=== PATIENT | male | born 1945 | race Caucasian/White ===

== ENCOUNTER 2020-06-10 08:57 | Outpatient (REF) | payer MEDICARE, SELFPAY ==
[2020-06-10 10:44] LABS: Estimated Average Glucose 117 mg/dL; Hemoglobin A1c % 5.7 %
[2020-06-10 11:02] LABS: Creatinine Urine 45.78 mg/dL; Microalbum/Creatinine Ratio Ur 56.7 ug/mg cr
[2020-06-10 11:05] LABS: Alanine Aminotransferase 23 U/L (0-40); Albumin Level 4.6 g/dL (3.5-5.0); Anion Gap 12 (12-20); Aspartate Amino Transferase 23 U/L (5-37); Bilirubin Total 0.6 mg/dL (0.0-1.0); Blood Urea Nitrogen 23 mg/dL (9-16); Calcium 9.2 mg/dL (8.4-10.2); Carbon Dioxide 26 mmol/L (22-29); Chloride 109 mmol/L (96-108); Estimated Glomerular Filt Rate 54; Glucose Random 126 mg/dL (60-115); Potassium 4.5 mmol/l (3.3-5.1); Sodium 142 mmol/L (135-145); Total Protein 6.9 g/dL (6.5-8.0)
[2020-06-10 11:06] LABS: Alkaline Phosphatase 62 U/L (39-117); Cholesterol 238 mg/dL; HDL Cholesterol 37 mg/dL; LDL Cholesterol Calculated 167 mg/dl; Triglycerides 172 mg/dL
[2020-06-10 12:05] LABS: Reflex LDLD? No
== END 2020-06-10 08:58 | disposition home or self-care (01) ==
LOC: HO.LAB 08:57
PROVIDERS: PCP Internal Medicine; Visit Provider Nurse Practitioner Gerontology
DX: E11.9 Type 2 diabetes mellitus without complications (principal)
CPT/HCPCS: 36415; 80053; 80061; 82043; 83036

== ENCOUNTER → 2020-06-16 12:55 | Outpatient (BNVA) | payer MEDICARE, SELFPAY | PROVIDERS: Visit Provider Internal Medicine | DX: E11.65 Type 2 diabetes mellitus with hyperglycemia (principal); E78.5 Hyperlipidemia, unspecified; I10 Essential (primary) hypertension; Z79.84 Long term (current) use of oral hypoglycemic drugs | CPT/HCPCS: 82947; 99214 ==

== ENCOUNTER 2020-09-19 11:09 | Outpatient (REF) | payer MEDICARE, SELFPAY | END 2020-09-19 11:10 | disposition home or self-care (01) | LOC: HO.LAB 11:09 | PROVIDERS: PCP Internal Medicine; Visit Provider Internal Medicine | DX: Z20.822 Contact with and (suspected) exposure to COVID-19 (principal) | CPT/HCPCS: 36415; C9803; U0003 ==

== ENCOUNTER 2021-02-03 08:58 | Outpatient (REF) | payer SELFPAY ==
--- NOTE | 2021-02-03 13:10 | MHC.AU.HAS ---
Hearing Aid Evaluation Date of Visit: 02/03/21 Social Sciences Chair Used: Not Applicable Historical Information: Description of Hearing: Left ear - Profound mixed hearing loss with 76% speech discrimination at 105 dB HL Right ear - Profound mixed hearing loss with 0% speech understanding Current personal amplification information, if applicable: 2017 Left Oticon OPN 3 Power Plus BTE with skeleton standard ear mold. Summary: Patient reports his current aid intermittently shuts off, goes through a series of beeps 3 times, and then turns back on. He is also unable to decrease the volume of the aid. Discussed sending aid in for repair with a charge of $315.00, but patient prefers to buy a new aid and use the current as a backup. Cleaned the aid, changed tubing, brushed and cleaned microphones and contacts. Discussed I am not sure if the cleaning will help with the intermittency problem. Patient was seen and tested by Dr. Monroy and given a medical clearance for left aid or CROS system. Patient prefers to stay with just a left Oticon hearing aid. Programmed his current aid to the updated hearing test with patient noting improved sound quality. Discussed the pros and cons of Oticon MORE RIUZ-R with power group cio and skeleton mold, vs the Oticon Exceed and traditional skeleton ear mold. Given the decent speech discrimination, discussed he may see improved clarity of speech with the RUIZ style and most updated hearing aid platform. Patient wants to continue with the same level of technology he has used. Took impression of the left ear without complication. Patient paid $500.00 deposit today. Hearing Aid Prescription: Based on the individual?s shared listening needs, communication environments, dexterity, desire for connectivity, and personal preferences, the following prescription for amplification has been made: Left ear: Glass Toughening Operator: Oticon Model: MORE 3 mini RITE-R Battery Size: Rechargeable Color: Steel Lr Embryology Teacher: #3 105 gain Type of Mold: Oticon Skeleton Lock mold Plan of Care: Patient wishes to purchase hearing aids as prescribed Action Taken/Action Needed: Earmold Impressions Taken Medical Clearance received from ENT Hearing Fitting to be scheduled when materials arrive Primary Diagnosis: H90.6 Bilateral mixed hearing loss Signature: Provider: Everett Mcclain, [facility]
== END 2021-02-03 08:59 | disposition home or self-care (01) ==
LOC: HO.HAP 08:58
PROVIDERS: Visit Provider Internal Medicine
DX: Z46.1 Encounter for fitting and adjustment of hearing aid (principal); H90.6 Mixed conductive and sensorineural hearing loss, bilateral
CPT/HCPCS: 92591; V5257; V5299

== ENCOUNTER 2021-02-17 15:09 | Outpatient (REF) | payer SELFPAY | END 2021-02-17 15:10 | disposition home or self-care (01) | LOC: HO.HAP 15:09 | PROVIDERS: Visit Provider Internal Medicine | DX: Z13.89 Encounter for screening for other disorder (principal) ==

== ENCOUNTER 2021-02-22 11:30 | Outpatient (REF) | payer SELFPAY | END 2021-02-22 11:31 | disposition home or self-care (01) | LOC: HO.HAP 11:30 | PROVIDERS: Visit Provider Internal Medicine | DX: Z13.89 Encounter for screening for other disorder (principal) ==

== ENCOUNTER 2021-03-08 13:50 | Outpatient (REF) | payer SELFPAY | END 2021-03-08 13:51 | disposition home or self-care (01) | LOC: HO.HAP 13:50 | PROVIDERS: Visit Provider Internal Medicine | DX: Z13.89 Encounter for screening for other disorder (principal) ==

== ENCOUNTER 2021-03-09 10:43 | Outpatient (REF) | payer SELFPAY | END 2021-03-09 10:44 | disposition home or self-care (01) | LOC: HO.HAP 10:43 | PROVIDERS: Visit Provider Internal Medicine | DX: Z13.89 Encounter for screening for other disorder (principal) ==

== ENCOUNTER 2021-03-22 08:56 | Outpatient (REF) | payer SELFPAY | END 2021-03-22 08:57 | disposition home or self-care (01) | LOC: HO.HAP 08:56 | PROVIDERS: Visit Provider Internal Medicine | DX: Z13.89 Encounter for screening for other disorder (principal) ==

== ENCOUNTER 2021-04-11 08:53 | Outpatient (REF) | payer SELFPAY | END 2021-04-11 08:54 | disposition home or self-care (01) | LOC: HO.HAP 08:53 | PROVIDERS: Visit Provider Internal Medicine | DX: Z13.89 Encounter for screening for other disorder (principal) ==

== ENCOUNTER 2021-04-18 09:51 | Outpatient (REF) | payer SELFPAY | END 2021-04-18 09:52 | disposition home or self-care (01) | LOC: HO.HAP 09:51 | PROVIDERS: Visit Provider Otolaryngology | DX: Z13.89 Encounter for screening for other disorder (principal) ==

== ENCOUNTER 2021-05-04 13:27 | Outpatient (REF) | payer SELFPAY ==
--- NOTE | 2021-05-04 14:54 | MHC.AU.FUL ---
Hearing Instrument Follow-Up Date of Visit: 05/04/21 Left Ear: Supervisor Garage: Oticon Model: MORE 3 miniRITE-R Serial Number: [id number] Repair Warranty: 03/16/2024 Loss and Damage Warranty: 03/16/2024 Battery Size: Rechargeable Color: Steel Lr Railroad Dining Car Steward/Stewardess: #3 105 gain Type of Mold: Oticon Canal mold SN: [id number] Warranty 03/16/2024 Type of Wax Guard: Prowax Dispensed By: [facility] Date of Fittin02/17/2021 Follow-Up Summary: Patient is experiencing 2 problems. First, the new left ultra power hard mold remake is causing irritation at the bottom of the canal. Ground down the mold with patient reporting some improvement; however, since the irritation is still there it is difficult to determine so he will try it for a few days. The second problem is the quality of sound becomes distorted and bothersome with louder speech. Datalogging shows he consistently decreased the volume control about 10 dB. Tried several programming changes including increasing MPO, changing Compression Ratios, with some improved comfort; however, continues to distort with loud voice while in office. Patient would like to try the traditional Power BTE style. Ordered left Oticon Xceed 3 BTE SP in Steel Lr. Extended the trial period for the More 3 mini RITE-R and architecture drafter until 07/17/2021 per Franco. Recommendations (Other): Schedule HAF when aid is received. REMIND PATIENT TO BRING IN OLD EARMOLD(S) FOR THE NEXT APPOINTMENT. Diagnosis Code(s): Primary Diagnosis: H90.6 Mixed Hearing Loss, Bilateral Services Performed: BUSTILLOS Non-Quantity Charges: HANC: NonBillable Event Signature: Provider: Addy Mcclain, CCC-A
== END 2021-05-04 13:28 | disposition home or self-care (01) ==
LOC: HO.HAP 13:27
PROVIDERS: Visit Provider Internal Medicine
DX: Z13.89 Encounter for screening for other disorder (principal)

== ENCOUNTER 2021-05-10 15:26 | Outpatient (REF) | payer SELFPAY | END 2021-05-10 15:27 | disposition home or self-care (01) | LOC: HO.HAP 15:26 | PROVIDERS: Visit Provider Internal Medicine | DX: Z46.1 Encounter for fitting and adjustment of hearing aid (principal); H90.6 Mixed conductive and sensorineural hearing loss, bilateral | CPT/HCPCS: 92591; V5257 ==

== ENCOUNTER 2021-05-26 11:39 | Outpatient (REF) | payer SELFPAY ==
--- NOTE | 2021-05-26 13:56 | MHC.AU.FUL ---
Hearing Instrument Follow-Up Date of Visit: 05/26/21 Left Ear: Spice Grinder: Oticon Model: Xceed 3 BTE 13 SP Serial Number: [id number] Repair Warranty: 06/03/2024 Loss and Damage Warranty: 06/03/2024 Battery Size: 13 Color: Steel Lr Rn Employee Health: 2018 Microsonic canal lock Tubing: Dri-Tube Type of Mold: Oticon Canal mold SN: [id number] Warranty 03/16/2024 Dispensed By: [facility] Date of Fittin05/10/2021 Follow-Up Summary: Patient reports the hearing aid is great . Sound and fit are comfortable. No adjustments are needed. Took impression of the left ear without complication as a mold comes with the hearing aid cost and patient is currently using his 2018 canal lock mold. Recommendations (Other): Schedule EM fitting when received. Diagnosis Code(s): Primary Diagnosis: H90.6 Mixed Hearing Loss, Bilateral Services Performed: BUSTILLOS Non-Quantity Charges: HANC: NonBillable Event Signature: Provider: Everett Mcclain, CCC-A
== END 2021-05-26 11:40 | disposition home or self-care (01) ==
LOC: HO.HAP 11:39
PROVIDERS: Visit Provider Internal Medicine
DX: Z13.89 Encounter for screening for other disorder (principal)

== ENCOUNTER 2021-06-12 14:28 | Outpatient (REF) | payer SELFPAY | END 2021-06-12 14:29 | disposition home or self-care (01) | LOC: HO.HAP 14:28 | PROVIDERS: Visit Provider Internal Medicine | DX: Z13.89 Encounter for screening for other disorder (principal) ==

== ENCOUNTER 2021-06-28 11:59 | Outpatient (REF) | payer MEDICARE, SELFPAY ==
[2021-06-28 14:33] LABS: Influenza A PCR NEGATIVE (Negative); Influenza B PCR NEGATIVE (Negative); Resp Syncy Virus RNA Qual PCR NEGATIVE (Negative); SARS COV2 PCR INHOUSE NEGATIVE (Negative)
== END 2021-06-28 12:00 | disposition home or self-care (01) ==
LOC: HO.LAB 11:59
PROVIDERS: Visit Provider Physician Assistant Medical
DX: Z20.822 Contact with and (suspected) exposure to COVID-19 (principal); J06.9 Acute upper respiratory infection, unspecified
CPT/HCPCS: 0241U; 36415

== ENCOUNTER 2021-08-07 14:00 | Outpatient (REF) | payer SELFPAY | END 2021-08-07 14:01 | disposition home or self-care (01) | LOC: HO.HAP 14:00 | PROVIDERS: Visit Provider Internal Medicine | DX: Z46.1 Encounter for fitting and adjustment of hearing aid (principal) | CPT/HCPCS: V5266 ==

== ENCOUNTER 2022-04-03 09:59 | Outpatient (REF) | payer SELFPAY | END 2022-04-03 10:00 | disposition home or self-care (01) | LOC: HO.HAP 09:59 | PROVIDERS: Visit Provider Internal Medicine | DX: Z46.1 Encounter for fitting and adjustment of hearing aid (principal); H90.6 Mixed conductive and sensorineural hearing loss, bilateral | CPT/HCPCS: V5266 ==

== ENCOUNTER 2022-04-25 14:02 | Outpatient (REF) | payer MEDICARE, SELFPAY ==
[2022-04-25 14:12] LABS: MANUAL DIFF FLAG NO
[2022-04-25 15:07] LABS: Basophils Percent Auto 0.5 % (0-2); Eosinophils Absolute Auto 0.1 X10*3/uL (0.0-0.4); Eosinophils Percent Auto 1.1 % (0-4); Hematocrit 39.7 % (42.0-52.0); Hemoglobin 13.7 g/dl (14.0-18.0); Imm Gran Abs Auto 0.04 X10*3/uL (0.00-0.03); Imm Gran Pct Auto 0.5 % (0.0-0.4); Lymphocytes Percent Auto 11.9 % (20-40); Mean Corpuscular HGB Conc 34.5 g/dl (31.0-36.0); Mean Corpuscular Hemoglobin 30.6 pg (27.0-33.0); Mean Corpuscular Volume 88.8 fL (80.0-98.0); Mean Platelet Volume 11.4 fL (9.4-12.4); Monocytes Absolute Auto 0.7 X10*3/uL (0.1-1.2); Monocytes Percent Auto 8.2 % (2-11); Neutrophils Absolute Auto 6.5 x10*3/uL (2.0-8.3); Neutrophils Percent Auto 77.8 % (45-73); Platelet Count 153 X10*3/uL (160-400); Red Blood Count 4.47 X10*6/uL (4.60-5.80); Red Cell Distribution Width 12.1 % (11.0-16.0); White Blood Count 8.3 X10*3/uL (4.8-10.8)
[2022-04-25 15:59] LABS: Alanine Aminotransferase 23 U/L (0-40); Albumin Level 4.6 g/dL (3.5-5.0); Alkaline Phosphatase 68 U/L (39-117); Anion Gap 18 (12-20); Aspartate Amino Transferase 24 U/L (5-37); Bilirubin Total 0.6 mg/dL (0.0-1.0); Blood Urea Nitrogen 30 mg/dL (9-16); Calcium 9.5 mg/dL (8.4-10.2); Carbon Dioxide 20 mmol/L (22-29); Chloride 108 mmol/L (96-108); Cholesterol 243 mg/dL; Estimated Glomerular Filt Rate 43; Glucose Fasting 139 mg/dL (60-99); HDL Cholesterol 35 mg/dL; LDL Cholesterol Calculated 160 mg/dl; Potassium 4.7 mmol/L (3.3-5.1); Sodium 141 mmol/L (135-145); Total Protein 6.9 g/dL (6.5-8.0); Triglycerides 244 mg/dL
[2022-04-25 16:03] LABS: Appearance Urine Clear; Color Urine Red; Glucose Urine UA Negative (Negative); Leukocyte Esterase Urine Small (1+) (Negative); Nitrite Urine Negative (Negative); Urine Blood Large (3+) (Negative); Urine Ketones Negative (Negative); Urine Protein 100 (2+) mg/dL (Neg-Trace)
[2022-04-25 16:16] LABS: Bacteria Urine None Seen (None Seen); Hyaline Casts Urine 0-2 /LPF (0-2); RBC Urine >20 /HPF (0-2); Squamous Epithelial Cell Urine 0-2 /HPF (0-2); UACC Culture Trigger YES; WBC Urine 0-5 /HPF (0-5)
== END 2022-04-25 14:03 | disposition home or self-care (01) ==
LOC: HO.LAB 14:02
PROVIDERS: PCP Internal Medicine; Visit Provider Internal Medicine
DX: Z13.0 Encounter for screening for diseases of the blood and blood-forming organs and certain disorders involving the immune mechanism (principal); I10 Essential (primary) hypertension; E78.5 Hyperlipidemia, unspecified
CPT/HCPCS: 36415; 80053; 80061; 81001; 81003; 85025; 87086

== ENCOUNTER 2022-06-08 12:34 | Outpatient (REF) | payer MEDICARE, SELFPAY ==
[2022-06-08 14:43] LABS: Anion Gap 20 (12-20); Carbon Dioxide 21 mmol/L (22-29); Chloride 101 mmol/L (96-108); Potassium 4.7 mmol/L (3.3-5.1); Sodium 137 mmol/L (135-145)
== END 2022-06-08 12:35 | disposition home or self-care (01) ==
LOC: HO.HMGCLDS 12:34
PROVIDERS: PCP Internal Medicine
DX: M62.838 Other muscle spasm (principal)
CPT/HCPCS: 36415; 80051

== ENCOUNTER 2022-06-23 08:33 | Emergency (ER) | payer MEDICARE, SELFPAY ==
--- NOTE | ~2022-06-23 | US_ITS ---
EXAMINATION: US SCROTUM CLINICAL INFORMATION: Right testicular pain.. COMPARISON: None TECHNIQUE: A sonogram of the scrotum was performed assessing houser-scale appearance and color Doppler flow. Spectral Doppler analysis of the arterial and venous flow were performed in the testes bilaterally. FINDINGS: RIGHT: Right testicle measures 4.7 x 2.3 x 2.3 cm, volume 13.2 mL. No focal testicular parenchymal lesions are visualized. Spectral Doppler analysis of the arterial and venous flow is normal in the right testis. Right epididymal head is normal in size. No varicocele is seen. Right epididymal Doppler flow is normal. There is a small right hydrocele with septations. LEFT: Left testicle measures 4.6 x 2.3 x 2.4 cm, volume 13.7 mL. No focal testicular parenchymal lesions are visualized. Spectral Doppler analysis of the arterial and venous flow is normal in the left testis. Left epididymal head is normal in size. No left hydrocele . Left epididymal Doppler flow is normal. There is a small left varicocele. US/US scrotum IMPRESSION: Normal bilateral testes and epididymides. Complex right small hydrocele. Left varicocele.
--- NOTE | ~2022-06-23 | CT_ITS ---
EXAMINATION: CT ABDOMEN AND PELVIS WITHOUT CONTRAST CLINICAL INFORMATION: Right lower quadrant/suprapubic abdominal pain radiating to right scrotum. Hematuria. COMPARISON: None. TECHNIQUE: Multidetector volumetric imaging was performed from the superior aspect of the liver through the pubic symphysis. Sagittal and coronal reformatted images were obtained on the technologist workstation. This CT examination was performed using dose optimization techniques as appropriate, variously including the following: *Automated exposure control *Adjustment of mA and/or kV according to patient size (this includes techniques or standardized protocols for targeted exams where dose is matched to indication/reason for exam; i.e. extremities or head) *Use of iterative reconstruction technique DLP: 544 mGy-cm. FINDINGS: LUNG BASES: There is moderate paraseptal and centrilobular emphysema in the included lung bases. There are also multifocal superimposed regions of peripheral subpleural reticulation and honeycomb cyst formation in dependent and nondependent portions of the included right middle lobe, lingula and both lower lobes, consistent with superimposed interstitial lung disease and fibrosis. A small retrocardiac hiatal hernia is noted. LIVER, GALLBLADDER, AND BILIARY TREE: The liver is normal in size, shape, and attenuation. No focal hepatic lesion on noncontrast imaging. No biliary ductal dilatation is present. The gallbladder is unremarkable with no evidence of radiopaque gallstones, gallbladder wall thickening, or obvious pericholecystic inflammatory changes. PANCREAS: Diffusely atrophic with fatty infiltration throughout the parenchyma. There are coarse calcific densities seen in the pancreatic head and scattered in the body and tail, suggestive of prior chronic calcific pancreatitis. No definite focal pancreatic mass seen on noncontrast imaging. No pancreatic ductal dilatation or peripancreatic fluid collection seen. SPLEEN: Small calcified granuloma is seen within the spleen. Spleen is otherwise unremarkable. ADRENAL GLANDS: Unremarkable on noncontrast imaging. KIDNEYS AND URETERS: The kidneys are normal in size, shape, and attenuation. No hydronephrosis, hydroureter, or calculi seen. Nonspecific mild perinephric stranding. BLADDER: Unremarkable. PELVIC VISCERA: The prostate gland is enlarged and heterogeneous and partially impresses upon the bladder base. Seminal vesicles bilaterally are symmetric and unremarkable. GASTROINTESTINAL TRACT: The small and large bowel are unremarkable. The appendix is unremarkable. ABDOMINAL WALL: There is a small fat-containing umbilical hernia. LYMPH NODES, VASCULAR: Abdominal aorta normal in caliber with moderate atherosclerotic calcification seen extending into the iliac vessels. No abdominal or pelvic adenopathy or free fluid. OSSEOUS STRUCTURES: Multilevel degenerative disc disease and mild vertebral spondylosis in lumbar spine. Prominent spurring in the lower thoracic spine with relative preservation of the disc space height, suspicious for diffuse idiopathic skeletal hyperostosis. Moderate facet arthropathy in lower lumbar spine.. CT/CT abdomen pelvis wo IV con IMPRESSION: 1. No acute findings seen in the right lower quadrant or suprapubic region to explain the patient's acute clinical presentation. Specifically, no evidence of nephrolithiasis or obstructive uropathy. 2. Moderate emphysema with associated interstitial lung disease and fibrosis in the included lung bases are laterally. Findings may be related to respiratory bronchiolitis-interstitial lung disease or smoking-related interstitial lung disease. Close clinical correlation is requested. 3. Findings consistent with chronic calcific pancreatitis. 4. Enlarged heterogeneous prostate gland. 5. Moderate atherosclerotic aortic calcifications. 6. Small fat-containing umbilical hernia.
--- NOTE | ~2022-06-23 | US_ITS ---
EXAMINATION: US SCROTUM CLINICAL INFORMATION: Right testicular pain.. COMPARISON: None TECHNIQUE: A sonogram of the scrotum was performed assessing houser-scale appearance and color Doppler flow. Spectral Doppler analysis of the arterial and venous flow were performed in the testes bilaterally. FINDINGS: RIGHT: Right testicle measures 4.7 x 2.3 x 2.3 cm, volume 13.2 mL. No focal testicular parenchymal lesions are visualized. Spectral Doppler analysis of the arterial and venous flow is normal in the right testis. Right epididymal head is normal in size. No varicocele is seen. Right epididymal Doppler flow is normal. There is a small right hydrocele with septations. LEFT: Left testicle measures 4.6 x 2.3 x 2.4 cm, volume 13.7 mL. No focal testicular parenchymal lesions are visualized. Spectral Doppler analysis of the arterial and venous flow is normal in the left testis. Left epididymal head is normal in size. No left hydrocele . Left epididymal Doppler flow is normal. There is a small left varicocele. US/US scrotum doppler IMPRESSION: Normal bilateral testes and epididymides. Complex right small hydrocele. Left varicocele.
[2022-06-23 08:46] VITALS: BP 140/82; BP 151/63; PULSE 64; PULSE 67; RESP 16; TEMP 36.6; O2SAT 98; BMI 28.4
--- NOTE | 2022-06-23 08:52 | ED.MALEGU ---
HPI - Male Genitourinary General Chief complaint: Urogenital-Male Stated complaint: muscle spasms Time Seen by Provider: 06/23/22 08:37 Source: patient and EMS Mode of arrival: EMS History of Present Illness HPI Narrative: 77-year-old male with a past medical history of HLD, HTN, interstitial lung disease, muscle spasms, diabetes, presenting to the ED complaining of suprapubic/RLQ abdominal pain and right scrotal pain with microscopic hematuria since yesterday. Admits was seen at urgent care yesterday for similar symptoms and told about the hematuria, recommended urology follow-up. Denies fever, chills, nausea, vomiting, scrotal swelling/lesions, penile discharge, trauma, dysuria, flank pain MD Complaint: testicle pain Onset (ago): day(s) Related Data Home Medications Medication Instructions Recorded Confirmed acetaminophen 500 mg tablet 500 mg PO Q6H PRN 12/29/21 04/25/22 (Tylenol Extra Strength) Previous Rx's Medication Instructions Recorded fluticasone propionate 50 2 spray intranasal DAILY 1 month 12/29/21 mcg/actuation nasal #16 grams spray,suspension (Allergy Relief (fluticasone)) loratadine 10 mg tablet (Allergy 10 mg PO DAILY #90 tabs 12/29/21 Relief (loratadine)) baclofen 5 mg tablet 5 mg PO TID PRN muscle spasms #10 06/08/22 tabs phenazopyridine 200 mg tablet 200 mg PO TID PRN pain 6 doses #6 06/23/22 (Pyridium) tabs Allergies Allergy/AdvReac Type Severity Reaction Status Date / Time No Known Allergies Allergy Verified 06/22/22 15:15 Review of Systems Review of Systems: Constitutional: No Fever, No Chills, No Fatigue, No Malaise ENT/Mouth: No Hearing loss, No Ear Pain, No Hoarseness, No sore throat, No Rhinorrhea, No Swallowing Difficulty Eyes: No Eye Pain, No Swelling, No Redness Cardiovascular: No Chest Pain, No SOB, No Dyspnea on Exertion, No Edema, No Palpitations Respiratory: No Cough, No Sputum, No Dyspnea Gastrointestinal: No Nausea, No Vomiting, No Diarrhea, No Constipation, + Abdominal pain Genitourinary: + scrotal pain, No Dysuria, No Urinary Frequency, + Hematuria, No Urinary Incontinence/retention, No Urgency, No Flank Pain, No Urinary Flow Changes, No Hesitancy Musculoskeletal: No joint pain, No Myalgias, No Joint Swelling Skin: No Skin Lesions, No rash Neuro: No Weakness, No Numbness, No Dizziness, No Headache Yes all other systems are reviewed and are negative Constitutional: Constitutional: Reports as per [facility] Past Medical History Attestation statement: The following information was validated with the patient. Medical History Cataracts, bilateral HLD (hyperlipidemia) HTN (hypertension) Interstitial lung disease Muscle spasms of both lower extremities T2DM (type 2 diabetes mellitus) Surgical History Hx of sinus surgery Family History Family History Father Stomach cancer Mother No problems noted. Social History Social History Housing: Condominium Alcohol intake: current Alcohol intake frequency: 0-2 drinks per day Alcohol type: wine Patient Tobacco Use Status: Former Tobacco user Years Smoked: 60 years e-Cigarette/Vaping Use: Never Used Second Hand Smoke Exposure: No Advance Directives: No Advance Directives Information Provided: Yes service: No Current occupational status: employed Cognitive needs: No Hearing needs: No Vision needs: No Physical Exam Vital Signs: Vital Signs: Last Vital Signs Temp 97.9 F 06/23/22 08:46 Pulse 71 06/23/22 10:29 Resp 18 06/23/22 10:29 BP 138/70 06/23/22 10:29 Pulse Ox 98 06/23/22 10:29 O2 Del Method 06/23/22 10:29 BMI result Body Mass Index 28.4 Const: General: cooperative, healthy appearing and no acute distress Orientation/consciousness: patient oriented x3 Limitations: no limitations HEENT: Head: Yes normal to inspection and Yes atraumatic Ears: hearing grossly normal bilaterally General nose exam: Normal external nose present Face and sinus: Yes normal facial exam Eyes: General: appearance normal, both eyes and all related structures EOM: EOMs intact bilaterally Neck: Neck: Yes normal visual inspection and Yes no meningeal signs Resp: Effort & Inspection: normal respiratory effort and no respiratory distress Cardio: Rate: regular rate Heart sounds: S1 normal heart sound present and S2 normal heart sound present GI: Inspection: Yes normal to inspection Palpation (GI): Soft to palpation, Tenderness to palpation present (GI) in the RLQ and suprapubicly; with no rebound tenderness, no guarding and not rigid : General: Yes no CVA tenderness Male General Exam: No hernia Penis: uncircumcised Testes: no masses, no testicular swelling, testicular tenderness on the right and normal testicular lie Back/Spine/Pelvis: Back: no CVA tenderness Skin: Rashes: no rashes Wounds: no wounds Neuro: General: patient oriented x3, tone normal and no meningeal signs Gait exam (Neuro): Normal gait present Extrem: General: Yes normal to inspection Course Course Course Narrative: -1115--labs unremarkable urine CT abdomen pelvis wo IV con IMPRESSION: ? 1. No acute findings seen in the right lower quadrant or suprapubic region to explain the patient's acute clinical presentation. Specifically, no evidence of nephrolithiasis or obstructive uropathy. 2. Moderate emphysema with associated interstitial lung disease and fibrosis in the included lung bases are laterally. Findings may be related to respiratory bronchiolitis-interstitial lung disease or smoking-related interstitial lung disease. Close clinical correlation is requested. 3. Findings consistent with chronic calcific pancreatitis. 4. Enlarged heterogeneous prostate gland. 5. Moderate atherosclerotic aortic calcifications. 6. Small fat-containing umbilical hernia. -UA with blood, not infected US scrotum IMPRESSION: Normal bilateral testes and epididymides. ? Complex right small hydrocele. ? Left varicocele. > patient reports he has follow-up with Urology on the . Results discussed with patient including worrisome signs and symptoms and strict return precautions, and when to return to the emergency department. They verbalized understanding and feel safe for discharge at this time. MDM - Male Genitourinary MDM Narrative Medical decision making narrative: 77-year-old male with a past medical history of HLD, HTN, interstitial lung disease, muscle spasms, diabetes, presenting to the ED complaining of suprapubic/RLQ abdominal pain and right scrotal pain with microscopic hematuria since yesterday. On exam vital signs stable, NAD, nontoxic appearing, abdomen soft with suprapubic/RLQ tenderness as well as right scrotal tenderness, no rebound or guarding, no regional hernia/lesions. No CVA tenderness. Concern for renal stone vs ? Pyelo/UTI vs appendicitis vs testicular torsion or orchitis/epididymitis. Lower suspicion for cholecystitis/lithiasis/pancreatitis or diverticulitis. Plan: Labs, UA, CT/NG, scrotal ultrasound, CT AP, IVF, pain management Differential Diagnosis Differential diagnosis: Likely urinary tract infection, epididymitis, prostatitis and inguinal hernia Medical Records Attestation: I reviewed the patient's medical records. Lab Data Attestation: I reviewed the patient's lab results. Result diagrams: 06/23/22 09:20 06/23/22 09:20 Labs: Lab Results 06/23/22 06/23/22 06/23/22 Range/Units 09:20 09:20 09:20 WBC 5.5 (4.8-10.8) X10*3/uL RBC 4.70 (4.60-5.80) X10*6/uL Hgb 14.1 (14.0-18.0) g/dl Hct 41.0 L (42.0-52.0) % MCV 87.2 (80.0-98.0) fL MCH 30.0 (27.0-33.0) pg MCHC 34.4 (31.0-36.0) g/dl RDW 12.0 (11.0-16.0) % Plt Count 148 L (160-400) X10*3/uL MPV 10.5 (9.4-12.4) fL Immature Gran % (Auto) 0.4 (0.0-0.4) % Neut % (Auto) 73.4 H (45-73) % Lymph % (Auto) 16.2 L (20-40) % [place] % (Auto) 8.2 (2-11) % Eos % (Auto) 1.3 (0-4) % Baso % (Auto) 0.5 (0-2) % Lymph # (Auto) 0.9 L (1.2-4.9) X10*3/uL [place] # (Auto) 0.5 (0.1-1.2) X10*3/uL Eos # (Auto) 0.1 (0.0-0.4) X10*3/uL Baso # (Auto) 0.0 (0.0-0.2) X10*3/uL Abs Immat Gran (auto) 0.02 (0.00-0.03) X10*3/uL Absolute Neuts (auto) 4.0 (2.0-8.3) x10*3/uL Absolute Nucleated RBC 0.000 (0.0-0.012) X10*3/uL Nucleated RBC % (auto) 0.0 (0.0-0.2) /100WBC Sodium 136 (135-145) mmol/L Potassium 4.3 (3.3-5.1) mmol/L Chloride 102 (96-108) mmol/L Carbon Dioxide 23 (22-29) mmol/L Anion Gap 15 (12-20) BUN 20 H (9-16) mg/dL Creatinine 1.34 (0.5-1.4) mg/dL Estim Creat Clear Calc 45.9 Estimated GFR 51 Random Glucose 177 H D (60-115) mg/dL Calcium 9.4 (8.4-10.2) mg/dL Magnesium 2.0 (1.6-2.6) mg/dL Total Bilirubin 0.7 (0.0-1.0) mg/dL Direct Bilirubin 0.2 (0.0-0.5) mg/dL AST 23 (5-37) U/L ALT 21 (0-40) U/L Alkaline Phosphatase 66 (39-117) U/L Total Protein 7.1 (6.5-8.0) g/dL Albumin 4.5 (3.5-5.0) g/dL Lipase 23 (8-78) U/L Urine Color Urine Appearance Urine pH (5.0-9.0) Ur Specific [place] (1.005-1.025) Urine Protein (Neg-Trace) mg/dL Urine Glucose (UA) (Negative) mg/dL Urine Ketones (Negative) mg/dL Urine Blood (Negative) Urine Nitrite (Negative) Ur Leukocyte Esterase (Negative) Urine RBC (0-2) /HPF Urine WBC (0-5) /HPF Ur Squamous Epith Cells (0-2) /HPF Urine Bacteria (None Seen) Hyaline Casts (0-2) /LPF COVID-19 ([facility]) Negative (Negative) COVID-19 Clin Com See Note 06/23/22 Range/Units 11:01 WBC (4.8-10.8) X10*3/uL RBC (4.60-5.80) X10*6/uL Hgb (14.0-18.0) g/dl Hct (42.0-52.0) % MCV (80.0-98.0) fL MCH (27.0-33.0) pg MCHC (31.0-36.0) g/dl RDW (11.0-16.0) % Plt Count (160-400) X10*3/uL MPV (9.4-12.4) fL Immature Gran % (Auto) (0.0-0.4) % Neut % (Auto) (45-73) % Lymph % (Auto) (20-40) % [place] % (Auto) (2-11) % Eos % (Auto) (0-4) % Baso % (Auto) (0-2) % Lymph # (Auto) (1.2-4.9) X10*3/uL [place] # (Auto) (0.1-1.2) X10*3/uL Eos # (Auto) (0.0-0.4) X10*3/uL Baso # (Auto) (0.0-0.2) X10*3/uL Abs Immat Gran (auto) (0.00-0.03) X10*3/uL Absolute Neuts (auto) (2.0-8.3) x10*3/uL Absolute Nucleated RBC (0.0-0.012) X10*3/uL Nucleated RBC % (auto) (0.0-0.2) /100WBC Sodium (135-145) mmol/L Potassium (3.3-5.1) mmol/L Chloride (96-108) mmol/L Carbon Dioxide (22-29) mmol/L Anion Gap (12-20) BUN (9-16) mg/dL Creatinine (0.5-1.4) mg/dL Estim Creat Clear Calc Estimated GFR Random Glucose (60-115) mg/dL Calcium (8.4-10.2) mg/dL Magnesium (1.6-2.6) mg/dL Total Bilirubin (0.0-1.0) mg/dL Direct Bilirubin (0.0-0.5) mg/dL AST (5-37) U/L ALT (0-40) U/L Alkaline Phosphatase (39-117) U/L Total Protein (6.5-8.0) g/dL Albumin (3.5-5.0) g/dL Lipase (8-78) U/L Urine Color Yellow Urine Appearance Clear Urine pH 6.5 (5.0-9.0) Ur Specific [place] <= 1.005 (1.005-1.025) Urine Protein Negative (Neg-Trace) mg/dL Urine Glucose (UA) Negative (Negative) mg/dL Urine Ketones Negative (Negative) mg/dL Urine Blood Large (3+) H (Negative) Urine Nitrite Negative (Negative) Ur Leukocyte Esterase Negative (Negative) Urine RBC 11-20 H (0-2) /HPF Urine WBC 0-5 (0-5) /HPF Ur Squamous Epith Cells 0-2 (0-2) /HPF Urine Bacteria None Seen (None Seen) Hyaline Casts 0-2 (0-2) /LPF COVID-19 ([facility]) (Negative) COVID-19 Clin Com Discharge Plan Discharge Clinical Impression: Hydrocele, right, Microscopic hematuria Patient Disposition: Home, Self-Care Instructions: Hydrocele (ED), Hematuria (ED) Additional Instructions: -Your blood work was reassuring. Your CT did not show any acute findings. -your ultrasound shows a small right-sided complex hydrocele. your urine has microscopic blood however is not infected, we will send a urine culture, if this is positive we will call you in the next 48-72 hours. -Pyridium will help with urinary discomfort. -You need to follow-up with urology If symptoms persist or worsen, you develop constant/unremitting pain, you are unable to urinate, you seem a bloody urine, high fever please return to the emergency department Prescriptions: New phenazopyridine [Pyridium] 200 mg tablet 200 mg PO TID PRN (Reason: pain) Qty: 6 0RF No Action fluticasone propionate [Allergy Relief (fluticasone)] 50 mcg/actuation spray,suspension 2 spray intranasal DAILY 30 Days Qty: 16 3RF Rx Instructions: administer into each nostril loratadine [Allergy Relief (loratadine)] 10 mg tablet 10 mg PO DAILY Qty: 90 1RF acetaminophen [Tylenol Extra Strength] 500 mg tablet 500 mg PO Q6H PRN baclofen 5 mg tablet 5 mg PO TID PRN (Reason: muscle spasms) Qty: 10 0RF Referrals: [facility] [place] Group] [facility] [Provider Group]
[2022-06-23] MEDS: Morphine Sulfate 2 MG/ML CARTRIDGE IVPUSH (09:28)
[2022-06-23] MEDS: 0.9 % Sodium Chloride 1,000 ML 999 ML IV (09:29)
[2022-06-23 09:34] LABS: MANUAL DIFF FLAG NO
[2022-06-23 09:36] LABS: Basophils Percent Auto 0.5 % (0-2); Eosinophils Absolute Auto 0.1 X10*3/uL (0.0-0.4); Eosinophils Percent Auto 1.3 % (0-4); Hemoglobin 14.1 g/dl (14.0-18.0); Imm Gran Abs Auto 0.02 X10*3/uL (0.00-0.03); Imm Gran Pct Auto 0.4 % (0.0-0.4); Lymphocytes Absolute Auto 0.9 X10*3/uL (1.2-4.9); Lymphocytes Percent Auto 16.2 % (20-40); Mean Corpuscular HGB Conc 34.4 g/dl (31.0-36.0); Mean Corpuscular Volume 87.2 fL (80.0-98.0); Mean Platelet Volume 10.5 fL (9.4-12.4); Monocytes Absolute Auto 0.5 X10*3/uL (0.1-1.2); Monocytes Percent Auto 8.2 % (2-11); Neutrophils Percent Auto 73.4 % (45-73); Platelet Count 148 X10*3/uL (160-400); White Blood Count 5.5 X10*3/uL (4.8-10.8)
[2022-06-23 09:51] LABS: COVID-19 Test Negative (Negative); IDNOW Serial# 16C4AD1C
[2022-06-23 09:55] LABS: Alanine Aminotransferase 21 U/L (0-40); Albumin Level 4.5 g/dL (3.5-5.0); Alkaline Phosphatase 66 U/L (39-117); Anion Gap 15 (12-20); Aspartate Amino Transferase 23 U/L (5-37); Bilirubin Direct 0.2 mg/dL (0.0-0.5); Bilirubin Total 0.7 mg/dL (0.0-1.0); Blood Urea Nitrogen 20 mg/dL (9-16); Calcium 9.4 mg/dL (8.4-10.2); Carbon Dioxide 23 mmol/L (22-29); Chloride 102 mmol/L (96-108); Creatinine Clr Calc Pharmacy 45.9; Estimated Glomerular Filt Rate 51; Glucose Random 177 mg/dL (60-115); Lipase 23 U/L (8-78); Potassium 4.3 mmol/L (3.3-5.1); Sodium 136 mmol/L (135-145); Total Protein 7.1 g/dL (6.5-8.0)
[2022-06-23 10:29] VITALS: BP 138/70; PULSE 71; RESP 18; O2SAT 98
[2022-06-23 11:15] LABS: Appearance Urine Clear; Color Urine Yellow; Glucose Urine UA Negative (Negative); Leukocyte Esterase Urine Negative (Negative); Nitrite Urine Negative (Negative); PH 6.5 (5.0-9.0); Specific Gravity - Urine <= 1.005 (1.005-1.025); UMIC TRIGGER UACC YES; Urine Blood Large (3+) (Negative); Urine Ketones Negative (Negative); Urine Protein Negative (Neg-Trace)
[2022-06-23 11:20] LABS: Bacteria Urine None Seen (None Seen); Hyaline Casts Urine 0-2 /LPF (0-2); Squamous Epithelial Cell Urine 0-2 /HPF (0-2); WBC Urine 0-5 /HPF (0-5)
[2022-06-23] MEDS: Ketorolac Tromethamine 15 MG/ML VIAL IVPUSH (15:04)
[2022-06-23] MEDS: Phenazopyridine HCL 100 MG TABLET PO (15:04)
[2022-06-24 03:04] LABS: CT PCR NOT DETECTED (Not Detect.); NG PCR NOT DETECTED (Not Detect.)
== END 2022-06-23 15:10 | disposition home or self-care (01) ==
PROVIDERS: Physician Assistant; Emergency Provider Emergency Medicine; PCP Internal Medicine
DX: N43.3 Hydrocele, unspecified (principal); R31.29 Other microscopic hematuria; Z20.822 Contact with and (suspected) exposure to COVID-19; I10 Essential (primary) hypertension; E11.9 Type 2 diabetes mellitus without complications; E78.5 Hyperlipidemia, unspecified; Z87.891 Personal history of nicotine dependence; Z79.899 Other long term (current) drug therapy
CPT/HCPCS: 74176; 76870; 80048; 80076; 81001; 83690; 83735; 85025; 87491; 87591; 87635; 93975; 96361; 96374; 96375; 99284; J1885; J2270

== ENCOUNTER 2022-06-26 12:18 | Outpatient (REF) | payer MEDICARE, SELFPAY | END 2022-06-26 12:19 | disposition home or self-care (01) | LOC: HO.SH 12:18 | PROVIDERS: Visit Provider Otolaryngology | DX: Z01.118 Encounter for examination of ears and hearing with other abnormal findings (principal); H90.6 Mixed conductive and sensorineural hearing loss, bilateral | CPT/HCPCS: 92557 ==

== ENCOUNTER 2022-06-26 13:05 | Outpatient (REF) | payer SELFPAY | END 2022-06-26 13:06 | disposition home or self-care (01) | LOC: HO.HAP 13:05 | PROVIDERS: PCP Internal Medicine; Visit Provider Internal Medicine | DX: Z46.1 Encounter for fitting and adjustment of hearing aid (principal); H90.6 Mixed conductive and sensorineural hearing loss, bilateral | CPT/HCPCS: V5266 ==

== ENCOUNTER 2022-07-04 10:00 | Outpatient (REF) | payer MEDICARE, SELFPAY ==
[2022-07-04 17:52] LABS: Urine Cytology See Pathology rpt
== END 2022-07-04 10:01 | disposition home or self-care (01) ==
LOC: HO.LAB 10:00
PROVIDERS: PCP Internal Medicine; Visit Provider Urology
DX: Z13.9 Encounter for screening, unspecified (principal); R31.9 Hematuria, unspecified; R30.0 Dysuria; D49.4 Neoplasm of unspecified behavior of bladder; R33.9 Retention of urine, unspecified; N40.1 Benign prostatic hyperplasia with lower urinary tract symptoms; Z87.891 Personal history of nicotine dependence
CPT/HCPCS: 51798; 52000; 88112; 99202

== ENCOUNTER 2022-07-19 10:12 | Outpatient (REF) | payer MEDICARE, SELFPAY ==
--- NOTE | ~2022-07-19 | CT_ITS ---
EXAMINATION: CT ABDOMEN AND PELVIS WITHOUT AND WITH CONTRAST CLINICAL INFORMATION: Neoplasm of the bladder. COMPARISON: CT abdomen and pelvis with and without contrast 06/23/2022. TECHNIQUE: Multidetector volumetric imaging was performed of the abdomen and pelvis before and after the IV administration of 100 mL of Omnipaque 300 intravenous contrast. Sagittal and coronal reformatted images were obtained on the technologist's workstation. This CT examination was performed using dose optimization techniques as appropriate, variously including the following: *Automated exposure control *Adjustment of mA and/or kV according to patient size (this includes techniques or standardized protocols for targeted exams where dose is matched to indication/reason for exam; i.e. extremities or head) *Use of iterative reconstruction technique DLP: 739 mGy-cm FINDINGS: LUNG BASES: There is mild honeycombing and emphysematous changes in both lung bases. LIVER, GALLBLADDER, AND BILIARY TREE: The liver is normal in size, shape, and attenuation. No focal hepatic lesion or biliary ductal dilatation is present. The gallbladder is unremarkable with no evidence of radiopaque gallstones, gallbladder wall thickening, or obvious pericholecystic inflammatory changes. PANCREAS: Unremarkable. SPLEEN: Unremarkable. ADRENAL GLANDS: Unremarkable. KIDNEYS AND URETERS: The kidneys are normal in size, shape, and attenuation. No hydronephrosis, hydroureter, or calculi seen. There is mild bilateral perinephric stranding. Extrarenal kidney pelvises are noted. There is a nonenhancing hypodense lesion upper pole cortex right kidney, probable cyst or angiomyolipoma. The ureters are well opacified and nondilated without any intraluminal filling defect. BLADDER: There is mild bladder wall thickening without any focal lesion. There is moderate prostate enlargement extending into the base of the bladder. GASTROINTESTINAL TRACT: There is moderate scattered stool in the colon without significant distention. The small bowel loops are normal caliber. The appendix is normal caliber. No inflammatory process is seen in the abdomen. ABDOMINAL WALL: No significant hernia is appreciated. LYMPH NODES: Normal. VASCULAR: There are atherosclerotic changes of the abdominal aorta without aneurysmal dilatation. PELVIC VISCERA: No abnormal size pelvic lymph nodes seen. The prostate gland is enlarged. OSSEOUS STRUCTURES: Moderate ventral spondylosis. No aggressive lytic or sclerotic process seen. CT/CT abdomen pelvis wo/w IV con IMPRESSION: 1. No radiopaque urolith or hydroureteronephrosis. There are bilateral extrarenal kidney pelvises. 2. Mild bladder wall thickening with moderate prostate enlargement extending into the base of the bladder. 3. Mild constipation. Fleischner guidelines were followed.
[2022-07-19] MEDS: iohexoL 350 MG/ML 100 ML INFUS..BTL IV (10:51)
== END 2022-07-19 10:13 | disposition home or self-care (01) ==
LOC: HO.CT 10:12
PROVIDERS: PCP Internal Medicine; Visit Provider Urology
DX: D49.4 Neoplasm of unspecified behavior of bladder (principal); R31.9 Hematuria, unspecified
CPT/HCPCS: 74178; Q9967

== ENCOUNTER 2022-07-31 07:19 | Day surgery (SDC) | payer MEDICARE, SELFPAY ==
[2022-07-24 10:46] VITALS: BMI 27.7
--- NOTE | 2022-07-30 08:58 | P.CONAN_ITS ---
Documented by User: Myranda Monroe NP 07/30/22 09:02 HPI - Anesthesia Eval Consult details Narrative: 77yo M for TUR Bladder Tumor with fulgeration PCP cleared [facility] Active Problems Active Problems: All Active Problems (Updated 07/26/22 @ 12:17 by Jass Klein MD) Allergic rhinitis (Acute) Pre-op exam (Acute) Former cigarette smoker (Acute) BPH loc w urin obs/LUTS (Acute) Incomplete bladder emptying (Acute) Bladder tumor (Acute) Muscle spasms of both lower extremities (Acute) Hematuria (Acute) Physical exam (Acute) Viral illness (Acute) Otalgia of right ear (Acute) Interstitial lung disease (Acute) HTN (hypertension) (Acute) HLD (hyperlipidemia) (Acute) T2DM (type 2 diabetes mellitus) (Acute) Past Medical History Medical History Cataracts, bilateral HLD (hyperlipidemia) HTN (hypertension) Interstitial lung disease Muscle spasms of both lower extremities Family History Family History Father Stomach cancer Mother No problems noted. Surgical History Surgical History Hx of sinus surgery Social History Social History Housing: Condominium Alcohol intake: current Alcohol intake frequency: 0-2 drinks per day Alcohol ty pe: wine Patient Tobacco Use Status: Former Tobacco user Quit Date: age 70 Tobacco use type: Cigarette Years Smoked: 61 e-Cigarette/Vaping Use: Never Used Second Hand Smoke Exposure: No Use of substances other than those prescribed or required for medical reasons: No Advance Directives: No (unknown-VM message left) Advance Directives on File: No service: No Current occupational status: employed Cognitive needs: No Hearing needs: No Vision needs: No Meds Allergies Allergy/AdvReac Type Severity Reaction Status Date / Time No Known Allergies Allergy Verified 07/26/22 10:50 Home Medications Medication Instructions Recorded Confirmed Last Taken Type acetaminophen 500 mg tablet 500 mg PO Q6H PRN Pain 12/29/21 07/26/22 Unknown History (Tylenol Extra Strength) Exam Exam Date and Time: July 30, 2022 0858 Height,Weight and Vital Signs: Height 5 ft 7 in Weight 80.286 kg Pertinent Lab Results Pertinent Lab Results: Laboratory Tests 06/23/22 06/23/22 09:20 09:20 WBC 5.5 Hgb 14.1 Hct 41.0 L Plt Count 148 L Sodium 136 Potassium 4.3 Chloride 102 Carbon Dioxide 23 BUN 20 H Creatinine 1.34 Assessment and Plan Assessment Anesthesia Assessment: Chart Reviewed Documented by User: Rachael Espinal MD 07/31/22 09:44 [facility] Past Medical History Medical History Cataracts, bilateral HLD (hyperlipidemia) HTN (hypertension) Interstitial lung disease Muscle spasms of both lower extremities Functional capacity: independent ambulation Family History Family History Father Stomach cancer Mother No problems noted. Family history of problems with anesthesia: No Surgical History Surgical History Hx of sinus surgery History of Problems with Anesthesia: No Social History Social History Housing: Condominium Alcohol intake: current Alcohol intake frequency: 0-2 drinks per day Alcohol type: wine Patient Tobacco Use Status: Former Tobacco user Quit Date: age 70 Tobacco use type: Cigarette Years Smoked: 61 e-Cigarette/Vaping Use: Never Used Second Hand Smoke Exposure: No Use of substances other than those prescribed or required for medical reasons: No Advance Directives: No (unknown-VM message left) Advance Directives on File: No service: No Current occupational status: employed Cognitive needs: No Hearing needs: No Vision needs: No Meds Allergies Allergy/AdvReac Type Severity Reaction Status Date / Time No Known Allergies Allergy Verified 07/26/22 10:50 Home Medications Medication Instructions Recorded Confirmed Last Taken Type acetaminophen 500 mg tablet 500 mg PO Q6H PRN Pain 12/29/21 07/26/22 Unknown History (Tylenol Extra Strength) Exam Airway TM Dist: >3cm Neck ROM: Full Denture: Upper and Lower Heart: RRR Lungs: CTA Assessment and Plan Final Anesthetic Review Family History of Problems with Anesthesia: No History of Problems with Anesthesia: No NPO: Yes ASA Class: II Final Preanesthetic Review: No Changes in Pt Med Stat, Meds/Allgs Chart Reviewed and Anes Risks/Benef Reviewed Patient Risk: Low Procedure Risk: Low Anesthetic Plan Anesthetic Plan: GA Disposition: Standard PACU
[2022-07-31] VITALS (10 sets, daily range): BP systolic 123–157; BP diastolic 55–121; PULSE 60–69; RESP 16–20; TEMP 36.1–36.3; O2SAT 97–99
[2022-07-31] MEDS: Lactated Ringers 1,000 ML 100 ML IVCONT (08:04)
--- NOTE | 2022-07-31 09:22 | P.HPSUR_ITS ---
Pre-Procedural Eval Section A Date of Service: 07/31/22 The patient is an INPATIENT: No Section B Chief Complaint: Neoplasm of unspecified behavior of bladder Allergies: Allergies Allergy/AdvReac Type Severity Reaction Status Date / Time No Known Allergies Allergy Verified 07/26/22 10:50 Plan I have reviewed the history and physical and performed a pertinent physical examination on my patient. No changes have occurred unless specified. Multiple papillary bladder tumors noted on office cysto.? Consent obtained for cystoscopy transurethral resection of bladder t umors/fulguration. Risks discussed included but not limited to, blood in the urine, need for Burns catheter insertion. Irritative voiding symptoms, bladder spasms, urgency.
[2022-07-31] MEDS: Acetaminophen 1,000 MG/100 ML PIGGYBACK 400 MG IV (11:03)
--- NOTE | 2022-07-31 11:04 | P.F2F_ITS ---
Service Date Service Date: 07/31/22 Encounter Date of encounter: 07/31/22 Reasons for Services Signs and symptoms assessed: selena, s/p cysto TURBT for bladder tumor Reason for custodial: other (selena) Overseeing Care: Meliza Farmer Homebound: Leaving the home is medically contraindicated at this time without the asist of a device and/or another person due th the listed conditions above and below. Reason homebound: other (selena) Certification: Based on the above findings, I certify that this patient is confined to the home and needs intermittent custodial care, physical therapy and/or speech therapy, or continues to need occupational therapy. The patient is under my care, and I have initiated the establishment of the plan of care. The patient will be followed by a physician who will periodically review the plan of care.
--- NOTE | 2022-07-31 11:08 | P.OP_ITS ---
Operative Note Operative Note Date of Service: 07/31/22 Narrative: PREOP DIAGNOSIS: GROSS HEMATURIA BLADDER TUMOR POSTOP DIAGNOSIS: GROSS HEMATURIA, BLADDER TUMOR - multiple lesions measuring together >5 cm PROCEDURE: CYSTOSCOPY EVACUATION BLADDER CLOTS FULGURATION, TRANSURETHRAL R ESECTION OF BLADDER TUMOR Details of procedure: The patient was brought into the operating room placed on the OR table in supine position. 2 g of Ancef IV. General anesthesia was administered. The patient was repositioned into lithotomy position, prepped and draped in the usual sterile fashion. Time-out was done per protocol. The 24 Hungarian resectoscope was passed transurethrally into the bladder. Visualization of the bladder noted multiple papillary tumors extending from the bladder neck 2 O'clock position towards the right lateral wall towards the right hemitrigone, not involving the right ureteral orifice. Clear efflux of urine noted from right ureteral orifice. The loop resectoscope was used to resect the bladder tumors, muscle was visualized without evidence of perforation, the roller ball was used to fulgurate the base of the bladder tumor. Once there was good hemostasis. The Ellik evacuator was used to irrigate out the bladder tumor. The resectoscope was removed. A [address] catheter 5 cc balloon was passed without difficulty. The patient was brought out of anesthesia and taken to recovery in stable condition. Complications: None Drains: [address] catheter 5 cc balloon
[2022-07-31] MEDS: Phenazopyridine HCL 100 MG TABLET 200 MG PO (11:38)
== END 2022-07-31 13:55 | disposition home health service (06) ==
PROVIDERS: PCP Internal Medicine; Visit Provider Urology
PROC: 0TBB8ZZ Excision of Bladder, Via Natural or Artificial Opening Endoscopic (ICD-10-PCS; CPT 52235; principal; 2022-07-31 09:10)
DX: C67.9 Malignant neoplasm of bladder, unspecified (principal); N40.1 Benign prostatic hyperplasia with lower urinary tract symptoms; N13.8 Other obstructive and reflux uropathy; I10 Essential (primary) hypertension; E11.9 Type 2 diabetes mellitus without complications
CPT/HCPCS: 52235; 88307; J0131; J0690; J1100; J2250; J2405; J3010

== ENCOUNTER → 2022-08-17 10:56 | Outpatient (BNVA) | payer MEDICARE, SELFPAY | PROVIDERS: PCP Internal Medicine; Visit Provider Urology | DX: C67.9 Malignant neoplasm of bladder, unspecified (principal) | CPT/HCPCS: 51798; 99212 ==

== ENCOUNTER → 2022-08-30 10:54 | Outpatient (REF) | payer MEDICARE, SELFPAY ==
--- NOTE | ~2022-08-30 | NM_ITS ---
EXAMINATION: NM BONE SCAN OF THE WHOLE BODY CLINICAL INFORMATION: Malignant neoplasm of bladder. COMPARISON: No previous bone scan or recent radiographs are available for comparison. The diagnostic CT scan of the abdomen and pelvis, dated 07/19/2022, is available for comparison. TECHNIQUE: Multiple gamma scintillation camera images of the whole body were performed 2.5 hours following the intravenous administration of 28 mCi Tc-99m MDP. FINDINGS: In the head, no significant abnormalities are present. In the thoracic cage and upper extremities, there is mildly increased activity in the acromioclavicular and sternoclavicular joints bilaterally and the anterolateral subacromial cortical surface of the right humeral head. In the spine, there is minimal heterogeneity without a discrete more prominent focus of increased activity throughout the thoracic spine. There is a focus of mildly increased activity in the right side of L4 and another in the left side of L5. In the pelvis, no significant abnormalities are present. In the lower extremities, mild foci of increased activity are present in the patellar compartments of both knees and in the medial compartment of the right knee. No other definite bony abnormalities are noted. The urinary bladder and faint visualization of both kidneys are noted. The CT scan dated 07/19/2022 shows degenerative changes in the visualized spine that correspond to mild abnormalities described above on this bone scan. NM/NM bone scan whole body IMPRESSION: A few mild nonspecific abnormalities are noted as described above and these are all likely arthritic or traumatic in etiology. None of these abnormalities is strongly suspicious for metastatic disease.
== END ==
LOC: HO.NUCMED 10:54
PROVIDERS: PCP Internal Medicine; Visit Provider Urology
DX: C67.9 Malignant neoplasm of bladder, unspecified (principal)
CPT/HCPCS: 78306; A9503

== ENCOUNTER 2022-09-06 11:00 | Outpatient (RCR) | payer MEDICARE, SELFPAY ==
[2022-09-06 11:02] VITALS: BP 134/79; PULSE 69; RESP 14; TEMP 36.4; O2SAT 97; BMI 29.2
--- NOTE | 2022-09-06 11:55 | MHC.HEMONCMA ---
patient seen today for new consult for bladder ca, VSS, labs, no followup needed, referral to [facility] rad/onc dept being done.
--- NOTE | 2022-09-06 14:51 | P.CNHO_ITS ---
Subjective - Subjective Chief complaint: Bladder cancer Patient: new to practice Consult date: 09/06/22 Primary Care Provider: Jass Klein MD Medical Summary: Diagnosis: Muscle invasive bladder cancer 07/2022 Evaluated for blood in the urine. The patient states in April he noted blood in the urine, he went to see his primary and was given antibiotics and everything cleared up. Reviewed diagnostics the patient had urine cultures sent on 04/25/2022 that was no growth. He states that he had recurrent blood in his urine in June as well as some scrotal pressure and lower quadrant discomfort. Office cysto - 07/05/22 - significant for bladder tumor and enlarged prostate. He was started on tamsulosin. He denies urinary frequency or nocturia. CT Urogram was ordered, upper tracts wnL. 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 HPI - Consult Narrative Reason for consult: Bladder cancer Narrative: Emmett Hernandez is a 77 year old male referred for evaluation of muscle invasive bladder cancer. He is accompanied by his today. He was diagnosed with this in July, cystectomy was discussed with him but he does not want surgery/ cystectomy. He wants to know what his other nonsurgical treatment options are. He is doing well and has no complaints anymore such as hematuria or pelvic pain. He denies loss of appetite or weight loss. He has no other significant medical problems, he does have hearing loss, complete loss in the right year and has a hearing aid in his left ear. He denies any cardiac problems. He exercises regularly and lives at home with his . He is a former smoker, does not consume alcohol and has an excellent performance status. He denies exposure to any toxins or chemicals. Review of Systems - Constitutional Reports as per HPI, Denies fatigue, Denies night sweats, Denies poor appetite, Denies weight loss - Cardiovascular Reports no additional cardiovascular complaints - Respiratory Reports no additional respiratory complaints - Gastrointestinal Reports no additional gastrointestinal complaints - Genitourinary Genitourinary: Reports as per HPI - Musculoskeletal Denies joint pain - Neurologic Denies dizziness, Denies numbness Oncology Screenings - ECOG Performance Status ECOG Performance Status: 0 [facility] Medical History: Medical History (Last Reviewed 09/06/22 @ 11:05 by Latanya Sanchez) Cataracts, bilateral HLD (hyperlipidemia) HTN (hypertension) Interstitial lung disease Muscle spasms of both lower extremities Family History: Family History (Last Reviewed 09/06/22 @ 11:05 by Latanya Sanchez) Father Stomach cancer Mother No problems noted. Surgical History: Surgical History (Last Reviewed 09/06/22 @ 11:05 by Latanya Sanchez) Hx of sinus surgery Social History: Social History (Last Updated 09/06/22 @ 11:05 by Latanya Sanchez) Living Situation History: Household Members: Spouse Housing: House Alcohol History Details: 1. How often do you have a drink containing alcohol?: b. Monthly or less 2. How many drinks containing alcohol do you have on a typical day when you are drinking?: a. 1 or 2 Tobacco History: Patient Tobacco Use Status: Former Tobacco user Tobacco use type: Cigarette Years Smoked: 61 Smoke Quit Date: age 70 e-Cigarette/Vaping Use: Never Used Second Hand Smoke Exposure: No Substance Use History: Use of substances other than those prescribed or required for medical reasons : No Domestic Abuse History: Have you been hit, kicked, punched, or otherwise hurt by someone within the past year? If so, by whom?: No Do you feel safe in your current relationship?: Yes Homicidal Assessment: Do you have thoughts of harming others: None Do you have a plan to hurt others: No Plan Do you have the means to hurt others: No Nutrition Assessment: Recently lost weight without trying: No Occupation Assessmet: service: No Current occupational status: employed Home Medications and Allergies Home Medications Medication Instructions Recorded Confirmed Type acetaminophen 500 mg tablet 500 mg PO Q6H PRN Pain 12/29/21 09/06/22 History (Tylenol Extra Strength) Allergies Allergy/AdvReac Type Severity Reaction Status Date / Time Seasonal Allergies Allergy Sneezing Verified 09/06/22 11:06 Physical Exam Vital signs: Vital Signs Temp 97.6 F 09/06/22 11:02 Pulse 69 09/06/22 11:02 Resp 14 09/06/22 11:02 BP 134/79 09/06/22 11:02 Pulse Ox 97 09/06/22 11:02 O2 Del Method 09/06/22 11:02 Intake & Output 09/05/22 09/06/22 09/06/22 18:59 06:59 18:59 Other: Weight 82.2 kg Weight in Grams [id number] Weight 82.2 kg - Constitutional Present: no acute distress - Routine HEENT Exam Head: Present: normal inspection Eye: Present: EOMI - Routine Neck Exam Present: trachea midline. Absent: lymphadenopathy - Routine Respiratory Exam Present: CTAB - Routine Cardiovascular Exam Cardiovascular: Present: S1, S2 - Routine Extremities Exam Present: normal inspection, pulses intact. Absent: pedal edema - Routine Skin Exam Present: intact. Absent: cyanosis - Routine Neurological Exam Present: alert, oriented X3 Hem/Onc Consult Result - Labs Labs: Laboratory Tests 06/23/22 06/23/22 09:20 09:20 WBC 5.5 RBC 4.70 Hgb 14.1 Hct 41.0 L Plt Count 148 L Sodium 136 Potassium 4.3 BUN 20 H Creatinine 1.34 Assessment and Plan Patient Active problem list reviewed?: Yes (1) Bladder cancer Status: Acute Assessment and plan: 1. This is a 77-year-old male, formal smoker who has been diagnosed with muscle invasive bladder cancer. He had TURBT performed 07/31/2022 which revealed high grade papillary urothelial carcinoma, invasive, muscularis propria present and invaded by tumor. Lymphovascular and perineural invasion present. Urothelial carcinoma in Situ present. CT abdomen/pelvis with contrast performed 07/19/2022 revealed mild bladder wall thickening with moderate prostate enlargement extending into the base of the bladder. Bilateral extrarenal kidney pelvis is. No abnormal pelvic lymph nodes seen. Bone scan performed 08/30/2022 was negative for metastatic disease. Chest x-ray has been ordered by his urologist. He has excellent performance status. His kidney functions are borderline for cis-kenaitze and he does have bilateral hearing loss. He has declined cystectomy. I discussed concurrent chemoradiation therapy for clinical stage T2 N0 bladder cancer. He good receive 5 FU/ mitomycin or Taxol with radiation therapy. He will be referred to Radiation oncologist at [facility] as per his wishes. All of the above was explained to patient and his . They are agreeable to proceed with above recommendations. I thank you for this referral. - Time Spent With Patient Time Spent with Patient (in minutes): 45
== END 2023-09-01 | disposition home or self-care (01) ==
LOC: HO.ONC 11:00
PROVIDERS: PCP Internal Medicine; Referring Provider Urology; Visit Provider Internal Medicine
DX: C67.9 Malignant neoplasm of bladder, unspecified (principal)
CPT/HCPCS: 99205

== ENCOUNTER 2022-09-18 06:53 | Day surgery (SDC) | payer MEDICARE, SELFPAY ==
--- NOTE | 2022-09-17 15:03 | HO.ANESPROP2 ---
HPI - Anesthesia Eval Consult details Narrative: 77yo M for TUR Bladder Tumor s/p TURBT 07/2022 with [facility]-L[facility] 4 (was cleared by pcp prior) [facility] Active Problems Active Problems: All Active Problems (Updated 09/06/22 @ 15:40 by Cheri Weinberg MD) Bladder cancer (Acute) Otalgia of right ear (Acute) Viral illness (Acute) Physical exam (Acute) Hematuria (Acute) Bladder tumor (Acute) Incomplete bladder emptying (Acute) BPH loc w urin obs/LUTS (Acute) Former cigarette smoker (Acute) Pre-op exam (Acute) Allergic rhinitis (Acute) Muscle spasms of both lower extremities (Acute) Interstitial lung disease (Acute) HTN (hypertension) (Acute) HLD (hyperlipidemia) (Acute) T2DM (type 2 diabetes mellitus) (Acute) Past Medical History Medical History Cataracts, bilateral HLD (hyperlipidemia) HTN (hypertension) Interstitial lung disease Muscle spasms of both lower extremities Family History Family History Father Stomach cancer Mother No problems noted. Family history of problems with anesthesia: No Surgical History Surgical History Hx of sinus surgery History of Problems with Anesthesia: No Social History Social History (Updated 09/06/22 @ 11:05 by Ltaanya Sanchez) Household Members: Spouse Housing: House Alcohol intake: current Alcohol intake frequency: 0-2 drinks per day Alcohol type: wine Patient Tobacco Use Status: Former Tobacco user Quit Date: age 70 Tobacco use type: Cigarette Years Smoked: 61 e-Cigarette/Vaping Use: Never Used Second Hand Smoke Exposure: No service: No Current occupational status: employed Cognitive needs: No Hearing needs: No Vision needs: No Meds Allergies Allergy/AdvReac Type Severity Reaction Status Date / Time Seasonal Allergies Allergy Sneezing Verified 09/06/22 11:06 Home Medications Medication Instructions Recorded Confirmed Last Taken Type acetaminophen 500 mg tablet 500 mg PO Q6H PRN Pain 12/29/21 09/18/22 09/17/22 23:30 History (Tylenol Extra Strength) Exam Exam Date and Time: September 17, 2022 1503 Pertinent Lab Results Pertinent Lab Results: Laboratory Tests 06/23/22 06/23/22 09:20 09:20 WBC 5.5 Hgb 14.1 Hct 41.0 L Plt Count 148 L Sodium 136 Potassium 4.3 Chloride 102 Carbon Dioxide 23 BUN 20 H Creatinine 1.34 Assessment and Plan Assessment Anesthesia Assessment: Chart Reviewed Final Anesthetic Review Family History of Problems with Anesthesia: No History of Problems with Anesthesia: No
[2022-09-18] VITALS (7 sets, daily range): BP systolic 130–145; BP diastolic 50–67; PULSE 62–72; RESP 11–16; TEMP 36.1–36.4; O2SAT 97–100; BMI 27.2
[2022-09-18 07:34] LABS: COVID-19 Test Negative (Negative); IDNOW Serial# 16C4AD1C
[2022-09-18] MEDS: Lactated Ringers 1,000 ML 100 ML IVCONT (08:06)
--- NOTE | 2022-09-18 08:18 | MHC.SHP ---
Pre-Procedural Eval Section A Date of Service: 09/18/22 The patient is an INPATIENT: No Section B Chief Complaint: Malignant neoplasm of bladder, unspecified Details of Present Illness: 77 year old male with newly diagnosed invasive bladder cancer, here for reevaluation of bladder prior to chemo and radiation therapy Relevant Family History (Specify if Yes): No Allergies: Allergies Allergy/AdvReac Type Severity Reaction Status Date / Time Seasonal Allergies Allergy Sneezing Verified 09/06/22 11:06 Exam Surgical H&P Exam: Normal: HEENT, Normal: Heart, Normal: Lungs, Normal: Skin and Normal: Neurological Plan Diagnosis/Plan: Unchanged I have reviewed the history and physical and performed a pertinent physical examination on my patient. No changes have occurred unless specified. Cystoscopy TURBT/fulguration Time Spent With Patient Time: Total time managing care of this patient today ____ minutes.
[2022-09-18] MEDS: Phenazopyridine HCL 200 MG TABLET PO (10:40)
--- NOTE | 2022-09-18 11:35 | P.OP_ITS ---
Operative Note Operative Note Date of Service: 09/18/22 Narrative: PREOP DIAGNOSIS: Bladder cancer POSTOP DIAGNOSIS: Bladder cancer PROCEDURE: CYSTOSCOPY, TRANSURETHRAL RESECTION OF BLADDER TUMOR, random bladder biopsy, left lateral wall, posterior wall Surgeon: Dr. Meliza Farmer Indications: 77-year-old male diagnosed with invasive bladder cancer, Status post TURBT on 07/31/2022, right lateral wall. pathology: Papillary urothelial carcinoma, invasive, -Urothelial carcinoma in situ. -Muscularis propria present and invaded by tumor. -Lymphovascular invasion present. -Perineural invasion present. He is being brought in for 2nd look prior to chemo and radiation therapy. Details of procedure: The patient was brought into the operating room placed on the OR table in supine position. Antibiotics confirmed. General anesthesia was administered. The patient was repositioned into lithotomy position, prepped and draped in the usual sterile fashion. Time-out was done per protocol. The 24 [place] resectoscope was passed transurethrally into the bladder. Erythematous changes noted right lateral wall in area of previous resection. The loop resectoscope was used to re-resect this area, the roller ball was used to fulgurate the base and obtain adequate hemostasis. Random bladder biopsies also done from the left lateral wall and posterior wall. Once there was good hemostasis the resectoscope was removed. A [address] 5 cc balloon was passed without difficulty. The patient was brought out of ane sthesia and taken to recovery in stable condition. Complications: None Drains: [address] catheter 5 cc balloon
--- NOTE | 2022-09-18 13:28 | HO.ANESPROP2 ---
[facility] Active Problems Active Problems: All Active Problems (Updated 09/06/22 @ 15:40 by Cheri Weinberg MD) Bladder cancer (Acute) Otalgia of right ear (Acute) Viral illness (Acute) Physical exam (Acute) Hematuria (Acute) Bladder tumor (Acute) Incomplete bladder emptying (Acute) BPH loc w urin obs/LUTS (Acute) Former cigarette smoker (Acute) Pre-op exam (Acute) Allergic rhinitis (Acute) Muscle spasms of both lower extremities (Acute) Interstitial lung disease (Acute) HTN (hypertension) (Acute) HLD (hyperlipidemia) (Acute) T2DM (type 2 diabetes mellitus) (Acute) Past Medical History Medical History Cataracts, bilateral HLD (hyperlipidemia) HTN (hypertension) Interstitial lung disease Muscle spasms of both lower extremities Family History Family History Father Stomach cancer Mother No problems noted. Family history of problems with anesthesia: No Surgical History Surgical History Hx of sinus surgery Social History Social History (Updated 09/06/22 @ 11:05 by Latanya Sanchez) Household Members: Spouse Housing: House Alcohol intake: current Alcohol intake frequency: 0-2 drinks per day Alcohol type: wine Patient Tobacco Use Status: Former Tobacco user Quit Date: age 70 Tobacco use type: Cigarette Years Smoked: 61 e-Cigarette/Vaping Use: Never Used Second Hand Smoke Exposure: No Use of substances other than those prescribed or required for medical reasons: No Are you DNR?: No Advance Directives: No Advance Directives Information Provided: Yes Advance Directives on File: No service: No Current occupational status: employed Cognitive needs: No Hearing needs: No Vision needs: No Meds Allergies Allergy/AdvReac Type Severity Reaction Status Date / Time Seasonal Allergies Allergy Sneezing Verified 09/06/22 11:06 Home Medications Medication Instructions Recorded Confirmed Last Taken Type acetaminophen 500 mg tablet 500 mg PO Q6H PRN Pain 12/29/21 09/18/22 09/17/22 23:30 History (Tylenol Extra Strength) Exam Exam Date and Time: September 18, 2022 1328 Height,Weight and Vital Signs: Height 5 ft 7 in Weight 78.925 kg Last Vital Signs Temp 97.1 F 09/18/22 10:35 Pulse 72 09/18/22 10:35 Resp 16 09/18/22 10:35 BP 145/67 H 09/18/22 10:35 Pulse Ox 98 09/18/22 10:35 O2 Del Method 09/18/22 10:35 Pertinent Lab Results Pertinent Lab Results: Laboratory Tests 09/18/22 07:04 COVID-19 ([facility]) Negative COVID-19 Clin Com See Note Airway Mallampati Class: II TM Dist: >3cm Neck ROM: Full Denture: Upper and Lower Heart: rr Lungs: cta Assessment and Plan Assessment Anesthesia Assessment: Anesthesia Plan Discussed and Chart Reviewed Final Anesthetic Review Family History of Problems with Anesthesia: No NPO: Yes ASA Class: II Final Preanesthetic Review: No Changes in Pt Med Stat, Meds/Allgs Chart Reviewed, Consent Obtained/Reviewed and Anes Risks/Benef Reviewed Patient Risk: Low Procedure Risk: Low Anesthetic Plan Anesthetic Plan: GA Disposition: Standard PACU
== END 2022-09-18 11:42 | disposition home or self-care (01) ==
PROVIDERS: Nurse Practitioner; PCP Internal Medicine; Visit Provider Urology
PROC: 0TBB8ZZ Excision of Bladder, Via Natural or Artificial Opening Endoscopic (ICD-10-PCS; CPT 52235; principal; 2022-09-18 08:30)
DX: C67.9 Malignant neoplasm of bladder, unspecified (principal); R33.9 Retention of urine, unspecified; I10 Essential (primary) hypertension; E78.5 Hyperlipidemia, unspecified; J84.9 Interstitial pulmonary disease, unspecified; Z79.51 Long term (current) use of inhaled steroids; Z79.899 Other long term (current) drug therapy; Z80.0 Family history of malignant neoplasm of digestive organs; Z87.891 Personal history of nicotine dependence; Z20.822 Contact with and (suspected) exposure to COVID-19
CPT/HCPCS: 52235; 52204; 87635; 88305; 88307; J0690; J2405; J3010

== ENCOUNTER → 2022-09-21 10:44 | Outpatient (BNVA) | payer MEDICARE, SELFPAY | PROVIDERS: PCP Internal Medicine; Visit Provider Urology | DX: Z13.89 Encounter for screening for other disorder (principal) ==

== ENCOUNTER 2022-10-01 09:49 | Outpatient (REF) | payer MEDICARE, SELFPAY ==
--- NOTE | ~2022-10-01 | XR_ITS ---
EXAMINATION: XR CHEST CLINICAL INFORMATION: Malignant neoplasm of bladder COMPARISON: None TECHNIQUE: 2 views of the chest were obtained. FINDINGS: The lungs are well-inflated and clear of acute pneumonic process. There is bandlike atelectasis right midlung. Rest lungs are clear. Heart size and pulmonary vascularity is normal. No gross bony abnormality seen. XR/XR chest 2V IMPRESSION: Platelike atelectasis right midlung and right lower lobe.
[2022-10-01 13:24] LABS: PSA,Total (Free>4and<10) 4.46 ng/mL (0.00-4.00)
[2022-10-02 09:44] LABS: Free Prostate Spec Ag 1.5 ng/mL; Percent Free Prostate Spec Ag 38 % (calc) (>25)
== END 2022-10-01 09:50 | disposition home or self-care (01) ==
LOC: HO.LAB 09:49
PROVIDERS: PCP Internal Medicine; Visit Provider Urology
DX: Z12.5 Encounter for screening for malignant neoplasm of prostate (principal); N40.1 Benign prostatic hyperplasia with lower urinary tract symptoms; C67.9 Malignant neoplasm of bladder, unspecified
CPT/HCPCS: 36415; 51798; 71046; 84153; 84154; 99212

== ENCOUNTER 2022-10-08 14:13 | Outpatient (REF) | payer MEDICARE, SELFPAY ==
[2022-10-08 15:05] LABS: Influenza A PCR NEGATIVE (Negative); Influenza B PCR NEGATIVE (Negative); Resp Syncy Virus RNA Qual PCR NEGATIVE (Negative); SARS COV2 PCR INHOUSE NEGATIVE (Negative)
== END 2022-10-08 14:14 | disposition home or self-care (01) ==
LOC: HO.LNP 14:13
PROVIDERS: Visit Provider Physician Assistant
DX: Z20.822 Contact with and (suspected) exposure to COVID-19 (principal)
CPT/HCPCS: 0241U

== ENCOUNTER 2022-12-31 14:33 | Outpatient (REF) | payer MEDICARE, SELFPAY | END 2022-12-31 14:34 | disposition home or self-care (01) | LOC: HO.LAB 14:33 | PROVIDERS: PCP Internal Medicine; Visit Provider Urology | DX: C67.9 Malignant neoplasm of bladder, unspecified (principal); N40.1 Benign prostatic hyperplasia with lower urinary tract symptoms; R31.9 Hematuria, unspecified | CPT/HCPCS: 52000 ==

== ENCOUNTER 2023-02-05 07:31 | Day surgery (SDC) | payer MEDICARE, SELFPAY ==
--- NOTE | 2023-01-21 10:06 | HO.ANESPROP2 ---
HPI - Anesthesia Eval Consult details Narrative: 77yo M for TUR Bladder Tumor with poss bladder biopsy s/p same 09/2022 with GA-LMA 4 PMFSH Active Problems Active Problems: All Active Problems (Updated 10/01/22 @ 10:24 by Meliza Farmer MD) Screening PSA (prostate specific antigen) (Acute) Bladder cancer (Acute) Otalgia of right ear (Acute) Viral illness (Acute) Physical exam (Acute) Hematuria (Acute) Bladder tumor (Acute) Incomplete bladder emptying (Acute) BPH loc w urin obs/LUTS (Acute) Former cigarette smoker (Acute) Pre-op exam (Acute) Allergic rhinitis (Acute) Muscle spasms of both lower extremities (Acute) Interstitial lung disease (Acute) HTN (hypertension) (Acute) HLD (hyperlipidemia) (Acute) T2DM (type 2 diabetes mellitus) (Acute) Past Medical History Medical History Cataracts, bilateral HLD (hyperlipidemia) HTN (hypertension) Interstitial lung disease Muscle spasms of both lower extremities Family History Family History Father Stomach cancer Mother No problems noted. Family history of problems with anesthesia: No Surgical History Surgical History Hx of sinus surgery Social History Social History (Updated 09/06/22 @ 11:05 by Latanya Sanchez) Household Members: Spouse Housing: House Alcohol intake: current Alcohol intake frequency: 0-2 drinks per day Alcohol type: wine Patient Tobacco Use Status: Former Tobacco user Quit Date: age 70 Tobacco use type: Cigarette Years Smoked: 61 e-Cigarette/Vaping Use: Never Used Second Hand Smoke Exposure: No service: No Current occupational status: employed Cognitive needs: No Hearing needs: No Vision needs: No Meds Allergies Allergy/AdvReac Type Severity Reaction Status Date / Time Seasonal Allergies Allergy Sneezing Verified 01/18/23 11:00 Home Medications Medication Instructions Recorded Confirmed Last Taken Type acetaminophen 500 mg tablet 500 mg PO Q6H PRN Pain 12/29/21 01/18/23 09/17/22 23:30 History (Tylenol Extra Strength) Exam Exam Date and Time: January 21, 2023 1006 Pertinent Lab Results Pertinent Lab Results: Laboratory Tests 06/23/22 06/23/22 09:20 09:20 WBC 5.5 Hgb 14.1 Hct 41.0 L Plt Count 148 L Sodium 136 Potassium 4.3 Chloride 102 Carbon Dioxide 23 BUN 20 H Creatinine 1.34 Assessment and Plan Assessment Anesthesia Assessment: Chart Reviewed Final Anesthetic Review Family History of Problems with Anesthesia: No
--- NOTE | 2023-02-01 10:36 | HO.ANESPROP2 ---
HPI - Anesthesia Eval Consult details Narrative: 77yo M for TUR Bladder Tumor with poss bladder biopsy s/p same 09/2022 with GA-LMA 4 Bladder CA s/p radiation PMFSH Active Problems Active Problems: All Active Problems (Updated 10/01/22 @ 10:24 by Meliza Farmer MD) Screening PSA (prostate specific antigen) (Acute) Bladder cancer (Acute) Otalgia of right ear (Acute) Viral illness (Acute) Physical exam (Acute) Hematuria (Acute) Bladder tumor (Acute) Incomplete bladder emptying (Acute) BPH loc w urin obs/LUTS (Acute) Former cigarette smoker (Acute) Pre-op exam (Acute) Allergic rhinitis (Acute) Muscle spasms of both lower extremities (Acute) Interstitial lung disease (Acute) HTN (hypertension) (Acute) HLD (hyperlipidemia) (Acute) T2DM (type 2 diabetes mellitus) (Acute) Past Medical History Medical History Cataracts, bilateral HLD (hyperlipidemia) HTN (hypertension) Interstitial lung disease Muscle spasms of both lower extremities Family History Family History Father Stomach cancer Mother No problems noted. Family history of problems with anesthesia: No Surgical History Surgical History Hx of sinus surgery Social History Social History Household Members: Spouse Housing: House Alcohol intake: current Alcohol intake frequency: does not drink Alcohol type: wine Patient Tobacco Use Status: Former Tobacco user Quit Date: age 70 Tobacco use type: Cigarette Years Smoked: 61 e-Cigarette/Vaping Use: Never Used Second Hand Smoke Exposure: No Advance Directives Date on File: 02/15/23 service: No Current occupational status: employed Cognitive needs: No Hearing needs: No Vision needs: No Meds Allergies Allergy/AdvReac Type Severity Reaction Status Date / Time Seasonal Allergies Allergy Sneezing Verified 02/05/23 07:50 Home Medications Medication Instructions Recorded Confirmed Last Taken Type acetaminophen 325 mg capsule 325 mg PO QID PRN Pain 02/15/23 02/15/23 Unknown History (Tylenol) loratadine 10 mg tablet (Claritin) 10 mg PO DAILY 02/15/23 02/15/23 Unknown History tamsulosin 0.4 mg capsule 0.4 mg PO DAILY dizziness 02/15/23 02/15/23 Unknown History Exam Exam Date and Time: February 01, 2023 1036 Pertinent Lab Results Pertinent Lab Results: Laboratory Tests 06/23/22 06/23/22 09:20 09:20 WBC 5.5 Hgb 14.1 Hct 41.0 L Plt Count 148 L Sodium 136 Potassium 4.3 Chloride 102 Carbon Dioxide 23 BUN 20 H Creatinine 1.34 Assessment and Plan Assessment Anesthesia Assessment: Chart Reviewed Final Anesthetic Review Family History of Problems with Anesthesia: No
[2023-02-05 07:49] VITALS: BMI 26.3
[2023-02-05] MEDS: Lactated Ringers 1,000 ML 100 ML IVCONT (07:57)
[2023-02-05 07:59] VITALS: BP 150/58; PULSE 80; RESP 18; TEMP 36.6; O2SAT 97
--- NOTE | 2023-02-05 09:29 | HO.ANESPROP2 ---
[facility] Active Problems Active Problems: All Active Problems (Updated 10/01/22 @ 10:24 by Meliza Farmer MD) Screening PSA (prostate specific antigen) (Acute) Bladder cancer (Acute) Otalgia of right ear (Acute) Viral illness (Acute) Physical exam (Acute) Hematuria (Acute) Bladder tumor (Acute) Incomplete bladder emptying (Acute) BPH loc w urin obs/LUTS (Acute) Former cigarette smoker (Acute) Pre-op exam (Acute) Allergic rhinitis (Acute) Muscle spasms of both lower extremities (Acute) Interstitial lung disease (Acute) HTN (hypertension) (Acute) HLD (hyperlipidemia) (Acute) T2DM (type 2 diabetes mellitus) (Acute) Past Medical History Medical History Cataracts, bilateral HLD (hyperlipidemia) HTN (hypertension) Interstitial lung disease Muscle spasms of both lower extremities Functional capacity: independent ambulation Family History Family History Father Stomach cancer Mother No problems noted. Family history of problems with anesthesia: No Surgical History Surgical History Hx of sinus surgery History of Problems with Anesthesia: No Social History Social History Household Members: Spouse Housing: House Alcohol intake: current Alcohol intake frequency: 0-2 drinks per day Alcohol type: wine Patient Tobacco Use Status: Former Tobacco user Quit Date: age 70 Tobacco use type: Cigarette Years Smoked: 61 e-Cigarette/Vaping Use: Never Used Second Hand Smoke Exposure: No Are you DNR?: No Advance Directives: No Advance Directives Information Provided: Yes Nutrition Risks: No Nutritional Risk service: No Current occupational status: employed Cognitive needs: No Hearing needs: No Vision needs: No Meds Allergies Allergy/AdvReac Type Severity Reaction Status Date / Time Seasonal Allergies Allergy Sneezing Verified 02/05/23 07:50 Active Medications: Current Medications Lactated Ringer's (Lr) 1,000 mls @ 100 mls/hr IVCONT .Q10H ANGEL Last Admin: 02/05/23 07:57 Dose: 100 mls/hr Home Medications Medication Instructions Recorded Confirmed Last Taken Type loratadine 10 mg tablet (Claritin) 10 mg PO DAILY 02/05/23 02/05/23 02/04/23 History Exam Exam Date and Time: February 05, [id number] Height,Weight and Vital Signs: Height 5 ft 6 in Weight 73.936 kg Last Vital Signs Temp 97.9 F 02/05/23 07:59 Pulse 80 02/05/23 07:59 Resp 18 02/05/23 07:59 BP 150/58 H 02/05/23 07:59 Pulse Ox 97 02/05/23 07:59 O2 Del Method Room Air 02/05/23 07:59 Airway Mallampati Class: II TM Dist: >3cm Neck ROM: Full Denture: Upper and Lower Heart: RRR Lungs: CTA Assessment and Plan Final Anesthetic Review Family History of Problems with Anesthesia: No History of Problems with Anesthesia: No ASA Class: III Final Preanesthetic Review: Meds/Allgs Chart Reviewed, Consent Obtained/Reviewed and Anes Risks/Benef Reviewed Procedure Risk: Low Anesthetic Plan Anesthetic Plan: GA Disposition: Standard PACU
--- NOTE | 2023-02-05 11:07 | MHC.SHP ---
Pre-Procedural Eval Section A Date of Service: 02/05/23 The patient is an INPATIENT: No The History & Physical has been completed within 30 days and I have reviewed it.: No Section B Chief Complaint: Malignant neoplasm of bladder, unspecified Details of Present Illness: Emmett is a 78-year-old gentleman who was evaluated for blood in the urine. 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 Repeat TURBT 09/18/22- path - Muscle invasive bladder cancer in same area (right lateral wall). The patient does not want a cystectomy. Followed by Hem/Onc received chemotherapy. bone scan- 08/30/22- negative for metastasis. Here for reevaluation and biopsy. Relevant Family History (Specify if Yes): No Allergies: Allergies Allergy/AdvReac Type Severity Reaction Status Date / Time Seasonal Allergies Allergy Sneezing Verified 02/05/23 07:50 Review of Systems Review of Systems Comment: Ten point review of system negative other than stated in HPI Exam Surgical H&P Exam: Normal: HEENT, Normal: Heart, Normal: Lungs and Normal: Abdomen Plan Diagnosis/Plan: Unchanged I have reviewed the history and physical and performed a pertinent physical examination on my patient. No changes have occurred unless specified. Cystoscopy bladder biopsy, resection bladder tumor Time Spent With Patient Time: Total time managing care of this patient today ____ minutes.
--- NOTE | 2023-02-05 11:59 | W.PM.OPN ---
Operative Note Operative Note Date of Service: 02/05/23 Narrative: PREOP DIAGNOSIS: History of high grade invasive bladder cancer status post TUR Bladder tumor x 2 and chemotherapy POSTOP DIAGNOSIS: History of high grade invasive bladder cancer status post TUR Bladder tumor x 2 and chemotherapy PROCEDURE: CYSTOSCOPY BLADDER BIOPSIES, FULGURATION SURGEON: Meliza Farmer MD ANESTHESIA: General Indications: The patient is status post cystoscopy TURBT and chemotherapy. He is here for re-evaluation and bladder biopsies. Details of procedure: The patient was brought into the operating room placed on the OR table in supine position. 2 g of Ancef IV. General anesthesia was administered. The patient was repositioned into lithotomy position, prepped and draped in the usual sterile fashion. Time-out was done per protocol. A 22 fr cystoscope was placed transurethrally into the bladder. The right and left ureteral orifices were visualized. The entire bladder was visualized. There were no suspicious bladder lesions seen. The right lateral wall noted scar tissue from previous resection. Biopsies from this area was done in limited due to the thickening of the tissue. Random bladder biopsy posterior wall and left lateral wall. The [place] left road was used to fulgurate the right lateral wall in the area of previous resection and biopsied area. The [place] was used to obtain adequate hemostasis from all biopsied areas. The cystoscope was removed. 2% lidocaine urojet was passed transurethrally into the bladder. The patient was brought out of anesthesia and taken to recovery in stable condition. Complications: None Drains: None
[2023-02-05 12:02] VITALS: BP 118/54; PULSE 69; RESP 16; TEMP 36.1; O2SAT 95
[2023-02-05 12:07] VITALS: BP 123/53; PULSE 66; RESP 16; O2SAT 95
[2023-02-05 12:12] VITALS: BP 124/56; PULSE 69; RESP 16; O2SAT 96
[2023-02-05 12:17] VITALS: BP 125/55; PULSE 76; RESP 18; TEMP 36.3; O2SAT 94
[2023-02-05 12:32] VITALS: BP 133/61; PULSE 71; RESP 18; TEMP 36.2; O2SAT 96
--- NOTE | 2023-02-05 14:23 | HO.POSTANES ---
Post Anesthesia Evaluation Post Anesthesia Evaluation Date of Service: 02/05/23 Vital Signs: Vital Signs Temp Pulse Resp BP Pulse Ox O2 Del Method 02/05/23 12:32 97.1 F 71 18 133/61 96 Room Air 02/05/23 12:17 97.4 F 76 18 125/55 L 94 Room Air 02/05/23 12:12 69 16 124/56 L 96 Room Air 02/05/23 12:07 66 16 123/53 L 95 Room Air 02/05/23 12:02 97 F 69 16 118/54 L 95 Room Air 02/05/23 07:59 97.9 F 80 18 150/58 H 97 Room Air Anesthesia: General LMA Mental Status: Awake Pain Control: Satisfactory Nausea/Vomiting: None Hydration: Adequate Anesthesia-Related Issues: No Anes. Related Issues
== END 2023-02-05 13:03 | disposition home or self-care (01) ==
PROVIDERS: PCP Internal Medicine; Visit Provider Urology
PROC: 0TBB8ZZ Excision of Bladder, Via Natural or Artificial Opening Endoscopic (ICD-10-PCS; CPT 52204; principal; 2023-02-05 09:50)
DX: C67.9 Malignant neoplasm of bladder, unspecified (principal); Z92.21 Personal history of antineoplastic chemotherapy; Z92.3 Personal history of irradiation; I10 Essential (primary) hypertension; E78.5 Hyperlipidemia, unspecified; J84.9 Interstitial pulmonary disease, unspecified; M62.838 Other muscle spasm; J30.2 Other seasonal allergic rhinitis; Z87.891 Personal history of nicotine dependence; Z79.899 Other long term (current) drug therapy
CPT/HCPCS: 52204; 88305; 88307; 88341; 88342; J0690; J2250; J3010

== ENCOUNTER 2023-02-15 09:51 | Observation (INO) | payer MEDICARE, SELFPAY ==
[2023-02-15] VITALS (7 sets, daily range): BP systolic 118–160; BP diastolic 46–80; PULSE 84–110; RESP 16–24; TEMP 36.4–36.9; O2SAT 92–100; BMI 27.0; BMI 26.3
--- NOTE | ~2023-02-15 | CT_ITS ---
EXAMINATION: CT ANGIOGRAM OF THE CHEST WITH AND WITHOUT CONTRAST (CT PULMONARY ANGIOGRAM FOR PE) CLINICAL INFORMATION: Reason for Exam hypoxia. sob, cp COMPARISON: Previous chest x-ray September [address] May 2019 TECHNIQUE: Prior to contrast administration, noncontrast localization images were obtained. Subsequently, multidetector volumetric imaging was performed from the thoracic inlet to below the diaphragms following the administration of 65 mL Omnipaque 350 intravenous contrast. No contrast reaction reported Sagittal, coronal, and MIP oblique sagittal reformatted images were obtained on the CT workstation, uploaded to PACS, and reviewed. This CT examination was performed using dose optimization techniques as appropriate, variously including the following: *Automated exposure control *Adjustment of mA and/or kV according to patient size (this includes techniques or standardized protocols for targeted exams where dose is matched to indication/reason for exam; i.e. extremities or head) *Use of iterative reconstruction technique Total exam dose-length product 305 mGy-cm FINDINGS: QUALITY OF STUDY/CONTRAST BOLUS: Satisfactory. PULMONARY ARTERIES: No pulmonary emboli. THORACIC AORTA: No aneurysm. LUNG: There is evidence of severe emphysema. There is evidence of interstitial lung disease with increased peripheral or subpleural reticulation, traction bronchiolectasis, increased peripheral or subpleural parenchymal attenuation and honeycombing. This has increased compared to radius exam from 2019. 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 There is a new 4 mm left upper lobe nodule axial image 121 series 5. No endobronchial or endotracheal lesion.. PLEURA: Small right pleural effusion. No left pleural effusion. MEDIASTINUM: Normal heart size. No pericardial effusion. Shotty mediastinal and bilateral hilar lymphadenopathy. Upper normal-sized pulmonary arteries, main pulmonary artery measuring 3 cm. Right jugular port with tip projecting over the the cervical spine.. No evidence of septal bowing or right heart strain. CORONARY ARTERY CALCIFICATION: Mild CHEST WALL/AXILLA: No axillary or internal mammary lymphadenopathy. OSSEOUS STRUCTURES: No acute or suspicious osseous abnormality. Degenerative changes of the spine. UPPER ABDOMEN: Small calcifications in the pancreas suggestive of changes of chronic pancreatitis. There may be a small esophageal hernia. Calcification in the spleen suggestive of old granulomatous disease. No reflux of contrast into the hepatic veins to suggest elevated right heart pressures. CT/CT angio chest PE protocol IMPRESSION: No evidence of pulmonary embolism. Emphysema. Severe interstitial lung disease. Chest CT appearance is suggestive of IPF. This is increased compared to 2019 exam. New 4 mm left upper lobe nodule. According to the UPDATED 2017 Fleischner Society recommendations, the advised follow-up imaging for less than 6 mm solid nodule: Low risk, no chest CT follow-up and high risk, optional chest CT follow-up in one year. Small right pulmonary nodule. VTE: negative
--- NOTE | 2023-02-15 10:21 | ED_ITS ---
HPI - General Adult General Chief complaint: Back Pain/Injury Stated complaint: Lower back pain, diff breathing, SOB per EMS Time Seen by Provider: 02/15/23 10:11 Source: patient, EMS, RN notes reviewed and old records reviewed Mode of arrival: EMS History of Present Illness HPI narrative: 78-year-old male with past medical history of HLD, HTN, interstitial lung disease, bladder CA s/p chemo/radiation therapy, presenting to the ED via EMS complaining of acute on chronic SOB, now with left scapular pain radiating to left chest since waking this morning. Admits pain worse with deep breathing. Denies lightheadedness/dizziness, injury/trauma or fall, abdominal pain, nausea/vomiting, pedal edema, hematuria Onset (ago): hour(s) Related Data Home Medications Medication Instructions Recorded Confirmed acetaminophen 325 mg capsule 325 mg PO QID PRN Pain 02/15/23 02/15/23 (Tylenol) loratadine 10 mg tablet (Claritin) 10 mg PO DAILY 02/15/23 02/15/23 tamsulosin 0.4 mg capsule 0.4 mg PO DAILY dizziness 02/15/23 02/15/23 Allergies Allergy/AdvReac Type Severity Reaction Status Date / Time Seasonal Allergies Allergy Sneezing Verified 02/05/23 07:50 Review of Systems Review of Systems: Constitutional: No Fever, No Chills, No Fatigue, No Malaise ENT/Mouth: No Hearing loss, No Ear Pain, No Nasal Congestion, No Sinus Pain, No Hoarseness, No sore throat, No Rhinorrhea, No Swallowing Difficulty Eyes: No Eye Pain, No Swelling, No Redness, No Vision Changes Cardiovascular: + Chest Pain, + SOB, No Dyspnea on Exertion, No Orthopnea, No Edema, No Palpitations Respiratory: No Cough, No Sputum, No Dyspnea Gastrointestinal: No Nausea, No Vomiting, No Diarrhea, No Constipation, No Abdominal pain Genitourinary: No irregular bleeding, No Dysuria, No Urinary Frequency, No Hematuria, No Urinary Incontinence/retention, No Flank Pain, No Urinary Flow Changes, No Hesitancy Musculoskeletal: No joint pain, No Myalgias, No Joint Swelling Skin: No Skin Lesions, No rash Neuro: No Weakness, No Dizziness, No Headache Yes all other systems are reviewed and are negative Constitutional: Constitutional: Reports as per [facility] Past Medical History Attestation statement: The following information was validated with the patient. Source: old records reviewed Medical History Cataracts, bilateral HLD (hyperlipidemia) HTN (hypertension) Interstitial lung disease Muscle spasms of both lower extremities Surgical History Hx of sinus surgery Family History Family History Father Stomach cancer Mother No problems noted. Social History Social History Household Members: Spouse Housing: House Alcohol intake: current Alcohol intake frequency: does not drink Alcohol type: wine Patient Tobacco Use Status: Former Tobacco user Quit Date: age 70 Tobacco use type: Cigarette Years Smoked: 61 Smoked in Last 30 Days: No e-Cigarette/Vaping Use: Never Used Second Hand Smoke Exposure: No Use of substances other than those prescribed or required for medical reasons: No Advance Directives: No Nutrition Risks: No Nutritional Risk service: No Current occupational status: employed Cognitive needs: No Hearing needs: No Vision needs: No Physical Exam ED Vital Signs: Vital Signs - 24 hr 02/15/23 09:57 02/15/23 12:35 02/15/23 14:28 Temperature 97.5 F Pulse Rate 91 84 87 Respiratory Rate 24 H 18 16 Blood Pressure 133/46 L 118/54 L Pulse Oximetry 97 97 Oxygen Delivery Method Nasal Cannula Room Air BMI result Body Mass Index 27.0 Const General: cooperative, healthy appearing and no acute distress Orientation/consciousness: patient oriented x3 Limitations: no limitations HENOK Head: Yes normal to inspection and Yes atraumatic Ears: hearing grossly normal bilaterally General nose exam: Normal external nose present Face and sinus: Yes normal facial exam Eyes General: appearance normal, both eyes and all related structures EOM: EOMs intact bilaterally Neck Neck: Yes normal visual inspection and Yes no meningeal signs Chest Other: No rash Chest palpation & inspection: normal inspection of the chest, no crepitus, no masses and no tenderness Resp Effort & Inspection: normal respiratory effort, no respiratory distress and tachypneic Auscultation: clear to auscultation bilaterally and crackles bilateral at the base Cardio Rate: regular rate Heart sounds: S1 normal heart sound present and S2 normal heart sound present GI Inspection: Yes normal to inspection Palpation (GI): Soft to palpation, nontender, no guarding and not rigid General: Yes no CVA tenderness Back/Spine/Pelvis Back: no CVA tenderness Skin Rashes: no rashes Wounds: no wounds Neuro General: patient oriented x3, tone normal and no meningeal signs Gait exam (Neuro): Normal gait present Extrem General: Yes normal to inspection, Yes no pedal edema and Yes no calf tenderness Course Course Course Narrative: -1315--no leukocytosis. H&H stable. BUN chronically elevated. Initial troponin 8.5 > will obtain [address] angio chest PE protocol IMPRESSION: No evidence of pulmonary embolism. Emphysema. Severe interstitial lung disease. Chest CT appearance is suggestive of IPF. This is increased compared to 2019 exam. New 4 mm left upper lobe nodule. According to the UPDATED 2017 Fleischner Society recommendations, the advised follow-up imaging for less than 6 mm solid nodule: Low risk, no chest CT follow-up and high risk, optional chest CT follow-up in one year. Small right pulmonary nodule. ? VTE: negative > will give IV Solu-Medrol, DuoNeb and admit Medications Administered Generic Name Dose Route Start Last Admin Trade Name Freq PRN Reason Stop Dose Admin Enoxaparin Sodium 40 mg 02/15/23 15:00 02/15/23 15:21 Enoxaparin Sodium 40 Mg/0.4 Ml Syringe SUBCUT 40 mg Q24H ANGEL Administration Doxycycline Hyclate 100 mg/ 250 mls @ 166.67 mls/hr 02/15/23 15:00 02/15/23 15:20 Sodium Chloride IV 166.67 mls/hr Q12H ANGEL Administration Sodium Chloride 3 ml 02/15/23 16:00 02/15/23 15:32 0.9 % Sodium Chloride Flush 3 Ml Syringe IVFLUSH Not Given QSHIFT ANGEL Discontinued Medications Generic Name Dose Route Start Last Admin Trade Name Freq PRN Reason Stop Dose Admin Albuterol/Ipratropium 3 ml 02/15/23 13:16 02/15/23 14:26 Albuterol/Iprat 2.5/0.5mg 3 Ml Ampul.Neb INHALE 02/15/23 13:17 3 ml ONCE ONE Administration Iohexol 100 ml 02/15/23 12:09 02/15/23 12:09 Iohexol 350 Mg/Ml 100 Ml Infus..Btl IV 02/15/23 12:10 65 ml ONCE ONE Administration Methylprednisolone Sodium Succinate 125 mg 02/15/23 13:16 02/15/23 13:57 Methylprednisolone Sod Succ 125 Mg/2 Ml Vial IVPUSH 02/15/23 13:17 125 mg ONCE ONE Administration Medical Decision Making Medical Decision Making MDM Narrative: 78-year-old male with past medical history of HLD, HTN, interstitial lung disease, bladder CA s/p chemo/radiation therapy, presenting to the ED via EMS complaining of acute on chronic SOB, now with left scapular pain radiating to left chest since waking this morning. On exam tachypneic, NAD, satting 85% on RA > increasing 95% on 2 L NC, bibasilar crackles noted, CP not reproducible, abdomen soft/nontender, no pedal edema. Concern for PE vs ACS vs PNA vs CHF. Lower suspicion for dissection, intra-abdominal pathology including renal stone or DVT Low suspicion for severe sepsis at this time Plan: EKG, labs, UA, CT AP, re-evaluated, anticipated admission Please refer to course for remaining clinical decision making, interpretation of labs/imaging results, and discussions with consultants and/or family members. Differential Diagnosis Differential Diagnoses: The differential diagnosis associated with the presentation includes As above Admission/Observation Consideration of admission/observation: Escalation of care including admission/observation considered Consult Healthcare Provider Management of the patient was discussed with: Hospitalist Lab Data [facility] Lab Attestation statement: I reviewed the patient's lab results. 02/15/23 10:46 02/15/23 10:46 Labs: Lab Results 02/15/23 02/15/23 02/15/23 Range/Units 10:36 10:36 10:46 WBC 7.2 (4.8-10.8) X10*3/uL RBC 3.82 L (4.60-5.80) X10*6/uL Hgb 11.6 L (14.0-18.0) g/dl Hct 35.4 L (42.0-52.0) % MCV 92.7 (80.0-98.0) fL MCH 30.4 (27.0-33.0) pg MCHC 32.8 (31.0-36.0) g/dl RDW 13.1 (11.0-16.0) % Plt Count 132 L (160-400) X10*3/uL MPV 10.3 (9.4-12.4) fL Immature Gran % (Auto) 0.4 (0.0-0.4) % Neut % (Auto) 85.2 H (45-73) % Lymph % (Auto) 5.0 L (20-40) % [place] % (Auto) 8.1 (2-11) % Eos % (Auto) 1.0 (0-4) % Baso % (Auto) 0.3 (0-2) % Lymph # (Auto) 0.4 L (1.2-4.9) X10*3/uL [place] # (Auto) 0.6 (0.1-1.2) X10*3/uL Eos # (Auto) 0.1 (0.0-0.4) X10*3/uL Baso # (Auto) 0.0 (0.0-0.2) X10*3/uL Abs Immat Gran (auto) 0.03 (0.00-0.03) X10*3/uL Absolute Neuts (auto) 6.1 (2.0-8.3) x10*3/uL Absolute Nucleated RBC 0.000 (0.0-0.012) X10*3/uL Nucleated RBC % (auto) 0.0 (0.0-0.2) /100WBC PT (10.0-13.1) SEC INR (0.9-1.1) Sodium (135-145) mmol/L Potassium (3.3-5.1) mmol/L Chloride (96-108) mmol/L Carbon Dioxide (22-29) mmol/L Anion Gap (12-20) BUN (9-16) mg/dL Creatinine (0.5-1.4) mg/dL Estim Creat Clear Calc Estimated GFR Random Glucose (60-115) mg/dL Calcium (8.4-10.2) mg/dL Magnesium (1.6-2.6) mg/dL Total Bilirubin (0.0-1.0) mg/dL Direct Bilirubin (0.0-0.5) mg/dL AST (5-37) U/L ALT (0-40) U/L Alkaline Phosphatase (39-117) U/L Troponin I High Sens (<3.5-35.0) ng/L B-Natriuretic Peptide (<100) pg/mL Total Protein (6.5-8.0) g/dL Albumin (3.5-5.0) g/dL Lipase (8-78) U/L COVID-19 ([facility]) Negative (Negative) COVID-19 Clin Com See Note Influenza Type A ([facility]) Negative (Negative) Influenza Type B ([facility]) Negative (Negative) Influenza A & B Note See Note 02/15/23 02/15/23 02/15/23 Range/Units 10:46 10:46 10:47 WBC (4.8-10.8) X10*3/uL RBC (4.60-5.80) X10*6/uL Hgb (14.0-18.0) g/dl Hct (42.0-52.0) % MCV (80.0-98.0) fL MCH (27.0-33.0) pg MCHC (31.0-36.0) g/dl RDW (11.0-16.0) % Plt Count (160-400) X10*3/uL MPV (9.4-12.4) fL Immature Gran % (Auto) (0.0-0.4) % Neut % (Auto) (45-73) % Lymph % (Auto) (20-40) % [place] % (Auto) (2-11) % Eos % (Auto) (0-4) % Baso % (Auto) (0-2) % Lymph # (Auto) (1.2-4.9) X10*3/uL [place] # (Auto) (0.1-1.2) X10*3/uL Eos # (Auto) (0.0-0.4) X10*3/uL Baso # (Auto) (0.0-0.2) X10*3/uL Abs Immat Gran (auto) (0.00-0.03) X10*3/uL Absolute Neuts (auto) (2.0-8.3) x10*3/uL Absolute Nucleated RBC (0.0-0.012) X10*3/uL Nucleated RBC % (auto) (0.0-0.2) /100WBC PT 11.9 (10.0-13.1) SEC INR 1.0 (0.9-1.1) Sodium 139 (135-145) mmol/L Potassium 4.4 (3.3-5.1) mmol/L Chloride 108 (96-108) mmol/L Carbon Dioxide 22 (22-29) mmol/L Anion Gap 13 (12-20) BUN 25 H (9-16) mg/dL Creatinine 1.21 (0.5-1.4) mg/dL Estim Creat Clear Calc 45.5 Estimated GFR 58 Random Glucose 240 H (60-115) mg/dL Calcium 8.9 (8.4-10.2) mg/dL Magnesium 2.1 (1.6-2.6) mg/dL Total Bilirubin 0.7 (0.0-1.0) mg/dL Direct Bilirubin 0.2 (0.0-0.5) mg/dL AST 22 (5-37) U/L ALT 11 (0-40) U/L Alkaline Phosphatase 82 (39-117) U/L Troponin I High Sens (<3.5-35.0) ng/L B-Natriuretic Peptide 81 (<100) pg/mL Total Protein 6.7 (6.5-8.0) g/dL Albumin 3.8 (3.5-5.0) g/dL Lipase 13 (8-78) U/L COVID-19 ([facility]) (Negative) COVID-19 Clin Com Influenza Type A ([facility]) (Negative) Influenza Type B ([facility]) (Negative) Influenza A & B Note 02/15/23 02/15/23 Range/Units 10:47 14:43 WBC (4.8-10.8) X10*3/uL RBC (4.60-5.80) X10*6/uL Hgb (14.0-18.0) g/dl Hct (42.0-52.0) % MCV (80.0-98.0) fL MCH (27.0-33.0) pg MCHC (31.0-36.0) g/dl RDW (11.0-16.0) % Plt Count (160-400) X10*3/uL MPV (9.4-12.4) fL Immature Gran % (Auto) (0.0-0.4) % Neut % (Auto) (45-73) % Lymph % (Auto) (20-40) % [place] % (Auto) (2-11) % Eos % (Auto) (0-4) % Baso % (Auto) (0-2) % Lymph # (Auto) (1.2-4.9) X10*3/uL [place] # (Auto) (0.1-1.2) X10*3/uL Eos # (Auto) (0.0-0.4) X10*3/uL Baso # (Auto) (0.0-0.2) X10*3/uL Abs Immat Gran (auto) (0.00-0.03) X10*3/uL Absolute Neuts (auto) (2.0-8.3) x10*3/uL Absolute Nucleated RBC (0.0-0.012) X10*3/uL Nucleated RBC % (auto) (0.0-0.2) /100WBC PT (10.0-13.1) SEC INR (0.9-1.1) Sodium (135-145) mmol/L Potassium (3.3-5.1) mmol/L Chloride (96-108) mmol/L Carbon Dioxide (22-29) mmol/L Anion Gap (12-20) BUN (9-16) mg/dL Creatinine (0.5-1.4) mg/dL Estim Creat Clear Calc Estimated GFR Random Glucose (60-115) mg/dL Calcium (8.4-10.2) mg/dL Magnesium (1.6-2.6) mg/dL Total Bilirubin (0.0-1.0) mg/dL Direct Bilirubin (0.0-0.5) mg/dL AST (5-37) U/L ALT (0-40) U/L Alkaline Phosphatase (39-117) U/L Troponin I High Sens 8.5 6.1 (<3.5-35.0) ng/L B-Natriuretic Peptide (<100) pg/mL Total Protein (6.5-8.0) g/dL Albumin (3.5-5.0) g/dL Lipase (8-78) U/L COVID-19 ([facility]) (Negative) COVID-19 Clin Com Influenza Type A ([facility]) (Negative) Influenza Type B ([facility]) (Negative) Influenza A & B Note Independent Interpretation I performed an independent interpretation of an: EKG Radiology Impression Discussion of test interpretation with radiology: I have reviewed the radiologist's reading. Independent Historian Clinical information obtained from an independent historian. History obtained from or confirmed by: Spouse External Record Review External record reviewed: Inpatient record, Office record, Outpatient record, Prior outpatient labs, Prior outpatient radiology, Primary care record and Outside ED record Tests considered The following testing was considered but not selected: As above Chronic Conditions Patient?s care impacted by: Diabetes and Cancer Critical Care Time Critical Care Time Critical Care Time: Yes Total Critical Care Time: 35 Attestation: I have personally provided critical care time exclusive of time spent on separately billable procedures. Time includes review of lab data, radiology results, discussion with consultants, and monitoring for potential decompensation. Intervention performed as documented. Discharge Plan Discharge Clinical Impression: Hypoxia, IPF (idiopathic pulmonary fibrosis) Patient Disposition: Admitted As Inpatient
--- NOTE | 2023-02-15 10:29 | ECG_ITS ---
Test Reason : cp/sob Blood Pressure : / mmHG Vent. Rate : 090 BPM Atrial Rate : 090 BPM P-R Int : 216 ms QRS Dur : 074 ms QT Int : 468 ms P-R-T Axes : 000 064 -01 degrees QTc Int : 572 ms Sinus rhythm with 1st degree A-V block Septal infarct , age undetermined Prolonged QT Abnormal ECG When compared with ECG of 10-JUL-2018 07:05, QT has lengthened Referred By: Jaimee Salazar Electronically Signed By:Suresh Trivedi
[2023-02-15 10:53] LABS: MANUAL DIFF FLAG NO
[2023-02-15 10:54] LABS: Basophils Percent Auto 0.3 % (0-2); Eosinophils Absolute Auto 0.1 X10*3/uL (0.0-0.4); Hematocrit 35.4 % (42.0-52.0); Hemoglobin 11.6 g/dl (14.0-18.0); Imm Gran Abs Auto 0.03 X10*3/uL (0.00-0.03); Imm Gran Pct Auto 0.4 % (0.0-0.4); Lymphocytes Absolute Auto 0.4 X10*3/uL (1.2-4.9); Mean Corpuscular HGB Conc 32.8 g/dl (31.0-36.0); Mean Corpuscular Hemoglobin 30.4 pg (27.0-33.0); Mean Corpuscular Volume 92.7 fL (80.0-98.0); Mean Platelet Volume 10.3 fL (9.4-12.4); Monocytes Absolute Auto 0.6 X10*3/uL (0.1-1.2); Monocytes Percent Auto 8.1 % (2-11); Neutrophils Absolute Auto 6.1 x10*3/uL (2.0-8.3); Neutrophils Percent Auto 85.2 % (45-73); Platelet Count 132 X10*3/uL (160-400); Red Blood Count 3.82 X10*6/uL (4.60-5.80); Red Cell Distribution Width 13.1 % (11.0-16.0); White Blood Count 7.2 X10*3/uL (4.8-10.8)
[2023-02-15 10:59] LABS: COVID-19 Test Negative (Negative); IDNOW Serial# 08D9AD1C; IDNOW Serial# BCCEAD1C; Influenza A Negative (Negative); Influenza B2 Negative (Negative)
[2023-02-15 11:06] LABS: Prothrombin Time 11.9 SEC (10.0-13.1)
[2023-02-15 11:13] LABS: Troponin-I High Sensitivity 8.5 ng/L (<3.5-35.0)
[2023-02-15 11:14] LABS: B Type Natriuretic Peptide 81 pg/mL (<100)
[2023-02-15 11:17] LABS: Alanine Aminotransferase 11 U/L (0-40); Albumin Level 3.8 g/dL (3.5-5.0); Alkaline Phosphatase 82 U/L (39-117); Anion Gap 13 (12-20); Aspartate Amino Transferase 22 U/L (5-37); Bilirubin Direct 0.2 mg/dL (0.0-0.5); Bilirubin Total 0.7 mg/dL (0.0-1.0); Blood Urea Nitrogen 25 mg/dL (9-16); Calcium 8.9 mg/dL (8.4-10.2); Carbon Dioxide 22 mmol/L (22-29); Chloride 108 mmol/L (96-108); Creatinine Clr Calc Pharmacy 45.5; Estimated Glomerular Filt Rate 58; Glucose Random 240 mg/dL (60-115); Lipase 13 U/L (8-78); Magnesium 2.1 mg/dL (1.6-2.6); Potassium 4.4 mmol/L (3.3-5.1); Sodium 139 mmol/L (135-145); Total Protein 6.7 g/dL (6.5-8.0)
--- NOTE | 2023-02-15 11:38 | PHA.MEDREC ---
Pharmacy Consult ? Medication Reconciliation Pharmacy has completed the medication reconciliation.
[2023-02-15] MEDS: iohexoL 350 MG/ML 100 ML INFUS..BTL IV (12:09)
--- NOTE | 2023-02-15 13:37 | P.HPHOSP_ITS ---
History of Present Illness Date of Service: 02/15/23 Attending physician on admission: Yamil Swan Chief Complaint: SOB Pt is a 78-year-old male with a PMH significant for?interstitial lung disease and bladder cancer s/p chemo and radiation treatment in December 2022 who presents to the ED with?increasing shortness of breath and chest pain. 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 Patient states that he begin experiencing difficulty breathing thr ough his nose near the end of December. Soft PCP who diagnosed him with sinusitis and prescribed a course of antibiotics which did not alleviate his symptoms. Patient then to see an tanning solution maker who prescribed a different course of antibiotics to no avail. Fabrication Lead then performed a nasal endoscopy that apparently found mucus blockage. Is planning on having a outpatient procedure for a CT scan of his sinuses which has yet to be scheduled. Patient states that his shortness of breath has worsened this past week, and his daughter who was at bedside notes he has been having difficulty walking up stairs without having to rest before completing a flight of stairs. Has been having a cough productive of brownish sputum. This morning patient also notes he began having left-sided back pain near his scapula that radiated to the front of his chest near his nipple. Pain is sharp and shooting, constant, and rates it as a 4/10. Denies fever, chills, nausea, vomiting, abdominal pain. No chest pressure or palpitations. In the ED patient was afebrile but tachypneic at 24, hypotensive as low was 1 18/54, and satting as low as 85% on RA. Labs were significant for H&H of 11.6/35.4. No leukocytosis. Electrolytes within normal limits. Renal and hepatic function baseline. Initial troponin negative at 8.5 with down trending to 6.1.CTA of chest showed no evidence of pulmonary embolism, but showed emphysema and severe interstitial lung disease suggestive IPF, increased compared to 2019 exam. Also found new 4 mm left upper lobe nodule with suggestion for optional CT follow-up in 1 year. ?EKG demonstrated her sinus rhythm with first-degree AV block and prolonged QTc 572, with no evidence of ST elevations or depressions. Pt was treated with Solu-Medrol and DuoNebs. Pt will be admitted to the hospital under observation for COPD exacerbation. Review of Systems Review of Systems: Increasing shortness of breath Productive cough Left-sided back pain radiating to the chest Denies fever, chills, nausea, vomiting, abdominal pain, diarrhea No chest pressure, palpitations Yes all other systems are reviewed and are negative [facility] Medical History Cataracts, bilateral HLD (hyperlipidemia) HTN (hypertension) Interstitial lung disease Muscle spasms of both lower extremities Family History Father Stomach cancer Mother No problems noted. Surgical History Hx of sinus surgery Social History Household Members: Spouse Housing: House Alcohol intake: current Alcohol intake frequency: does not drink Alcohol type: wine Patient Tobacco Use Status: Former Tobacco user Quit Date: age 70 Tobacco use type: Cigarette Years Smoked: 61 Smoked in Last 30 Days: No e-Cigarette/Vaping Use: Never Used Second Hand Smoke Exposure: No Use of substances other than those prescribed or required for medical reasons: No Advance Directives: No Nutrition Risks: No Nutritional Risk service: No Current occupational status: employed Cognitive needs: No Hearing needs: No Vision needs: No Meds Allergies Allergy/AdvReac Type Severity Reaction Status Date / Time Seasonal Allergies Allergy Sneezing Verified 02/05/23 07:50 Home Medications Medication Instructions Recorded Confirmed Last Taken Type acetaminophen 325 mg capsule 325 mg PO QID PRN Pain 02/15/23 02/15/23 Unknown History (Tylenol) loratadine 10 mg tablet (Claritin) 10 mg PO DAILY 02/15/23 02/15/23 Unknown History tamsulosin 0.4 mg capsule 0.4 mg PO DAILY dizziness 02/15/23 02/15/23 Unknown History Physical Exam Vital Signs and Narrative: Vital Signs: Last Vital Signs Temp 97.5 F 02/15/23 09:57 Pulse 84 02/15/23 12:35 Resp 18 02/15/23 12:35 BP 118/54 L 02/15/23 12:35 Pulse Ox 97 02/15/23 12:35 O2 Del Method Room Air 02/15/23 12:35 Oxygen Flow Rate 2 02/15/23 09:57 BMI result Body Mass Index 27.0 Constitutional: Alert, primarily breathing through mouth, capable of speaking in full sentences, in no acute distress. Mental Status: Oriented to person, place and time. Eyes: Pupils are equal, round, and reactive to light. Ear, Nose, and Throat: Oropharynx clear, mucous membranes moist. Ears and nose without deformities. Trachea midline. Respiratory: Diminished breath sounds throughout bilaterally. End inspiratory crackles. Cardiovascular: S1, S2 regular. No murmurs, rubs, or gallops. Gastrointestinal: Abdomen soft, non-tender, non-distended. Normal bowel sounds. Neurologic: Cranial nerves II-XII are grossly intact bilaterally. No focal neurological deficits. Moves all extremities spontaneously. Skin: No rashes or lesions noted. Musculoskeletal: Mild tenderness to palpation of left side of anterior chest wall and scapular spine. Extremities: No edema. Psychiatric: Normal mood and affect. Results Labs 02/15/23 10:46 02/15/23 10:46 Labs: Laboratory Results - last 24 hr 02/15/23 02/15/23 02/15/23 10:36 10:36 10:46 MCV 92.7 MCH 30.4 MCHC 32.8 RDW 13.1 Plt Count 132 L MPV 10.3 Immature Gran % (Auto) 0.4 Neut % (Auto) 85.2 H Lymph % (Auto) 5.0 L Edmunds % (Auto) 8.1 Eos % (Auto) 1.0 Baso % (Auto) 0.3 Lymph # (Auto) 0.4 L Edmunds # (Auto) 0.6 Eos # (Auto) 0.1 Baso # (Auto) 0.0 Abs Immat Gran (auto) 0.03 Absolute Neuts (auto) 6.1 Absolute Nucleated RBC 0.000 Nucleated RBC % (auto) 0.0 PT INR Anion Gap Estim Creat Clear Calc Estimated GFR Random Glucose Calcium Magnesium Total Bilirubin Direct Bilirubin AST ALT Alkaline Phosphatase Troponin I High Sens B-Natriuretic Peptide Total Protein Albumin Lipase COVID-19 (HAILEY) Negative COVID-19 Clin Com See Note Influenza Type A (MOIRA) Negative Influenza Type B (MOIRA) Negative Influenza A & B Note See Note 02/15/23 02/15/23 02/15/23 10:46 10:46 10:47 MCV MCH MCHC RDW Plt Count MPV Immature Gran % (Auto) Neut % (Auto) Lymph % (Auto) Edmunds % (Auto) Eos % (Auto) Baso % (Auto) Lymph # (Auto) Edmunds # (Auto) Eos # (Auto) Baso # (Auto) Abs Immat Gran (auto) Absolute Neuts (auto) Absolute Nucleated RBC Nucleated RBC % (auto) PT 11.9 INR 1.0 Anion Gap 13 Estim Creat Clear Calc 45.5 Estimated GFR 58 Random Glucose 240 H Calcium 8.9 Magnesium 2.1 Total Bilirubin 0.7 Direct Bilirubin 0.2 AST 22 ALT 11 Alkaline Phosphatase 82 Troponin I High Sens B-Natriuretic Peptide 81 Total Protein 6.7 Albumin 3.8 Lipase 13 COVID-19 (HAILEY) COVID-19 Clin Com Influenza Type A (MOIRA) Influenza Type B (MOIRA) Influenza A & B Note 02/15/23 10:47 MCV MCH MCHC RDW Plt Count MPV Immature Gran % (Auto) Neut % (Auto) Lymph % (Auto) Edmunds % (Auto) Eos % (Auto) Baso % (Auto) Lymph # (Auto) Edmunds # (Auto) Eos # (Auto) Baso # (Auto) Abs Immat Gran (auto) Absolute Neuts (auto) Absolute Nucleated RBC Nucleated RBC % (auto) PT INR Anion Gap Estim Creat Clear Calc Estimated GFR Random Glucose Calcium Magnesium Total Bilirubin Direct Bilirubin AST ALT Alkaline Phosphatase Troponin I High Sens 8.5 B-Natriuretic Peptide Total Protein Albumin Lipase COVID-19 (HAILEY) COVID-19 Clin Com Influenza Type A (MOIRA) Influenza Type B (MOIRA) Influenza A & B Note Imaging Radiologist's Impressions: Impressions Chest CTA 02/15/23 12:08 IMPRESSION: No evidence of pulmonary embolism. Emphysema. Severe interstitial lung disease. Chest CT appearance is suggestive of IPF. This is increased compared to 2019 exam. New 4 mm left upper lobe nodule. According to the UPDATED 2017 Fleischner Society recommendations, the advised follow-up imaging for less than 6 mm solid nodule: Low risk, no chest CT follow-up and high risk, optional chest CT follow-up in one year. Small right pulmonary nodule. VTE: negative Assessment and Plan (1) Hypoxia: Status: Acute Plan Pt is a 78-year-old male with a PMH significant for?interstitial lung disease and bladder cancer s/p chemo and radiation treatment in December 2022 who presents to the ED with?increasing shortness of breath and chest pain. Pt was treated with Solu-Medrol and DuoNebs. Pt will be admitted to the hospital under obs ervation for acute hypoxic respiratory failure in the setting of COPD exacerbation. Acute hypoxic respiratory failure setting of COPD exacerbation Patient with increasing SOB, productive cough, and satting at 85% O2 on RA, currently satting at 97% on 2 L NC CTA showed no evidence of pulmonary embolism, but did show emphysema and severe interstitial lung disease suggestive of idiopathic pulmonary fibrosis, increased since 2019 exam Patient received DuoNebs and Solu-Medrol in the ED Patient receive DuoNebs, Solu-Medrol 60 mg IV q6h Empiric doxycycline 100 b.i.d., started 02/15/2023 Titrate supplemental O2>92, wean as tolerated Monitor respiratory status Back/chest pain Patient complains of pain on the left-side his back radiating toward the front of his chest since this morning Possibly costochondritis secondary to coughing, less likely atypical cardiac chest pain EKG negative for ST elevations or depressions or acute ischemic changes Serial troponins negative Analgesics for pain management Monitor on telemetry Prolonged QTc EKG shows sinus rhythm with 1st degree heart block and prolonged QTc of 572 Avoid QT-prolonging agents Magnesium level WNL Monitor on telemetry Pulmonary nodule CTA showed new 4mm nodule in left upper lobe Optional follow up outpatient with CT in one year BPH Continue tamsulosin Full Code Attending:?Dr. Swan DVT Prophylaxis: Lovenox Pt will be admitted to the hospital under observation for acute hypoxic respiratory failure in the setting of COPD exacerbation. Time Spent With Patient Time: Total time managing care of this patient today ____ minutes. Quality Stroke Does the patient have a stroke diagnosis?: No VTE Prior VTE?: No VTE Risk Level:: Medical - moderate - high VTE Device Contraindication: Treatment Not Indicated VTE Drug Contraindication: N/A - Med Ordered
[2023-02-15] MEDS: methylPREDNISolone Sod Succ 125 MG/2 ML VIAL IVPUSH (13:57)
[2023-02-15] MEDS: Albuterol/Iprat 2.5/0.5MG 3 ML AMPUL.NEB INHALE ×2 (14:26→19:28)
--- NOTE | 2023-02-15 14:49 | PC.NURSE ---
upon arrival with EMS, patient's oxygen sat was 85 percent on RA.
[2023-02-15 15:08] LABS: Troponin-I High Sensitivity 6.1 ng/L (<3.5-35.0)
[2023-02-15] MEDS: Doxycycline Hyclate 100 MG in 0.9 % Sodium Chloride 250 ML 166.67 MG IV (15:20)
[2023-02-15] MEDS: Enoxaparin Sodium 40 MG/0.4 ML SYRINGE SUBCUT (15:21)
[2023-02-15 16:49] LABS: Appearance Urine Clear; Color Urine Yellow; Glucose Urine UA 100 mg/dL (Negative); Leukocyte Esterase Urine Negative (Negative); Nitrite Urine Negative (Negative); Specific Gravity - Urine >= 1.030 (1.005-1.025); UMIC TRIGGER UACC YES; Urine Blood Negative (Negative); Urine Ketones Negative (Negative); Urine Protein 30 (1+) mg/dL (Neg-Trace)
[2023-02-15 17:15] LABS: Bacteria Urine None Seen (None Seen); Hyaline Casts Urine 0-2 /LPF (0-2); RBC Urine 0-2 /HPF (0-2); Squamous Epithelial Cell Urine 0-2 /HPF (0-2); WBC Urine 0-5 /HPF (0-5)
--- NOTE | 2023-02-15 18:05 | MHC.CM.PN ---
ROXANNA 02/15. A&Ox4. Lives with . Drives locally. No DME/services. No home oxygen. Moderna x3/booster x1. HCP reviewed, completed and signed. Copies given. Uploaded into [employer] and [employer]. HCP/granddaughter Abbie Gamaroel ([phone]). May need respiratory assessment for home oxygen. D/C plan: home without services. Family will transport home. CM will follow for any discharge needs.
[2023-02-15] MEDS: methylPREDNISolone Sod Succ 125 MG/2 ML VIAL 60 MG IVPUSH (23:52)
[2023-02-15] MEDS: Tamsulosin HCL 0.4 MG CAPSULE PO (23:52)
[2023-02-16] VITALS (10 sets, daily range): BP systolic 119–149; BP diastolic 54–65; PULSE 68–111; RESP 15–20; TEMP 36.3–37; O2SAT 89–99
[2023-02-16] MEDS: Doxycycline Hyclate 100 MG in 0.9 % Sodium Chloride 250 ML 166 MG IV (06:51)
[2023-02-16] MEDS: methylPREDNISolone Sod Succ 125 MG/2 ML VIAL 60 MG IVPUSH ×4 (06:51→23:45)
[2023-02-16] MEDS: 0.9 % Sodium Chloride Flush 3 ML SYRINGE IVFLUSH ×3 (06:54→21:15)
[2023-02-16 07:03] LABS: Hematocrit 32.6 % (42.0-52.0); Hemoglobin 10.7 g/dl (14.0-18.0); Mean Corpuscular HGB Conc 32.8 g/dl (31.0-36.0); Mean Corpuscular Hemoglobin 30.1 pg (27.0-33.0); Mean Corpuscular Volume 91.6 fL (80.0-98.0); Mean Platelet Volume 10.1 fL (9.4-12.4); Platelet Count 140 X10*3/uL (160-400); Red Blood Count 3.56 X10*6/uL (4.60-5.80); Red Cell Distribution Width 12.8 % (11.0-16.0); White Blood Count 5.7 X10*3/uL (4.8-10.8)
[2023-02-16] MEDS: Albuterol/Iprat 2.5/0.5MG 3 ML AMPUL.NEB INHALE ×4 (07:45→18:51)
[2023-02-16] MEDS: Loratadine 10 MG TABLET PO (09:42)
[2023-02-16] MEDS: Tamsulosin HCL 0.4 MG CAPSULE PO ×2 (09:54→21:14)
--- NOTE | 2023-02-16 12:30 | P.PNIM_ITS ---
Subjective Subjective Date of Service: 02/16/23 Interval History: Subjective improved overnight; no acute issues Review of Systems Denies chest pain Denies shortness of breath Denies nausea vomiting diarrhea Denies fever chills Physical Exam Vital Signs: Vital Signs: Last Vital Signs Temp 97.3 F 02/16/23 07:42 Pulse 83 02/16/23 11:14 Resp 18 02/16/23 11:14 BP 136/63 02/16/23 07:42 Pulse Ox 97 02/16/23 07:42 O2 Del Method Nasal Cannula 02/16/23 07:42 O2 Flow Rate 4 02/16/23 07:42 Oxygen Flow Rate 2 02/15/23 09:57 BMI result Body Mass Index 26.3 Const: Other: Awake alert no acute distress. Able speak in full sentences Resp: Other: Clear but diminished throughout. End inspiratory crackles at bases Cardio: Other: No S4; positive S1-S2; no S3 murmurs rubs or gallops GI: Other: Soft nontender nondistended normoactive bowel sounds Extrem: Other: No edema bilaterally Objective Data Active Medications Acetaminophen (Acetaminophen 325 Mg Tablet) 650 mg PO Q6H PRN PRN Reason: Pain, Mild (Pain Scale 1-3) Albuterol/Ipratropium (Albuterol/Iprat 2.5/0.5mg 3 Ml Ampul.Neb) 3 ml INHALE RQ4H WHILE AWAKE [facility] Last Admin: 02/16/23 11:13 Dose: 3 ml Documented By: ZARA Docusate Sodium (Docusate Sodium 100 Mg Capsule) 100 mg PO DAILY PRN PRN Reason: Constipation Enoxaparin Sodium (Enoxaparin Sodium 40 Mg/0.4 Ml Syringe) 40 mg SUBCUT Q24H [facility] [place] Last Admin: 02/15/23 15:21 Dose: 40 mg Documented By: JESSIE Doxycycline Hyclate 100 mg/ (Sodium Chloride) 250 mls @ 166.67 mls/hr IV Q12H [facility] [place] Last Infusion: 02/16/23 08:33 Dose: 0 mls/hr Documented By: MARION Loratadine (Loratadine 10 Mg Tablet) 10 mg PO DAILY [facility] [place] Last Admin: 02/16/23 09:42 Dose: 10 mg Documented By: MARION Methylprednisolone Sodium Succinate (Methylprednisolone Sod Succ 125 Mg/2 Ml Vial) 60 mg IVPUSH Q6H [facility] [place] Last Admin: 02/16/23 06:51 Dose: 60 mg Documented By: DEREJE Oxycodone HCl (Oxycodone Hcl Immed Release 5 Mg Tablet) 5 mg PO Q6H PRN PRN Reason: Pain, Moderate(Pain Scale 4-6) Sodium Chloride (0.9 % Sodium Chloride Flush 3 Ml Syringe) 3 ml IVFLUSH QSHIFT [facility] [place] Last Admin: 02/16/23 09:44 Dose: 3 ml Documented By: MARION Tamsulosin HCl (Tamsulosin Hcl 0.4 Mg Capsule) 0.4 mg PO DAILY [facility] [place] Last Admin: 02/16/23 09:54 Dose: 0.4 mg Documented By: MARION Tamsulosin HCl (Tamsulosin Hcl 0.4 Mg Capsule) 0.4 mg PO BEDTIME [facility] [place] Last Admin: 02/15/23 23:52 Dose: 0.4 mg Documented By: SADE Labs 02/16/23 06:39 02/15/23 10:46 Labs: Laboratory Results - last 24 hr 02/15/23 02/15/23 02/16/23 14:43 16:37 06:39 MCV 91.6 MCH 30.1 MCHC 32.8 RDW 12.8 Plt Count 140 L MPV 10.1 Absolute Nucleated RBC 0.000 Nucleated RBC % (auto) 0.0 Troponin I High Sens 6.1 Urine Color Yellow Urine Appearance Clear Urine pH 5.0 Ur Specific Lizemores >= 1.030 H Urine Protein 30 (1+) H Urine Glucose (UA) 100 H Urine Ketones Negative Urine Blood Negative Urine Nitrite Negative Ur Leukocyte Esterase Negative Urine RBC 0-2 Urine WBC 0-5 Ur Squamous Epith Cells 0-2 Urine Bacteria None Seen Hyaline Casts 0-2 Assessment and Plan (1) Hypoxia: Status: Acute (2) COPD exacerbation: Status: Acute (3) Interstitial lung disease: Status: Acute (4) HTN (hypertension): Status: Acute Plan Pt is a 78-year-old male with a PMH significant for?interstitial lung disease and bladder cancer s/p chemo and radiation treatment in December 2022 who presents to the ED with?increasing shortness of breath and chest pain. Pt was treated with Solu-Medrol and DuoNebs. Pt will be admitted to the hospital under observation for acute hypoxic respiratory failure in the setting of COPD exacerbation. 1.Acute hypoxic respiratory failure/COPD exacerbation -empiric doxycycline secondary to sputum production -pulse dose steroids -DuoNebs q.4 hours while awake -titrate O2 to maintain sats greater than or equal to 90% 2.Back/chest pain -likely consequent dryness -steroids as ordered Full Code Lovenox Patient will require ongoing hospitalization for IV antibiotics/steroids to treat COPD exacerbation Time Spent With Patient Time: Total time managing care of this patient today ____ minutes. Quality Stroke Does the patient have a stroke diagnosis?: No VTE Prior VTE?: No VTE Risk Level:: Medical - moderate - high VTE Device Contraindication: Treatment Not Indicated VTE Drug Contraindication: N/A - Med Ordered
[2023-02-16] MEDS: Doxycycline Hyclate 100 MG in 0.9 % Sodium Chloride 250 ML 166.67 MG IV (14:58)
[2023-02-16] MEDS: Enoxaparin Sodium 40 MG/0.4 ML SYRINGE SUBCUT (14:58)
[2023-02-16] MEDS: Sodium Chloride 0.65 % Nasal 44 ML SPRBTL 1 SPRAY NOSTRIL-B (14:59)
[2023-02-16] MEDS: Acetaminophen 325 MG TABLET 650 MG PO (17:29)
[2023-02-17] VITALS: BP 124/58; PULSE 93; RESP 20; TEMP 36.2; O2SAT 92
[2023-02-17] MEDS: Doxycycline Hyclate 100 MG in 0.9 % Sodium Chloride 250 ML 166 MG IV (02:34)
[2023-02-17 03:08] VITALS: BP 123/58; PULSE 90; RESP 20; TEMP 36.7; O2SAT 92
[2023-02-17 07:57] VITALS: BP 121/58; PULSE 92; RESP 20; TEMP 37.1; O2SAT 92
[2023-02-17] MEDS: Loratadine 10 MG TABLET PO (08:50)
[2023-02-17] MEDS: Tamsulosin HCL 0.4 MG CAPSULE PO (08:50)
[2023-02-17] MEDS: 0.9 % Sodium Chloride Flush 3 ML SYRINGE IVFLUSH (09:05)
[2023-02-17] MEDS: Albuterol/Iprat 2.5/0.5MG 3 ML AMPUL.NEB INHALE (11:10)
[2023-02-17 11:12] VITALS: BP 131/62; PULSE 90; RESP 20; TEMP 36.9; O2SAT 100
[2023-02-17 11:13] VITALS: PULSE 77; RESP 20; O2SAT 89
--- NOTE | 2023-02-17 11:28 | PM.DS ---
DS: Providers Provider Date of Service: 02/17/23 Date of admission: 02/15/23 14:49 Date of discharge: 02/17/23 Primary care physician: Jass Klein MD DS: Diagnosis Discharge Diagnosis (1) Hypoxia: Status: Acute (2) COPD exacerbation: Status: Acute (3) Interstitial lung disease: Status: Acute (4) HTN (hypertension): Status: Acute DS: Summary Hospital Course Hospital Course: Pt is a 78-year-old male with a PMH significant for?interstitial lung disease and bladder cancer s/p chemo and radiation treatment in December 2022 who presents to the ED with?increasing shortness of breath and chest pain.? 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 Patient states that he begin experiencing difficulty breathing through his nose near the end of December.? Soft PCP who diagnosed him with sinusitis and prescribed a course of antibiotics which did not alleviate his symptoms.? Patient then to see an associate embalmer/funeral director who prescribed a different course of antibiotics to no avail.? Geophysical E Logger then performed a nasal endoscopy that apparently found mucus blockage.? Is planning on having a outpatient procedure for a CT scan of his sinuses which has yet to be scheduled.? Patient states that his shortness of breath has worsened this past week, and his daughter who was at bedside notes he has been having difficulty walking up stairs without having to rest before completing a flight of stairs.? Has been having a cough productive of brownish sputum. This morning patient also notes he began having left-sided back pain near his scapula that radiated to the front of his chest near his nipple.? Pain is sharp and shooting, constant, and rates it as a 4/10.? Denies fever, chills, nausea, vomiting, abdominal pain.? No chest pressure or palpitations. In the ED patient was afebrile but tachypneic at 24, hypotensive as low was 118/54, and satting as low as 85% on RA. Labs were significant for H&H of 11.6/35.4.? No leukocytosis.? Electrolytes within normal limits.? Renal and hepatic function baseline.? Initial troponin negative at 8.5 with down trending to 6.1.CTA of chest showed no evidence of pulmonary embolism, but showed emphysema and severe interstitial lung disease suggestive IPF, increased compared to 2019 exam.? Also found new 4 mm left upper lobe nodule with suggestion for optional CT follow-up in 1 year. ?EKG demonstrated her sinus rhythm with first-degree AV block and prolonged QTc 572, with no evidence of ST elevations or depressions. Pt was treated with Solu-Medrol and DuoNebs. Pt will be admitted to the hospital under observation for COPD exacerbation. Hospital Course Patient admitted to telemetry where he received antibiotics and pulse dose steroids. Over the next 48 hours he was able to be weaned off his oxygen and is medically acceptable for discharge home. He will complete a course of doxycycline p.o. along with prednisone taper. Was also given an albuterol inhaler. He was instructed to follow-up with his PCP in 2 weeks Time Spent with Patient Time attestation: Total time managing care of this patient today ____ minutes. Discharge coordination time: Greater than 30 minutes Quality: Safe Use of Opioids Does Pt have an Active Cancer Diagnosis on the Problem List?: No Quality: Stroke Does the patient have a stroke diagnosis?: No Physical Exam Vital Signs: Vital Signs: Last Vital Signs Temp 98.4 F 02/17/23 11:12 Pulse 77 02/17/23 11:13 Resp 20 02/17/23 11:13 BP 131/62 02/17/23 11:12 Pulse Ox 100 02/17/23 11:12 O2 Del Method Room Air 02/17/23 11:12 O2 Flow Rate 4 02/16/23 07:42 Oxygen Flow Rate 2 02/15/23 09:57 BMI result Body Mass Index 26.3 Const: Other: Awake alert no acute distress. Able speak in full sentences Resp: Other: Clear but diminished throughout. End inspiratory crackles at bases Cardio: Other: No S4; positive S1-S2; no S3 murmurs rubs or gallops GI: Other: Soft nontender nondistended normoactive bowel sounds Extrem: Other: No edema bilaterally Discharge Plan Discharge Anticipated Discharge Date/Time: 02/17/23 11:23 Patient Disposition: Home, Self-Care Discharge Diagnosis: COPD exacerbation Referrals: Jass Klein MD [Primary Care Provider] - 1 Week Discharge Medications: New tamsulosin 0.4 mg Capsule 0.4 mg PO BEDTIME Qty: 30 0RF doxycycline hyclate 100 mg tablet 100 mg PO BID Qty: 14 0RF albuterol sulfate [ProAir HFA] 90 mcg/actuation HFA aerosol inhaler 2 puff inhalation QID PRN (Reason: shortness of breath or wheezing) Qty: 8.5 0RF Continued tamsulosin 0.4 mg capsule 0.4 mg PO DAILY loratadine [Claritin] 10 mg Tablet 10 mg PO DAILY acetaminophen [Tylenol] 325 mg Capsule 325 mg PO QID PRN (Reason: Pain) Discharge Orders: Discharge Order (Routine); Ordered 02/17/23 Ordered By: Yamil Swan Diet: Advance to usual diet Activity on Discharge: As tolerated Stand Alone Forms: Patient Portal Discharge page Care Plan Goals: Complete course of doxycycline twice a day for 7 days. Prednisone taper as ordered Health Concerns: Use Ventolin inhaler 2 puffs every 4 hours as needed for wheezing Plan of Treatment: Resume all pre-hospital medications Assessment: See discharge summary
--- NOTE | 2023-02-17 11:58 | MHC.CM.PN ---
PT WILL DC HOME TODAY WITH NO SERVICES VIA PRIVATE TRANSPORT
[2023-02-17] MEDS: methylPREDNISolone Sod Succ 125 MG/2 ML VIAL 60 MG IVPUSH (12:00)
== END 2023-02-17 13:50 | disposition home or self-care (01) ==
LOC: HO.ED 13:20 → HO.EDOVER 15:56 → HO.IMC 17:17
PROVIDERS: Physician Assistant; Admitting Provider Student in an Organized Health Care Education/Training Program; Emergency Provider Internal Medicine; PCP Internal Medicine; Visit Provider Hospitalist
DX: J96.91 Respiratory failure, unspecified with hypoxia (principal); J44.1 Chronic obstructive pulmonary disease with (acute) exacerbation; M54.50 Low back pain, unspecified; E78.5 Hyperlipidemia, unspecified; I10 Essential (primary) hypertension; R07.9 Chest pain, unspecified; Z20.822 Contact with and (suspected) exposure to COVID-19; Z79.899 Other long term (current) drug therapy
CPT/HCPCS: 36415; 71275; 80048; 80076; 81001; 81003; 83690; 83735; 83880; 84484; 85025; 85027; 85610; 87502; 87635; 93005; 94640; 96365; 96366; 96372; 96375; 96376; 99222; 99285; J1650; J2930; Q9967

== ENCOUNTER 2023-02-21 07:34 | Outpatient (REF) | payer MEDICARE, SELFPAY ==
--- NOTE | ~2023-02-21 | CT_ITS ---
CT SINUS WITHOUT CONTRAST CLINICAL INFORMATION: Sinonasal polyps. Deviated septum. COMPARISON: None available. TECHNIQUE: A multidetector CT acquisition of the sinuses is obtained without contrast This CT examination was performed using dose optimization techniques as appropriate, variously including the following: *Automated exposure control *Adjustment of mA and/or kV according to patient size (this includes techniques or standardized protocols for targeted exams where dose is matched to indication/reason for exam; i.e. extremities or head) *Use of iterative reconstruction technique FINDINGS: Small retention cyst versus polyp within the right maxillary sinus. Mild polypoid tissue along the upper base of the left inferior turbinate. There is mild mucosal thickening within the left maxillary sinus. The sphenoid sinuses demonstrate mild mucosal thickening. There is mild mucosal thickening throughout the ethmoid air cells bilaterally. Mild mucosal thickening within the inferior frontal sinuses. Major sinus drainage pathways are patent. There is a 1.9 cm defect within the inferior cartilaginous nasal septum. The nasal septum is deviated to the left. Left fovea ethmoidalis is 2 mm deeper than the right side. Olfactory grooves are symmetric in depth. The bony orbits are intact. Internal carotid arteries remain well covered with bone. The mastoid air cells and middle ear cavities are clear. CT/CT sinus wo IV con IMPRESSION: - There is a soft tissue bulge within the left nasopharynx effacing the left fossa of Rosenmuller that could be secondary to a mass lesion or complex lateral epipharyngeal cyst which can be further assessed with a neck MRI with and without IV contrast - Mild sinus mucosal disease. The major sinus drainage pathways are patent. Small retention cyst versus polyp within the right maxillary sinus. Mild polypoid tissue along the upper base of the left inferior turbinate. - There is a 1.9 cm defect within the inferior cartilaginous nasal septum. The nasal septum is deviated to the left.
== END 2023-02-21 07:35 | disposition home or self-care (01) ==
LOC: HO.CT 07:34
PROVIDERS: Visit Provider Otolaryngology
DX: J33.0 Polyp of nasal cavity (principal); J34.2 Deviated nasal septum
CPT/HCPCS: 70486

== ENCOUNTER 2023-02-28 11:20 | Outpatient (AMB) | payer MEDICARE, SELFPAY ==
--- NOTE | 2023-02-28 11:22 | A.OFFVIS_ITS ---
Intake Intake Visit Reasons: follow up Intake Note: * Patient presents today for a follow-up on Post op. * Meds- Tamsulosin 0.4 mg. * Allergies to Antibiotic- None * Blood Thinner- None Data Migration Lead Required: No Allergies Seasonal Allergies Allergy (Verified 04/19/23 13:29) Sneezing HPI HPI Comments History of Present Illness0 Details Emmett is an 78-year-old male who presents to the office follow-up s/p cysctoscopy, bladder biopsies 02/05/23. 02/28/23-- The patient asked if he can stop taking the tamsulosin I discussed that he can stop the tamsulosin if he has any urinary symptoms such as weaker urinary flow or urgency, then he should resume the medication. Bladder biopsy results reviewed:collected--02/05/23-- Atypical urothelial cells present Review of chart: Office visit?10/01/22-- Emmett is a 77-year-old gentleman who was evaluated for blood in the urine. He is here for fu post Repeat cysto TURBT on 09/18/22. The patient states in April he noted blood in the urine, he went to see his primary and was given antibiotics and everything cleared up. Reviewed diagnostics the patient had urine cultures sent on 04/25/2022 that was no growth.? He states that he had recurrent blood in his urine in June as well as some scrotal pressure and lower quadrant discomfort. Office cysto - 07/05/22 - significant for bladder tumor and enlarged prostate. He was started on tamsulosin. He denies urinary frequency or nocturia. CT Urogram was ordered, upper tracts wnL. 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 Repeat TURBT 09/18/22- path - Muscle invasive bladder cancer in same area (right lateral wall) resected all grossly visible tumor The patient does not want a cystectomy. Currently under evaluation for Chemoradiation therapy. bone scan- 08/30/22- negative for metastasis Plan - no PSA or CXR on chart will get today, fu in 3 months for office cysto. Cont Flomax. 12/31/2022-- The patient is here for cystoscopy procedure. He has been followed by oncology and was last seen on 12/19/22. He received chemo-radiation therapy with 5FU/[facility] concurrent radiation. Evaluation today: Blood: 80 Shai/uL, leukocytes: negative. The patient was provided naproxen 500 mg and ciprofloxacin 500 mg x 1 dose pre- procedure today. Consent was obtained to perform cystoscopy procedure. Cystoscopy findings: There were erythematous change on the right lateral bladder wall. PSA--10/01/22-- 4.46. Plan: Out-patient cystoscopy with TUR-resection of the irregular changes noted at the right lateral wall and random bladder biopsies.?PSA blood work? ? Imaging: CT Urogram - 07/28/22- kidneys and ureters wnL, no hydro CT KUB - 06/23/22 scrotal ultrasound - 06/23/22---testicles within normal limits small hydrocele and varicocele clinically not significant. bone scan- 08/30/22- negative for metastasis. Plan: Urine for cytology was ordered. FISH bladder test. Cystoscopy discussed to be scheduled. [facility] Medical History Cataracts, bilateral HLD (hyperlipidemia) HTN (hypertension) Interstitial lung disease IPF (idiopathic pulmonary fibrosis) Muscle spasms of both lower extremities Surgical History Hx of sinus surgery Family History Father Stomach cancer Mother No problems noted. Social History Household Members: Spouse Housing: House Do you presently have visiting nurse or other home services: No Alcohol intake: current Alcohol intake frequency: a few times a month Alcohol type: wine Patient Tobacco Use Status: Former Tobacco user Quit Date: age 70 Tobacco use type: Cigarette Years Smoked: 61 e-Cigarette/Vaping Use: Never Used Second Hand Smoke Exposure: No Advance Directives Date on File: 02/15/23 service: No Current occupational status: employed Cognitive needs: No Hearing needs: Yes (hearing aides) Vision needs: No Review of Systems Const All systems reviewed & are unremarkable except as noted in HPI and below Reports no additional complaints Eyes Reports no additional complaints ENT Details: nasal polyp Reports no additional complaints Card Denies dyspnea Resp Denies cough and Denies dyspnea GI Reports no additional complaints Musc Reports no additional complaints Skin/Breast Denies rash and Denies unusual bruising Neuro Reports no additional complaints Psych Reports no additional complaints Endo Reports no additional complaints Romero/Lymph Reports no additional complaints Aller/Immun Reports no additional complaints Physical Exam Const General: healthy appearing, no acute distress and well developed Orientation/consciousness: patient oriented x3 HEENT Head: Yes normocephalic and Yes atraumatic Eyes Conjunctivae: conjunctivae normal Neck Neck: Yes normal visual inspection Chest Chest palpation & inspection: normal inspection of the chest Resp Effort & Inspection: normal respiratory effort Cardio Rate: regular rate GI Inspection: Yes normal to inspection Palpation (GI): Soft to palpation Neuro General: patient oriented x3 Psych Appearance: grossly normal Affect: normal affect Results Reviewed Results Reviewed: Collected: 02/05/23 Received: 02/05/23 Diagnosis A. Bladder, right lateral wall random, biopsy: Atypical urothelial cells present. See description and comment. B. Bladder, left lateral and posterior wall, random: Atypical urothelial cells present. See description and comment. COMMENT: While fully diagnostic features of carcinoma in-situ are not seen in the current samples, the atypia does warrant close follow-up and repeat sampling after appropriate interval, as clinically appropriate. Clinical History Malignant neoplasm of bladder, unspecified Microscopic Description A, B. Microscopic sections reviewed. Both specimens have some degree of inflammation present and focal areas of somewhat atypical urothelial cells. By immunohistochemistry, p53 appears to have a wild type pattern and the CK20 stain appears to be mostly limited to the upper layers of the urothelium. However, there is some cytologic atypia present in both samples, which raises the possibility of carcinoma in situ. Material Received A: Right lateral wall random B: Left lateral wall, posterior wall random Gross Description A. Received in formalin are 2 persaud 2 and 4 mm soft tissue fragments, totally submitted in A1. B. Received in formalin is 1 persaud 1 mm soft tissue fragment, totally submitted in B1. Assessment & Plan Assessment & Plan (1) Bladder cancer: Code(s): C67.9 - Malignant neoplasm of bladder, unspecified (2) BPH loc w urin obs/LUTS: Code(s): N40.1 - Benign prostatic hyperplasia with lower urinary tract symptoms Plan Urine for cytology was ordered. FISH bladder test. Cystoscopy discussed to be scheduled. Patient Instructions: The patient had an opportunity to ask questions regarding treatment plan. All questions were answered. Laboratory studies and physical exam results were discussed and reviewed in detail. No major barriers to understanding were identified. The patient expressed understanding and agreement with the above treatment plan. The patient is aware they should contact our office by phone for worsening of their current condition or the appearance of new symptoms. Compliance is encouraged with any medications and followup testing that is ordered. It is a privilege to be allowed the opportunity to participate in the urologic care of your patient. If you have any questions or concerns regarding treatment for the above conditions please do not hesitate to contact me. The office telephone contact is [phone]. This note is constructed in part using voice recognition software. While every effort has been made to ensure accuracy production assembly supervisor errors may have been included. Yours sincerely, Meliza Farmer MD Coding Level of Care Code Est Pt Level 3 (85201) Diagnoses Bladder cancer C67.9 BPH loc w urin obs/LUTS N40.1
== END 2023-02-28 11:52 | disposition home or self-care (01) ==
LOC: HO.HUSH 11:20
PROVIDERS: PCP Internal Medicine; Visit Provider Urology
DX: C67.2 Malignant neoplasm of lateral wall of bladder (principal); C67.4 Malignant neoplasm of posterior wall of bladder; N40.1 Benign prostatic hyperplasia with lower urinary tract symptoms
CPT/HCPCS: 99213

== ENCOUNTER → 2023-02-28 11:20 | Outpatient (BNVA) | payer MEDICARE, SELFPAY | PROVIDERS: PCP Internal Medicine; Visit Provider Urology | DX: C67.9 Malignant neoplasm of bladder, unspecified (principal); N40.1 Benign prostatic hyperplasia with lower urinary tract symptoms; N13.8 Other obstructive and reflux uropathy; Z92.21 Personal history of antineoplastic chemotherapy; Z92.3 Personal history of irradiation | CPT/HCPCS: 99212 ==

== ENCOUNTER 2023-03-06 10:43 | Outpatient (REF) | payer MEDICARE, SELFPAY | END 2023-03-06 10:44 | disposition home or self-care (01) | LOC: HO.LAB 10:43 | PROVIDERS: PCP Internal Medicine; Visit Provider Urology | DX: C67.9 Malignant neoplasm of bladder, unspecified (principal) | CPT/HCPCS: 88121 ==

== ENCOUNTER 2023-04-19 13:19 | Outpatient (AMB) | payer MEDICARE, SELFPAY ==
--- NOTE | 2023-04-19 13:25 | A.OFFPC_ITS ---
Intake Visit Reasons: Body aches, coughing, congested Intake Note: Patient is here today for body aches, coughing and congestion Motor Vehicles Supervisor Required: No Firestopper Installer: Not Required per policy Accompanied by: Self / Same As Patient Allergies Seasonal Allergies Allergy (Verified 04/19/23 13:29) Sneezing Medication List - Last Reconciled 04/19/23 by Jass Klein MD acetaminophen (Tylenol) 325 mg PO QID PRN albuterol sulfate 90 mcg/actuation (ProAir HFA) 2 puffs inhalation QID PRN doxycycline hyclate 100 mg PO BID fluticasone propion-salmeterol 250-50 mcg/dose (Wixela Inhub) 1 ea inhalation BID loratadine 10 mg PO DAILY tamsulosin 0.4 mg PO DAILY tamsulosin 0.4 mg PO BEDTIME Tobacco use date assessed: 04/19/23 Fall risk assessment: No Falls in past year Last assessed Fall Risk: 04/19/23 Dental Screening Dental Screen Date: 04/19/23 Did you have a dental visit in the last 12 months?: Yes Did you have a dental problem in the last 6 months where you did not have access to dental care?: No Was dental information given to patient?: Patient has dentist HPI Body aches, coughing, congested HPI Details cough and congestion; pos for covid PFSH Medical History Cataracts, bilateral HLD (hyperlipidemia) HTN (hypertension) Interstitial lung disease IPF (idiopathic pulmonary fibrosis) Muscle spasms of both lower extremities Surgical History Hx of sinus surgery Family History Father Stomach cancer Mother No problems noted. Social History Household Members: Spouse Housing: House Alcohol intake: current Alcohol intake frequency: does not drink Alcohol type: wine Patient Tobacco Use Status: Former Tobacco user Quit Date: age 70 Tobacco use type: Cigarette Years Smoked: 61 e-Cigarette/Vaping Use: Never Used Second Hand Smoke Exposure: No Advance Directives Date on File: 02/15/23 service: No Current occupational status: employed Cognitive needs: No Hearing needs: Yes (hearing aides) Vision needs: No Questionnaire Thrive Questionnaire Date Thrive assessed: 03/28/22 ARMANDO-7 AMB Questionnaire ARMANDO-7 Date ARMANDO - 7 assessed: 12/27/22 Source: Developed by Drs. Mehrdad Pierce, Cathi Poon, Johnathon Lopez and colleagues, with an educational kamran from [employer]. Review of Systems Const Denies chills, Denies headache(s) and Denies weight loss ENT Denies headache(s) Card Denies chest pain, Denies syncope and Denies irregular heart rhythm GI Denies abdominal pain, Denies change in stool character, Denies nausea and Denies vomiting Musc Denies deformity and Denies joint swelling Neuro Denies syncope and Denies headache(s) Physical exam (Primary Care) Tobacco/Smoking Status: Tobacco use Status Tobacco use date assessed 04/19/23 04/19/23 13:30 Patient Tobacco Use Status Former Tobacco user 04/19/23 13:26 Tobacco use type Cigarette 04/19/23 13:26 e-Cigarette/Vaping Use Never Used 04/19/23 13:26 Thrive Assessment: Date of Thrive Assessment Date Thrive assessed 03/28/22 04/19/23 13:26 Telehealth Telehealth Location of provider rendering services: practice address Location of patient: address on file Patient Identification confirmed using: Name, : Yes Telehealth method: voice only Patient verbally consented to treatment: Yes Patient verbally consented to billing insurance company: Yes Patient informed of any privacy concerns related to visit: Yes Minutes spent on Phone/Video with Pt.: 15 (telephone) Assessment and Plan Assessment & Plan (1) COVID-19: Code(s): U07.1 - COVID-19 Plan: rx Orders: Orders BinaxNOW Covid-19 Ag Today R05.9 - Cough, unspecified XR chest 2V Today R05.9 - Cough, unspecified Medications: New nirmatrelvir-ritonavir 300 mg (150 mg x 2)-100 mg (Paxlovid) take TWO 150 mg tablets of nirmatrelvir with ONE 100 mg tablet of ritonavir twice daily for 5 days PO 30 tabs 0RF covid Coding Level of Care Code Tele Est Pt Level 3 (78416) Diagnoses COVID-19 U07.1
== END 2023-04-19 14:24 | disposition home or self-care (01) ==
PROVIDERS: PCP Internal Medicine; Visit Provider Internal Medicine
DX: U07.1 COVID-19 (principal)
CPT/HCPCS: 99442

== ENCOUNTER 2023-04-19 13:49 | Outpatient (REF) | payer MEDICARE, SELFPAY ==
--- NOTE | ~2023-04-19 | XR_ITS ---
EXAMINATION: XR CHEST CLINICAL INFORMATION: Cough unspecified COMPARISON: CT angiogram chest 02/15/2023. X-ray chest 10/01/2022 TECHNIQUE: 2 views of the chest were obtained. FINDINGS: Redemonstration of severe emphysematous changes with increased diffuse interstitial opacities better characterized as severe interstitial lung disease on CT scan. There is overall diffuse increase in hazy opacification in the bilateral lungs since chest radiograph of 10/01/2022, possibly related to superimposed edema versus inflammatory/infectious process. No gross pleural effusion. Degenerative changes in the thoracic spine. Heart size is normal. There is no gross pneumothorax. XR/XR chest 2V IMPRESSION: Redemonstration of severe emphysematous changes with increased diffuse interstitial opacities better characterized as severe interstitial lung disease on CT scan. There is overall diffuse increase in hazy opacification in the bilateral lungs since chest radiograph of 10/01/2022, possibly related to superimposed edema versus inflammatory/infectious process.
[2023-04-19 14:58] LABS: COVID-19 Test Positive (Negative); IDNOW Serial# 9DB6401D
== END 2023-04-19 13:50 | disposition home or self-care (01) ==
LOC: HO.LAB 13:49
PROVIDERS: PCP Internal Medicine; Visit Provider Internal Medicine
DX: R68.83 Chills (without fever) (principal); R05.9 Cough, unspecified; Z20.822 Contact with and (suspected) exposure to COVID-19
CPT/HCPCS: 71046; 87635

== ENCOUNTER 2023-04-22 15:17 | Inpatient (IN) | payer MEDICARE, SELFPAY ==
--- NOTE | ~2023-04-22 | XR_ITS ---
EXAMINATION: XR CHEST CLINICAL INFORMATION: Shortness of breath. COMPARISON: Chest radiographs dated 04/19/2023, chest CTA dated 02/15/2023 TECHNIQUE: Frontal view of the chest was obtained. FINDINGS: Chronic interstitial changes are again seen. Persistent patchy opacities are seen in the mid and lower lung millan, left greater than right with mild interval improvement on the left. The heart and mediastinal structures are unremarkable. XR/XR chest 1V IMPRESSION: Chronic interstitial lung disease with mild interval improvement in left lung infiltrates.
[2023-04-22 15:27] VITALS: BP 120/54; BP 130/62; PULSE 103; O2SAT 95; O2SAT 96; BMI 24.9
[2023-04-22 15:41] VITALS: BP 120/54; PULSE 102; RESP 30; TEMP 36.4; O2SAT 96
--- NOTE | 2023-04-22 15:55 | ECG_ITS ---
Test Reason : sob Blood Pressure : / mmHG Vent. Rate : 100 BPM Atrial Rate : 100 BPM P-R Int : 270 ms QRS Dur : 078 ms QT Int : 340 ms P-R-T Axes : 056 068 -53 degrees QTc Int : 438 ms Sinus rhythm with 1st degree A-V block with Premature supraventricular complexes T wave abnormality, consider anterolateral ischemia Abnormal ECG When compared with ECG of 15-FEB-2023 10:49, Premature supraventricular complexes are now Present T wave inversion now evident in Anterolateral leads QT has shortened Referred By: Amber Hung Electronically Signed By:DEVONTE BEGUM
--- NOTE | 2023-04-22 16:17 | ED.SOB ---
HPI - SOB/Dyspnea General Chief Complaint: Dyspnea Stated Complaint: sob Time Seen by Provider: 04/22/23 15:54 Source: patient and family Mode of arrival: EMS History of Present Illness HPI Narrative: 78-year-old male with underlying pulmonary fibrosis and COPD arrives via EMS with worsening shortness of breath, recently diagnosed with COVID-19 on Saturday and now has a new oxygen requirement, reports chills and body aches and took his home albuterol without relief. Patient reports significant coughing and subsequent left-sided chest pain and back pain. Related Data Home Medications Medication Instructions Recorded Confirmed acetaminophen 325 mg capsule 325 mg PO QID PRN Pain 02/15/23 04/19/23 (Tylenol) tamsulosin 0.4 mg capsule 0.4 mg PO DAILY dizziness 02/15/23 04/19/23 fluticasone 250 mcg-salmeterol 50 1 ea inhalation BID 04/19/23 04/19/23 mcg/dose blistr powdr for inhalation (Wixela Inhub) Previous Rx's Medication Instructions Recorded albuterol sulfate 90 mcg/actuation 2 puff inhalation QID PRN 02/17/23 aerosol inhaler (ProAir HFA) shortness of breath or wheezing #8.5 grams doxycycline hyclate 100 mg tablet 100 mg PO BID #14 tabs 02/17/23 tamsulosin 0.4 mg capsule 0.4 mg PO BEDTIME #30 caps 02/17/23 loratadine 10 mg tablet 10 mg PO DAILY #90 tabs 03/07/23 nirmatrelvir 300 mg (150 mg See Rx Instructions PO .COMPLEX 04/19/23 x2)-ritonavir 100 mg tablet,dose covid #30 tabs pack (Paxlovid) Allergies Allergy/AdvReac Type Severity Reaction Status Date / Time Seasonal Allergies Allergy Sneezing Verified 04/19/23 13:29 Review of Systems Review of Systems: Pertinent positives and negatives as stated in HPI PMFSH Past Medical History Source: nursing notes reviewed Medical History Cataracts, bilateral HLD (hyperlipidemia) HTN (hypertension) Interstitial lung disease IPF (idiopathic pulmonary fibrosis) Muscle spasms of both lower extremities Surgical History Hx of sinus surgery Family History Family History Father Stomach cancer Mother No problems noted. Social History Social History Household Members: Spouse Housing: House Alcohol intake: current Alcohol intake frequency: a few times a month Alcohol type: wine Patient Tobacco Use Status: Former Tobacco user Quit Date: age 70 Tobacco use type: Cigarette Years Smoked: 61 Smoked in Last 30 Days: No e-Cigarette/Vaping Use: Never Used Second Hand Smoke Exposure: No Use of substances other than those prescribed or required for medical reasons: No Advance Directives: Yes Advance Directives on File: Yes Advance Directives Date on File: 02/15/23 service: No Current occupational status: employed Cognitive needs: No Hearing needs: Yes (hearing aides) Vision needs: No Physical Exam Vital Signs: Vital Signs: Last Vital Signs Temp 98.8 F 04/22/23 16:51 Pulse 99 04/22/23 16:51 Resp 28 H 04/22/23 16:51 BP 109/44 L 04/22/23 16:51 Pulse Ox 92 04/22/23 16:51 O2 Del Method Nasal Cannula 04/22/23 16:51 O2 Flow Rate 2 04/22/23 16:51 Oxygen Flow Rate 4 04/22/23 15:27 BMI result Body Mass Index 24.9 VITAL SIGNS: Reviewed. GENERAL: Well developed, well nourished, in no acute distress. HEAD: Normocephalic/atraumatic EYES: PERRLA, EOMI EARS: Ext canals without abnormality NOSE: Nares patent bilateral OROPHARYNX: no oral lesions noted, posterior pharynx clear NECK: Supple, no adenopathy LUNGS: Good inspiratory effort, tachypnea is present, coarse breath sounds. SpO2<93> on 2 L via nasal cannula CARDIOVASCULAR: Sinus tachycardia and rhythm without noted murmurs, no JVD or lower extremity edema. ABDOMEN: Soft, non-tender, non-distended with bowel sounds. MUSCULOSKELETAL: No tenderness, deformities, or effusions noted on gross inspection. EXTREMITIES: No cyanosis, clubbing or edema. SKIN: Inspection of the skin reveals no rashes NEUROLOGIC: Alert and oriented x 4. Strength and sensation to light touch were grossly intact x 4. Medications Administered Discontinued Medications Generic Name Dose Route Start Last Admin Trade Name Benjamin PRN Reason Stop Dose Admin Acetaminophen 975 mg 04/22/23 16:19 04/22/23 16:31 Acetaminophen 325 Mg Tablet PO 04/22/23 16:20 975 mg ONCE ONE Administration Albuterol Sulfate 7.5 mg/ 0 mg 04/22/23 15:55 04/22/23 16:19 Albuterol/Ipratropium 3 ml INHALE 04/22/23 15:56 2.5 each ONCE ONE Administration Ibuprofen 400 mg 04/22/23 16:19 04/22/23 16:31 Ibuprofen 400 Mg Tablet PO 04/22/23 16:20 400 mg ONCE ONE Administration Methylprednisolone Sodium Succinate 125 mg 04/22/23 15:55 04/22/23 16:47 Methylprednisolone Sod Succ 125 Mg/2 Ml Vial IVPUSH 04/22/23 15:56 125 mg ONCE ONE Administration Medical Decision Making Medical Decision Making [facility] Narrative: 1615: 78-year-old male with history and clinical presentation, DDX: Hypoxemia secondary to combination of baseline medical conditions with new COVID-19 infection and will evaluate for any new infiltrate, low clinical suspicion for COPD exacerbation but will provide patient with steroids and DuoNeb for symptom relief as well as combination analgesics for chills and musculoskeletal pain. 1620: I discussed with Dr. Swan, who discussed with the inpatient admission coordinator, who accepts admission. I reviewed all investigations and my interpretation is that this patient has a COPD exacerbation which was treated with steroids, antibiotics, nebulized treatments likely secondary to COVID-19 infection, patient also has a new hypoxemia requiring oxygen supplementation and is on 2 L via nasal cannula. Hematologic indices demonstrate a mild leukocytosis with a chronically stable microcytic anemia/thrombocytopenia and a noted left shift. Coagulation studies demonstrate and INR within normal limits in VBG shows a stable pH of 7.44 with a pCO2 of 28. Chemistry indices demonstrate mild metabolic acidosis likely secondary to lactic acidosis, hyperglycemia without evidence of DKA or HHS, no ANDREI, high sensitivity troponin is chronically detectable but not significantly elevated and liver enzymes are without derangements. Chest x-ray demonstrated chronically stable lung changes and actually report improvement in left lung infiltrates. Otherwise, my interpretation is in agreement with radiology's impression. Differential Diagnosis Differential Diagnoses: The differential diagnosis associated with the presentation includes Please see the discussion above Admission/Observation Consideration of admission/observation: Escalation of care including admission/observation considered Please see the discussion above Consult Healthcare Provider Management of the patient was discussed with: Hospitalist Please see the discussion above Lab Data MDM Lab Attestation statement: I reviewed the patient's lab results. Please see the discussion above 04/22/23 16:46 04/22/23 16:47 Labs: Lab Results 04/22/23 04/22/23 04/22/23 Range/Units 16:46 16:46 16:46 WBC 11.5 H (4.8-10.8) X10*3/uL RBC 3.85 L (4.60-5.80) X10*6/uL Hgb 11.4 L (14.0-18.0) g/dl Hct 34.8 L (42.0-52.0) % MCV 90.4 (80.0-98.0) fL MCH 29.6 (27.0-33.0) pg MCHC 32.8 (31.0-36.0) g/dl RDW 16.1 H (11.0-16.0) % Plt Count 144 L (160-400) X10*3/uL MPV 10.2 (9.4-12.4) fL Immature Gran % (Auto) 0.3 (0.0-0.4) % Neut % (Auto) 89.2 H (45-73) % Lymph % (Auto) 3.0 L (20-40) % [place] % (Auto) 7.3 (2-11) % Eos % (Auto) 0.1 (0-4) % Baso % (Auto) 0.1 (0-2) % Lymph # (Auto) 0.3 L (1.2-4.9) X10*3/uL [place] # (Auto) 0.8 (0.1-1.2) X10*3/uL Eos # (Auto) 0.0 (0.0-0.4) X10*3/uL Baso # (Auto) 0.0 (0.0-0.2) X10*3/uL Abs Immat Gran (auto) 0.04 H (0.00-0.03) X10*3/uL Absolute Neuts (auto) 10.2 H (2.0-8.3) x10*3/uL Absolute Nucleated RBC 0.000 (0.0-0.012) X10*3/uL Nucleated RBC % (auto) 0.0 (0.0-0.2) /100WBC PT 13.9 H (11.1-13.3) SEC INR 1.1 (0.9-1.1) VBG pH (7.32-7.43) VBG pCO2 mmHg VBG pO2 mmHg VBG HCO3 (22-26) mmol/L VBG O2 Saturation % VBG Base Excess mmol/L Sodium (135-145) mmol/L Potassium (3.3-5.1) mmol/L Chloride (96-108) mmol/L Carbon Dioxide (22-29) mmol/L Anion Gap (12-20) BUN (9-16) mg/dL Creatinine (0.5-1.4) mg/dL Estim Creat Clear Calc Estimated GFR Random Glucose (60-115) mg/dL Lactic Acid 2.2 H* (0.5-2.0) mmol/L Calcium (8.4-10.2) mg/dL Total Bilirubin (0.0-1.0) mg/dL AST (5-37) U/L ALT (0-40) U/L Alkaline Phosphatase (39-117) U/L Troponin I High Sens (<3.5-35.0) ng/L Total Protein (6.5-8.0) g/dL Albumin (3.5-5.0) g/dL 04/22/23 04/22/23 04/22/23 Range/Units 16:46 16:47 16:50 WBC (4.8-10.8) X10*3/uL RBC (4.60-5.80) X10*6/uL Hgb (14.0-18.0) g/dl Hct (42.0-52.0) % MCV (80.0-98.0) fL MCH (27.0-33.0) pg MCHC (31.0-36.0) g/dl RDW (11.0-16.0) % Plt Count (160-400) X10*3/uL MPV (9.4-12.4) fL Immature Gran % (Auto) (0.0-0.4) % Neut % (Auto) (45-73) % Lymph % (Auto) (20-40) % [place] % (Auto) (2-11) % Eos % (Auto) (0-4) % Baso % (Auto) (0-2) % Lymph # (Auto) (1.2-4.9) X10*3/uL [place] # (Auto) (0.1-1.2) X10*3/uL Eos # (Auto) (0.0-0.4) X10*3/uL Baso # (Auto) (0.0-0.2) X10*3/uL Abs Immat Gran (auto) (0.00-0.03) X10*3/uL Absolute Neuts (auto) (2.0-8.3) x10*3/uL Absolute Nucleated RBC (0.0-0.012) X10*3/uL Nucleated RBC % (auto) (0.0-0.2) /100WBC PT (11.1-13.3) SEC INR (0.9-1.1) VBG pH 7.44 H (7.32-7.43) VBG pCO2 28 mmHg VBG pO2 43 mmHg VBG HCO3 19 L (22-26) mmol/L VBG O2 Saturation 67.0 % VBG Base Excess -3.0 mmol/L Sodium 137 (135-145) mmol/L Potassium 4.3 (3.3-5.1) mmol/L Chloride 106 (96-108) mmol/L Carbon Dioxide 20 L (22-29) mmol/L Anion Gap 15 (12-20) BUN 29 H (9-16) mg/dL Creatinine 1.17 (0.5-1.4) mg/dL Estim Creat Clear Calc 45.4 Estimated GFR 60 Random Glucose 193 H (60-115) mg/dL Lactic Acid (0.5-2.0) mmol/L Calcium 9.2 (8.4-10.2) mg/dL Total Bilirubin 0.9 (0.0-1.0) mg/dL AST 17 (5-37) U/L ALT 12 (0-40) U/L Alkaline Phosphatase 82 (39-117) U/L Troponin I High Sens 9.2 D (<3.5-35.0) ng/L Total Protein 7.3 (6.5-8.0) g/dL Albumin 4.2 (3.5-5.0) g/dL Independent Interpretation I performed an independent interpretation of an: EKG Interpretation: Sinus rhythm with first-degree AV block at baseline, HR-100, no STEMI, ST changes in lateral leads, WV-to 70, QRS/QTC is within normal limits. Radiology Impression Discussion of test interpretation with radiology: I have reviewed the radiologist's reading. Radiologist Impression: Please see the discussion above External Record Review External record reviewed: Outpatient record, Prior outpatient labs, Prior outpatient radiology and Outside ED record Chronic Conditions Patient?s care impacted by: Diabetes and Hypertension Critical Care Time Critical Care Time Critical Care Time: Yes Total Critical Care Time: 45 Attestation: I personally attest to this time spent taking care of the patient. Discharge Plan Discharge Clinical Impression: Acute respiratory failure with hypoxemia, Viral syndrome, COVID-19 virus infection, COPD exacerbation Patient Disposition: Admitted As Inpatient
[2023-04-22 16:19] VITALS: PULSE 95; RESP 18; O2SAT 93
[2023-04-22] MEDS: Albuterol Sulfate 7.5 MG, Albuterol/Iprat 2.5/0.5MG 3 ML 3 ML INHALE (16:19)
[2023-04-22] MEDS: Ibuprofen 400 MG TABLET PO (16:31)
[2023-04-22] MEDS: Acetaminophen 325 MG TABLET 975 MG PO (16:31)
[2023-04-22] MEDS: methylPREDNISolone Sod Succ 125 MG/2 ML VIAL IVPUSH (16:47)
[2023-04-22 16:51] VITALS: BP 109/44; PULSE 99; RESP 28; TEMP 37.1; O2SAT 92
--- NOTE | 2023-04-22 16:53 | MHC.EDTECH ---
PATIENT CAME IN VIA EMS BLOOD DRAWN INCLUDING ,1 SET AND SECOND SET BLOOD CULTURE DRAWN ,LACTIC ACID DRAWN AND SENT TO LAB ,EKG TAKEN AND WAS READ BY PROVIDER .
[2023-04-22 16:54] LABS: MANUAL DIFF FLAG NO
[2023-04-22 16:55] LABS: Basophils Percent Auto 0.1 % (0-2); Eosinophils Percent Auto 0.1 % (0-4); Hematocrit 34.8 % (42.0-52.0); Hemoglobin 11.4 g/dl (14.0-18.0); Imm Gran Abs Auto 0.04 X10*3/uL (0.00-0.03); Imm Gran Pct Auto 0.3 % (0.0-0.4); Lymphocytes Absolute Auto 0.3 X10*3/uL (1.2-4.9); Mean Corpuscular HGB Conc 32.8 g/dl (31.0-36.0); Mean Corpuscular Hemoglobin 29.6 pg (27.0-33.0); Mean Corpuscular Volume 90.4 fL (80.0-98.0); Mean Platelet Volume 10.2 fL (9.4-12.4); Monocytes Absolute Auto 0.8 X10*3/uL (0.1-1.2); Monocytes Percent Auto 7.3 % (2-11); Neutrophils Absolute Auto 10.2 x10*3/uL (2.0-8.3); Neutrophils Percent Auto 89.2 % (45-73); Platelet Count 144 X10*3/uL (160-400); Red Blood Count 3.85 X10*6/uL (4.60-5.80); Red Cell Distribution Width 16.1 % (11.0-16.0); White Blood Count 11.5 X10*3/uL (4.8-10.8)
[2023-04-22 16:59] LABS: VBG HCO3 19 mmol/L (22-26); VBG pCO2 28 mmHg; VBG pH 7.44 (7.32-7.43); VBG pO2 43 mmHg
[2023-04-22 17:01] LABS: INTERNATIONAL NORM RATIO 1.1 (0.9-1.1); Prothrombin Time 13.9 SEC (11.1-13.3)
[2023-04-22 17:01] LABS: Venous Blood Gas Refer to POC result
[2023-04-22 17:10] LABS: Alanine Aminotransferase 12 U/L (0-40); Albumin Level 4.2 g/dL (3.5-5.0); Alkaline Phosphatase 82 U/L (39-117); Anion Gap 15 (12-20); Aspartate Amino Transferase 17 U/L (5-37); Bilirubin Total 0.9 mg/dL (0.0-1.0); Blood Urea Nitrogen 29 mg/dL (9-16); Calcium 9.2 mg/dL (8.4-10.2); Carbon Dioxide 20 mmol/L (22-29); Chloride 106 mmol/L (96-108); Creatinine Clr Calc Pharmacy 45.4; Estimated Glomerular Filt Rate 60; Glucose Random 193 mg/dL (60-115); Potassium 4.3 mmol/L (3.3-5.1); Sodium 137 mmol/L (135-145); Total Protein 7.3 g/dL (6.5-8.0)
[2023-04-22 17:10] LABS: Lactic Acid 2.2 mmol/L (0.5-2.0)
[2023-04-22 17:17] LABS: Troponin-I High Sensitivity 9.2 ng/L (<3.5-35.0)
[2023-04-22] MEDS: 0.9 % Sodium Chloride 500 ML 999 ML IV (17:49)
[2023-04-22] MEDS: Piperacillin Sodium/Tazobactam 3.375 GM in 0.9 % Sodium Chloride 50 ML IV (17:51)
[2023-04-22 18:00] VITALS: BP 102/55; PULSE 87; RESP 16; TEMP 36.9; O2SAT 98
[2023-04-22 18:52] LABS: Reflex Lactate? Lactic Acid Added
--- NOTE | 2023-04-22 18:54 | PHA.MEDREC ---
Pharmacy Consult ? Medication Reconciliation Pharmacy has completed the medication reconciliation. Patient's confirmed medications. Denisse Roth, AxelD
[2023-04-22 18:58] LABS: Appearance Urine Clear; Color Urine Dark Yellow; Glucose Urine UA Negative (Negative); Leukocyte Esterase Urine Negative (Negative); Nitrite Urine Negative (Negative); PH 5.5 (5.0-9.0); UMIC TRIGGER UACC YES; Urine Blood Negative (Negative); Urine Ketones Negative (Negative); Urine Protein 100 (2+) mg/dL (Neg-Trace)
[2023-04-22 19:03] LABS: Bacteria Urine None Seen (None Seen); Hyaline Casts Urine 0-2 /LPF (0-2); RBC Urine 0-2 /HPF (0-2); Squamous Epithelial Cell Urine 0-2 /HPF (0-2); WBC Urine 0-5 /HPF (0-5)
--- NOTE | 2023-04-22 19:13 | PC.NURSE ---
pt a&o x4, pleasant, calm and cooperative. came in with labored breathing, increased respirations. IV placed to RAC, labs obtained, medicated per nov. pt appears much more comfortable than when arrived. is resting quietly on stretcher in no apparent distress. family at bedside. call cox within reach. all pt need met ky. report given to ARDEN Wade
--- NOTE | 2023-04-22 20:28 | P.HPHOSP_ITS ---
History of Present Illness Date of Service: 04/22/23 Attending physician on admission: Jeane Osuna Chief Complaint: sob 78-year-old male with history of type 2 diabetes, hyperlipidemia, BPH with LUTS, interstitial lung disease, idiopathic pulmonary fibrosis, hypertension with recent diagnosis of COVID-19 on 04/19 on antelopelod presented to the ED for evaluation of shortness of breath. He reports he was feeling generally unwell with occasionally productive cough prompting him to present to the ED on Saturday where he subsequently tested positive for COVID-19 with his . Since then, has been experiencing increasing shortness of breath, primarily with exertion. He continues with occasionally productive cough which is different than his baseline. He also has sore throat. No fevers, chills, congestion, abdominal pain, nausea, vomiting, diarrhea, lightheadedness, headache, or chest pain. He is also following with ENT for left-sided nasal obstruction which could be mass lesion versus complex lateral at base pharyngeal cyst and has upcoming appointment with ENT on for further evaluation. On arrival to the ED, patient hypoxic to 85-87%. He does not wear oxygen at baseline. He is placed on non-rebreather and weaned to nasal cannula now maintaining oximetry around 92% on 2 L supplemental O2. Chest x-ray showed chronic interstitial lung disease with mild interval improvement in left lung infiltrates previously noted on imaging. In the ED, had mild leukocytosis of 11.5. Renal function baseline, electrolyte levels normal. Lactic acid 2.2, repeat pending. In the ED, given Tylenol, ibuprofen, DuoNeb, 1/2 L IV NS, Zosyn, and 125 mg IV methylprednisol one. Review of Systems Review of Systems: General: No fevers, malaise, unintentional weight loss HEENT: +sore throat. No nasal congestion, rhinorrhea, sinus pain, ear pain Cardiovascular: No chest pain, palpitations, or leg edema Respiratory: +sob, +cough. No wheezing GI: No abdominal pain, nausea, vomiting, diarrhea, constipation, melena, hematochezia MSK: No myalgia, back pain Neuro: No headaches, weakness, paresthesias Skin: No rashes or lesions [facility] Medical History (Updated 04/22/23 @ 20:50 by TED Tamez) Cataracts, bilateral HLD (hyperlipidemia) HTN (hypertension) Interstitial lung disease IPF (idiopathic pulmonary fibrosis) Muscle spasms of both lower extremities Family History Father Stomach cancer Mother No problems noted. Surgical History Hx of sinus surgery Social History Household Members: Spouse Housing: House Alcohol intake: current Alcohol intake frequency: a few times a month Alcohol type: wine Patient Tobacco Use Status: Former Tobacco user Quit Date: age 70 Tobacco use type: Cigarette Years Smoked: 61 Smoked in Last 30 Days: No e-Cigarette/Vaping Use: Never Used Second Hand Smoke Exposure: No Use of substances other than those prescribed or required for medical reasons: No Advance Directives: Yes Advance Directives on File: Yes Advance Directives Date on File: 02/15/23 service: No Current occupational status: employed Cognitive needs: No Hearing needs: Yes (hearing aides) Vision needs: No Meds Allergies Allergy/AdvReac Type Severity Reaction Status Date / Time Seasonal Allergies Allergy Sneezing Verified 04/19/23 13:29 Active Medications: Current Medications Acetaminophen (Acetaminophen 325 Mg Tablet) 650 mg PO Q6H PRN PRN Reason: Pain, Mild (Pain Scale 1-3) Albuterol Sulfate (Albuterol Sulfate 90 Mcg 8 Gm Inhaler) 2 puff INHALE QID PRN PRN Reason: shortness of breath or wheezing Albuterol/Ipratropium (Albuterol/Iprat 2.5/0.5mg 3 Ml Ampul.Neb) 3 ml INHALE RQ4H WHILE AWAKE [facility] Dexamethasone (Dexamethasone 6 Mg Tablet) 6 mg PO DAILY ANGEL Docusate Sodium (Docusate Sodium 100 Mg Capsule) 100 mg PO DAILY PRN PRN Reason: Constipation Enoxaparin Sodium (Enoxaparin Sodium 40 Mg/0.4 Ml Syringe) 40 mg SUBCUT Q24H ANGEL Azithromycin 500 mg/ Sodium (Chloride) 250 mls @ 125 mls/hr IV Q24H ANGEL Stop: 04/24/23 22:29 Multivitamins/Vitamin C (Multivitamin Tablet) 1 tab PO DAILY [facility] Nirmatrelvir/Ritonavir (Nirmatrelvir/Ritonavir 300/100 3 Tab Dose) 0 tab PO .COMPLEX ANGEL Non-Formulary Medication (Fluticasone Propion-Salmeterol [Wixela Inhub]) 1 each INHALE BID ANGEL Ondansetron HCl (Ondansetron Hcl 4 Mg/2 Ml Vial) 4 mg IVPUSH Q8H PRN PRN Reason: Nausea and Vomiting Sodium Chloride (0.9 % Sodium Chloride Flush 3 Ml Syringe) 3 ml IVFLUSH QSHIFT [facility] Home Medications Medication Instructions Recorded Confirmed Last Taken Type fluticasone 250 mcg-salmeterol 50 1 ea inhalation BID 04/19/23 04/22/23 Unknown History mcg/dose blistr powdr for inhalation (Wixela Inhub) Probiotic 1 cap PO DAILY 04/22/23 04/22/23 Unknown History acetaminophen 500 mg tablet 1,000 mg PO BEDTIME 04/22/23 04/22/23 Unknown History multivitamin 1 tab PO DAILY 04/22/23 04/22/23 Unknown History Physical Exam Vital Signs and Narrative: Vital Signs: Last Vital Signs Temp 98.5 F 04/22/23 18:00 Pulse 87 04/22/23 18:00 Resp 16 04/22/23 18:00 BP 102/55 L 04/22/23 18:00 Pulse Ox 98 04/22/23 18:00 O2 Del Method Nasal Cannula 04/22/23 18:00 O2 Flow Rate 2 04/22/23 18:00 Oxygen Flow Rate 4 04/22/23 15:27 BMI result Body Mass Index 24.9 Constitutional - Awake and Alert, No apparent distress Eyes - PERRLA, EOMI Cardiovascular - S1S2, RRR, No edema Respiratory - Normal lung expansion, Normal respiratory effort, No respiratory distress, diffuse expiratory wheezing Gastrointestinal - NT / ND; +BS; No rebound or guarding Extremities - no calf tenderness bilaterally, no swelling Skin - Warm/Dry Neurological - Alert & oriented x3 Psychological - Appropriate affect Results Labs 04/22/23 16:46 04/22/23 16:47 Labs: Laboratory Results - last 24 hr 04/22/23 04/22/23 04/22/23 16:46 16:46 16:46 MCV 90.4 MCH 29.6 MCHC 32.8 RDW 16.1 H Plt Count 144 L MPV 10.2 Immature Gran % (Auto) 0.3 Neut % (Auto) 89.2 H Lymph % (Auto) 3.0 L [place] % (Auto) 7.3 Eos % (Auto) 0.1 Baso % (Auto) 0.1 Lymph # (Auto) 0.3 L [place] # (Auto) 0.8 Eos # (Auto) 0.0 Baso # (Auto) 0.0 Abs Immat Gran (auto) 0.04 H Absolute Neuts (auto) 10.2 H Absolute Nucleated RBC 0.000 Nucleated RBC % (auto) 0.0 PT 13.9 H INR 1.1 VBG pH VBG pCO2 VBG pO2 VBG HCO3 VBG O2 Saturation VBG Base Excess Anion Gap Estim Creat Clear Calc Estimated GFR Random Glucose Lactic Acid 2.2 H* Calcium Total Bilirubin AST ALT Alkaline Phosphatase Total Protein Albumin Urine Color Urine Appearance Urine pH Ur Specific [place] Urine Protein Urine Glucose (UA) Urine Ketones Urine Blood Urine Nitrite Ur Leukocyte Esterase Urine RBC Urine WBC Ur Squamous Epith Cells Urine Bacteria Hyaline Casts 04/22/23 04/22/23 04/22/23 16:47 16:50 18:43 MCV MCH MCHC RDW Plt Count MPV Immature Gran % (Auto) Neut % (Auto) Lymph % (Auto) [place] % (Auto) Eos % (Auto) Baso % (Auto) Lymph # (Auto) [place] # (Auto) Eos # (Auto) Baso # (Auto) Abs Immat Gran (auto) Absolute Neuts (auto) Absolute Nucleated RBC Nucleated RBC % (auto) PT INR VBG pH 7.44 H VBG pCO2 28 VBG pO2 43 VBG HCO3 19 L VBG O2 Saturation 67.0 VBG Base Excess -3.0 Anion Gap 15 Estim Creat Clear Calc 45.4 Estimated GFR 60 Random Glucose 193 H Lactic Acid Calcium 9.2 Total Bilirubin 0.9 AST 17 ALT 12 Alkaline Phosphatase 82 Total Protein 7.3 Albumin 4.2 Urine Color Dark Yellow Urine Appearance Clear Urine pH 5.5 Ur Specific [place] 1.020 Urine Protein 100 (2+) H Urine Glucose (UA) Negative Urine Ketones Negative Urine Blood Negative Urine Nitrite Negative Ur Leukocyte Esterase Negative Urine RBC 0-2 Urine WBC 0-5 Ur Squamous Epith Cells 0-2 Urine Bacteria None Seen Hyaline Casts 0-2 Imaging Radiologist's Impressions: Impressions Chest X-Ray 04/22/23 16:02 IMPRESSION: Chronic interstitial lung disease with mild interval improvement in left lung infiltrates. Assessment and Plan (1) Acute respiratory failure with hypoxemia: Status: Acute (2) COVID-19 virus infection: Status: Acute (3) Interstitial lung disease: Status: Acute Plan 78-year-old male with history of type 2 diabetes, hyperlipidemia, BPH with LUTS, interstitial lung disease, idiopathic pulmonary fibrosis, hypertension with recent diagnosis of COVID-19 on 04/19 on paxlovid admitted for COVID-19 and ILD exacerbation with acute hypoxemic respiratory failure. # acute hypoxemic respiratory failure- secondary to COVID-19 -VBG reassuring -continue supplemental O2 to maintain oximetry 90-92%, titrate as tolerated -decadron 6mg for up to 10 days # COVID-19 -tested positive on 04/19 -continue Paxlovid which was started at home on 04/20 -symptomatic management -Airborne/contact precautions #Interstitial lung disease/pulmonary fibrosis -decadron as above -azithromycin 500mg x 3 days (initiated 04/22) -Duonebs q4h while awake, albuterol prn -Titrate O2 as above -continue maintenance inhalers # [id number] type 2 diabetes- controlled -POC glucose, diabetic diet -Humalog on sliding scale DVT prophylaxis-Lovenox dnr/dni Patient requires inpatient stay for at least 2 midnights for management of COVID-19 and acute additional lung disease exacerbation with acute hypoxemia requiring supplemental O2 and Decadron as well as close monitoring for decompensation Time Spent With Patient Time: Total time managing care of this patient today ____ minutes. Quality Stroke Does the patient have a stroke diagnosis?: No VTE Prior VTE?: No VTE Risk Level:: Medical - moderate - high VTE Device Contraindication: Treatment Not Indicated VTE Drug Contraindication: N/A - Med Ordered
[2023-04-22 20:32] LABS: ~Lactic Acid-LAB USE ONLY 1.8 mmol/L (0.5-2.0)
[2023-04-22 21:18] LABS: Glucose, Whole Blood 335 mg/dL (60-115)
[2023-04-22] MEDS: Insulin Lispro 100 UNIT/ML 3 ML VIAL SUBCUT (21:26)
[2023-04-22] MEDS: Enoxaparin Sodium 40 MG/0.4 ML SYRINGE SUBCUT (21:27)
--- NOTE | 2023-04-22 21:45 | PC.NURSE ---
pt family at bedside. pt medicated according to mar. pt provided with bedside commode. pt calm and cooperative. awaiting bed assignment
[2023-04-22 22:09] VITALS: BP 110/56; PULSE 82; RESP 20; TEMP 36.7; O2SAT 96
[2023-04-23] VITALS (9 sets, daily range): BP systolic 114–130; BP diastolic 53–62; PULSE 69–87; RESP 16–22; TEMP 36.4–36.9; O2SAT 93–100; BMI 24.6
[2023-04-23] MEDS: 0.9 % Sodium Chloride Flush 3 ML SYRINGE IVFLUSH ×3 (01:30→17:06)
[2023-04-23 07:28] LABS: Glucose, Whole Blood 287 mg/dL (60-115)
[2023-04-23] MEDS: Insulin Lispro 100 UNIT/ML 3 ML VIAL SUBCUT ×4 (07:41→21:08)
[2023-04-23] MEDS: Albuterol/Iprat 2.5/0.5MG 3 ML AMPUL.NEB INHALE ×3 (08:06→19:23)
[2023-04-23] MEDS: dexAMETHasone 6 MG TABLET PO (11:26)
[2023-04-23] MEDS: Multivitamin TABLET 1 TAB PO (11:26)
--- NOTE | 2023-04-23 11:39 | PC.NURSE ---
oob stdby. assist to commode. LEWIS- no SOB @ rest. talks well. no distress. titrated from 2L to 1L NC- 96%.
[2023-04-23 11:48] LABS: Glucose, Whole Blood 311 mg/dL (60-115)
--- NOTE | 2023-04-23 11:55 | PC.NURSE ---
report attempt 1 called for artur to 4th floor rn
--- NOTE | 2023-04-23 12:00 | PC.NURSE ---
report callked to artur bunch. cotacting transport pending insulin coverage poc [phone]
--- NOTE | 2023-04-23 12:15 | PC.NURSE ---
bed cancelled per gunite mixer
--- NOTE | 2023-04-23 12:59 | PC.NURSE ---
pt given update by this rn. heading upstairs after new bed change in system- called artur rn again to confirm he is still taking as his pt- confirmed he is ready for pt
--- NOTE | 2023-04-23 15:10 | P.PNIM_ITS ---
Subjective Subjective Date of Service: 04/23/23 Interval History: acute hypoxemic respiratory failure- secondary to COVID-19 Review of Systems sob seems slightly improving denies any chest pain or abd pain Physical Exam Vital Signs: Vital Signs: Last Vital Signs Temp 98 F 04/23/23 13:09 Pulse 86 04/23/23 13:09 Resp 22 H 04/23/23 13:09 BP 130/62 04/23/23 13:09 Pulse Ox 93 04/23/23 13:09 O2 Del Method Nasal Cannula 04/23/23 13:09 O2 Flow Rate 1 04/23/23 13:09 Oxygen Flow Rate 4 04/22/23 15:27 BMI result Body Mass Index 24.6 Appearance: Alert.? Oriented X3.? not in distress.? cvs: [id number], [id number] , no murmur res: clear to auscultation ,no rhonchii or wheezing abd: no rebound or guarding ,nt, bs present. ext pulses present , no cyanosis. neuro: axo3 , nonfocal. Objective Data Active Medications Acetaminophen (Acetaminophen 325 Mg Tablet) 650 mg PO Q6H PRN PRN Reason: Pain, Mild (Pain Scale 1-3) Albuterol Sulfate (Albuterol Sulfate 90 Mcg 8 Gm Inhaler) 2 puff INHALE QID PRN PRN Reason: shortness of breath or wheezing Albuterol/Ipratropium (Albuterol/Iprat 2.5/0.5mg 3 Ml Ampul.Neb) 3 ml INHALE RQ4H WHILE AWAKE [facility] Last Admin: 04/23/23 10:53 Dose: Not Given Documented By: IBIS Non-Admin Reason: Patient Asleep Dexamethasone (Dexamethasone 6 Mg Tablet) 6 mg PO DAILY [facility] Last Admin: 04/23/23 11:26 Dose: 6 mg Documented By: XIMENA Dextrose (Dextrose 50 % 25 Gm/50 Ml Syringe) 25 gm IVPUSH Q15M PRN; Protocol PRN Reason: per Hypoglycemia Standing Ord. Docusate Sodium (Docusate Sodium 100 Mg Capsule) 100 mg PO DAILY PRN PRN Reason: Constipation Enoxaparin Sodium (Enoxaparin Sodium 40 Mg/0.4 Ml Syringe) 40 mg SUBCUT Q24H [facility] Last Admin: 04/22/23 21:27 Dose: 40 mg Documented By: SHELLEY Fluticasone/Vilanterol (Fluticasone/Vilanterol 100/25 Blst.W.Dev) 1 puff INHALE RDAILY [facility] Last Admin: 04/23/23 08:09 Dose: Not Given Documented By: IBIS Non-Admin Reason: pharmaccy called Glucose (Glucose Gel 15 Gm Gel..Gram.) 15 gm PO Q15M PRN; Protocol PRN Reason: per Hypoglycemia Standing Ord. Guaifenesin (Guaifenesin 200 Mg/10 Ml 10 Ml Liquid) 10 ml PO Q6H PRN PRN Reason: Cough Insulin Human Lispro (Insulin Lispro 100 Unit/Ml 3 Ml Vial) 0 unit SUBCUT QIDACHS [facility]; Protocol Last Admin: 04/23/23 12:05 Dose: 8 unit Documented By: XIMENA Multivitamins/Vitamin C (Multivitamin Tablet) 1 tab PO DAILY [facility] Last Admin: 04/23/23 11:26 Dose: 1 tab Documented By: XIMENA Nirmatrelvir/Ritonavir (Nirmatrelvir/Ritonavir 300/100 3 Tab Dose) 3 tab PO BID [facility] Stop: 04/24/23 21:01 Last Admin: 04/23/23 11:32 Dose: 3 tab Documented By: XIMENA Ondansetron HCl (Ondansetron Hcl 4 Mg/2 Ml Vial) 4 mg IVPUSH Q8H PRN PRN Reason: Nausea and Vomiting Sodium Chloride (0.9 % Sodium Chloride Flush 3 Ml Syringe) 3 ml IVFLUSH QSHIFT [facility] Last Admin: 04/23/23 08:51 Dose: 3 ml Documented By: GAYE Labs 04/22/23 16:46 04/22/23 16:47 Labs: Laboratory Results - last 24 hr 04/22/23 04/22/23 04/22/23 16:46 16:46 16:46 MCV 90.4 MCH 29.6 MCHC 32.8 RDW 16.1 H Plt Count 144 L MPV 10.2 Immature Gran % (Auto) 0.3 Neut % (Auto) 89.2 H Lymph % (Auto) 3.0 L [place] % (Auto) 7.3 Eos % (Auto) 0.1 Baso % (Auto) 0.1 Lymph # (Auto) 0.3 L [place] # (Auto) 0.8 Eos # (Auto) 0.0 Baso # (Auto) 0.0 Abs Immat Gran (auto) 0.04 H Absolute Neuts (auto) 10.2 H Absolute Nucleated RBC 0.000 Nucleated RBC % (auto) 0.0 PT 13.9 H INR 1.1 VBG pH VBG pCO2 VBG pO2 VBG HCO3 VBG O2 Saturation VBG Base Excess Anion Gap Estim Creat Clear Calc Estimated GFR POC Glucose Random Glucose Lactic Acid 2.2 H* Lactic Acid F/U @ 2Hr Calcium Total Bilirubin AST ALT Alkaline Phosphatase Total Protein Albumin Urine Color Urine Appearance Urine pH Ur Specific [place] Urine Protein Urine Glucose (UA) Urine Ketones Urine Blood Urine Nitrite Ur Leukocyte Esterase Urine RBC Urine WBC Ur Squamous Epith Cells Urine Bacteria Hyaline Casts 04/22/23 04/22/23 04/22/23 16:47 16:50 18:43 MCV MCH MCHC RDW Plt Count MPV Immature Gran % (Auto) Neut % (Auto) Lymph % (Auto) [place] % (Auto) Eos % (Auto) Baso % (Auto) Lymph # (Auto) [place] # (Auto) Eos # (Auto) Baso # (Auto) Abs Immat Gran (auto) Absolute Neuts (auto) Absolute Nucleated RBC Nucleated RBC % (auto) PT INR VBG pH 7.44 H VBG pCO2 28 VBG pO2 43 VBG HCO3 19 L VBG O2 Saturation 67.0 VBG Base Excess -3.0 Anion Gap 15 Estim Creat Clear Calc 45.4 Estimated GFR 60 POC Glucose Random Glucose 193 H Lactic Acid Lactic Acid F/U @ 2Hr Calcium 9.2 Total Bilirubin 0.9 AST 17 ALT 12 Alkaline Phosphatase 82 Total Protein 7.3 Albumin 4.2 Urine Color Dark Yellow Urine Appearance Clear Urine pH 5.5 Ur Specific [place] 1.020 Urine Protein 100 (2+) H Urine Glucose (UA) Negative Urine Ketones Negative Urine Blood Negative Urine Nitrite Negative Ur Leukocyte Esterase Negative Urine RBC 0-2 Urine WBC 0-5 Ur Squamous Epith Cells 0-2 Urine Bacteria None Seen Hyaline Casts 0-2 04/22/23 04/22/23 04/23/23 20:14 21:15 07:24 MCV MCH MCHC RDW Plt Count MPV Immature Gran % (Auto) Neut % (Auto) Lymph % (Auto) [place] % (Auto) Eos % (Auto) Baso % (Auto) Lymph # (Auto) [place] # (Auto) Eos # (Auto) Baso # (Auto) Abs Immat Gran (auto) Absolute Neuts (auto) Absolute Nucleated RBC Nucleated RBC % (auto) PT INR VBG pH VBG pCO2 VBG pO2 VBG HCO3 VBG O2 Saturation VBG Base Excess Anion Gap Estim Creat Clear Calc Estimated GFR POC Glucose 335 H 287 H Random Glucose Lactic Acid Lactic Acid F/U @ 2Hr 1.8 Calcium Total Bilirubin AST ALT Alkaline Phosphatase Total Protein Albumin Urine Color Urine Appearance Urine pH Ur Specific [place] Urine Protein Urine Glucose (UA) Urine Ketones Urine Blood Urine Nitrite Ur Leukocyte Esterase Urine RBC Urine WBC Ur Squamous Epith Cells Urine Bacteria Hyaline Casts 04/23/23 11:44 MCV MCH MCHC RDW Plt Count MPV Immature Gran % (Auto) Neut % (Auto) Lymph % (Auto) [place] % (Auto) Eos % (Auto) Baso % (Auto) Lymph # (Auto) [place] # (Auto) Eos # (Auto) Baso # (Auto) Abs Immat Gran (auto) Absolute Neuts (auto) Absolute Nucleated RBC Nucleated RBC % (auto) PT INR VBG pH VBG pCO2 VBG pO2 VBG HCO3 VBG O2 Saturation VBG Base Excess Anion Gap Estim Creat Clear Calc Estimated GFR POC Glucose 311 H Random Glucose Lactic Acid Lactic Acid F/U @ 2Hr Calcium Total Bilirubin AST ALT Alkaline Phosphatase Total Protein Albumin Urine Color Urine Appearance Urine pH Ur Specific [place] Urine Protein Urine Glucose (UA) Urine Ketones Urine Blood Urine Nitrite Ur Leukocyte Esterase Urine RBC Urine WBC Ur Squamous Epith Cells Urine Bacteria Hyaline Casts Assessment and Plan (1) Interstitial lung disease: Status: Acute (2) Acute respiratory failure with hypoxemia: Status: Acute Plan 78-year-old male with history of type 2 diabetes, hyperlipidemia, BPH with LUTS, interstitial lung disease, idiopathic pulmonary fibrosis, hypertension with recent diagnosis of COVID-19 on 04/19 on paxlovid admitted for COVID-19 and ILD exacerbation with acute hypoxemic respiratory failure. acute hypoxemic respiratory failure- secondary to COVID-19 tested positive on 04/19 continue decadron ,oxygen, Paxlovid which was started at home on 04/20. symptomatic management id eval Interstitial lung disease/pulmonary fibrosis -decadron as above -azithromycin 500mg x 3 days (initiated 04/22) -Duonebs q4h while awake, albuterol prn -Titrate O2 as above -continue maintenance inhalers [id number] type 2 diabetes- controlled -POC glucose, diabetic diet -Humalog on sliding scale DVT prophylaxis-Lovenox dnr/dni ongoing need for stay:management of COVID-19 and acute additional lung disease exacerbation with acute hypoxemia requiring supplemental O2 and Decadron as well as close monitoring for decompensation Time Spent With Patient Time: Total time managing care of this patient today ____ minutes. Quality Stroke Does the patient have a stroke diagnosis?: No VTE Prior VTE?: No VTE Risk Level:: Medical - moderate - high VTE Device Contraindication: Treatment Not Indicated VTE Drug Contraindication: N/A - Med Ordered
[2023-04-23 16:28] LABS: Glucose, Whole Blood 242 mg/dL (60-115)
--- NOTE | 2023-04-23 18:07 | PC.NURSE ---
Granddaughter spoke with this RN regarding pending medical tests and procedures at [facility] with Dr. Karthik Maldonado including a bronch, six minute walk eval and a home 02 eval. Granddaughter wanted pt to have a home o2 eval before discharge, thinks that pt will not ask or desire this for himself, but she feels it is needed.
[2023-04-23 20:22] LABS: Glucose, Whole Blood 310 mg/dL (60-115)
[2023-04-23] MEDS: Enoxaparin Sodium 40 MG/0.4 ML SYRINGE SUBCUT (21:09)
[2023-04-24] VITALS (11 sets, daily range): BP systolic 106–153; BP diastolic 57–70; PULSE 74–107; RESP 16–20; TEMP 36.2–36.9; O2SAT 83–96
[2023-04-24] MEDS: 0.9 % Sodium Chloride Flush 3 ML SYRINGE IVFLUSH ×4 (00:09→21:23)
[2023-04-24 08:01] LABS: Glucose, Whole Blood 291 mg/dL (60-115)
[2023-04-24] MEDS: Fluticasone/Vilanterol 100/25 BLST.W.DEV 1 PUFF INHALE (08:01)
[2023-04-24] MEDS: Albuterol/Iprat 2.5/0.5MG 3 ML AMPUL.NEB INHALE ×4 (08:08→20:18)
[2023-04-24] MEDS: Insulin Lispro 100 UNIT/ML 3 ML VIAL SUBCUT ×4 (08:25→21:22)
[2023-04-24] MEDS: dexAMETHasone 6 MG TABLET PO (08:48)
[2023-04-24] MEDS: Multivitamin TABLET 1 TAB PO (08:48)
[2023-04-24 11:16] LABS: Glucose, Whole Blood 428 mg/dL (60-115)
--- NOTE | 2023-04-24 11:44 | MHC.CM.PN ---
IMM 04/24. Pt admitted with Covid-19 infection and COPD exacerbation. This CM spoke with pts granddaughter/HCP Daya ([phone]) for intake. Pt lives with his spouse and is independent/self-care at baseline. D/C plan to return home self-care [place] with new VNA. Pts spouse, children, or granddaughter will transport. PCP: Jass Klein Covid vax: x 4
--- NOTE | 2023-04-24 15:31 | HO.PM.IMPN ---
Subjective Subjective Date of Service: 04/24/23 Interval History: covid Review of Systems sob slightly improvin,still sob with excersion has cough no fever Physical Exam Vital Signs: Vital Signs: Last Vital Signs Temp 98.5 F 04/24/23 11:04 Pulse 87 04/24/23 11:11 Resp 16 04/24/23 11:11 BP 115/64 04/24/23 11:04 Pulse Ox 93 04/24/23 11:04 O2 Del Method Nasal Cannula 04/24/23 11:04 O2 Flow Rate 2 04/24/23 11:04 Oxygen Flow Rate 4 04/22/23 15:27 BMI result Body Mass Index 24.6 Appearance: Alert.? Oriented X3.? sob improvin? cvs: rrr, [id number] , no murmur res: air entry slightly iimproving,diminshed at bases,few rhonchii sacttered abd: no rebound or guarding ,nt, bs present. ext pulses present , no cyanosis. neuro: axo3 , nonfocal. Objective Data Active Medications Acetaminophen (Acetaminophen 325 Mg Tablet) 650 mg PO Q6H PRN PRN Reason: Pain, Mild (Pain Scale 1-3) Albuterol Sulfate (Albuterol Sulfate 90 Mcg 8 Gm Inhaler) 2 puff INHALE QID PRN PRN Reason: shortness of breath or wheezing Albuterol/Ipratropium (Albuterol/Iprat 2.5/0.5mg 3 Ml Ampul.Neb) 3 ml INHALE RQ4H WHILE AWAKE [facility] Last Admin: 04/24/23 11:11 Dose: 3 ml Documented By: ZAIN Dexamethasone (Dexamethasone 6 Mg Tablet) 6 mg PO DAILY [facility] Last Admin: 04/24/23 08:48 Dose: 6 mg Documented By: STARR Dextrose (Dextrose 50 % 25 Gm/50 Ml Syringe) 25 gm IVPUSH Q15M PRN; Protocol PRN Reason: per Hypoglycemia Standing Ord. Docusate Sodium (Docusate Sodium 100 Mg Capsule) 100 mg PO DAILY PRN PRN Reason: Constipation Enoxaparin Sodium (Enoxaparin Sodium 40 Mg/0.4 Ml Syringe) 40 mg SUBCUT Q24H [facility] Last Admin: 04/23/23 21:09 Dose: 40 mg Documented By: ANOOP Fluticasone/Vilanterol (Fluticasone/Vilanterol 100/25 Blst.W.Dev) 1 puff INHALE RDAILY [facility] Last Admin: 04/24/23 08:01 Dose: 1 puff Documented By: ZAIN Glucose (Glucose Gel 15 Gm Gel..Gram.) 15 gm PO Q15M PRN; Protocol PRN Reason: per Hypoglycemia Standing Ord. Guaifenesin (Guaifenesin 200 Mg/10 Ml 10 Ml Liquid) 10 ml PO Q6H PRN PRN Reason: Cough Insulin Human Lispro (Insulin Lispro 100 Unit/Ml 3 Ml Vial) 0 unit SUBCUT QIDACHS [facility]; Protocol Last Admin: 04/24/23 12:00 Dose: 10 unit Documented By: STARR Multivitamins/Vitamin C (Multivitamin Tablet) 1 tab PO DAILY [facility] Last Admin: 04/24/23 08:48 Dose: 1 tab Documented By: STARR Nirmatrelvir/Ritonavir (Nirmatrelvir/Ritonavir 300/100 3 Tab Dose) 3 tab PO BID [facility] Stop: 04/24/23 21:01 Last Admin: 04/24/23 10:17 Dose: 3 tab Documented By: STARR Ondansetron HCl (Ondansetron Hcl 4 Mg/2 Ml Vial) 4 mg IVPUSH Q8H PRN PRN Reason: Nausea and Vomiting Sodium Chloride (0.9 % Sodium Chloride Flush 3 Ml Syringe) 3 ml IVFLUSH QSHIFT [facility] Last Admin: 04/24/23 12:01 Dose: 3 ml Documented By: STARR Labs 04/22/23 16:46 04/22/23 16:47 Labs: Laboratory Results - last 24 hr 04/23/23 04/23/23 04/24/23 16:21 20:17 07:51 POC Glucose 242 H 310 H 291 H 04/24/23 11:07 POC Glucose 428 H* Microbiology Microbiology Results: Microbiology 04/22/23 16:48 Blood Culture - Preliminary Blood - Venous No growth after 24 hours. 04/22/23 16:45 Blood Culture - Preliminary Blood - Venous No growth after 24 hours. Assessment and Plan (1) Interstitial lung disease: Status: Acute (2) Acute respiratory failure with hypoxemia: Status: Acute Plan 78-year-old male with history of type 2 diabetes, hyperlipidemia, BPH with LUTS, interstitial lung disease, idiopathic pulmonary fibrosis, hypertension with recent diagnosis of COVID-19 on 04/19 on paxlovid admitted for COVID-19 and ILD exacerbation with acute hypoxemic respiratory failure. acute hypoxemic respiratory failure- secondary to COVID-19 tested positive on 04/19 symptomatic management id eval-continue decadron ,remdesvir,oxygen, Paxlovidwhich was started at home on 04/20. Interstitial lung disease/pulmonary fibrosis -decadron as above -azithromycin 500mg x 3 days (initiated 04/22) -Duonebs q4h while awake, albuterol prn -Titrate O2 as above -continue maintenance inhalers [id number] type 2 diabetes- uncontrolled(steriod use) -POC glucose, diabetic diet adjusted Humalog on sliding scale check hb ac1 levels in am DVT prophylaxis-Lovenox dnr/dni ongoing need for stay:management of COVID-19 and acute additional lung disease exacerbation with acute hypoxemia requiring supplemental O2 and Decadron as well as close monitoring for decompensation Time Spent With Patient Time: Total time managing care of this patient today ____ minutes. Quality Stroke Does the patient have a stroke diagnosis?: No VTE Prior VTE?: No VTE Risk Level:: Medical - moderate - high VTE Device Contraindication: Treatment Not Indicated VTE Drug Contraindication: N/A - Med Ordered
[2023-04-24 16:20] LABS: Glucose, Whole Blood 413 mg/dL (60-115)
--- NOTE | 2023-04-24 16:45 | P.CNID_ITS ---
History of Present Illness Data of Consult Service Date: 04/23/23 Requesting physician: Sandy Aguirre Primary Care Provider: Jass Klein MD HPI Reason for consult: ILD and recent COVID diagnosis He presents with shortness of breath and cough and is now hypoxic. He has oxygen saturation 83% 2 liters. He has ILD. Review of Systems Review of Systems: Yes all other systems are reviewed and are negative PMFSH Past Medical History Medical History Cataracts, bilateral HLD (hyperlipidemia) HTN (hypertension) Interstitial lung disease IPF (idiopathic pulmonary fibrosis) Muscle spasms of both lower extremities Family History Family History Father Stomach cancer Mother No problems noted. Family history: reviewed and not pertinent Surgical History Surgical History Hx of sinus surgery Social History Social History Household Members: Spouse Housing: House Do you presently have visiting nurse or other home services: No Alcohol intake: current Alcohol intake frequency: a few times a month Alcohol type: wine Patient Tobacco Use Status: Former Tobacco user Quit Date: age 70 Tobacco use type: Cigarette Years Smoked: 61 e-Cigarette/Vaping Use: Never Used Second Hand Smoke Exposure: No Advance Directives Date on File: 02/15/23 service: No Current occupational status: employed Cognitive needs: No Hearing needs: Yes (hearing aides) Vision needs: No Meds Allergies Allergy/AdvReac Type Severity Reaction Status Date / Time Seasonal Allergies Allergy Sneezing Verified 04/19/23 13:29 Active Medications: Current Medications Acetaminophen (Acetaminophen 325 Mg Tablet) 650 mg PO Q6H PRN PRN Reason: Pain, Mild (Pain Scale 1-3) Albuterol Sulfate (Albuterol Sulfate 90 Mcg 8 Gm Inhaler) 2 puff INHALE QID PRN PRN Reason: shortness of breath or wheezing Albuterol/Ipratropium (Albuterol/Iprat 2.5/0.5mg 3 Ml Ampul.Neb) 3 ml INHALE RQ4H WHILE AWAKE [facility] Last Admin: 04/24/23 16:39 Dose: 3 ml Dexamethasone (Dexamethasone 6 Mg Tablet) 6 mg PO DAILY [facility] Last Admin: 04/24/23 08:48 Dose: 6 mg Dextrose (Dextrose 50 % 25 Gm/50 Ml Syringe) 25 gm IVPUSH Q15M PRN; Protocol PRN Reason: per Hypoglycemia Standing Ord. Docusate Sodium (Docusate Sodium 100 Mg Capsule) 100 mg PO DAILY PRN PRN Reason: Constipation Enoxaparin Sodium (Enoxaparin Sodium 40 Mg/0.4 Ml Syringe) 40 mg SUBCUT Q24H [facility] Last Admin: 04/23/23 21:09 Dose: 40 mg Fluticasone/Vilanterol (Fluticasone/Vilanterol 100/25 Blst.W.Dev) 1 puff INHALE RDAILY [facility] Last Admin: 04/24/23 08:01 Dose: 1 puff Glucose (Glucose Gel 15 Gm Gel..Gram.) 15 gm PO Q15M PRN; Protocol PRN Reason: per Hypoglycemia Standing Ord. Guaifenesin (Guaifenesin 200 Mg/10 Ml 10 Ml Liquid) 10 ml PO Q6H PRN PRN Reason: Cough Insulin Human Lispro (Insulin Lispro 100 Unit/Ml 3 Ml Vial) 0 unit SUBCUT QIDACHS [facility]; Protocol Last Admin: 04/24/23 12:00 Dose: 10 unit Insulin Human Lispro (Insulin Lispro 100 Unit/Ml 3 Ml Vial) 8 unit SUBCUT ONCE ONE Stop: 04/24/23 16:33 Multivitamins/Vitamin C (Multivitamin Tablet) 1 tab PO DAILY [facility] Last Admin: 04/24/23 08:48 Dose: 1 tab Nirmatrelvir/Ritonavir (Nirmatrelvir/Ritonavir 300/100 3 Tab Dose) 3 tab PO BID [facility] Stop: 04/24/23 21:01 Last Admin: 04/24/23 10:17 Dose: 3 tab Ondansetron HCl (Ondansetron Hcl 4 Mg/2 Ml Vial) 4 mg IVPUSH Q8H PRN PRN Reason: Nausea and Vomiting Sodium Chloride (0.9 % Sodium Chloride Flush 3 Ml Syringe) 3 ml IVFLUSH QSHIFT [facility] Last Admin: 04/24/23 12:01 Dose: 3 ml Home Medications Medication Instructions Recorded Confirmed Last Taken Type fluticasone 250 mcg-salmeterol 50 1 ea inhalation BID 04/19/23 04/22/23 Unknown History mcg/dose blistr powdr for inhalation (Margotxjanene Inhub) Probiotic 1 cap PO DAILY 04/22/23 04/22/23 Unknown History acetaminophen 500 mg tablet 1,000 mg PO BEDTIME 04/22/23 04/22/23 Unknown History multivitamin 1 tab PO DAILY 04/22/23 04/22/23 Unknown History Physical Exam Vital Signs: Vital Signs: Last Vital Signs Temp 97.7 F 04/24/23 15:38 Pulse 88 04/24/23 16:39 Resp 16 04/24/23 16:39 BP 140/65 H 04/24/23 15:38 Pulse Ox 83 L 04/24/23 15:38 O2 Del Method Nasal Cannula 04/24/23 15:38 O2 Flow Rate 2 04/24/23 15:38 Oxygen Flow Rate 4 04/22/23 15:27 BMI result Body Mass Index 24.6 Const: General: cooperative HEENT: Head: Yes normal to inspection Face and sinus: Yes normal facial exam Mouth: Normal oral and palatal mucosa present Teeth and gingiva: dentition normal Eyes: General: appearance normal, both eyes and all related structures Pupils: Equal, round and reactive pupils present Resp: Effort & Inspection: labored Cardio: Rate: regular rate Rhythm: regular rhythm GI: Palpation (GI): Soft to palpation and nontender : General: Yes no CVA tenderness Back/Spine/Pelvis: Back: no CVA tenderness Skin: General skin exam: no rashes or lesions noted Neuro: General: moves all extremities Cranial nerves: Yes Equal, round and reactive pupils present Extrem: General: Yes normal to inspection Psych: Appearance: grossly normal Results Labs 04/22/23 16:46 04/22/23 16:47 Microbiology Microbiology Results: Microbiology 04/22/23 16:48 Blood - Venous Blood Culture - Preliminary No growth after 24 hours. 04/22/23 16:45 Blood - Venous Blood Culture - Preliminary No growth after 24 hours. Assessment and Plan (1) Interstitial lung disease: Status: Acute (2) COVID-19 virus infection: Status: Acute Done with Paxlovid Remdesivir start for five days. Can increase steroid if desired. Time Spent With Patient Time: Total time managing care of this patient today ____ minutes.
[2023-04-24] MEDS: Insulin Lispro 100 UNIT/ML 3 ML VIAL 8 UNIT SUBCUT (16:58)
[2023-04-24 21:18] LABS: Glucose, Whole Blood 390 mg/dL (60-115)
[2023-04-24] MEDS: Acetaminophen 325 MG TABLET 650 MG PO (21:22)
[2023-04-24] MEDS: guaiFENesin 200 MG/10 ML 10 ML LIQUID PO (21:22)
[2023-04-24] MEDS: Remdesivir 200 MG in 0.9 % Sodium Chloride 210 ML 105 MG IV (21:22)
[2023-04-24] MEDS: Enoxaparin Sodium 40 MG/0.4 ML SYRINGE SUBCUT (21:23)
[2023-04-25] VITALS (11 sets, daily range): BP systolic 115–131; BP diastolic 59–72; PULSE 60–122; RESP 15–18; TEMP 36.2–37.1; O2SAT 76–97
[2023-04-25 07:03] LABS: Hematocrit 31.3 % (42.0-52.0); Hemoglobin 10.2 g/dl (14.0-18.0); Mean Corpuscular HGB Conc 32.6 g/dl (31.0-36.0); Mean Corpuscular Hemoglobin 29.2 pg (27.0-33.0); Mean Corpuscular Volume 89.7 fL (80.0-98.0); Platelet Count 139 X10*3/uL (160-400); Red Blood Count 3.49 X10*6/uL (4.60-5.80); Red Cell Distribution Width 15.5 % (11.0-16.0); White Blood Count 9.3 X10*3/uL (4.8-10.8)
[2023-04-25 07:11] LABS: Estimated Average Glucose 148 mg/dL; Hemoglobin A1c % 6.8 %
[2023-04-25 07:14] LABS: Anion Gap 13 (12-20); Blood Urea Nitrogen 40 mg/dL (9-16); Calcium 8.8 mg/dL (8.4-10.2); Carbon Dioxide 21 mmol/L (22-29); Chloride 109 mmol/L (96-108); Creatinine Clr Calc Pharmacy 42.8; Estimated Glomerular Filt Rate 56; Glucose Random 301 mg/dL (60-115); Potassium 4.6 mmol/L (3.3-5.1); Sodium 138 mmol/L (135-145)
[2023-04-25 07:23] LABS: Glucose, Whole Blood 286 mg/dL (60-115)
[2023-04-25] MEDS: Fluticasone/Vilanterol 100/25 BLST.W.DEV 1 PUFF INHALE (08:06)
[2023-04-25] MEDS: Albuterol/Iprat 2.5/0.5MG 3 ML AMPUL.NEB INHALE ×4 (08:11→19:23)
[2023-04-25] MEDS: Insulin Lispro 100 UNIT/ML 3 ML VIAL SUBCUT ×4 (08:24→21:25)
[2023-04-25] MEDS: dexAMETHasone 6 MG TABLET PO (08:25)
[2023-04-25] MEDS: Multivitamin TABLET 1 TAB PO (08:25)
[2023-04-25] MEDS: 0.9 % Sodium Chloride Flush 3 ML SYRINGE IVFLUSH ×2 (08:28→16:58)
[2023-04-25 11:12] LABS: Glucose, Whole Blood 351 mg/dL (60-115)
--- NOTE | 2023-04-25 14:31 | P.PNIM_ITS ---
Subjective Subjective Date of Service: 04/25/23 Interval History: still sob Physical Exam Vital Signs: Vital Signs: Last Vital Signs Temp 97.5 F 04/25/23 10:54 Pulse 85 04/25/23 11:04 Resp 16 04/25/23 11:04 BP 126/72 04/25/23 10:54 Pulse Ox 92 04/25/23 10:54 O2 Del Method Nasal Cannula 04/25/23 10:54 O2 Flow Rate 2 04/25/23 10:54 Oxygen Flow Rate 4 04/22/23 15:27 BMI result Body Mass Index 24.6 Const: General: cooperative HEENT: Head: Yes normal to inspection Face and sinus: Yes normal facial exam Mouth: Normal oral and palatal mucosa present Teeth and gingiva: dentition normal Eyes: General: appearance normal, both eyes and all related structures Pupils: Equal, round and reactive pupils present Resp: Effort & Inspection: labored Cardio: Rate: regular rate Rhythm: regular rhythm GI: Palpation (GI): Soft to palpation and nontender : General: Yes no CVA tenderness Back/Spine/Pelvis: Back: no CVA tenderness Skin: General skin exam: no rashes or lesions noted Neuro: General: moves all extremities Cranial nerves: Yes Equal, round and reactive pupils present Extrem: General: Yes normal to inspection Psych: Appearance: grossly normal Objective Data Active Medications Acetaminophen (Acetaminophen 325 Mg Tablet) 650 mg PO Q6H PRN PRN Reason: Pain, Mild (Pain Scale 1-3) Last Admin: 04/24/23 21:22 Dose: 650 mg Documented By: JT Albuterol Sulfate (Albuterol Sulfate 90 Mcg 8 Gm Inhaler) 2 puff INHALE QID PRN PRN Reason: shortness of breath or wheezing Albuterol/Ipratropium (Albuterol/Iprat 2.5/0.5mg 3 Ml Ampul.Neb) 3 ml INHALE RQ4H WHILE AWAKE REPLACED BY [facility] Last Admin: 04/25/23 11:04 Dose: 3 ml Documented By: ZAIN Dexamethasone (Dexamethasone 6 Mg Tablet) 6 mg PO DAILY REPLACED BY [facility] Last Admin: 04/25/23 08:25 Dose: 6 mg Documented By: HANY Dextrose (Dextrose 50 % 25 Gm/50 Ml Syringe) 25 gm IVPUSH Q15M PRN; Protocol PRN Reason: per Hypoglycemia Standing Ord. Docusate Sodium (Docusate Sodium 100 Mg Capsule) 100 mg PO DAILY PRN PRN Reason: Constipation Enoxaparin Sodium (Enoxaparin Sodium 40 Mg/0.4 Ml Syringe) 40 mg SUBCUT Q24H REPLACED BY [facility] Last Admin: 04/24/23 21:23 Dose: 40 mg Documented By: JT Fluticasone/Vilanterol (Fluticasone/Vilanterol 100/25 Blst.W.Dev) 1 puff INHALE RDAILY REPLACED BY [facility] Last Admin: 04/25/23 08:06 Dose: 1 puff Documented By: ZAIN Glucose (Glucose Gel 15 Gm Gel..Gram.) 15 gm PO Q15M PRN; Protocol PRN Reason: per Hypoglycemia Standing Ord. Guaifenesin (Guaifenesin 200 Mg/10 Ml 10 Ml Liquid) 10 ml PO Q6H PRN PRN Reason: Cough Last Admin: 04/24/23 21:22 Dose: 10 ml Documented By: JT Remdesivir 100 mg/ Sodium (Chloride) 230 mls @ 115 mls/hr IV Q24H REPLACED BY [facility] Stop: 04/28/23 21:59 Insulin Human Lispro (Insulin Lispro 100 Unit/Ml 3 Ml Vial) 0 unit SUBCUT QIDACHS REPLACED BY [facility]; Protocol Last Admin: 04/25/23 11:30 Dose: 14 unit Documented By: HANY Multivitamins/Vitamin C (Multivitamin Tablet) 1 tab PO DAILY REPLACED BY [facility] Last Admin: 04/25/23 08:25 Dose: 1 tab Documented By: HANY Ondansetron HCl (Ondansetron Hcl 4 Mg/2 Ml Vial) 4 mg IVPUSH Q8H PRN PRN Reason: Nausea and Vomiting Sodium Chloride (0.9 % Sodium Chloride Flush 3 Ml Syringe) 3 ml IVFLUSH QSHIFT REPLACED BY [facility] Last Admin: 04/25/23 08:28 Dose: 3 ml Documented By: HANY Labs 04/25/23 06:53 04/25/23 06:53 Labs: Laboratory Results - last 24 hr 04/24/23 04/24/23 04/25/23 16:14 21:12 06:53 MCV 89.7 MCH 29.2 MCHC 32.6 RDW 15.5 Plt Count 139 L MPV 10.0 Absolute Nucleated RBC 0.000 Nucleated RBC % (auto) 0.0 Anion Gap Estim Creat Clear Calc Estimated GFR POC Glucose 413 H* 390 H* Random Glucose Estimat Average Glucose Hemoglobin A1c % Calcium 04/25/23 04/25/23 04/25/23 06:53 06:53 07:14 MCV MCH MCHC RDW Plt Count MPV Absolute Nucleated RBC Nucleated RBC % (auto) Anion Gap 13 Estim Creat Clear Calc 42.8 Estimated GFR 56 POC Glucose 286 H Random Glucose 301 H Estimat Average Glucose 148 Hemoglobin A1c % 6.8 Calcium 8.8 04/25/23 11:06 MCV MCH MCHC RDW Plt Count MPV Absolute Nucleated RBC Nucleated RBC % (auto) Anion Gap Estim Creat Clear Calc Estimated GFR POC Glucose 351 H* Random Glucose Estimat Average Glucose Hemoglobin A1c % Calcium Microbiology Microbiology Results: Microbiology 04/22/23 16:45 Blood Culture - Preliminary Blood - Venous No growth after 48 hours. 04/22/23 16:48 Blood Culture - Preliminary Blood - Venous No growth after 48 hours. Assessment and Plan (1) Interstitial lung disease: Status: Acute (2) Acute respiratory failure with hypoxemia: Status: Acute Plan 78M PMH dm, hyperlipidemia, BPH with LUTS, interstitial lung disease, idiopathic pulmonary fibrosis, hypertension with recent diagnosis of COVID-19 on 04/19 on paxlovid presented with sob acute hypoxemic respiratory failure- secondary to COVID-19 complicated by COPD and ILD with acute decompensation tested positive on 04/19 id appreciated-continue decadron ,remdesvir paxlovid completed ? chronic hypoxia, may need home o2 eval prior to dc if feeling much better and still needing o2 continue lawrence ramos DM with hyperglycemia insulin DVT prophylaxis-Lovenox dnr/dni reason for continued hospitalization:still sob with hypoxia Time Spent With Patient Time: Total time managing care of this patient today ____ minutes. Quality Stroke Does the patient have a stroke diagnosis?: No VTE Prior VTE?: No VTE Risk Level:: Medical - moderate - high VTE Device Contraindication: Treatment Not Indicated VTE Drug Contraindication: N/A - Med Ordered
[2023-04-25 16:25] LABS: Glucose, Whole Blood 322 mg/dL (60-115)
[2023-04-25 20:20] LABS: Glucose, Whole Blood 407 mg/dL (60-115)
[2023-04-25] MEDS: Enoxaparin Sodium 40 MG/0.4 ML SYRINGE SUBCUT (21:23)
[2023-04-25] MEDS: Remdesivir 100 MG in 0.9 % Sodium Chloride 230 ML 115 MG IV (21:26)
[2023-04-26] VITALS (7 sets, daily range): BP systolic 110–140; BP diastolic 54–63; PULSE 64–114; RESP 18–20; TEMP 36.6–37.6; O2SAT 77–98
[2023-04-26 07:19] LABS: Glucose, Whole Blood 306 mg/dL (60-115)
[2023-04-26 07:23] LABS: Hematocrit 31.2 % (42.0-52.0); Mean Corpuscular HGB Conc 32.1 g/dl (31.0-36.0); Mean Corpuscular Hemoglobin 29.2 pg (27.0-33.0); Mean Platelet Volume 10.7 fL (9.4-12.4); Platelet Count 145 X10*3/uL (160-400); Red Blood Count 3.43 X10*6/uL (4.60-5.80); Red Cell Distribution Width 15.2 % (11.0-16.0); White Blood Count 7.3 X10*3/uL (4.8-10.8)
[2023-04-26 07:35] LABS: Anion Gap 13 (12-20); Blood Urea Nitrogen 42 mg/dL (9-16); Calcium 8.9 mg/dL (8.4-10.2); Carbon Dioxide 21 mmol/L (22-29); Chloride 108 mmol/L (96-108); Creatinine Clr Calc Pharmacy 49.2; Estimated Glomerular Filt Rate > 60; Glucose Fasting 324 mg/dL (60-99); Potassium 4.4 mmol/L (3.3-5.1); Sodium 138 mmol/L (135-145)
[2023-04-26] MEDS: Fluticasone/Vilanterol 100/25 BLST.W.DEV 1 PUFF INHALE (08:09)
[2023-04-26] MEDS: Albuterol/Iprat 2.5/0.5MG 3 ML AMPUL.NEB INHALE ×2 (08:16→12:33)
[2023-04-26] MEDS: dexAMETHasone 6 MG TABLET PO (09:02)
[2023-04-26] MEDS: 0.9 % Sodium Chloride Flush 3 ML SYRINGE IVFLUSH (09:02)
[2023-04-26] MEDS: Multivitamin TABLET 1 TAB PO (09:02)
[2023-04-26] MEDS: Insulin Lispro 100 UNIT/ML 3 ML VIAL SUBCUT ×2 (09:03→11:52)
[2023-04-26 11:04] LABS: Glucose, Whole Blood 342 mg/dL (60-115)
--- NOTE | 2023-04-26 12:06 | MHC.CM.PN ---
Referrals out for VNA- Accepted by [facility] w/ 04/29-05/01 [facility]. [facility]ha for oxygen per Respiratory. to transport. Pt aware, MD aware, RN aware.
--- NOTE | 2023-04-26 13:39 | P.DS_ITS ---
DS: Providers Provider Date of Service: 04/26/23 Date of admission: 04/22/23 20:17 Date of discharge: 04/26/23 Primary care physician: Jass Klein MD Admitting clinician: Heidy Lara Attending physician on admission: Jeane Osuna Consults: 04/23/23 08:51 Consult to Infectious Diseases Routine Consulting Provider: [facility] Infectious Disease Reason for consultation: acute hypoxemic respiratory failure -covid Has provider been notified: No Attending physician on discharge: Oscar Torres Discharging clinician: Heidy Lara DS: Diagnosis Discharge Diagnosis (1) Interstitial lung disease: Status: Acute (2) Acute respiratory failure with hypoxemia: Status: Acute (3) COVID-19 virus infection: Status: Acute DS: Summary Hospital Course Hospital Course: HPI and admission 04/22 by this author: Chief Complaint: sob 78-year-old male with history of type 2 diabetes, hyperlipidemia, BPH with LUTS, interstitial lung disease, idiopathic pulmonary fibrosis, hypertension with recent diagnosis of COVID-19 on 04/19 on [facility] presented to the ED for evaluation of shortness of breath.? He reports he was feeling generally unwell with occasionally productive cough prompting him to present to the ED on Saturday where he subsequently tested positive for COVID-19 with his .? Since then, has been experiencing increasing shortness of breath, primarily with exertion.? He continues with occasionally productive cough which is different than his baseline.? He also has sore throat.? No fevers, chills, congestion, abdominal pain, nausea, vomiting, diarrhea, lightheadedness, headache, or chest pain.? He is also following with ENT for left-sided nasal obstruction which could be mass lesion versus complex lateral at base pharyngeal cyst and has upcoming appointment with ENT on for further evaluation.? On arrival to the ED, patient hypoxic to 85-87%.? He does not wear oxygen at baseline.? He is placed on non-rebreather and weaned to nasal cannula now maintaining oximetry around 92% on 2 L supplemental O2.? Chest x-ray showed chronic interstitial lung disease with mild interval improvement in left lung infiltrates previously noted on imaging.? In the ED, had mild leukocytosis of 11.5.? Renal function baseline, electrolyte levels normal.? Lactic acid 2.2, repeat pending.? In the ED, given Tylenol, ibuprofen, DuoNeb, 1/2 L IV NS, Zosyn, and 125 mg IV methylprednisolone. Hospital course: Patient was admitted to isolation unit with COVID-19 (initial positive 04/19) with acute hypoxemic respiratory failure and COPD exacerbation. He was initially continued on the paxlovid which he had been taking at home but was evaluated by Infectious Disease recommending treatment with remdesivir. He was continued on Decadron 6 mg daily. Given productive cough associated with COPD exacerbation, he was also treated with azithromycin 500 mg x 3 days. He responded well to treatment as mentioned as well as DuoNeb scheduled every 4 hours. Initial leukocytosis did resolve. Renal function electrolyte levels remained stable throughout admission. Glucose levels were slightly for elevated in the 300s likely secondary to steroid use. This was managed with insulin. Supplemental O2 was unable to be fully titrated and he underwent home O2 evaluation. He is recommended for 1-2 L supplemental O2 via nasal cannula as needed at rest and 6 L supplemental O2 via OxyMask with exertion. Vitals were otherwise stable throughout admission. He was evaluated by Physical therapy who recommended home with O2 with services versus inpatient pulmonary rehab. He was also evaluated by RT recommending home O2 as previously stated. The patient does not desire inpatient pulmonary rehab and will instead be referred for outpatient pulmonary rehab as well as VNA for fci and will continue with supplemental O2 as advised. He has completed course of antiviral treatment and does not require this on discharge. He has received 4 doses of 6 mg oral Decadron. Will continue additional 3 doses on discharge. He is advised to continue with maintenance inhalers as prescribed and use albuterol only as needed for shortness of breath and wheezing. We did also discuss his nasal p olyps/cis which are likely contributing to his breathing issues and he will follow up with ENT as scheduled. Given steroid induced hyperglycemia, will discharge patient on glyburide BID with meals x7 days. Check glucose levels twie daily. Follow up with pcp soon. Status at Discharge Functional status at discharge: independent ambulation Overall status at discharge: patient is back to baseline Time Spent with Patient Time attestation: Total time managing care of this patient today ____ minutes. Discharge coordination time: Greater than 30 minutes Quality: Safe Use of Opioids Does Pt have an Active Cancer Diagnosis on the Problem List?: No Quality: Stroke Does the patient have a stroke diagnosis?: No Physical Exam Vital Signs: Vital Signs: Last Vital Signs Temp 97.8 F 04/26/23 11:08 Pulse 85 04/26/23 12:33 Resp 20 04/26/23 11:08 BP 119/58 L 04/26/23 11:08 Pulse Ox 98 04/26/23 11:08 O2 Del Method Nasal Cannula 04/26/23 11:08 O2 Flow Rate 2 04/26/23 11:08 Oxygen Flow Rate 4 04/22/23 15:27 BMI result Body Mass Index 24.6 DS: Data Data Completed and Pending Labs on day of discharge: Laboratory Results - last 24 hr 04/25/23 04/25/23 04/26/23 16:17 20:12 06:50 WBC 7.3 RBC 3.43 L Hgb 10.0 L Hct 31.2 L MCV 91.0 MCH 29.2 MCHC 32.1 RDW 15.2 Plt Count 145 L MPV 10.7 Absolute Nucleated RBC 0.000 Nucleated RBC % (auto) 0.0 Sodium Potassium Chloride Carbon Dioxide Anion Gap BUN Creatinine Estim Creat Clear Calc Estimated GFR POC Glucose 322 H 407 H* Fasting Glucose Calcium 04/26/23 04/26/23 04/26/23 06:50 07:08 10:54 WBC RBC Hgb Hct MCV MCH MCHC RDW Plt Count MPV Absolute Nucleated RBC Nucleated RBC % (auto) Sodium 138 Potassium 4.4 Chloride 108 Carbon Dioxide 21 L Anion Gap 13 BUN 42 H Creatinine 1.08 Estim Creat Clear Calc 49.2 Estimated GFR > 60 POC Glucose 306 H 342 H Fasting Glucose 324 H Calcium 8.9 Preliminary micro results at discharge 04/22/23 16:45 Blood Culture - Preliminary Blood - Venous No growth after 48 hours. 04/22/23 16:48 Blood Culture - Preliminary Blood - Venous No growth after 48 hours. Discharge Plan Discharge Anticipated Discharge Date/Time: 04/26/23 14:13 Patient Disposition: Home Health Service Discharge Diagnosis: Acute hypoxemic respiratory failure, COVID-19, COPD exacerbation Referrals: [facility] [Other] - 1 Week (PLEASE CALL [facility] WHEN YOU GET HOME TO DELIVER YOUR OXYGEN) [facility] [Outside] - 3-5 Days (If you do not hear from the VNA by Saturday please give them a call!) Jass Klein MD [Primary Care Provider] - 1 Week Discharge Medications: Continued albuterol sulfate [ProAir HFA] 90 mcg/actuation HFA aerosol inhaler 2 puff inhalation QID PRN (Reason: shortness of breath or wheezing) Qty: 8.5 0RF multivitamin Tablet 1 tab PO DAILY acetaminophen 500 mg Tablet 1,000 mg PO BEDTIME Probiotic 1 cap PO DAILY fluticasone propion-salmeterol [Wixela Inhub] 250-50 mcg/dose blister with device 1 ea inhalation BID Discontinued Paxlovid 300 mg (150 mg x 2)-100 mg tablets,dose pack See Rx Instructions PO .COMPLEX Qty: 30 0RF Rx Instructions: take TWO 150 mg tablets of nirmatrelvir with ONE 100 mg tablet of ritonavir twice daily for 5 days PO finish 01/22/23 No Action amoxicillin-pot clavulanate [Augmentin] 500-125 mg tablet 1 tab PO BID Qty: 10 0RF Discharge Orders: Discharge Order (Routine); Ordered 04/26/23 Ordered By: Heidy Lara Diet: Diabetic diet Activity on Discharge: As tolerated Stand Alone Forms: Patient Portal Discharge page Care Plan Goals: see below Health Concerns: COVID-19 Acute hypoxia COPD exacerbation Steroid induced hyperglycemia Plan of Treatment: COVID-19 acute hypoxia and COPD exacerbation -initially continued on paxlovid and transition to IV remdesivir which you have completed. Unit need any further treatment with antivirals at this time -given ongoing hypoxia, continue Decadron 6 mg daily which is a steroid for an additional 3 days -continue maintenance inhalers for COPD and use albuterol only as needed for shortness of breath and wheezing -you underwent home O2 evaluation while in the hospital and you recommended to continue using 1-2 L supplemental O2 via nasal cannula as needed while at rest and it is recommended that she use 6 L supplemental O2 via OxyMask with exertion -recommend outpatient follow-up with pulmonology and outpatient pulmonary rehab Type 2 diabetes -secondary to the steroid use, your glucose levels were elevated he required management with insulin -prior to discharge were given glyburide 5 mg which will help your pancreas to secrete more insulin to help manage glucose levels in the short term. Continue glyburide 5 mg twice daily with meals and check glucose levels at least twice daily. Discontinue glyburide after 1 week. Follow-up with PCP soon Assessment: See above Patient Instructions: Using Oxygen at Home (DC) Discharge Date/Time: 04/26/23 15:52
[2023-04-26] MEDS: glyBURIDE 5 MG TABLET PO (14:46)
--- NOTE | 2023-04-26 15:00 | P.F2F_ITS ---
Service Date Service Date: 04/26/23 Encounter Date of encounter: 04/26/23 Reasons for Services Signs and symptoms assessed: sob, acute on chronic hypoxemic respiratory failure 2/2 to covid 19 Reason for half-way: monitoring of unstable blood sugar, medication treatment and other (vitals) Homebound: Leaving the home is medically contraindicated at this time without the asist of a device and/or another person due th the listed conditions above and below. Reason homebound: weakness related to hospital stay Certification: Based on the above findings, I certify that this patient is confined to the home and needs intermittent half-way care, physical therapy and/or speech therapy, or continues to need occupational therapy. The patient is under my care, and I have initiated the establishment of the plan of care. The patient will be followed by a physician who will periodically review the plan of care. Time Spent With Patient Time: Total time managing care of this patient today ____ minutes.
== END 2023-04-26 15:52 | disposition home health service (06) | DRG 177 ==
LOC: HO.ED 16:36 → HO.EDOVER 20:52 → HO.IMC 04-23 11:39
PROVIDERS: Internal Medicine; Student in an Organized Health Care Education/Training Program; Admitting Provider Physician Assistant; Emergency Provider Student in an Organized Health Care Education/Training Program; PCP Internal Medicine; Visit Provider Physician Assistant
DX: U07.1 COVID-19 (principal); J96.01 Acute respiratory failure with hypoxia; J44.1 Chronic obstructive pulmonary disease with (acute) exacerbation; E11.65 Type 2 diabetes mellitus with hyperglycemia; Z66 Do not resuscitate; E78.5 Hyperlipidemia, unspecified; J84.112 Idiopathic pulmonary fibrosis; Z87.891 Personal history of nicotine dependence; Z79.51 Long term (current) use of inhaled steroids; Z79.84 Long term (current) use of oral hypoglycemic drugs; Z79.899 Other long term (current) drug therapy
CPT/HCPCS: 36415; 71045; 80048; 80053; 81001; 82803; 82947; 83036; 83605; 84484; 85025; 85027; 85610; 87040; 93005; 94640; 97162; 99285; J0248; J1650; J2543; J2930; J8540

== ENCOUNTER → 2023-04-22 20:17 | Outpatient (BNV) | payer MEDICARE, SELFPAY | PROVIDERS: Admitting Provider Physician Assistant; Emergency Provider Student in an Organized Health Care Education/Training Program; PCP Internal Medicine; Visit Provider Physician Assistant | DX: J84.9 Interstitial pulmonary disease, unspecified (principal); J96.01 Acute respiratory failure with hypoxia; U07.1 COVID-19 | CPT/HCPCS: 99223; 99232; 99233; 99239; G0180 ==

== ENCOUNTER → 2023-04-22 20:17 | Outpatient (BNV) | payer MEDICARE, SELFPAY | PROVIDERS: Admitting Provider Physician Assistant; Emergency Provider Student in an Organized Health Care Education/Training Program; PCP Internal Medicine; Visit Provider Internal Medicine | DX: J84.9 Interstitial pulmonary disease, unspecified (principal); U07.1 COVID-19 | CPT/HCPCS: 99222 ==

== ENCOUNTER 2023-05-02 14:13 | Outpatient (AMB) | payer MEDICARE, SELFPAY ==
[2023-05-02 14:15] VITALS: BP 134/70; PULSE 59; O2SAT 94; BMI 25.3
--- NOTE | 2023-05-02 14:15 | A.OFFPC_ITS ---
Vital Signs 05/02/23 14:15 Height 5 ft 6 in Weight 157 lb BMI 25.3 BP 134/70 Blood Pressure Location Lt brachial Position Sitting Pulse 59 Pulse Source Pulse Oximeter Pulse Oximetry (%) 94 Oxygen Delivery Method Nasal Cannula Intake [place] Reasons[place] [facility] [place] Covid Positive Allergies Seasonal Allergies Allergy (Verified 05/02/23 14:16) Sneezing Tobacco use date assessed: 04/19/23 Fall risk assessment: No Falls in past year Last assessed Fall Risk: 05/02/23 Dental Screening Dental Screen Date: 05/02/23 Did you have a dental visit in the last 12 months?: No Did you have a dental problem in the last 6 months where you did not have access to dental care?: No Was dental information given to patient?: No HPI [facility] [place] Covid Positive HPI Details diagnosed with covid 10 days ago; still sick; needs to be rechecked COUNT INCLUDES [facility] Medical History Cataracts, bilateral HLD (hyperlipidemia) HTN (hypertension) Interstitial lung disease IPF (idiopathic pulmonary fibrosis) Muscle spasms of both lower extremities Surgical History Hx of sinus surgery Family History (Updated 05/02/23 @ 14:16 by Daya Gannon CMA) Father Stomach cancer Mother No problems noted. Social History Household Members: Spouse Housing: House Do you presently have visiting nurse or other home services: No Alcohol intake: current Alcohol intake frequency: a few times a month Alcohol type: wine Patient Tobacco Use Status: Former Tobacco user Quit Date: age 70 Tobacco use type: Cigarette Years Smoked: 61 e-Cigarette/Vaping Use: Never Used Second Hand Smoke Exposure: No Advance Directives Date on File: 02/15/23 service: No Current occupational status: employed Cognitive needs: No Hearing needs: Yes (hearing aides) Vision needs: No Questionnaire PHQ-9 Over the last 2 weeks, how often have you been bothered by any of the following problems? 1. Little interest or pleasure in doing things: not at all 2. Feeling down, depressed, or hopeless: not at all 3. Trouble falling or staying asleep, or sleeping too much: not at all 4. Feeling tired or having little energy: not at all 5. Poor appetite or overeating: not at all 6. Feeling bad about yourself - or that you are a failure or have let yourself or your family down: not at all 7. Trouble concentrating on things, such as reading the newspaper or watching television: not at all 8. Moving or speaking so slowly that other people could have noticed. Or the opposite - being so fidgety or restless that you have been moving around a lot more than usual: not at all 9. Thoughts that you would be better off or of hurting yourself in some way: not at all Total score: 0 Depression Screening Interpretation: Negative 93225 - PHQ-9 Billing: Yes Source: Developed by Drs. Mehrdad Pierce, Cathi Poon, Johnathon Lopez and colleagues, with an educational kamran from [employer]. Thrive Questionnaire Date Thrive assessed: 04/24/23 AUDIT C Alcohol Use Questionnaire (AUDIT-C) 1. How often do you have a drink containing alcohol?: Never Total Score: 0 Score Reviewed/Action Taken: Yes ARMANDO-7 AMB Questionnaire ARMANDO-7 Date ARMANDO - 7 assessed: 12/27/22 Source: Developed by Drs. Mehrdad Pierce, Cathi Poon, Johnathon Lopez and colleagues, with an educational kamran from [employer]. Review of Systems Const Denies chills, Denies headache(s) and Denies weight loss ENT Denies headache(s) Card Denies chest pain, Denies syncope, Denies irregular heart rhythm and Denies dyspnea Resp Denies chest congestion, Denies cough and Denies dyspnea GI Denies abdominal pain, Denies change in stool character, Denies nausea and Denies vomiting Musc Denies deformity and Denies joint swelling Neuro Denies syncope and Denies headache(s) Physical exam (Primary Care) Vital Signs: Last Vital Signs Pulse 59 05/02/23 14:15 BP 134/70 05/02/23 14:15 Pulse Ox 94 05/02/23 14:15 Oxygen Delivery Method Nasal Cannula 05/02/23 14:15 BMI result Body Mass Index 25.3 Tobacco/Smoking Status: Tobacco use Status Tobacco use date assessed 04/19/23 05/02/23 14:22 Patient Tobacco Use Status Former Tobacco user 05/02/23 14:22 Tobacco use type Cigarette 05/02/23 14:22 e-Cigarette/Vaping Use Never Used 05/02/23 14:22 PHQ-9: PHQ-9 Score PHQ-9: Total score 0 05/02/23 14:22 Depression Screening Interpretation: Negative Thrive Assessment: Date of Thrive Assessment Date Thrive assessed 04/24/23 05/02/23 14:22 Const General: cooperative, comfortable and no acute distress HENMT Head: Yes normal to inspection Ears: hearing grossly normal bilaterally General nose exam: Normal external nose present Eyes General: appearance normal, both eyes and all related structures Neck Neck: Yes normal visual inspection Assessment and Plan Assessment & Plan (1) COVID-19 virus infection: Code(s): U07.1 - COVID-19 Plan: recheck covid test Orders: Orders COVID-19 ID NOW ([facility]) 05/02/23 R05.9 - Cough, unspecified Medications: New amoxicillin-pot clavulanate 500-125 mg (Augmentin) 1 tab PO BID 10 tabs 0RF Coding Level of Care Code Est Pt Level 3 (19490) Diagnoses COVID-19 virus infection U07.1
== END 2023-05-02 14:44 | disposition home or self-care (01) ==
PROVIDERS: PCP Internal Medicine; Visit Provider Internal Medicine
DX: U07.1 COVID-19 (principal)
CPT/HCPCS: 99213

== ENCOUNTER 2023-05-02 14:51 | Outpatient (REF) | payer MEDICARE, SELFPAY ==
[2023-05-02 15:21] LABS: COVID-19 Test Positive (Negative); IDNOW Serial# 08D9AD1C
== END 2023-05-02 14:52 | disposition home or self-care (01) ==
LOC: HO.LAB 14:51
PROVIDERS: PCP Internal Medicine; Visit Provider Internal Medicine
DX: Z20.822 Contact with and (suspected) exposure to COVID-19 (principal)
CPT/HCPCS: 87635

== ENCOUNTER 2023-06-08 09:23 | Inpatient (IN) | payer MEDICARE, SELFPAY ==
[2023-06-08] VITALS (7 sets, daily range): BP systolic 105–135; BP diastolic 53–74; PULSE 86–100; RESP 16–30; TEMP 36.2–37; O2SAT 88–99; BMI 25.7; BMI 24.9
--- NOTE | ~2023-06-08 | CT_ITS ---
EXAMINATION: CT ABDOMEN AND PELVIS WITHOUT AND WITH CONTRAST CLINICAL INFORMATION: Bladder cancer, urinary incontinence COMPARISON: 07/19/2022 TECHNIQUE: Multidetector volumetric imaging was performed of the abdomen and pelvis before and after the IV administration of 85 mL of Omnipaque 350 intravenous contrast. Sagittal and coronal reformatted images were obtained on the technologist's workstation. This CT examination was performed using dose optimization techniques as appropriate, variously including the following: *Automated exposure control *Adjustment of mA and/or kV according to patient size (this includes techniques or standardized protocols for targeted exams where dose is matched to indication/reason for exam; i.e. extremities or head) *Use of iterative reconstruction technique DLP: 705 mGy-cm FINDINGS: EMPLOYMENT DIRECTOR: Moderate fecal retention. Few prominent mid abdominal small bowel loops. LUNG BASES: Small bilateral effusions, left greater than right. Bilateral honeycombing, left greater than right. Heart size within normal limits. No pericardial effusion.. LIVER, GALLBLADDER, AND BILIARY TREE: The liver is normal in size, shape, and attenuation. No focal hepatic lesion or biliary ductal dilatation is present. The gallbladder is relatively decompressed. Tiny amount of pericholecystic fluid not excluded. No evidence of radiopaque gallstones, significant gallbladder wall thickening, or obvious pericholecystic inflammatory changes. PANCREAS: Pancreatic atrophy and without calcifications. SPLEEN: Splenic calcification. Splenule. ADRENAL GLANDS: Unremarkable KIDNEYS AND URETERS: The kidneys are normal in size, shape, and attenuation. Bilateral moderate hydroureteronephrosis. BLADDER: Diffusely thickened urinary bladder [place] with more pronounced asymmetric thickening right and superior [place]. GASTROINTESTINAL TRACT: Distended debris-filled stomach. Nonobstructive bowel pattern. Unremarkable terminal ileum and appendix. The diverticulosis without diverticulitis. ABDOMINAL WALL: Small fat filled umbilical and inguinal hernias. LYMPH NODES: No pathologic lymphadenopathy. VASCULAR: Atherosclerotic calcifications nonaneurysmal aorta and iliac arteries. Patent mesenteric vessels. Unremarkable inferior venacavogram iliac veins. Patent portal system. PELVIC VISCERA: Enlarged prostate with calcifications. Right-sided prosthetic bulging on TURP defect. OSSEOUS STRUCTURES: Degenerative changes, facet hypertrophy hypertrophy, multilevel neuroforaminal narrowings. Multilevel spurring final canal narrowings, severe at L4-L5 CT/CT abdomen pelvis wo/w IV con IMPRESSION: Interval development of bilateral moderate hydroureteronephrosis in the setting of diffuse bladder wall thickening, right greater than left, prosthetic enlargement and TURP defect. Small bilateral effusions, left greater than right. Bilateral lower lobe pulmonary honeycombing which can be seen seen in end-stage fibrotic disease and/or UIP pattern. Small amount of pericholecystic fluid not excluded, otherwise unremarkable gallbladder. Fleischner guidelines were followed.
--- NOTE | ~2023-06-08 | XR_ITS ---
EXAMINATION: XR CHEST CLINICAL INFORMATION: Follow-up hypoxia COMPARISON: Chest radiograph 06/08/2023 TECHNIQUE: Frontal view of the chest was obtained. FINDINGS: Heart size normal. Chronic diffuse interstitial changes are again seen and unchanged. No new areas of consolidation or pleural effusions are seen. XR/XR chest 1V IMPRESSION: Chronic interstitial lung disease. No acute intrathoracic disease.
--- NOTE | ~2023-06-08 | XR_ITS ---
EXAMINATION: XR RIBS, LEFT CLINICAL INFORMATION: Shortness of breath and chest pain COMPARISON: Previous chest x-ray most recent April 2023 and chest CTA February 2023 TECHNIQUE: 3 views of the left ribs and one view of the chest were obtained. FINDINGS: The cardiac and mediastinal contours are normal lung markings. There are increased interstitial markings suggestive of interstitial lung disease. There is increased attenuation in the left central upper lung/suprahilar region questionable for pneumonia or acute alveolitis. No pleural effusion or pneumothorax. No rib fracture. Degenerative changes of the thoracic spine. XR/XR ribs LT min 3V w CXR1V IMPRESSION: No rib fracture. Interstitial lung disease. Increased opacity in the central / suprahilar left upper lung questionable for acute alveolitis or pneumonia. Clinical Correlation recommended.
--- NOTE | 2023-06-08 09:41 | ECG_ITS ---
Test Reason : CP Blood Pressure : / mmHG Vent. Rate : 092 BPM Atrial Rate : 092 BPM P-R Int : 280 ms QRS Dur : 086 ms QT Int : 354 ms P-R-T Axes : 080 079 -81 degrees QTc Int : 437 ms Sinus rhythm with 1st degree A-V block with Premature atrial complexes T wave abnormality, consider anterolateral ischemia Abnormal ECG When compared with ECG of 22-APR-2023 16:27, No significant change was found Referred By: Soraya Dumont Electronically Signed By:DEVONTE BEGUM
--- NOTE | 2023-06-08 09:43 | ED.GENADULT ---
HPI - General Adult General Chief complaint: General Medical Stated complaint: CHEST PAIN Time Seen by Provider: 06/08/23 09:26 Source: patient, family (Spouse), EMS and old records reviewed Mode of arrival: EMS Limitations: no limitations History of Present Illness HPI narrative: 78 year old male with history of type 2 diabetes, HDL, BPH, interstitial lung disease, pulmonary fibrosis, COPD, former smoker, on 2-6 L of supplemental oxygen at home. Patient presented left-sided chest wall pain localized to the left chest wall area, pain lasted for about 20 minutes was associated with shortness of breath and difficulty breathing, pain was localized to the left Lateral chest wall with no radiation, no clear aggravating or relieving factor, patient had this pain in the past but never that severe, on EMS arrival patient was breathing at 38 per minute, satting 85% on room air, patient was given 30 of Toradol and was placed on non-rebreather that improved his respiratory rate. On arrival to the emergency department patient stated that his left-sided chest pain is better, and his breathing is better. Patient had a recent hospitalization 4-5 weeks ago for similar symptoms with COVID. Related Data Home Medications Medication Instructions Recorded Confirmed fluticasone 250 mcg-salmeterol 50 1 ea inhalation BID 04/19/23 04/22/23 mcg/dose blistr powdr for inhalation (Jose Núñez) Probiotic 1 cap PO DAILY 04/22/23 04/22/23 acetaminophen 500 mg tablet 1,000 mg PO BEDTIME 04/22/23 04/22/23 multivitamin 1 tab PO DAILY 04/22/23 04/22/23 Previous Rx's Medication Instructions Recorded albuterol sulfate 90 mcg/actuation 2 puff inhalation QID PRN 02/17/23 aerosol inhaler (ProAir HFA) shortness of breath or wheezing #8.5 grams amoxicillin 500 mg-potassium 1 tab PO BID #10 tabs 05/02/23 clavulanate 125 mg tablet (Augmentin) Allergies Allergy/AdvReac Type Severity Reaction Status Date / Time Seasonal Allergies Allergy Sneezing Verified 05/02/23 14:16 Review of Systems Review of Systems: All other systems are reviewed and are negative Constitutional: Reports as per HPI and Reports no additional constitutional complaints Eyes: Reports as per HPI and Reports no additional eye complaints Reports system reviewed and no additional complaints, except as documented Cardiovascular: Reports as per HPI and Reports no additional cardiovascular complaints Respiratory: Reports as per HPI and Reports no additional respiratory complaints Gastrointestinal: Reports as per HPI and Reports no additional gastrointestinal complaints Genitourinary: Reports no additional female genitourinary complaints Musculoskeletal: Reports no additional musculoskeletal complaints Skin/Breast: Reports system reviewed and no additional complaints, except as docu Psychiatric: Reports no additional psychiatric complaints Endocrine: Reports no additional endocrine complaints Hematologic/Lymphatic: Reports no additional hematologic/lymphatic complaints Allergic/Immunologic: Reports no additional allergic/immunologic complaints Reports system reviewed and no additional complaints, except as documented and Reports Abnormal speech present [facility] Past Medical History Medical History COPD exacerbation COVID-19 virus infection Viral syndrome Acute respiratory failure with hypoxemia IPF (idiopathic pulmonary fibrosis) Muscle spasms of both lower extremities Cataracts, bilateral Interstitial lung disease HTN (hypertension) HLD (hyperlipidemia) Surgical History Hx of sinus surgery Family History Family History Father Stomach cancer Mother No problems noted. Social History Social History Household Members: Spouse Housing: House Do you presently have visiting nurse or other home services: No Alcohol intake: current Alcohol intake frequency: a few times a month Alcohol type: wine Patient Tobacco Use Status: Former Tobacco user Quit Date: age 70 Tobacco use type: Cigarette Years Smoked: 61 Smoked in Last 30 Days: No e-Cigarette/Vaping Use: Never Used Second Hand Smoke Exposure: No Use of substances other than those prescribed or required for medical reasons: No Advance Directives: Yes Advance Directives on File: Yes Advance Directives Date on File: 02/15/23 service: No Current occupational status: employed Cognitive needs: No Hearing needs: Yes (hearing aides) Vision needs: No Physical Exam ED Vital Signs: Vital Signs - 24 hr 06/08/23 09:27 06/08/23 10:29 06/08/23 12:31 Pulse Rate 100 97 92 Respiratory Rate 28 H 24 H 30 H Blood Pressure 129/62 106/53 L Pulse Oximetry 91 L 95 Oxygen Delivery Method Oxymask Nasal Cannula Oxygen Flow Rate 3 BMI result Body Mass Index 25.7 Vital signs have been reviewed and appear to be correct. Blood pressure elevated. Heart rate normal. Respiratory rate normal. Temperature normal. Oxygen saturation normal. Appearance: Alert. Oriented X3. No acute distress. Head: Normal external exam. Normocephalic. Atraumatic. No Barbour signs noted. No raccoon eyes noted Eyes: PERRLA. EOMI. Conjunctiva and sclera normal. Eyelids normal. ENT: TM's Normal. Pharynx normal. Uvula midline. Moist mucous membranes. No trismus noted. No drooling noted. No muffled voice noted. Neck: Normal inspection. Neck supple. FROM. No adenopathy. Thyroid Normal. No meningeal signs. No neck mass noted. CVS: Normal heart rate and rhythm. Heart sound normal. No murmurs noted. Pulses normal throughout. Respiratory: No respiratory distress. Painless inspiration. Diffuse bilateral expiratory wheezing with prolonged expiration and decreased air entry bilaterally. Chest nontender. No accessory muscle usage noted. Abdomen: Soft and nontender. Bowel sounds normal in all 4 quadrants. No distention noted. No organomegaly noted. No visible injury noted. Back: No CVA tenderness. Full range of motion noted. Skin: Skin warm and dry. Normal skin color. Normal skin turgor. No rashes/lesions/lacerations noted. Extremities: No lower extremity edema. Extremities exhibit normal range of motion. Extremities nontender. Neuro: Oriented X 3. Cranial nerve exam: II-XII are grossly intact No motor deficit. No sensory deficit. Reflexes normal. Medications Administered Discontinued Medications Generic Name Dose Route Start Last Admin Trade Name Freq PRN Reason Stop Dose Admin Albuterol Sulfate 2.5 mg/ 5 mg 06/08/23 10:22 06/08/23 10:29 Albuterol Sulfate 2.5 mg INHALE 06/08/23 10:23 5 mg ONCE ONE Administration Magnesium Sulfate 2 gm in 50 mls @ 25 mls/hr 06/08/23 09:41 06/08/23 11:31 Magnesium Sulfate/H2o IV 06/08/23 11:40 Infused ONCE ONE Infusion Methylprednisolone Sodium Succinate 125 mg 06/08/23 09:41 06/08/23 09:50 Methylprednisolone Sod Succ 125 Mg/2 Ml Vial IVPUSH 06/08/23 09:42 125 mg ONCE ONE Administration Medical Decision Making Differential Diagnosis Differential Diagnoses: The differential diagnosis associated with the presentation includes (Pneumonia, pneumothorax, interstitial lung disease, electrolyte abnormality, ACS, congestive heart failure, severe anemia.) Admission/Observation Consideration of admission/observation: Escalation of care including admission/observation considered Consult Healthcare Provider Management of the patient was discussed with: Hospitalist (Dr. Valdez) Lab Data MDM Lab Attestation statement: I reviewed the patient's lab results. 06/08/23 10:54 06/08/23 10:54 Labs: Lab Results 06/08/23 06/08/23 Range/Units 10:49 10:54 WBC 8.6 (4.8-10.8) X10*3/uL RBC 3.56 L (4.60-5.80) X10*6/uL Hgb 10.2 L (14.0-18.0) g/dl Hct 32.8 L (42.0-52.0) % MCV 92.1 (80.0-98.0) fL MCH 28.7 (27.0-33.0) pg MCHC 31.1 (31.0-36.0) g/dl RDW 16.0 (11.0-16.0) % Plt Count 159 L (160-400) X10*3/uL MPV 10.7 (9.4-12.4) fL Immature Gran % (Auto) 0.6 H (0.0-0.4) % Neut % (Auto) 85.2 H (45-73) % Lymph % (Auto) 7.3 L (20-40) % Bollinger % (Auto) 6.3 (2-11) % Eos % (Auto) 0.3 (0-4) % Baso % (Auto) 0.3 (0-2) % Lymph # (Auto) 0.6 L (1.2-4.9) X10*3/uL Bollinger # (Auto) 0.5 (0.1-1.2) X10*3/uL Eos # (Auto) 0.0 (0.0-0.4) X10*3/uL Baso # (Auto) 0.0 (0.0-0.2) X10*3/uL Abs Immat Gran (auto) 0.05 H (0.00-0.03) X10*3/uL Absolute Neuts (auto) 7.3 (2.0-8.3) x10*3/uL Absolute Nucleated RBC 0.000 (0.0-0.012) X10*3/uL Nucleated RBC % (auto) 0.0 (0.0-0.2) /100WBC Sodium 143 (135-145) mmol/L Potassium 4.0 (3.3-5.1) mmol/L Chloride 110 H (96-108) mmol/L Carbon Dioxide 21 L (22-29) mmol/L Anion Gap 16 (12-20) BUN 24 H (9-16) mg/dL Creatinine 1.15 (0.5-1.4) mg/dL Estim Creat Clear Calc 46.2 Estimated GFR > 60 Random Glucose 179 H (60-115) mg/dL Calcium 9.4 (8.4-10.2) mg/dL Total Bilirubin 1.0 (0.0-1.0) mg/dL Direct Bilirubin 0.4 (0.0-0.5) mg/dL AST 17 (5-37) U/L ALT 11 (0-40) U/L Alkaline Phosphatase 83 (39-117) U/L Troponin I High Sens 32.5 D (<3.5-35.0) ng/L B-Natriuretic Peptide 1262 H (<100) pg/mL Total Protein 6.5 (6.5-8.0) g/dL Albumin 3.5 (3.5-5.0) g/dL Lipase 13 (8-78) U/L Influenza Type A (PCR) NEGATIVE (Negative) Influenza Type B (PCR) NEGATIVE (Negative) RSV RNA Qual (PCR) NEGATIVE (Negative) SARS-CoV-2 RNA (RT-PCR) NEGATIVE (Negative) Independent Interpretation I performed an independent interpretation of an: Plain X-Ray (Chest:No rib fracture. Interstitial lung disease. Increased opacity in the central / suprahilar left upper lung questionable for acute alveolitis or pneumonia. Clinical Correlation recommended.) Radiology Impression Discussion of test interpretation with radiology: I have reviewed the radiologist's reading. Chronic Conditions Patient?s care impacted by: Other (Interstitial lung fibrosis.) Discharge Plan Discharge Clinical Impression: Pneumonia, Chronic interstitial lung disease Patient Disposition: Admitted As Inpatient Prescriptions: No Action albuterol sulfate [ProAir HFA] 90 mcg/actuation HFA aerosol inhaler 2 puff inhalation QID PRN (Reason: shortness of breath or wheezing) Qty: 8.5 0RF multivitamin Tablet 1 tab PO DAILY acetaminophen 500 mg Tablet 1,000 mg PO BEDTIME Probiotic 1 cap PO DAILY fluticasone propion-salmeterol [Wixela Inhub] 250-50 mcg/dose blister with device 1 ea inhalation BID amoxicillin-pot clavulanate [Augmentin] 500-125 mg tablet 1 tab PO BID Qty: 10 0RF
[2023-06-08] MEDS: methylPREDNISolone Sod Succ 125 MG/2 ML VIAL IVPUSH (09:50)
[2023-06-08] MEDS: Magnesium Sulfate/H2O 2 GM/50 ML PIGGYBACK IV (09:52)
[2023-06-08] MEDS: Albuterol Sulfate 2.5 MG, Albuterol Sulfate (0.083%) 2.5 MG 5 MG INHALE (10:29)
--- NOTE | 2023-06-08 10:52 | PC.NURSE ---
pt aox4, comes in with increasing SOB and chest pain on left lower rib area. pt arrived on non-rebreather 9L, and switched to oxymask 9L, with satts high 96%+ EKG done and labs being drawn now. Mag and solumedrol given per nov. plan of care ongoing
[2023-06-08 10:59] LABS: MANUAL DIFF FLAG NO
[2023-06-08 11:03] LABS: Basophils Percent Auto 0.3 % (0-2); Eosinophils Percent Auto 0.3 % (0-4); Hematocrit 32.8 % (42.0-52.0); Hemoglobin 10.2 g/dl (14.0-18.0); Imm Gran Abs Auto 0.05 X10*3/uL (0.00-0.03); Imm Gran Pct Auto 0.6 % (0.0-0.4); Lymphocytes Absolute Auto 0.6 X10*3/uL (1.2-4.9); Lymphocytes Percent Auto 7.3 % (20-40); Mean Corpuscular HGB Conc 31.1 g/dl (31.0-36.0); Mean Corpuscular Hemoglobin 28.7 pg (27.0-33.0); Mean Corpuscular Volume 92.1 fL (80.0-98.0); Mean Platelet Volume 10.7 fL (9.4-12.4); Monocytes Absolute Auto 0.5 X10*3/uL (0.1-1.2); Monocytes Percent Auto 6.3 % (2-11); Neutrophils Absolute Auto 7.3 x10*3/uL (2.0-8.3); Neutrophils Percent Auto 85.2 % (45-73); Platelet Count 159 X10*3/uL (160-400); Red Blood Count 3.56 X10*6/uL (4.60-5.80); White Blood Count 8.6 X10*3/uL (4.8-10.8)
[2023-06-08 11:17] LABS: Alanine Aminotransferase 11 U/L (0-40); Albumin Level 3.5 g/dL (3.5-5.0); Alkaline Phosphatase 83 U/L (39-117); Anion Gap 16 (12-20); Aspartate Amino Transferase 17 U/L (5-37); Bilirubin Direct 0.4 mg/dL (0.0-0.5); Blood Urea Nitrogen 24 mg/dL (9-16); Calcium 9.4 mg/dL (8.4-10.2); Carbon Dioxide 21 mmol/L (22-29); Chloride 110 mmol/L (96-108); Creatinine Clr Calc Pharmacy 46.2; Estimated Glomerular Filt Rate > 60; Glucose Random 179 mg/dL (60-115); Lipase 13 U/L (8-78); Sodium 143 mmol/L (135-145); Total Protein 6.5 g/dL (6.5-8.0)
[2023-06-08 11:22] LABS: B Type Natriuretic Peptide 1262 pg/mL (<100)
[2023-06-08 11:23] LABS: Troponin-I High Sensitivity 32.5 ng/L (<3.5-35.0)
[2023-06-08 11:44] LABS: Influenza A PCR NEGATIVE (Negative); Influenza B PCR NEGATIVE (Negative); Resp Syncy Virus RNA Qual PCR NEGATIVE (Negative); SARS COV2 PCR INHOUSE NEGATIVE (Negative)
--- NOTE | 2023-06-08 13:40 | P.HPHOSP_ITS ---
History of Present Illness Date of Service: 06/08/23 Attending physician on admission: David Valdez Chief Complaint: SOB Pt is an 78-year-old male with a PMH significant for?eou-wxvngel-msmfecwco type 2 diabetes, interstitial lung disease, idiopathic pulmonary fibrosis, HTN, and former smoker on 2-9 L of home O2 who presents to the ED for evaluation of left- sided chest wall and rib pain. Patient states symptoms began earlier in the day with a ?sober Dollar sized area of pain around his upper right chest that spread down his chest and ribs, wrapping around his side to his back. Patient states pain feels like a muscle spasm, like ?a million nits stab being be in the side?. Episodes are intermittent, and will occur with movement, but can also occur at rest. Reports intense pain lasts for 10-20 seconds and then lessens but never fully goes away. Patient has experienced similar symptoms in the past but nothing this extreme or lengthy. Denies any known trauma or injury to the area. Patient also has been having increased SOB and LEWIS. Has had increased cough for the past week, productive of houser to brown sputum. Patient has a complex home O2 requirement colon is on 2-3 L at rest p.r.n. and 6-9 L with exertion. Patient reports having a deviated septum which makes it difficult to breathe through his nose and he normally breathes through his mouth. He follows up with ENT outpatient. has noted increasing his O2 use at home the past week. Of note, patient was recently hospitalist on 04/22/2023 through 04/26/2023 for shortness of breath and difficulty breathing and treated for COPD exacerbation in the setting of COVID infection. According to family patient did great for the first week after dischage, but breathing slowly worsened after prescription for dexamethasone ended. In the ED patient was tachycardic up to 100, tachypneic up to 30, and hypoxic, satting at 91% on 9 L OxyMask. Labs were significant for stable H&H 10.2/39.8, BUN 24, creatinine 1.15, BMP 1262. CXR showed no rib fractures but interstitial lung disease to with increased opacity in the central/suprahilar left upper lung questionable for acute alveolitis or pneumonia. EKG demonstrated sinus rhythm with first-degree AV block and PAC is with T-wave inversions in V2, V3, V4, V5, and V6 with no evidence of ST elevations or depressions. Pt was treated with Solu-Medrol, Mag sulfate, DuoNebs, and ceftriaxone and azithromycin. Pt will be admitted to the hospital for acute on chronic hypoxic respiratory failure in the setting of community acquired pneumonia. Review of Systems 2 Review of Systems: Anterior chest wall and rib pain wrapping around to back Increased SOB, LEWIS Productive cough x1 week Increased supplemental O2 demand Denies chest pain/pressure No fever, chills, N/V, abdominal pain PMFSH Medical History COPD exacerbation COVID-19 virus infection Viral syndrome Acute respiratory failure with hypoxemia IPF (idiopathic pulmonary fibrosis) Muscle spasms of both lower extremities Cataracts, bilateral Interstitial lung disease HTN (hypertension) HLD (hyperlipidemia) Family History Father Stomach cancer Mother No problems noted. Surgical History Hx of sinus surgery Social History Household Members: Spouse Housing: House Do you presently have visiting nurse or other home services: No Alcohol intake: current Alcohol intake frequency: a few times a month Alcohol type: wine Patient Tobacco Use Status: Former Tobacco user Quit Date: age 70 Tobacco use type: Cigarette Years Smoked: 61 e-Cigarette/Vaping Use: Never Used Second Hand Smoke Exposure: No Advance Directives Date on File: 02/15/23 service: No Current occupational status: employed Cognitive needs: No Hearing needs: Yes (hearing aides) Vision needs: No Meds Allergies Allergy/AdvReac Type Severity Reaction Status Date / Time Seasonal Allergies Allergy Sneezing Verified 05/02/23 14:16 Active Medications: Current Medications Ceftriaxone Sodium 1 gm/ (Sodium Chloride) 50 mls @ 100 mls/hr IV ONCE ONE Stop: 06/08/23 13:53 Home Medications Medication Instructions Recorded Confirmed Last Taken Type fluticasone 250 mcg-salmeterol 50 1 ea inhalation BID 04/19/23 06/08/23 Unknown History mcg/dose blistr powdr for inhalation (Annela Inhub) Probiotic 1 cap PO DAILY 04/22/23 06/08/23 Unknown History acetaminophen 500 mg tablet 1,000 mg PO BEDTIME 04/22/23 06/08/23 Unknown History multivitamin 1 tab PO DAILY 04/22/23 06/08/23 Unknown History cetirizine 10 mg tablet 10 mg PO DAILY allergies 06/08/23 06/08/23 Unknown History fluticasone propionate 50 1 spray intranasal DAILY PRN Cold 06/08/23 06/08/23 Unknown History mcg/actuation nasal Symptoms spray,suspension sodium chloride 0.9 % nasal spray 1 spray intranasal Q30M PRN Dry 06/08/23 06/08/23 Unknown History aerosol Nasal Passages Physical Exam 2 Vital Signs and Narrative: Vital Signs: Last Vital Signs Pulse 92 06/08/23 12:31 Resp 30 H 06/08/23 12:31 BP 106/53 L 06/08/23 12:31 Pulse Ox 95 06/08/23 12:31 O2 Del Method Nasal Cannula 06/08/23 12:31 O2 Flow Rate 3 06/08/23 12:31 Oxygen Flow Rate 9 06/08/23 09:27 BMI result Body Mass Index 25.7 Constitutional: Alert, in no acute distress. Mental Status: Oriented to person, place and time. Eyes: Pupils are equal, round, and reactive to light. Ear, Nose, and Throat: Oropharynx clear, mucous membranes moist. Ears and nose without deformities. Trachea midline. Respiratory: Diminished breath sounds bilaterally. No wheezing, rales, rhonchi. Minor diaphoretic breathing. Cardiovascular: S1, S2 regular. No murmurs, rubs, or gallops. Gastrointestinal: Abdomen soft, non-tender, non-distended. Normal bowel sounds. Neurologic: Cranial nerves II-XII are grossly intact bilaterally. No focal neurological deficits. Moves all extremities spontaneously. Skin: Warm, dry. Musculoskeletal: Left-sided anterior chest wall tenderness, especially left side. Extremities: No edema. Psychiatric: Normal mood and affect. Results Labs 06/08/23 10:54 06/08/23 10:54 Labs: Laboratory Results - last 24 hr 06/08/23 06/08/23 10:49 10:54 MCV 92.1 MCH 28.7 MCHC 31.1 RDW 16.0 Plt Count 159 L MPV 10.7 Immature Gran % (Auto) 0.6 H Neut % (Auto) 85.2 H Lymph % (Auto) 7.3 L Bent % (Auto) 6.3 Eos % (Auto) 0.3 Baso % (Auto) 0.3 Lymph # (Auto) 0.6 L Bent # (Auto) 0.5 Eos # (Auto) 0.0 Baso # (Auto) 0.0 Abs Immat Gran (auto) 0.05 H Absolute Neuts (auto) 7.3 Absolute Nucleated RBC 0.000 Nucleated RBC % (auto) 0.0 Anion Gap 16 Estim Creat Clear Calc 46.2 Estimated GFR > 60 Random Glucose 179 H Calcium 9.4 Total Bilirubin 1.0 Direct Bilirubin 0.4 AST 17 ALT 11 Alkaline Phosphatase 83 B-Natriuretic Peptide 1262 H Total Protein 6.5 Albumin 3.5 Lipase 13 Influenza Type A (PCR) NEGATIVE Influenza Type B (PCR) NEGATIVE RSV RNA Qual (PCR) NEGATIVE SARS-CoV-2 RNA (RT-PCR) NEGATIVE Imaging Radiologist's Impressions: Impressions Ribs X-Ray 06/08/23 11:49 IMPRESSION: No rib fracture. Interstitial lung disease. Increased opacity in the central / suprahilar left upper lung questionable for acute alveolitis or pneumonia. Clinical Correlation recommended. Assessment and Plan (1) Pneumonia: Status: Acute (2) Elevated brain natriuretic peptide (BNP) level: Status: Acute Plan Pt is an 78-year-old male with a PMH significant for?xcd-wpfozqm-kwbpklcuf type 2 diabetes, interstitial lung disease, idiopathic pulmonary fibrosis, HTN, and former smoker on 2-9 L of home O2 who presents to the ED for evaluation of left- sided chest wall and rib pain. Acute on chronic hypoxic respiratory failure in the setting of community- acquired pneumonia Patient with increased SOB, LEWIS, supplemental O2 demand, productive cough x1 week, CXR with evidence of possible central/suprahilar upper lung pneumonia Patient meets sepsis criteria: Pneumonia, Tachycardic, tachypneic; lactic acid WNL a 1.7 Will give ceftriaxone, azithromycin, started 06/08/2023 DuoNejosy, Solu-Medrol Follow cultures Left rib and upper back pain Patient experienced left-sided chest wall pain that wraps around to his back since this morning, can occur at rest or with movement, experienced similar episodes in the past but never this bad CXR negative for acute rib fractures, left-sided chest wall tender to palpation Initial troponin 32.5 with repeat flat at 20.0; EKG with no evidence of ST elevations or depressions, with T-wave inversions in V3, V4, V5, and V6, similar to previous Acetaminophen and Flexeril p.r.n. for pain Monitor on telemetry Elevated BNP BNP 1262, elevated from 81 on 02/15/2023 Patient denies history of CHF Patient does not appear clinically to be overloaded: No JVD, no edema Will get echocardiogram Normocytic anemia Likely of chronic disease H&H 10.2/32.8, stable at baseline Follow CBC Pga-dmpepow-bpwmbgpnt diabetes type 2 Patient does not appear to be in any diabetic medication at this time Diabetic diet DNR/DNI Attending:?Dr. Valdez DVT Prophylaxis: Lovenox Pt will require a hospitalization of at least two nights for treatment of?acute on chronic hypoxic respiratory failure in the setting of community-acquired pneumonia with IV antibiotics, breathing treatments, IV steroids, and close monitoring. Time Spent With Patient Time: Total time managing care of this patient today ____ minutes. Quality Stroke Does the patient have a stroke diagnosis?: No VTE Prior VTE?: No VTE Risk Level:: Medical - moderate - high VTE Device Contraindication: Treatment Not Indicated VTE Drug Contraindication: N/A - Med Ordered
[2023-06-08] MEDS: Azithromycin 500 MG TABLET PO (14:15)
[2023-06-08] MEDS: cefTRIAXone sodium 1 GM in 0.9 % Sodium Chloride 50 ML IV (14:16)
[2023-06-08 14:21] LABS: Appearance Urine Turbid; Color Urine Yellow; Glucose Urine UA Negative (Negative); Leukocyte Esterase Urine Trace (Negative); Nitrite Urine Negative (Negative); PH 5.5 (5.0-9.0); UMIC TRIGGER UACC YES; Urine Blood Small (1+) (Negative); Urine Ketones Negative (Negative); Urine Protein 100 (2+) mg/dL (Neg-Trace)
--- NOTE | 2023-06-08 14:22 | PHA.MEDREC ---
Pharmacy Consult ? Medication Reconciliation Pharmacy has completed the medication reconciliation. spoke with patients granddaughter to confirm medications.
[2023-06-08 14:31] LABS: Lactic Acid 1.7 mmol/L (0.5-2.0)
[2023-06-08 14:33] LABS: Bacteria Urine None Seen (None Seen); Hyaline Casts Urine 0-2 /LPF (0-2); Squamous Epithelial Cell Urine 0-2 /HPF (0-2); WBC Urine 0-5 /HPF (0-5)
[2023-06-08 14:34] LABS: Other Crystals Urine Present
[2023-06-08] MEDS: 0.9 % Sodium Chloride Flush 3 ML SYRINGE IVFLUSH ×2 (16:52→21:45)
[2023-06-08] MEDS: Enoxaparin Sodium 40 MG/0.4 ML SYRINGE SUBCUT (16:52)
--- NOTE | 2023-06-08 16:53 | PC.NURSE ---
pt resting comfortably, no complaints or signs of distress. pt remains on 3.5L o2 - satts middle to high 90s. Pt in semi fowlers position for pt comfort and ease of breathing. awaiting room assignment.
--- NOTE | 2023-06-08 18:12 | PC.NURSE ---
pt does not report any belongings
[2023-06-08 20:48] LABS: Glucose, Whole Blood 339 mg/dL (60-115)
[2023-06-08] MEDS: methylPREDNISolone Sod Succ 40 MG/ML VIAL IVPUSH (21:45)
[2023-06-09] VITALS (8 sets, daily range): BP systolic 118–140; BP diastolic 55–75; PULSE 74–88; RESP 15–18; TEMP 36.1–37.1; O2SAT 92–96
[2023-06-09 06:20] LABS: Hematocrit 29.9 % (42.0-52.0); Hemoglobin 9.5 g/dl (14.0-18.0); Mean Corpuscular HGB Conc 31.8 g/dl (31.0-36.0); Mean Corpuscular Hemoglobin 28.4 pg (27.0-33.0); Mean Corpuscular Volume 89.5 fL (80.0-98.0); Mean Platelet Volume 11.1 fL (9.4-12.4); Platelet Count 168 X10*3/uL (160-400); Red Blood Count 3.34 X10*6/uL (4.60-5.80); Red Cell Distribution Width 15.6 % (11.0-16.0); White Blood Count 4.8 X10*3/uL (4.8-10.8)
[2023-06-09 06:32] LABS: Anion Gap 14 (12-20); Blood Urea Nitrogen 38 mg/dL (9-16); Calcium 8.5 mg/dL (8.4-10.2); Carbon Dioxide 20 mmol/L (22-29); Chloride 109 mmol/L (96-108); Creatinine Clr Calc Pharmacy 42.1; Estimated Glomerular Filt Rate 55; Glucose Random 252 mg/dL (60-115); Potassium 4.2 mmol/L (3.3-5.1); Sodium 139 mmol/L (135-145)
[2023-06-09] MEDS: Multivitamin TABLET 1 TAB PO (08:26)
[2023-06-09] MEDS: methylPREDNISolone Sod Succ 40 MG/ML VIAL IVPUSH ×2 (08:26→21:07)
[2023-06-09] MEDS: Loratadine 10 MG TABLET PO (08:26)
[2023-06-09] MEDS: 0.9 % Sodium Chloride Flush 3 ML SYRINGE IVFLUSH ×3 (08:32→21:08)
--- NOTE | 2023-06-09 08:56 | HO.PM.IMPN ---
Subjective Subjective Date of Service: 06/09/23 Interval History: improved pain and sob Physical Exam Vital Signs: Vital Signs: Last Vital Signs Temp 97.8 F 06/09/23 07:44 Pulse 76 06/09/23 07:44 Resp 18 06/09/23 07:44 BP 121/55 L 06/09/23 07:44 Pulse Ox 92 06/09/23 07:44 O2 Del Method Nasal Cannula 06/09/23 07:44 O2 Flow Rate 4 06/09/23 07:44 Oxygen Flow Rate 9 06/08/23 09:27 BMI result Body Mass Index 24.9 General: AO X 3, no acute distress Resp: diminsihed bilateral, no accessory muscles used CVS: S1,S2,RRR GI: soft, non tender, non distended Neuro: motor grossly intact, alert Psych: appropriate affect, appropriate insight Objective Data Active Medications Acetaminophen (Acetaminophen 325 Mg Tablet) 650 mg PO Q6H PRN PRN Reason: Pain, Mild (Pain Scale 1-3) Albuterol Sulfate (Albuterol Sulfate 90 Mcg 8 Gm Inhaler) 2 puff INHALE QID PRN PRN Reason: shortness of breath or wheezing Albuterol/Ipratropium (Albuterol/Iprat 2.5/0.5mg 3 Ml Ampul.Neb) 3 ml INHALE RQ4H WHILE AWAKE PRN PRN Reason: Shortness of Breath/Wheezing Benzonatate (Benzonatate 100 Mg Capsule) 100 mg PO TID PRN PRN Reason: Cough Cyclobenzaprine HCl (Cyclobenzaprine Hcl 5 Mg Tablet) 5 mg PO TID PRN PRN Reason: Muscle Spasm Docusate Sodium (Docusate Sodium 100 Mg Capsule) 100 mg PO DAILY PRN PRN Reason: Constipation Enoxaparin Sodium (Enoxaparin Sodium 40 Mg/0.4 Ml Syringe) 40 mg SUBCUT Q24H [facility] Last Admin: 06/08/23 16:52 Dose: 40 mg Documented By: PAULINA Fluticasone Propionate (Fluticasone Propionate Nasal 16 Gm [place]) 1 spray NOSTRIL-B DAILY PRN PRN Reason: Cold Symptoms Ceftriaxone Sodium 1 gm/ (Sodium Chloride) 50 mls @ 100 mls/hr IV Q24H [facility] Azithromycin 500 mg/ Sodium (Chloride) 250 mls @ 125 mls/hr IV Q24H [facility] Loratadine (Loratadine 10 Mg Tablet) 10 mg PO DAILY [facility] Last Admin: 06/09/23 08:26 Dose: 10 mg Documented By: [place] Methylprednisolone Sodium Succinate (Methylprednisolone Sod Succ 40 Mg/Ml Vial) 40 mg IVPUSH Q12H [facility] Last Admin: 06/09/23 08:26 Dose: 40 mg Documented By: [place] Multivitamins/Vitamin C (Multivitamin Tablet) 1 tab PO DAILY [facility] Last Admin: 06/09/23 08:26 Dose: 1 tab Documented By: [place] Ondansetron HCl (Ondansetron Hcl 4 Mg/2 Ml Vial) 4 mg IVPUSH Q8H PRN PRN Reason: Nausea and Vomiting Sodium Chloride (0.9 % Sodium Chloride Flush 3 Ml Syringe) 3 ml IVFLUSH QSHIFT [facility] Last Admin: 06/09/23 08:32 Dose: 3 ml Documented By: [place] Sodium Chloride (Sodium Chloride 0.65 % Nasal 44 Ml Sprbtl) 1 spray NOSTRIL-B Q30M PRN PRN Reason: Dry Nasal Passages Labs 06/09/23 05:47 06/09/23 05:47 Labs: Laboratory Results - last 24 hr 06/08/23 06/08/23 06/08/23 10:49 10:54 14:11 MCV 92.1 MCH 28.7 MCHC 31.1 RDW 16.0 Plt Count 159 L MPV 10.7 Immature Gran % (Auto) 0.6 H Neut % (Auto) 85.2 H Lymph % (Auto) 7.3 L Chambers % (Auto) 6.3 Eos % (Auto) 0.3 Baso % (Auto) 0.3 Lymph # (Auto) 0.6 L Chambers # (Auto) 0.5 Eos # (Auto) 0.0 Baso # (Auto) 0.0 Abs Immat Gran (auto) 0.05 H Absolute Neuts (auto) 7.3 Absolute Nucleated RBC 0.000 Nucleated RBC % (auto) 0.0 Anion Gap 16 Estim Creat Clear Calc 46.2 Estimated GFR > 60 POC Glucose Random Glucose 179 H Lactic Acid 1.7 Calcium 9.4 Total Bilirubin 1.0 Direct Bilirubin 0.4 AST 17 ALT 11 Alkaline Phosphatase 83 B-Natriuretic Peptide 1262 H Total Protein 6.5 Albumin 3.5 Lipase 13 Urine Color Yellow Urine Appearance Turbid Urine pH 5.5 Ur Specific Tell 1.020 Urine Protein 100 (2+) H Urine Glucose (UA) Negative Urine Ketones Negative Urine Blood Small (1+) H Urine Nitrite Negative Ur Leukocyte Esterase Trace H Urine RBC 3-5 H Urine WBC 0-5 Ur Squamous Epith Cells 0-2 Other Crystals Present Urine Bacteria None Seen Hyaline Casts 0-2 Influenza Type A (PCR) NEGATIVE Influenza Type B (PCR) NEGATIVE RSV RNA Qual (PCR) NEGATIVE SARS-CoV-2 RNA (RT-PCR) NEGATIVE 06/08/23 06/09/23 20:41 05:47 MCV 89.5 MCH 28.4 MCHC 31.8 RDW 15.6 Plt Count 168 MPV 11.1 Immature Gran % (Auto) Neut % (Auto) Lymph % (Auto) Chambers % (Auto) Eos % (Auto) Baso % (Auto) Lymph # (Auto) Chambers # (Auto) Eos # (Auto) Baso # (Auto) Abs Immat Gran (auto) Absolute Neuts (auto) Absolute Nucleated RBC 0.000 Nucleated RBC % (auto) 0.0 Anion Gap 14 Estim Creat Clear Calc 42.1 Estimated GFR 55 POC Glucose 339 H Random Glucose 252 H Lactic Acid Calcium 8.5 D Total Bilirubin Direct Bilirubin AST ALT Alkaline Phosphatase B-Natriuretic Peptide Total Protein Albumin Lipase Urine Color Urine Appearance Urine pH Ur Specific Tell Urine Protein Urine Glucose (UA) Urine Ketones Urine Blood Urine Nitrite Ur Leukocyte Esterase Urine RBC Urine WBC Ur Squamous Epith Cells Other Crystals Urine Bacteria Hyaline Casts Influenza Type A (PCR) Influenza Type B (PCR) RSV RNA Qual (PCR) SARS-CoV-2 RNA (RT-PCR) Assessment and Plan (1) Elevated brain natriuretic peptide (BNP) level: Status: Acute Plan 78M PMH diabetes, chronic hypoxic respiratory failure due to COPD and interstitial lung disease, hypertension presented with left-sided chest wall pain and cough. Acute on chronic hypoxic respiratory failure secondary to pneumonia and COPD/interstitial lung disease with acute decompensation Steroids, ceftriaxone, azithromycin, follow-up cultures, wean O2 as tolerated. Chest wall pain Likely due to cough versus pneumonia Symptomatic management Elevated BNP Clinically does not seem to be in failure, follow-up echocardiogram Diabetes Insulin DVT prophylaxis with Lovenox DNR/DNI Reason for continue hospitalization:L not a baseline O2 Time Spent With Patient Time: Total time managing care of this patient today ____ minutes. Quality Stroke Does the patient have a stroke diagnosis?: No VTE Prior VTE?: No VTE Risk Level:: Medical - moderate - high VTE Device Contraindication: Treatment Not Indicated VTE Drug Contraindication: N/A - Med Ordered
[2023-06-09] MEDS: Acetaminophen 325 MG TABLET 650 MG PO (12:39)
[2023-06-09] MEDS: Cyclobenzaprine HCl 5 MG TABLET PO (12:40)
[2023-06-09] MEDS: Azithromycin 500 MG in 0.9 % Sodium Chloride 250 ML 125 MG IV (12:40)
[2023-06-09] MEDS: Enoxaparin Sodium 40 MG/0.4 ML SYRINGE SUBCUT (15:41)
[2023-06-09] MEDS: cefTRIAXone sodium 1 GM in 0.9 % Sodium Chloride 50 ML IV (21:07)
[2023-06-10 03:39] VITALS: BP 140/60; PULSE 74; RESP 18; TEMP 36.3; O2SAT 97
--- NOTE | 2023-06-10 07:00 | CA_ITS ---
Transthoracic Echocardiogram Patient (Last, First, Middle): Emmett Hernandez E Gender: Male Date of : 1945 Age: 78 Procedure Date: 06/10/2023 Procedure Type: Transthoracic Echocardiogram Location: [facility] [place] Height: 167.64 cm Weight: 69.85 kg BSA: 1.79 m2 Heart Rate: bpm BP: 129 / 71 mmHg Sales Financial Analyst: BRITNI Referring MD: Clau JEAN Symptoms: Elevated BNP Study Quality: Adequate with contrast ECG Rhythm: Sinus Conclusions: - The left ventricular systolic function is low normal. The visually estimated ejection fraction is between 50-55%. - Moderately increased right ventricular cavity size. - No obvious valvular pathology seen on this study. - Mild to moderate pulmonary hypertension is present. Findings Procedure Information Contrast agent, definity, is being given per protocol without apparent complications. Left Ventricle Normal left ventricular cavity size. There is mildly increased left ventricular wall thickness. The left ventricular systolic function is low normal. The visually estimated ejection fraction is between 50-55%. There is mild global hypokinesis. Evidence suggests grade I (mild) diastolic dysfunction. Right Ventricle Moderately increased right ventricular cavity size. There is normal right ventricular systolic function. Atria The left atrium is normal in size. The right atrium is mildly dilated. Aortic Valve There is a normal trileaflet aortic valve. There is no aortic valve stenosis. There is no aortic valve regurgitation. Mitral Valve The mitral valve appears normal. There is trace mitral valve regurgitation. There is no mitral valve stenosis. Pulmonic Valve There is trace pulmonic valve regurgitation. Tricuspid Valve Normal tricuspid valve structure. There is mild tricuspid valve regurgitation. Mild to moderate pulmonary hypertension is present. Great Vessels The asc aorta is normal in size. Venous The inferior vena cava is normal in size and collapses greater than 50% with inspiration. Pericardium/Pleural There is no evidence of pericardial effusion. Prior Study Comparison Changes noted compared to prior study dated: 07/10/2018. Increase in RV size; pulmonary hypertension present. Recommendations, Care & Conclusions No obvious valvular pathology seen on this study. Measurements 2D Linear Measurements IVSd: 1.40 0.6-0.9/0.6-1.0 cm LVIDd: 3.23 3.9-5.3/4.2-5.9 cm LVIDd Index: 1.80 2.4-3.2/2.2-3.1 cm/m2 LVIDs: 2.14 2.0-3.6 cm LVPWd: 1.31 0.7-1.1 cm LA Diam: 2.90 2.7-3.8/3.0-4.0 cm LAIDs Index: 1.62 1.5-2.3 cm/m2 LV Mass: 182.92 67-162/88-224 g LV Mass Index: 102.19 43-95/49-115 g/m2 LVOT Diam: 2.20 3.0+(-)1.3 cm 2D Systolic Function EF 4C: 55.50 >55% EF 2C: 56.50 >55% EF BiP: 54.50 >55% Mitral Valve MV Pk E: 0.81 MV PK A: 0.90 MV Decel Time: 176.00 E/A: 0.90 E'Lateral: 8.27 E'Medial: 5.11 E/E' Med: 15.80 E/E' Lat: 9.70 PHT: 52.00 MVA PHT: 4.23 Decel [place]: 4.57 Aortic Valve AoV Pk Curt: 1.10 AoV Mn Curt: 0.79 AoV VTI: 0.25 AoV Pk Grad: 5.00 Aov Mn Grad: 3.00 JONAH Cont.VTI: 2.70 LVOT LVOT Pk Curt: 0.80 LVOT Mn Curt: 0.55 LVOT VTI: 0.18 LVOT Pk Grad: 3.00 LVOT Mn Grad: 1.00 LVOT Diam: 2.20 LVOT Area: 3.80 Diastolic Function MV Pk E: 0.81 MV Pk A: 0.90 E/A: 0.90 E'Medial: 5.11 E/E' Med: 15.80 E' Laterial: 8.27 E/E' Lat: 9.70 Right Ventricle TAPSE (mm): 24.90 TVS' Curt: 9.90 Tricuspid Valve TR Pk Curt: 2.65 TR Pk Grad: 28.00 RA Press: 3.00 RVSP: 52.00 Great Vessels Aorta Sinus of Valsalva: 4.10 2.0-3.5 cm Ao Asc: 3.60 2.1-3.4 cm Pulmonary Valve PV Pk Curt: 0.99 Peak PV Grad: 4.00 Updated in Other Vendor System with Status of Final Fernando Guadalupe MD electronically signed on 06/10/2023 12:50:49 PM with status of Final
[2023-06-10 07:13] VITALS: BP 129/71; PULSE 70; RESP 20; TEMP 36.5; O2SAT 94
[2023-06-10 08:15] LABS: Hematocrit 30.5 % (42.0-52.0); Hemoglobin 9.6 g/dl (14.0-18.0); Mean Corpuscular HGB Conc 31.5 g/dl (31.0-36.0); Mean Corpuscular Hemoglobin 28.8 pg (27.0-33.0); Mean Corpuscular Volume 91.6 fL (80.0-98.0); Mean Platelet Volume 10.6 fL (9.4-12.4); Platelet Count 175 X10*3/uL (160-400); Red Blood Count 3.33 X10*6/uL (4.60-5.80); Red Cell Distribution Width 15.5 % (11.0-16.0); White Blood Count 9.1 X10*3/uL (4.8-10.8)
[2023-06-10 08:28] LABS: Anion Gap 14 (12-20); Blood Urea Nitrogen 55 mg/dL (9-16); Calcium 8.8 mg/dL (8.4-10.2); Carbon Dioxide 21 mmol/L (22-29); Chloride 108 mmol/L (96-108); Creatinine Clr Calc Pharmacy 40.2; Estimated Glomerular Filt Rate 52; Glucose Fasting 286 mg/dL (60-99); Potassium 4.7 mmol/L (3.3-5.1); Sodium 138 mmol/L (135-145)
[2023-06-10] MEDS: Loratadine 10 MG TABLET PO (09:11)
[2023-06-10] MEDS: 0.9 % Sodium Chloride Flush 3 ML SYRINGE IVFLUSH ×3 (09:11→20:10)
[2023-06-10] MEDS: Multivitamin TABLET 1 TAB PO (09:11)
[2023-06-10] MEDS: methylPREDNISolone Sod Succ 40 MG/ML VIAL IVPUSH ×2 (09:11→20:10)
--- NOTE | 2023-06-10 10:13 | P.CDIM_ITS ---
PROVIDER RESPONSE TEXT: To clarify, the appropriate diagnosis supported by the clinical indicators: Diagnosis was present on admission and is now resolved QUERY TEXT: PHYSICIAN'S DOCUMENTATION REQUEST Date of Query: 06/10/2023 09:59 AM EDT Patient Name: Emmett Hernandez Admit Date: 06/08/2023 Dear David Valdez, A review of the medical record indicates additional documentation may be needed. Please review below and update the documentation accordingly. Clinical Indicators: H&P 06/08 - Assessment and plan: Patient met Sepsis criteria with PNA, Tachycardic, Tachypneic, LA WNL at 1.7 HR 100 RR 30 hypoxic, satting at 91% on 9L Oxymask. Ceftriaxone, Azithromycin, Solumedrol, Mag sulfate, Duonebs. Admit for acute on chronic respiratory failure in the setting of community acquired pneumonia. Please clarify the following: Sepsis criteria: Diagnosis was present on admission and is now resolved Diagnosis was present on admission and is still being monitored, evaluated, or treated Diagnosis was ruled out Diagnosis is still a likely, suspected, probable diagnosis Other (explain)Clinically unable to determine (explain)Thank you, Ethel Bradley, CCS, CDIS Use of terms such as suspected, likely, concern for, or probable (associated with a specific diagnosi s that is being evaluated, monitored, or treated as if it exists) are acceptable and can be coded in the inpatient se tting, when documented at the time of discharge. Please use your independent medical judgment in providing your response. THIS QUERY IS PART OF THE PERMANENT MEDICAL RECORD
[2023-06-10] MEDS: polyethylene glycoL 3350 17 GM POWD.PACK PO (10:46)
--- NOTE | 2023-06-10 10:54 | MHC.CM.PN ---
IMM 06/10/23, Pt lives in home with , grand daughter is HCP, He had services from [facility] in the past, Has O2 at home from [facility]. Pt stated that he thought that [facility] was not very good, RT to look into this. Plan is home with services. CM to follow, and assist with discharge.
--- NOTE | 2023-06-10 11:00 | P.PNIM_ITS ---
Subjective Subjective Date of Service: 06/10/23 Interval History: improved pain and sob Physical Exam 2 Vital Signs: Vital Signs: Last Vital Signs Temp 97.7 F 06/10/23 07:13 Pulse 70 06/10/23 07:13 Resp 20 06/10/23 07:13 BP 129/71 06/10/23 07:13 Pulse Ox 94 06/10/23 07:13 O2 Del Method Nasal Cannula 06/10/23 07:13 O2 Flow Rate 3 06/10/23 07:13 Oxygen Flow Rate 9 06/08/23 09:27 BMI result Body Mass Index 24.9 General: AO X 3, no acute distress Resp: diminsihed bilateral, no accessory muscles used CVS: S1,S2,RRR GI: soft, non tender, non distended Neuro: motor grossly intact, alert Psych: appropriate affect, appropriate insight Objective Data Active Medications Acetaminophen (Acetaminophen 325 Mg Tablet) 650 mg PO Q6H PRN PRN Reason: Pain, Mild (Pain Scale 1-3) Last Admin: 06/09/23 12:39 Dose: 650 mg Documented By: [place] Albuterol Sulfate (Albuterol Sulfate 90 Mcg 8 Gm Inhaler) 2 puff INHALE QID PRN PRN Reason: shortness of breath or wheezing Albuterol/Ipratropium (Albuterol/Iprat 2.5/0.5mg 3 Ml Ampul.Neb) 3 ml INHALE RQ4H WHILE AWAKE PRN PRN Reason: Shortness of Breath/Wheezing Benzonatate (Benzonatate 100 Mg Capsule) 100 mg PO TID PRN PRN Reason: Cough Cyclobenzaprine HCl (Cyclobenzaprine Hcl 5 Mg Tablet) 5 mg PO TID PRN PRN Reason: Muscle Spasm Last Admin: 06/09/23 12:40 Dose: 5 mg Documented By: [place] Docusate Sodium (Docusate Sodium 100 Mg Capsule) 100 mg PO DAILY PRN PRN Reason: Constipation Enoxaparin Sodium (Enoxaparin Sodium 40 Mg/0.4 Ml Syringe) 40 mg SUBCUT Q24H [facility] Last Admin: 06/09/23 15:41 Dose: 40 mg Documented By: [place] Fluticasone Propionate (Fluticasone Propionate Nasal 16 Gm [place]) 1 spray NOSTRIL-B DAILY PRN PRN Reason: Cold Symptoms Ceftriaxone Sodium 1 gm/ (Sodium Chloride) 50 mls @ 100 mls/hr IV Q24H [facility] Last Infusion: 06/09/23 21:42 Dose: Infused Documented By: VON Azithromycin 500 mg/ Sodium (Chloride) 250 mls @ 125 mls/hr IV Q24H [facility] Last Infusion: 06/09/23 14:57 Dose: Infused Documented By: [place] Loratadine (Loratadine 10 Mg Tablet) 10 mg PO DAILY [facility] Last Admin: 06/10/23 09:11 Dose: 10 mg Documented By: MECHELLE Methylprednisolone Sodium Succinate (Methylprednisolone Sod Succ 40 Mg/Ml Vial) 40 mg IVPUSH Q12H [facility] Last Admin: 06/10/23 09:11 Dose: 40 mg Documented By: MECHELLE Multivitamins/Vitamin C (Multivitamin Tablet) 1 tab PO DAILY [facility] Last Admin: 06/10/23 09:11 Dose: 1 tab Documented By: MECHELLE Ondansetron HCl (Ondansetron Hcl 4 Mg/2 Ml Vial) 4 mg IVPUSH Q8H PRN PRN Reason: Nausea and Vomiting Sodium Chloride (0.9 % Sodium Chloride Flush 3 Ml Syringe) 3 ml IVFLUSH QSHIFT [facility] Last Admin: 06/10/23 09:11 Dose: 3 ml Documented By: MECHELLE Sodium Chloride (Sodium Chloride 0.65 % Nasal 44 Ml Sprbtl) 1 spray NOSTRIL-B Q30M PRN PRN Reason: Dry Nasal Passages Labs 06/10/23 08:00 06/10/23 08:00 Labs: Laboratory Results - last 24 hr 06/10/23 08:00 MCV 91.6 MCH 28.8 MCHC 31.5 RDW 15.5 Plt Count 175 MPV 10.6 Absolute Nucleated RBC 0.000 Nucleated RBC % (auto) 0.0 Anion Gap 14 Estim Creat Clear Calc 40.2 Estimated GFR 52 Fasting Glucose 286 H Calcium 8.8 Microbiology Microbiology Results: Microbiology 06/08/23 14:11 Blood Culture - Preliminary Blood - Venous No growth after 24 hours. 06/08/23 14:11 Blood Culture - Preliminary Blood - Venous No growth after 24 hours. Assessment and Plan (1) Elevated brain natriuretic peptide (BNP) level: Status: Acute Plan 78M PMH diabetes, chronic hypoxic respiratory failure due to COPD and interstitial lung disease, hypertension presented with left-sided chest wall pain and cough. Acute on chronic hypoxic respiratory failure secondary to pneumonia and COPD/interstitial lung disease with acute decompensation continute Steroids, ceftriaxone, azithromycin, follow-up cultures, wean O2 as tolerated. Chest wall pain Likely due to cough versus pneumonia Symptomatic management Elevated BNP Clinically does not seem to be in failure, follow-up echocardiogram Diabetes Insulin DVT prophylaxis with Lovenox DNR/DNI Reason for continue hospitalization: not a baseline O2 Time Spent With Patient Time: Total time managing care of this patient today ____ minutes. Quality Stroke Does the patient have a stroke diagnosis?: No VTE Prior VTE?: No VTE Risk Level:: Medical - moderate - high VTE Device Contraindication: Treatment Not Indicated VTE Drug Contraindication: N/A - Med Ordered
[2023-06-10 11:19] VITALS: BP 131/64; PULSE 66; RESP 20; TEMP 36.3; O2SAT 98
[2023-06-10] MEDS: Azithromycin 500 MG in 0.9 % Sodium Chloride 250 ML 125 MG IV (12:51)
[2023-06-10] MEDS: Enoxaparin Sodium 40 MG/0.4 ML SYRINGE SUBCUT (14:38)
[2023-06-10 15:29] VITALS: BP 139/70; PULSE 75; RESP 16; TEMP 36.2; O2SAT 94
[2023-06-10 19:10] VITALS: BP 152/73; PULSE 89; RESP 18; TEMP 36.8; O2SAT 96
[2023-06-10] MEDS: cefTRIAXone sodium 1 GM in 0.9 % Sodium Chloride 50 ML IV (20:09)
[2023-06-10 21:30] LABS: Glucose, Whole Blood 355 mg/dL (60-115)
[2023-06-11] VITALS (7 sets, daily range): BP systolic 132–159; BP diastolic 68–92; PULSE 67–83; RESP 18–20; TEMP 36.3–36.9; O2SAT 90–98
[2023-06-11 07:05] LABS: Hematocrit 30.5 % (42.0-52.0); Hemoglobin 9.8 g/dl (14.0-18.0); Mean Corpuscular HGB Conc 32.1 g/dl (31.0-36.0); Mean Corpuscular Volume 90.2 fL (80.0-98.0); Mean Platelet Volume 11.4 fL (9.4-12.4); Platelet Count 167 X10*3/uL (160-400); Red Blood Count 3.38 X10*6/uL (4.60-5.80); Red Cell Distribution Width 15.2 % (11.0-16.0); White Blood Count 7.3 X10*3/uL (4.8-10.8)
[2023-06-11 07:13] LABS: Anion Gap 13 (12-20); Blood Urea Nitrogen 51 mg/dL (9-16); Calcium 8.8 mg/dL (8.4-10.2); Carbon Dioxide 23 mmol/L (22-29); Chloride 107 mmol/L (96-108); Creatinine Clr Calc Pharmacy 43.5; Estimated Glomerular Filt Rate 57; Glucose Fasting 314 mg/dL (60-99); Potassium 4.7 mmol/L (3.3-5.1); Sodium 138 mmol/L (135-145)
[2023-06-11] MEDS: Loratadine 10 MG TABLET PO (08:21)
[2023-06-11] MEDS: 0.9 % Sodium Chloride Flush 3 ML SYRINGE IVFLUSH ×3 (08:21→19:39)
[2023-06-11] MEDS: methylPREDNISolone Sod Succ 40 MG/ML VIAL IVPUSH ×2 (08:21→21:24)
[2023-06-11] MEDS: Multivitamin TABLET 1 TAB PO (08:21)
--- NOTE | 2023-06-11 09:56 | P.PNIM_ITS ---
Subjective Subjective Date of Service: 06/11/23 Interval History: urinary incontinence, sob Physical Exam 2 Vital Signs: Vital Signs: Last Vital Signs Temp 97.6 F 06/11/23 07:34 Pulse 68 06/11/23 07:34 Resp 20 06/11/23 07:34 BP 134/68 06/11/23 07:34 Pulse Ox 97 06/11/23 07:34 O2 Del Method Room Air 06/11/23 07:34 O2 Flow Rate 3.5 06/11/23 04:00 Oxygen Flow Rate 9 06/08/23 09:27 BMI result Body Mass Index 24.9 General: AO X 3, no acute distress Resp: diminsihed bilateral, no accessory muscles used CVS: S1,S2,RRR GI: soft, non tender, non distended Neuro: motor grossly intact, alert Psych: appropriate affect, appropriate insight Objective Data Active Medications Acetaminophen (Acetaminophen 325 Mg Tablet) 650 mg PO Q6H PRN PRN Reason: Pain, Mild (Pain Scale 1-3) Last Admin: 06/09/23 12:39 Dose: 650 mg Documented By: [place] Albuterol Sulfate (Albuterol Sulfate 90 Mcg 8 Gm Inhaler) 2 puff INHALE QID PRN PRN Reason: shortness of breath or wheezing Albuterol/Ipratropium (Albuterol/Iprat 2.5/0.5mg 3 Ml Ampul.Neb) 3 ml INHALE RQ4H WHILE AWAKE PRN PRN Reason: Shortness of Breath/Wheezing Benzonatate (Benzonatate 100 Mg Capsule) 100 mg PO TID PRN PRN Reason: Cough Cyclobenzaprine HCl (Cyclobenzaprine Hcl 5 Mg Tablet) 5 mg PO TID PRN PRN Reason: Muscle Spasm Last Admin: 06/09/23 12:40 Dose: 5 mg Documented By: [place] Docusate Sodium (Docusate Sodium 100 Mg Capsule) 100 mg PO DAILY PRN PRN Reason: Constipation Enoxaparin Sodium (Enoxaparin Sodium 40 Mg/0.4 Ml Syringe) 40 mg SUBCUT Q24H [facility] Last Admin: 06/10/23 14:38 Dose: 40 mg Documented By: RIOSCYESENIA Fluticasone Propionate (Fluticasone Propionate Nasal 16 Gm [place]) 1 spray NOSTRIL-B DAILY PRN PRN Reason: Cold Symptoms Ceftriaxone Sodium 1 gm/ (Sodium Chloride) 50 mls @ 100 mls/hr IV Q24H [facility] Last Infusion: 06/10/23 20:43 Dose: Infused Documented By: NANCY Azithromycin 500 mg/ Sodium (Chloride) 250 mls @ 125 mls/hr IV Q24H [facility] Last Infusion: 06/10/23 14:53 Dose: Infused Documented By: MECHELLE Loratadine (Loratadine 10 Mg Tablet) 10 mg PO DAILY [facility] Last Admin: 06/11/23 08:21 Dose: 10 mg Documented By: MECHELLE Methylprednisolone Sodium Succinate (Methylprednisolone Sod Succ 40 Mg/Ml Vial) 40 mg IVPUSH Q12H [facility] Last Admin: 06/11/23 08:21 Dose: 40 mg Documented By: MECHELLE Multivitamins/Vitamin C (Multivitamin Tablet) 1 tab PO DAILY [facility] Last Admin: 06/11/23 08:21 Dose: 1 tab Documented By: MECHELLE Ondansetron HCl (Ondansetron Hcl 4 Mg/2 Ml Vial) 4 mg IVPUSH Q8H PRN PRN Reason: Nausea and Vomiting Sodium Chloride (0.9 % Sodium Chloride Flush 3 Ml Syringe) 3 ml IVFLUSH QSHIFT [facility] Last Admin: 06/11/23 08:21 Dose: 3 ml Documented By: MECHELLE Sodium Chloride (Sodium Chloride 0.65 % Nasal 44 Ml Sprbtl) 1 spray NOSTRIL-B Q30M PRN PRN Reason: Dry Nasal Passages Labs 06/11/23 06:27 06/11/23 06:27 Labs: Laboratory Results - last 24 hr 06/10/23 06/11/23 21:09 06:27 MCV 90.2 MCH 29.0 MCHC 32.1 RDW 15.2 Plt Count 167 MPV 11.4 Absolute Nucleated RBC 0.000 Nucleated RBC % (auto) 0.0 Anion Gap 13 Estim Creat Clear Calc 43.5 Estimated GFR 57 POC Glucose 355 H* Fasting Glucose 314 H Calcium 8.8 Microbiology Microbiology Results: Microbiology 06/08/23 14:11 Blood Culture - Preliminary Blood - Venous No growth after 48 hours. 06/08/23 14:11 Blood Culture - Preliminary Blood - Venous No growth after 48 hours. Assessment and Plan (1) Elevated brain natriuretic peptide (BNP) level: Status: Acute Plan 78M PMH diabetes, chronic hypoxic respiratory failure due to COPD and interstitial lung disease, hypertension presented with left-sided chest wall pain and cough. Acute on chronic hypoxic respiratory failure secondary to pneumonia and COPD/interstitial lung disease with acute decompensation continue Steroids, ceftriaxone, azithromycin, follow-up cultures, wean O2 as tolerated. urinary incontince urology eval Chest wall pain Likely due to cough versus pneumonia Symptomatic management Elevated BNP Clinically does not seem to be in failure, echo with chronic right sided failure Diabetes Insulin DVT prophylaxis with Lovenox DNR/DNI Reason for continue hospitalization: not a baseline O2 Time Spent With Patient Time: Total time managing care of this patient today ____ minutes. Quality Stroke Does the patient have a stroke diagnosis?: No VTE Prior VTE?: No VTE Risk Level:: Medical - moderate - high VTE Device Contraindication: Treatment Not Indicated VTE Drug Contraindication: N/A - Med Ordered
--- NOTE | 2023-06-11 11:07 | P.CDIM_ITS ---
PROVIDER RESPONSE TEXT: To clarify, the appropriate diagnosis supported by the clinical indicators: Diabetes mellitus Type 2 with hyperglycemia QUERY TEXT: PHYSICIAN'S DOCUMENTATION REQUEST Date of Query: 06/11/2023 10:52 AM EDT Patient Name: Emmett Hernandez Admit Date: 06/08/2023 Dear David Valdez, A review of the medical record indicates additional documentation may be needed. Please review below and update the documentation accordingly. Clinical Indicators: LAB FINDINGS: POC glucose 355 H PN: DM Insulin PMH: DM Type 2 diabetic diet Please clarify the following regarding the Complications of Diabetes Mellitus (DM): Diabetes mellitus Type 2 with hyperglycemia Other please specify Other (explain)Clinically unable to determine (explain)Thank you, Ethel Bradley, CCS, CDIS Use of terms such as suspected, likely, concern for, or probable (associated with a specific diagnosi s that is being evaluated, monitored, or treated as if it exists) are acceptable and can be coded in the inpatient se tting, when documented at the time of discharge. Please use your independent medical judgment in providing your response. THIS QUERY IS PART OF THE PERMANENT MEDICAL RECORD
--- NOTE | 2023-06-11 12:46 | PM.UROCN ---
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 Repeat TURBT 09/18/22- path - Muscle invasive bladder cancer in same area (right lateral wall) resected all grossly visible tumor, he declined cystectomy. Completed Chemoradiation therapy. Admitted for respiratory condition. Called evaluate due to urinary incontinence. The patient states it started about a week ago, he noticed dribbling and intermittent stream. Currently being managed with condom catheter. Recommend trial of bladder spasm med and alpha - gurpreet, Nursing to check post void bladder scan CT Abd/pelvis w/wo IV contrast Review of Systems Review of Systems: 10 point ROS negative other than stated in HPI PMFSH Past Medical History Medical History COPD exacerbation COVID-19 virus infection Viral syndrome Acute respiratory failure with hypoxemia IPF (idiopathic pulmonary fibrosis) Muscle spasms of both lower extremities Cataracts, bilateral Interstitial lung disease HTN (hypertension) HLD (hyperlipidemia) Family History Family History Father Stomach cancer Mother No problems noted. Surgical History Surgical History Hx of sinus surgery Social History Social History Household Members: Family Housing: House Do you presently have visiting nurse or other home services: No Alcohol intake: current Alcohol intake frequency: a few times a month Alcohol type: wine Patient Tobacco Use Status: Former Tobacco user Quit Date: age 70 Tobacco use type: Cigarette Years Smoked: 61 Smoked in Last 30 Days: No e-Cigarette/Vaping Use: Never Used Second Hand Smoke Exposure: No Use of substances other than those prescribed or required for medical reasons: No Currently Displaying Signs/Symptoms of Drug Intoxication Withdrawal: No Have you been hit, kicked, punched, or otherwise hurt by someone within the past year? If so, by whom?: No Do you feel safe in your current relationship?: Yes Is there a partner from a previous relationship who is making you feel unsafe now?: No Are you made to feel afraid or neglected: No Advance Directives: Yes Advance Directives on File: Yes Advance Directives Date on File: 02/15/23 Do you have thoughts of harming others: None Do you have a plan to hurt others: No Plan Nutrition Risks: No Nutritional Risk Poor oral hygiene: No service: No Current occupational status: employed Cognitive needs: No Hearing needs: Yes (hearing aides) Vision needs: No Meds Allergies Allergy/AdvReac Type Severity Reaction Status Date / Time Seasonal Allergies Allergy Sneezing Verified 05/02/23 14:16 Active Medications: Current Medications Acetaminophen (Acetaminophen 325 Mg Tablet) 650 mg PO Q6H PRN PRN Reason: Pain, Mild (Pain Scale 1-3) Last Admin: 06/09/23 12:39 Dose: 650 mg Albuterol Sulfate (Albuterol Sulfate 90 Mcg 8 Gm Inhaler) 2 puff INHALE QID PRN PRN Reason: shortness of breath or wheezing Albuterol/Ipratropium (Albuterol/Iprat 2.5/0.5mg 3 Ml Ampul.Neb) 3 ml INHALE RQ4H WHILE AWAKE PRN PRN Reason: Shortness of Breath/Wheezing Benzonatate (Benzonatate 100 Mg Capsule) 100 mg PO TID PRN PRN Reason: Cough Cyclobenzaprine HCl (Cyclobenzaprine Hcl 5 Mg Tablet) 5 mg PO TID PRN PRN Reason: Muscle Spasm Last Admin: 06/09/23 12:40 Dose: 5 mg Docusate Sodium (Docusate Sodium 100 Mg Capsule) 100 mg PO DAILY PRN PRN Reason: Constipation Enoxaparin Sodium (Enoxaparin Sodium 40 Mg/0.4 Ml Syringe) 40 mg SUBCUT Q24H [facility] Last Admin: 06/10/23 14:38 Dose: 40 mg Fluticasone Propionate (Fluticasone Propionate Nasal 16 Gm [place]) 1 spray NOSTRIL-B DAILY PRN PRN Reason: Cold Symptoms Ceftriaxone Sodium 1 gm/ (Sodium Chloride) 50 mls @ 100 mls/hr IV Q24H [facility] Last Infusion: 06/10/23 20:43 Dose: Infused Azithromycin 500 mg/ Sodium (Chloride) 250 mls @ 125 mls/hr IV Q24H [facility] Last Infusion: 06/10/23 14:53 Dose: Infused Loratadine (Loratadine 10 Mg Tablet) 10 mg PO DAILY [facility] Last Admin: 06/11/23 08:21 Dose: 10 mg Methylprednisolone Sodium Succinate (Methylprednisolone Sod Succ 40 Mg/Ml Vial) 40 mg IVPUSH Q12H [facility] Last Admin: 06/11/23 08:21 Dose: 40 mg Multivitamins/Vitamin C (Multivitamin Tablet) 1 tab PO DAILY [facility] Last Admin: 06/11/23 08:21 Dose: 1 tab Ondansetron HCl (Ondansetron Hcl 4 Mg/2 Ml Vial) 4 mg IVPUSH Q8H PRN PRN Reason: Nausea and Vomiting Sodium Chloride (0.9 % Sodium Chloride Flush 3 Ml Syringe) 3 ml IVFLUSH QSHIFT [facility] Last Admin: 06/11/23 08:21 Dose: 3 ml Sodium Chloride (Sodium Chloride 0.65 % Nasal 44 Ml Sprbtl) 1 spray NOSTRIL-B Q30M PRN PRN Reason: Dry Nasal Passages Home Medications Medication Instructions Recorded Confirmed Last Taken Type fluticasone 250 mcg-salmeterol 50 1 ea inhalation BID 04/19/23 06/08/23 Unknown History mcg/dose blistr powdr for inhalation (Jose Núñez) Probiotic 1 cap PO DAILY 04/22/23 06/08/23 Unknown History acetaminophen 500 mg tablet 1,000 mg PO BEDTIME 04/22/23 06/08/23 Unknown History multivitamin 1 tab PO DAILY 04/22/23 06/08/23 Unknown History cetirizine 10 mg tablet 10 mg PO DAILY allergies 06/08/23 06/08/23 Unknown History fluticasone propionate 50 1 spray intranasal DAILY PRN Cold 06/08/23 06/08/23 Unknown History mcg/actuation nasal Symptoms spray,suspension sodium chloride 0.9 % nasal spray 1 spray intranasal Q30M PRN Dry 06/08/23 06/08/23 Unknown History aerosol Nasal Passages Physical Exam Vital Signs: Vital Signs: Last Vital Signs Temp 97.3 F 06/11/23 11:11 Pulse 67 06/11/23 11:11 Resp 20 06/11/23 11:11 BP 132/92 H 06/11/23 11:11 Pulse Ox 96 06/11/23 11:11 O2 Del Method Nasal Cannula 06/11/23 11:11 O2 Flow Rate 3 06/11/23 11:11 Oxygen Flow Rate 9 06/08/23 09:27 BMI result Body Mass Index 24.9 Const: General: healthy appearing, no acute distress and well developed Orientation/consciousness: patient oriented x3 HEENT: Head: Yes normocephalic and Yes atraumatic Eyes: Conjunctivae: conjunctivae normal Neck: Neck: Yes normal visual inspection Chest: Chest palpation & inspection: normal inspection of the chest Resp: Other: oxygen by nasal cannula Effort & Inspection: normal respiratory effort Cardio: Rate: regular rate GI: Inspection: Yes normal to inspection Palpation (GI): Soft to palpation : Penis: normal penis Scrotum: scrotum normal Skin: General skin exam: no rashes or lesions noted Neuro: General: patient oriented x3 Extrem: General: No pedal edema Psych: Appearance: grossly normal Affect: normal affect Results Labs 06/11/23 06:27 06/11/23 06:27 Labs: Abnormal lab results 06/10/23 06/11/23 Range/Units 21:09 06:27 RBC 3.38 L (4.60-5.80) X10*6/uL Hgb 9.8 L (14.0-18.0) g/dl Hct 30.5 L (42.0-52.0) % BUN 51 H (9-16) mg/dL POC Glucose 355 H* (60-115) mg/dL Fasting Glucose 314 H (60-99) mg/dL Short CBC 06/11/23 Range/Units 06:27 WBC 7.3 (4.8-10.8) X10*3/uL Hgb 9.8 L (14.0-18.0) g/dl Hct 30.5 L (42.0-52.0) % Plt Count 167 (160-400) X10*3/uL BMP 06/11/23 06:27 Sodium 138 Potassium 4.7 Chloride 107 Carbon Dioxide 23 BUN 51 H Creatinine 1.22 Calcium 8.8 Urine 06/08/23 Range/Units 14:11 Urine Color Yellow Urine Appearance Turbid Urine pH 5.5 (5.0-9.0) Ur Specific [place] 1.020 (1.005-1.025) Urine Protein 100 (2+) H (Neg-Trace) mg/dL Urine Glucose (UA) Negative (Negative) mg/dL Assessment and Plan (1) Urinary incontinence: Status: Acute (2) Bladder cancer: Status: Acute Plan Recommend trial of bladder spasm med and alpha - gurpreet CT Abd/pelvis w/wo IV contrast Time Spent With Patient Time: Total time managing care of this patient today ____ minutes. Procedures Date of Service Date of Service: 06/11/23
[2023-06-11] MEDS: Mirabegron 25 MG TAB.ER.24H PO (13:19)
[2023-06-11] MEDS: Enoxaparin Sodium 40 MG/0.4 ML SYRINGE SUBCUT (13:19)
[2023-06-11] MEDS: Azithromycin 500 MG in 0.9 % Sodium Chloride 250 ML 125 MG IV (13:21)
[2023-06-11] MEDS: iohexoL 350 MG/ML 100 ML INFUS..BTL IV (17:15)
[2023-06-11] MEDS: cefTRIAXone sodium 1 GM in 0.9 % Sodium Chloride 50 ML IV (19:39)
[2023-06-11] MEDS: Tamsulosin HCL 0.4 MG CAPSULE PO (19:39)
[2023-06-12] VITALS (7 sets, daily range): BP systolic 124–145; BP diastolic 60–78; PULSE 64–86; RESP 20–24; TEMP 36.5–37; O2SAT 88–97
[2023-06-12 06:32] LABS: Anion Gap 11 (12-20); Blood Urea Nitrogen 46 mg/dL (9-16); Calcium 8.9 mg/dL (8.4-10.2); Carbon Dioxide 25 mmol/L (22-29); Chloride 105 mmol/L (96-108); Creatinine Clr Calc Pharmacy 51.1; Estimated Glomerular Filt Rate > 60; Glucose Fasting 321 mg/dL (60-99); Potassium 4.4 mmol/L (3.3-5.1); Sodium 137 mmol/L (135-145)
[2023-06-12 06:54] LABS: Hematocrit 30.8 % (42.0-52.0); Hemoglobin 9.9 g/dl (14.0-18.0); Mean Corpuscular HGB Conc 32.1 g/dl (31.0-36.0); Mean Corpuscular Volume 90.3 fL (80.0-98.0); Mean Platelet Volume 11.4 fL (9.4-12.4); Platelet Count 168 X10*3/uL (160-400); Red Blood Count 3.41 X10*6/uL (4.60-5.80); White Blood Count 7.5 X10*3/uL (4.8-10.8)
[2023-06-12] MEDS: Loratadine 10 MG TABLET PO (09:12)
[2023-06-12] MEDS: methylPREDNISolone Sod Succ 40 MG/ML VIAL IVPUSH ×2 (09:12→21:59)
[2023-06-12] MEDS: Multivitamin TABLET 1 TAB PO (09:12)
[2023-06-12] MEDS: Mirabegron 25 MG TAB.ER.24H PO (09:12)
[2023-06-12] MEDS: 0.9 % Sodium Chloride Flush 3 ML SYRINGE IVFLUSH ×3 (09:13→19:35)
[2023-06-12 11:18] LABS: Glucose, Whole Blood 298 mg/dL (60-115)
[2023-06-12] MEDS: guaiFENesin LA 600 MG TAB.ER.12H PO ×2 (12:02→21:02)
[2023-06-12] MEDS: Insulin Lispro 100 UNIT/ML 3 ML VIAL SUBCUT ×3 (12:02→21:02)
--- NOTE | 2023-06-12 13:40 | MHC.CM.PN ---
Pt not yet medically cleared to go home. Plan is to return home with services, and his family helps with his care. RT followed up with Pt and [employer] to address Pt.'s concerns about service.
[2023-06-12] MEDS: Azithromycin 500 MG in 0.9 % Sodium Chloride 250 ML 125 MG IV (13:41)
--- NOTE | 2023-06-12 14:31 | HO.PM.IMPN ---
Subjective Subjective Date of Service: 06/12/23 Interval History: Seen and evaluated this morning Still dropping to late 80s with minimal exertion feels better overall difficulties controlling urine No fever or chills Review of Systems Review of Systems: Yes all other systems are reviewed and are negative Physical Exam Vital Signs: Vital Signs: Last Vital Signs Temp 97.9 F 06/12/23 11:34 Pulse 77 06/12/23 11:34 Resp 20 06/12/23 11:34 BP 132/64 06/12/23 11:34 Pulse Ox 88 L 06/12/23 11:36 O2 Del Method Nasal Cannula 06/12/23 11:34 O2 Flow Rate 2 06/12/23 11:34 Oxygen Flow Rate 9 06/08/23 09:27 BMI result Body Mass Index 24.9 Const: Other: Constitutional : Awake, interactive, not in distress Neck : Normal inspection, Supple Cardiovascular : RRR, no JVP, no lower extremity edema Respiratory : decreased bilateral air entry, fine scattered expiratory wheezes Gastrointestinal: soft, lax, Normal bowel sounds, Non tender Skin : Warm, Dry Neurological : Alert & oriented x3, No focal deficit Objective Data Active Medications Acetaminophen (Acetaminophen 325 Mg Tablet) 650 mg PO Q6H PRN PRN Reason: Pain, Mild (Pain Scale 1-3) Last Admin: 06/09/23 12:39 Dose: 650 mg Documented By: [place] Albuterol Sulfate (Albuterol Sulfate 90 Mcg 8 Gm Inhaler) 2 puff INHALE QID PRN PRN Reason: shortness of breath or wheezing Albuterol/Ipratropium (Albuterol/Iprat 2.5/0.5mg 3 Ml Ampul.Neb) 3 ml INHALE RQ4H WHILE AWAKE [facility] Last Admin: 06/12/23 14:11 Dose: Not Given Documented By: IBIS Non-Admin Reason: See Note Benzonatate (Benzonatate 100 Mg Capsule) 100 mg PO TID [facility] Cyclobenzaprine HCl (Cyclobenzaprine Hcl 5 Mg Tablet) 5 mg PO TID PRN PRN Reason: Muscle Spasm Last Admin: 06/09/23 12:40 Dose: 5 mg Documented By: [place] Docusate Sodium (Docusate Sodium 100 Mg Capsule) 100 mg PO DAILY PRN PRN Reason: Constipation Enoxaparin Sodium (Enoxaparin Sodium 40 Mg/0.4 Ml Syringe) 40 mg SUBCUT Q24H [facility] Last Admin: 06/11/23 13:19 Dose: 40 mg Documented By: MECHELLE Fluticasone Propionate (Fluticasone Propionate Nasal 16 Gm [place]) 1 spray NOSTRIL-B DAILY PRN PRN Reason: Cold Symptoms Guaifenesin (Guaifenesin [place] 600 Mg Tab.Er.12h) 600 mg PO BID [facility] Last Admin: 06/12/23 12:02 Dose: 600 mg Documented By: GILMAR Ceftriaxone Sodium 1 gm/ (Sodium Chloride) 50 mls @ 100 mls/hr IV Q24H [facility] Last Infusion: 06/11/23 20:14 Dose: Infused Documented By: KEL Azithromycin 500 mg/ Sodium (Chloride) 250 mls @ 125 mls/hr IV Q24H [facility] Last Admin: 06/12/23 13:41 Dose: 125 mls/hr Documented By: GILMAR Insulin Human Lispro (Insulin Lispro 100 Unit/Ml 3 Ml Vial) 0 unit SUBCUT QIDACHS [facility]; Protocol Last Admin: 06/12/23 12:02 Dose: 6 unit Documented By: GILMAR Loratadine (Loratadine 10 Mg Tablet) 10 mg PO DAILY [facility] Last Admin: 06/12/23 09:12 Dose: 10 mg Documented By: GILMAR Methylprednisolone Sodium Succinate (Methylprednisolone Sod Succ 40 Mg/Ml Vial) 40 mg IVPUSH Q12H [facility] Last Admin: 06/12/23 09:12 Dose: 40 mg Documented By: GILMAR Mirabegron (Mirabegron 25 Mg Tab.Er.24h) 25 mg PO DAILY [facility] Last Admin: 06/12/23 09:12 Dose: 25 mg Documented By: GILMAR Multivitamins/Vitamin C (Multivitamin Tablet) 1 tab PO DAILY [facility] Last Admin: 06/12/23 09:12 Dose: 1 tab Documented By: GILMAR Ondansetron HCl (Ondansetron Hcl 4 Mg/2 Ml Vial) 4 mg IVPUSH Q8H PRN PRN Reason: Nausea and Vomiting Sodium Chloride (0.9 % Sodium Chloride Flush 3 Ml Syringe) 3 ml IVFLUSH QSHIFT [facility] Last Admin: 06/12/23 09:13 Dose: 3 ml Documented By: GILMAR Sodium Chloride (Sodium Chloride 0.65 % Nasal 44 Ml Sprbtl) 1 spray NOSTRIL-B Q30M PRN PRN Reason: Dry Nasal Passages Tamsulosin HCl (Tamsulosin Hcl 0.4 Mg Capsule) 0.4 mg PO BEDTIME [facility] Last Admin: 06/11/23 19:39 Dose: 0.4 mg Documented By: KEL Labs 06/12/23 05:47 06/12/23 05:47 Labs: Laboratory Results - last 24 hr 06/12/23 06/12/23 05:47 11:14 MCV 90.3 MCH 29.0 MCHC 32.1 RDW 15.0 Plt Count 168 MPV 11.4 Absolute Nucleated RBC 0.000 Nucleated RBC % (auto) 0.0 Anion Gap 11 L Estim Creat Clear Calc 51.1 Estimated GFR > 60 POC Glucose 298 H Fasting Glucose 321 H Calcium 8.9 Assessment and Plan (1) Urinary incontinence: Status: Acute (2) Elevated brain natriuretic peptide (BNP) level: Status: Acute (3) Chronic interstitial lung disease: Status: Acute (4) Cough: Status: Acute (5) Pneumonia: Status: Acute Plan 78M PMH diabetes, chronic hypoxic respiratory failure due to COPD and interstitial lung disease, hypertension presented with left-sided chest wall pain and cough. Acute on chronic hypoxic respiratory failure secondary to pneumonia and COPD/interstitial lung disease with acute decompensation continue Steroids Duonebs ATC ceftriaxone, azithromycin follow-up cultures, wean O2 as tolerated. PT rec home w PT urinary incontince urology eval: trial of bladder spasm med and alpha-gurpreet CT Abd/pelvis w/wo IV contrast, pending Chest wall pain Likely due to cough from pneumonia Symptomatic management Elevated BNP Clinically does not seem to be in failure, echo with chronic right sided failure Diabetes Insulin DVT prophylaxis with Lovenox DNR/DNI Reason for continue hospitalization: Hypoxia pending clinical improvement Time Spent With Patient Time: Total time managing care of this patient today ____ minutes. Quality Stroke Does the patient have a stroke diagnosis?: No VTE Prior VTE?: No VTE Risk Level:: Medical - moderate - high VTE Device Contraindication: Treatment Not Indicated VTE Drug Contraindication: N/A - Med Ordered
[2023-06-12] MEDS: Enoxaparin Sodium 40 MG/0.4 ML SYRINGE SUBCUT (14:35)
[2023-06-12] MEDS: Benzonatate 100 MG CAPSULE PO ×2 (14:35→21:02)
[2023-06-12] MEDS: Albuterol/Iprat 2.5/0.5MG 3 ML AMPUL.NEB INHALE (15:43)
[2023-06-12 16:10] LABS: Glucose, Whole Blood 385 mg/dL (60-115)
[2023-06-12] MEDS: cefTRIAXone sodium 1 GM in 0.9 % Sodium Chloride 50 ML IV (19:35)
[2023-06-12 20:09] LABS: Glucose, Whole Blood 357 mg/dL (60-115)
[2023-06-12] MEDS: Tamsulosin HCL 0.4 MG CAPSULE PO (21:02)
[2023-06-13] VITALS (9 sets, daily range): BP systolic 108–141; BP diastolic 66–79; PULSE 66–93; RESP 18–20; TEMP 36.4–36.8; O2SAT 92–97
[2023-06-13 06:39] LABS: Hematocrit 31.4 % (42.0-52.0); Hemoglobin 10.2 g/dl (14.0-18.0); Mean Corpuscular HGB Conc 32.5 g/dl (31.0-36.0); Mean Corpuscular Hemoglobin 28.6 pg (27.0-33.0); Mean Platelet Volume 10.9 fL (9.4-12.4); Platelet Count 174 X10*3/uL (160-400); Red Blood Count 3.57 X10*6/uL (4.60-5.80); Red Cell Distribution Width 14.6 % (11.0-16.0); White Blood Count 8.3 X10*3/uL (4.8-10.8)
[2023-06-13 06:41] LABS: Anion Gap 15 (12-20); Blood Urea Nitrogen 38 mg/dL (9-16); Calcium 8.7 mg/dL (8.4-10.2); Carbon Dioxide 21 mmol/L (22-29); Chloride 107 mmol/L (96-108); Creatinine Clr Calc Pharmacy 54.8; Estimated Glomerular Filt Rate > 60; Glucose Random 284 mg/dL (60-115); Potassium 4.4 mmol/L (3.3-5.1); Sodium 139 mmol/L (135-145)
[2023-06-13 06:49] LABS: B Type Natriuretic Peptide 969 pg/mL (<100)
[2023-06-13] MEDS: Loratadine 10 MG TABLET PO (09:06)
[2023-06-13] MEDS: Mirabegron 25 MG TAB.ER.24H PO (09:06)
[2023-06-13] MEDS: Insulin Lispro 100 UNIT/ML 3 ML VIAL SUBCUT (09:06)
[2023-06-13] MEDS: Multivitamin TABLET 1 TAB PO (09:06)
[2023-06-13] MEDS: 0.9 % Sodium Chloride Flush 3 ML SYRINGE IVFLUSH (09:07)
[2023-06-13] MEDS: methylPREDNISolone Sod Succ 40 MG/ML VIAL IVPUSH ×2 (10:34→21:00)
[2023-06-13] MEDS: Azithromycin 500 MG in 0.9 % Sodium Chloride 250 ML 125 MG IV (13:09)
--- NOTE | 2023-06-13 16:28 | HO.PM.IMPN ---
Subjective Subjective Date of Service: 06/13/23 Interval History: Seen and evaluated this morning Still dropping to late 80s with minimal exertion and feels dyspneic better overall difficulties controlling urine No fever or chills Review of Systems Review of Systems: Yes all other systems are reviewed and are negative Physical Exam Vital Signs: Vital Signs: Last Vital Signs Temp 98.0 F 06/13/23 15:29 Pulse 82 06/13/23 16:05 Resp 18 06/13/23 16:05 BP 127/79 06/13/23 15:29 Pulse Ox 93 06/13/23 15:29 O2 Del Method Nasal Cannula 06/13/23 15:29 O2 Flow Rate 2 06/13/23 15:29 Oxygen Flow Rate 9 06/08/23 09:27 BMI result Body Mass Index 24.9 Const: Other: Constitutional : Awake, interactive, not in distress Neck : Normal inspection, Supple Cardiovascular : RRR, no JVP, no lower extremity edema Respiratory : decreased bilateral air entry, fine scattered expiratory wheezes Gastrointestinal: soft, lax, Normal bowel sounds, Non tender Skin : Warm, Dry Neurological : Alert & oriented x3, No focal deficit Objective Data Active Medications Acetaminophen (Acetaminophen 325 Mg Tablet) 650 mg PO Q6H PRN PRN Reason: Pain, Mild (Pain Scale 1-3) Last Admin: 06/09/23 12:39 Dose: 650 mg Documented By: [place] Albuterol Sulfate (Albuterol Sulfate 90 Mcg 8 Gm Inhaler) 2 puff INHALE QID PRN PRN Reason: shortness of breath or wheezing Albuterol/Ipratropium (Albuterol/Iprat 2.5/0.5mg 3 Ml Ampul.Neb) 3 ml INHALE RQ4H WHILE AWAKE [facility] Last Admin: 06/13/23 16:01 Dose: 3 ml Documented By: YADIRACARNelda Benzonatate (Benzonatate 100 Mg Capsule) 100 mg PO TID [facility] Last Admin: 06/13/23 15:26 Dose: 100 mg Documented By: GILAMR Cyclobenzaprine HCl (Cyclobenzaprine Hcl 5 Mg Tablet) 5 mg PO TID PRN PRN Reason: Muscle Spasm Last Admin: 06/09/23 12:40 Dose: 5 mg Documented By: [place] Docusate Sodium (Docusate Sodium 100 Mg Capsule) 100 mg PO DAILY PRN PRN Reason: Constipation Enoxaparin Sodium (Enoxaparin Sodium 40 Mg/0.4 Ml Syringe) 40 mg SUBCUT Q24H [facility] Last Admin: 06/13/23 15:25 Dose: 40 mg Documented By: GILMAR Fluticasone Propionate (Fluticasone Propionate Nasal 16 Gm [place]) 1 spray NOSTRIL-B DAILY PRN PRN Reason: Cold Symptoms Guaifenesin (Guaifenesin [place] 600 Mg Tab.Er.12h) 600 mg PO BID [facility] Last Admin: 06/13/23 09:06 Dose: 600 mg Documented By: GILMAR Ceftriaxone Sodium 1 gm/ (Sodium Chloride) 50 mls @ 100 mls/hr IV Q24H [facility] Last Infusion: 06/12/23 20:05 Dose: Infused Documented By: NITIN Azithromycin 500 mg/ Sodium (Chloride) 250 mls @ 125 mls/hr IV Q24H [facility] Last Infusion: 06/13/23 16:00 Dose: Infused Documented By: GILMAR Insulin Human Lispro (Insulin Lispro 100 Unit/Ml 3 Ml Vial) 0 unit SUBCUT QIDACHS [facility]; Protocol Last Admin: 06/13/23 11:53 Dose: 6 unit Documented By: GILMAR Loratadine (Loratadine 10 Mg Tablet) 10 mg PO DAILY [facility] Last Admin: 06/13/23 09:06 Dose: 10 mg Documented By: GILMAR Methylprednisolone Sodium Succinate (Methylprednisolone Sod Succ 40 Mg/Ml Vial) 40 mg IVPUSH Q12H [facility] Last Admin: 06/13/23 10:34 Dose: 40 mg Documented By: GILMAR Mirabegron (Mirabegron 25 Mg Tab.Er.24h) 25 mg PO DAILY [facility] Last Admin: 06/13/23 09:06 Dose: 25 mg Documented By: GILMAR Multivitamins/Vitamin C (Multivitamin Tablet) 1 tab PO DAILY [facility] Last Admin: 06/13/23 09:06 Dose: 1 tab Documented By: GILMAR Ondansetron HCl (Ondansetron Hcl 4 Mg/2 Ml Vial) 4 mg IVPUSH Q8H PRN PRN Reason: Nausea and Vomiting Sodium Chloride (0.9 % Sodium Chloride Flush 3 Ml Syringe) 3 ml IVFLUSH QSHIFT [facility] Last Admin: 06/13/23 15:29 Dose: 3 ml Documented By: GILMAR Sodium Chloride (Sodium Chloride 0.65 % Nasal 44 Ml Sprbtl) 1 spray NOSTRIL-B Q30M PRN PRN Reason: Dry Nasal Passages Tamsulosin HCl (Tamsulosin Hcl 0.4 Mg Capsule) 0.4 mg PO BEDTIME [facility] Last Admin: 06/12/23 21:02 Dose: 0.4 mg Documented By: NITIN Labs 06/13/23 06:14 06/13/23 06:14 Labs: Laboratory Results - last 24 hr 06/12/23 06/13/23 06/13/23 20:01 06:14 07:57 MCV 88.0 MCH 28.6 MCHC 32.5 RDW 14.6 Plt Count 174 MPV 10.9 Absolute Nucleated RBC 0.000 Nucleated RBC % (auto) 0.0 Anion Gap 15 Estim Creat Clear Calc 54.8 Estimated GFR > 60 POC Glucose 357 H* 258 H Random Glucose 284 H Calcium 8.7 B-Natriuretic Peptide 969 H 06/13/23 11:10 MCV MCH MCHC RDW Plt Count MPV Absolute Nucleated RBC Nucleated RBC % (auto) Anion Gap Estim Creat Clear Calc Estimated GFR POC Glucose 288 H Random Glucose Calcium B-Natriuretic Peptide Microbiology Microbiology Results: Microbiology 06/08/23 14:11 Blood Culture - Final Blood - Venous No growth after 5 days. 06/08/23 14:11 Blood Culture - Final Blood - Venous No growth after 5 days. Assessment and Plan (1) Urinary incontinence: Status: Acute (2) Elevated brain natriuretic peptide (BNP) level: Status: Acute (3) Chronic interstitial lung disease: Status: Acute (4) Pneumonia: Status: Acute Plan 78M PMH diabetes, chronic hypoxic respiratory failure due to COPD and interstitial lung disease, hypertension presented with left-sided chest wall pain and cough. Acute on chronic hypoxic respiratory failure secondary to pneumonia and COPD/interstitial lung disease with acute decompensation continue Steroids Duonebs ATC ceftriaxone, azithromycin To give IV lasix Negative cultures wean O2 as tolerated. PT rec home w PT urinary incontince urology eval: trial of bladder spasm med and alpha-gurpreet CT Abd/pelvis w/wo IV contrast showed thickened wall bladder and hydroureter, no inpatient surgical plans per Urology, for OP follow up Chest wall pain Likely due to cough from pneumonia Symptomatic management Elevated BNP Clinically does not seem to be in failure, echo with chronic right sided failure Diabetes Insulin DVT prophylaxis with Lovenox DNR/DNI Reason for continue hospitalization: Hypoxia pending clinical improvement Time Spent With Patient Time: Total time managing care of this patient today ____ minutes. Quality Stroke Does the patient have a stroke diagnosis?: No VTE Prior VTE?: No VTE Risk Level:: Medical - moderate - high VTE Device Contraindication: Treatment Not Indicated VTE Drug Contraindication: N/A - Med Ordered
[2023-06-13] MEDS: Cyclobenzaprine HCl 5 MG TABLET PO (16:58)
[2023-06-13] MEDS: Tamsulosin HCL 0.4 MG CAPSULE PO (20:29)
[2023-06-13] MEDS: cefTRIAXone sodium 1 GM in 0.9 % Sodium Chloride 50 ML IV (20:29)
[2023-06-14 03:10] VITALS: BP 131/63; PULSE 72; RESP 20; TEMP 36.6; O2SAT 99
[2023-06-14 07:32] VITALS: PULSE 72; RESP 20; O2SAT 98
[2023-06-14 08:00] VITALS: BP 140/71; PULSE 86; RESP 20; TEMP 36.4; O2SAT 91
[2023-06-14] MEDS: Loratadine 10 MG TABLET PO (09:11)
[2023-06-14] MEDS: Multivitamin TABLET 1 TAB PO (09:11)
[2023-06-14] MEDS: Mirabegron 25 MG TAB.ER.24H PO (09:11)
--- NOTE | 2023-06-14 11:39 | MHC.CM.PN ---
IMM 06/14/23 Pt has been medically cleared for discharge, his family will pick him up. Referral was submitted to [facility] as pt was active with them when he was admitted.
[2023-06-14 11:44] VITALS: BP 122/64; PULSE 82; RESP 20; TEMP 36.7; O2SAT 87
[2023-06-14 12:38] VITALS: PULSE 82; RESP 20; O2SAT 90
[2023-06-14] MEDS: Azithromycin 500 MG in 0.9 % Sodium Chloride 250 ML 125 MG IV (12:39)
--- NOTE | 2023-06-14 12:47 | PM.DS ---
DS: Providers Provider Date of Service: 06/14/23 Date of admission: 06/08/23 16:10 Primary care physician: Jass Klein MD Consults: 06/11/23 08:10 Consult to Urology Routine Consulting Provider: Meliza Farmer Reason for consultation: Urinary incontinence he of bladder ca DS: Diagnosis Discharge Diagnosis (1) Urinary incontinence: Status: Acute (2) Elevated brain natriuretic peptide (BNP) level: Status: Acute (3) Chronic interstitial lung disease: Status: Acute (4) Pneumonia: Status: Acute (5) Pulmonary hypertension: Status: Acute DS: Summary Hospital Course Hospital Course: Admission note HPI Pt is an 78-year-old male with a PMH significant for?vqd-stapyer-fqqknmwsj type 2 diabetes, interstitial lung disease, idiopathic pulmonary fibrosis, HTN, and former smoker on 2-9 L of home O2 who presents to the ED for evaluation of left-sided chest wall and rib pain. Patient states symptoms began earlier in the day with a ?sober Dollar sized area of pain around his upper right chest that spread down his chest and ribs, wrapping around his side to his back. Patient states pain feels like a muscle spasm, like ?a million nits stab being be in the side?. Episodes are intermittent, and will occur with movement, but can also occur at rest. Reports intense pain lasts for 10-20 seconds and then lessens but never fully goes away. Patient has experienced similar symptoms in the past but nothing this extreme or lengthy. Denies any known trauma or injury to the area. Patient also has been having increased SOB and LEWIS. Has had increased cough for the past week, productive of houser to brown sputum. Patient has a complex home O2 requirement colon is on 2-3 L at rest p.r.n. and 6-9 L with exertion. Patient reports having a deviated septum which makes it difficult to breathe through his nose and he normally breathes through his mouth. He follows up with ENT outpatient. has noted increasing his O2 use at home the past week. Of note, patient was recently hospitalist on 04/22/2023 through 04/26/2023 for shortness of breath and difficulty breathing and treated for COPD exacerbation in the setting of COVID infection. According to family patient did great for the first week after dischage, but breathing slowly worsened after prescription for dexamethasone ended. In the ED patient was tachycardic up to 100, tachypneic up to 30, and hypoxic, satting at 91% on 9 L OxyMask. Labs were significant for stable H&H 10.2/39.8, BUN 24, creatinine 1.15, BMP 1262. CXR showed no rib fractures but interstitial lung disease to with increased opacity in the central/suprahilar left upper lung questionable for acute alveolitis or pneumonia. EKG demonstrated sinus rhythm with first-degree AV block and PAC is with T-wave inversions in V2, V3, V4, V5, and V6 with no evidence of ST elevations or depressions. Pt was treated with Solu-Medrol, Mag sulfate, DuoNebs, and ceftriaxone and azithromycin. Pt will be admitted to the hospital for acute on chronic hypoxic respiratory failure in the setting of community acquired pneumonia. Hospital course # Acute on chronic hypoxic respiratory failure secondary to pneumonia and COPD/interstitial lung disease with acute decompensation Treated wiht IV steroid, Antibioics and nebulizers with good response as he was weaned down on O2 supplement to 2L with good O2 sat in 90s. To be discharged on Antibiotics and tapering dose of steroids. Nebulizer prescribed and will be getting Duonebs treatment at home. # urinary incontince Evaluated by urology specialist and started on Myrbeqtin and Tamsulosin. CT Abd/pelvis w/wo IV contrast showed thickened wall bladder and hydroureter, no inpatient surgical plans per Urology, for OP follow up # Elevated BNP responded well to IV lasix as BNP trended down, echo with chronic right sided failure and pulmonary hypertention. To use Lasix PRN as outpatient. Continue Myrbeqtin and Tamsulosin as prescribed. To Follow with dr Farmer as outpatient Continue Azithromycin and Ceftin for pneumonia Prednisone tapering dose Use Nebulizer 4-5 times daily for the next 5 days Time Spent with Patient Time attestation: Total time managing care of this patient today ____ minutes. Discharge coordination time: Greater than 30 minutes Quality: Safe Use of Opioids Does Pt have an Active Cancer Diagnosis on the Problem List?: No Quality: Stroke Does the patient have a stroke diagnosis?: No Physical Exam Vital Signs: Vital Signs: Last Vital Signs Temp 98.1 F 06/14/23 11:44 Pulse 82 06/14/23 12:38 Resp 20 06/14/23 12:38 BP 122/64 06/14/23 11:44 Pulse Ox 87 L 06/14/23 11:44 O2 Del Method Room Air 06/14/23 11:44 O2 Flow Rate 2 06/14/23 08:00 Oxygen Flow Rate 9 06/08/23 09:27 BMI result Body Mass Index 24.9 Const: Other: Constitutional : Awake, interactive, not in distress Neck : Normal inspection, Supple Cardiovascular : RRR, no JVP, no lower extremity edema Respiratory : fair bilateral air entry, resolving expiratory wheezes Gastrointestinal: soft, lax, Normal bowel sounds, Non tender Skin : Warm, Dry Neurological : Alert & oriented x3, No focal deficit DS: Data Data Completed and Pending Completed studies during hospitalization [Text1]: Procedures Introduction of Remdesivir Anti-infective into Peripheral Vein, Percutaneous Approach, [employer] 5 (04/22/23) Labs on day of discharge: Laboratory Results - last 24 hr 06/13/23 06/13/23 06/14/23 16:30 20:31 05:40 Sodium 141 Potassium 4.0 Chloride 106 Carbon Dioxide 22 Anion Gap 17 BUN 38 H Creatinine 0.90 Estim Creat Clear Calc 59.0 Estimated GFR > 60 POC Glucose 312 H 322 H Random Glucose 253 H Calcium 8.6 B-Natriuretic Peptide 453 H 06/14/23 06/14/23 07:59 11:19 Sodium Potassium Chloride Carbon Dioxide Anion Gap BUN Creatinine Estim Creat Clear Calc Estimated GFR POC Glucose 226 H 314 H Random Glucose Calcium B-Natriuretic Peptide Imaging Chest x-ray: Radiologist's impression: ITS Impressions Ribs X-Ray 06/08/23 11:49 IMPRESSION: No rib fracture. Interstitial lung disease. Increased opacity in the central / suprahilar left upper lung questionable for acute alveolitis or pneumonia. Clinical Correlation recommended. Abdomen/Pelvis CT 06/11/23 17:16 IMPRESSION: Interval development of bilateral moderate hydroureteronephrosis in the setting of diffuse bladder wall thickening, right greater than left, prosthetic enlargement and TURP defect. Small bilateral effusions, left greater than right. Bilateral lower lobe pulmonary honeycombing which can be seen seen in end-stage fibrotic disease and/or UIP pattern. Small amount of pericholecystic fluid not excluded, otherwise unremarkable gallbladder. Fleischner guidelines were followed. Chest X-Ray 06/12/23 12:34 IMPRESSION: Chronic interstitial lung disease. No acute intrathoracic disease. Discharge Plan Discharge Anticipated Discharge Date/Time: 06/14/23 12:38 Patient Disposition: Home Health Service Discharge Diagnosis: ILD exacerbation, Pneumonia Fluid overload Urine incontinence Referrals: Jass Klein MD [Primary Care Provider] - 1 Week Discharge Medications: New ipratropium-albuterol 0.5 mg-3 mg(2.5 mg base)/3 mL Solution For Nebulization 3 ml inhalation RQ4H WHILE AWAKE 30 Days Qty: 180 1RF tamsulosin 0.4 mg Capsule 0.4 mg PO BEDTIME Qty: 90 0RF guaifenesin [Mucinex] 600 mg Tablet Extended Release 12hr 600 mg PO BID Qty: 20 0RF Myrbetriq 25 mg tablet extended release 24 hr 25 mg PO DAILY Qty: 90 0RF azithromycin 500 mg tablet See Rx Instructions .ROUTE .COMPLEX Qty: 3 0RF Rx Instructions: For 500 mg dose pack: take 500 mg once daily for 3 days cefuroxime axetil 500 mg tablet 500 mg PO BID Qty: 6 0RF prednisone 10 mg tablet See Taper PO DAILY Qty: 30 0RF Taper: Prednisone 40 mg daily for 3 Days and 0 Hour 30 mg daily for 3 Days and 0 Hour 20 mg daily for 3 Days and 0 Hour 10 mg daily for 3 Days and 0 Hour furosemide 20 mg tablet 20 mg PO QAM PRN (Reason: edema, fluid overload) Qty: 20 0RF Continued albuterol sulfate [ProAir HFA] 90 mcg/actuation HFA aerosol inhaler 2 puff inhalation QID PRN (Reason: shortness of breath or wheezing) Qty: 8.5 0RF multivitamin Tablet 1 tab PO DAILY acetaminophen 500 mg Tablet 1,000 mg PO BEDTIME Probiotic 1 cap PO DAILY cetirizine 10 mg tablet 10 mg PO DAILY fluticasone propionate 50 mcg/actuation spray,suspension 1 spray intranasal DAILY PRN (Reason: Cold Symptoms) sodium chloride 0.9 % Aerosol,Leonard 1 spray INTRANASAL Q30M PRN (Reason: Dry Nasal Passages) fluticasone propion-salmeterol [Wixela Inhub] 250-50 mcg/dose blister with device 1 ea inhalation BID Discharge Orders: Discharge Order (Routine); Ordered 06/14/23 Ordered By: Roger Stout Diet: Low salt diet Activity on Discharge: As tolerated Stand Alone Forms: Patient Portal Discharge page Care Plan Goals: Read below Health Concerns: Read below Plan of Treatment: Read below Assessment: You were admitted for treatment of difficulties breathing. Found to have pneumonia and ILD exacerbation. Responded well to IV antibiotics, steroids and nebulizers. Evaluated by urologist for urine incontinence that improved with oral medications. Continue Myrbeqtin and Tamsulosin as prescribed. To Follow with dr Farmer as outpatient Continue Azithromycin and Ceftin for pneumonia Prednisone tapering dose Use Nebulizer 4-5 times daily for the next 5 days
== END 2023-06-14 15:21 | disposition home health service (06) | DRG 871 ==
LOC: HO.ED 13:27 → HO.EDOVER 16:10 → HO.IMC 17:58
PROVIDERS: Internal Medicine; Admitting Provider Student in an Organized Health Care Education/Training Program; Emergency Provider Emergency Medicine; PCP Internal Medicine; Visit Provider Student in an Organized Health Care Education/Training Program
DX: A41.9 Sepsis, unspecified organism (principal); J18.9 Pneumonia, unspecified organism; J96.21 Acute and chronic respiratory failure with hypoxia; J44.0 Chronic obstructive pulmonary disease with (acute) lower respiratory infection; J44.1 Chronic obstructive pulmonary disease with (acute) exacerbation; I50.812 Chronic right heart failure; D63.8 Anemia in other chronic diseases classified elsewhere; C67.9 Malignant neoplasm of bladder, unspecified; E11.65 Type 2 diabetes mellitus with hyperglycemia; Z66 Do not resuscitate; I27.29 Other secondary pulmonary hypertension; R32 Unspecified urinary incontinence; Z20.822 Contact with and (suspected) exposure to COVID-19; Z99.81 Dependence on supplemental oxygen; Z87.891 Personal history of nicotine dependence; Z79.51 Long term (current) use of inhaled steroids; Z79.899 Other long term (current) drug therapy
CPT/HCPCS: 0241U; 36415; 71045; 71101; 74178; 80048; 80076; 81001; 82947; 83605; 83690; 83880; 84484; 85025; 85027; 87040; 93005; 93306; 94640; 97116; 97162; 97530; 99285; J0456; J0696; J1650; J1940; J2920; J2930; J3475; Q9957; Q9967

== ENCOUNTER 2023-06-08 16:10 | Outpatient (BNV) | payer MEDICARE, SELFPAY | END 2023-06-10 07:00 | PROVIDERS: Admitting Provider Student in an Organized Health Care Education/Training Program; Emergency Provider Emergency Medicine; PCP Internal Medicine; Visit Provider Internal Medicine | DX: I36.1 Nonrheumatic tricuspid (valve) insufficiency (principal) | CPT/HCPCS: 93306 ==

== ENCOUNTER → 2023-06-08 16:10 | Outpatient (BNV) | payer MEDICARE, SELFPAY | PROVIDERS: Admitting Provider Student in an Organized Health Care Education/Training Program; Emergency Provider Emergency Medicine; PCP Internal Medicine; Visit Provider Student in an Organized Health Care Education/Training Program | DX: R32 Unspecified urinary incontinence (principal); R79.89 Other specified abnormal findings of blood chemistry; J84.9 Interstitial pulmonary disease, unspecified; I27.20 Pulmonary hypertension, unspecified | CPT/HCPCS: 99223; 99232; 99233; 99239 ==

== ENCOUNTER → 2023-06-08 16:10 | Outpatient (BNV) | payer MEDICARE, SELFPAY | PROVIDERS: Admitting Provider Student in an Organized Health Care Education/Training Program; Emergency Provider Emergency Medicine; PCP Internal Medicine; Visit Provider Urology | DX: R32 Unspecified urinary incontinence (principal); C67.9 Malignant neoplasm of bladder, unspecified | CPT/HCPCS: 99222 ==

== ENCOUNTER 2023-06-18 14:34 | Outpatient (AMB) | payer MEDICARE, SELFPAY ==
[2023-06-18 14:38] VITALS: BP 124/60; PULSE 50; O2SAT 98; BMI 24.2
--- NOTE | 2023-06-18 14:38 | MHC.PC.OV ---
Vital Signs 06/18/23 14:38 Height 5 ft 6 in Weight 150 lb BMI 24.2 BP 124/60 Blood Pressure Location Lt brachial Position Sitting Pulse 50 Pulse Source Pulse Oximeter Pulse Oximetry (%) 98 Oxygen Delivery Method Nasal Cannula Intake Visit Reasons: discharge for COPD Allergies Seasonal Allergies Allergy (Verified 06/18/23 14:39) Sneezing Medication List - Last Reconciled 06/19/23 by Jass Klein MD acetaminophen 1,000 mg PO BEDTIME albuterol sulfate 90 mcg/actuation (ProAir HFA) 2 puffs inhalation QID PRN azithromycin For 500 mg dose pack: take 500 mg once daily for 3 days cefuroxime axetil 500 mg PO BID cetirizine 10 mg PO DAILY fluticasone propion-salmeterol 250-50 mcg/dose (Wixela Inhub) 1 ea inhalation BID fluticasone propionate 50 mcg/actuation 1 spray intranasal DAILY PRN furosemide 20 mg PO QAM PRN guaifenesin ER (Mucinex) 600 mg PO BID ipratropium-albuterol 0.5 mg-3 mg(2.5 mg base)/3 mL 3 mL inhalation RQ4H WHILE AWAKE 30 days mirabegron ER (Myrbetriq) 25 mg PO DAILY multivitamin 1 tab PO DAILY prednisone See Taper mg PO DAILY [Probiotic 1 cap PO DAILY] sodium chloride 0.9% 1 spray intranasal Q30M PRN sodium chloride 0.9% 1 spray intranasal BID PRN tamsulosin 0.4 mg PO BEDTIME Tobacco use date assessed: 04/19/23 Fall risk assessment: 1 Fall in past year Last assessed Fall Risk: 06/18/23 Dental Screening Dental Screen Date: 06/18/23 Did you have a dental visit in the last 12 months?: No Did you have a dental problem in the last 6 months where you did not have access to dental care?: No Was dental information given to patient?: Patient has dentist HPI discharge for COPD HPI Details COPD on 02; sees pul; bladder cancer on rx and recovered from covid; stable PFSH Medical History COPD exacerbation COVID-19 virus infection Viral syndrome Acute respiratory failure with hypoxemia IPF (idiopathic pulmonary fibrosis) Muscle spasms of both lower extremities Cataracts, bilateral Interstitial lung disease HTN (hypertension) HLD (hyperlipidemia) Surgical History Hx of sinus surgery Family History Father Stomach cancer Mother No problems noted. Social History Household Members: Family Housing: House Do you presently have visiting nurse or other home services: No Alcohol intake: current Alcohol intake frequency: a few times a month Alcohol type: wine Patient Tobacco Use Status: Former Tobacco user Quit Date: age 70 Tobacco use type: Cigarette Years Smoked: 61 e-Cigarette/Vaping Use: Never Used Second Hand Smoke Exposure: No Advance Directives Date on File: 02/15/23 service: No Current occupational status: employed Cognitive needs: No Hearing needs: Yes (hearing aides) Vision needs: No Questionnaire PHQ-9 Over the last 2 weeks, how often have you been bothered by any of the following problems? 1. Little interest or pleasure in doing things: not at all 2. Feeling down, depressed, or hopeless: not at all 3. Trouble falling or staying asleep, or sleeping too much: not at all 4. Feeling tired or having little energy: not at all 5. Poor appetite or overeating: not at all 6. Feeling bad about yourself - or that you are a failure or have let yourself or your family down: not at all 7. Trouble concentrating on things, such as reading the newspaper or watching television: not at all 8. Moving or speaking so slowly that other people could have noticed. Or the opposite - being so fidgety or restless that you have been moving around a lot more than usual: not at all 9. Thoughts that you would be better off or of hurting yourself in some way: not at all Total score: 0 Depression Screening Interpretation: Negative Depression Screening Done: Yes 44187 - PHQ-9 Billing: Yes Source: Developed by Drs. Mehrdad Pierce, Cathi Poon, Johnathon Lopez and colleagues, with an educational kamran from [employer]. Thrive Questionnaire Date Thrive assessed: 06/10/23 AUDIT C Alcohol Use Questionnaire (AUDIT-C) 1. How often do you have a drink containing alcohol?: Never Total Score: 0 Score Reviewed/Action Taken: Yes ARMANDO-7 AMB Questionnaire ARMANDO-7 Date ARMANDO - 7 assessed: 12/27/22 Source: Developed by Drs. Mehrdad Pierce, Cathi Poon, Johnathon Lopez and colleagues, with an educational kamran from [employer]. Review of Systems Const Denies chills, Denies headache(s) and Denies weight loss ENT Denies headache(s) Card Denies chest pain, Denies syncope, Denies irregular heart rhythm and Denies dyspnea Resp Denies chest congestion, Denies cough and Denies dyspnea GI Denies abdominal pain, Denies change in stool character, Denies nausea and Denies vomiting Musc Denies deformity and Denies joint swelling Neuro Denies syncope and Denies headache(s) Physical exam (Primary Care) Vital Signs: Last Vital Signs Pulse 50 06/18/23 14:38 BP 124/60 06/18/23 14:38 Pulse Ox 98 06/18/23 14:38 Oxygen Delivery Method Nasal Cannula 06/18/23 14:38 BMI result Body Mass Index 24.2 Tobacco/Smoking Status: Tobacco use Status Tobacco use date assessed 04/19/23 06/18/23 14:39 Patient Tobacco Use Status Former Tobacco user 06/18/23 14:39 Tobacco use type Cigarette 06/18/23 14:39 e-Cigarette/Vaping Use Never Used 06/18/23 14:39 PHQ-9: PHQ-9 Score PHQ-9: Total score 0 06/18/23 14:39 Depression Screening Interpretation: Negative Thrive Assessment: Date of Thrive Assessment Date Thrive assessed 06/10/23 06/18/23 14:39 Const General: cooperative, comfortable, no acute distress and alert Neck Neck: Yes no lymphadenopathy Thyroid: Thyroid normal Resp Effort & Inspection: normal respiratory effort Auscultation: clear to auscultation bilaterally Percussion: percussion normal Cardio Jugular venous distension: no JVD Palpation: normal PMI Rate: regular rate Rhythm: regular rhythm Heart sounds: S1 normal heart sound present and S2 normal heart sound present GI Inspection: Yes normal to inspection Palpation (GI): No hepatosplenomegaly present Skin General skin exam: no rashes or lesions noted Extrem General: Yes no clubbing, cyanosis or edema Assessment and Plan Assessment & Plan (1) COPD (chronic obstructive pulmonary disease): Code(s): J44.9 - Chronic obstructive pulmonary disease, unspecified Plan: on ; sees pulmonary (2) COVID-19: Code(s): U07.1 - COVID-19 Plan: recovered at present (3) Bladder tumor: Code(s): D49.4 - Neoplasm of unspecified behavior of bladder Plan: cont rx with urology Coding Level of Care Code Est Pt Level 4 (69368) Diagnoses COPD (chronic obstructive pulmonary disease) J44.9 COVID-19 U07.1 Bladder tumor D49.4
== END 2023-06-18 15:10 | disposition home or self-care (01) ==
PROVIDERS: PCP Internal Medicine; Visit Provider Internal Medicine
DX: J44.9 Chronic obstructive pulmonary disease, unspecified (principal); U07.1 COVID-19; D49.4 Neoplasm of unspecified behavior of bladder
CPT/HCPCS: 99214

== ENCOUNTER 2023-06-20 10:38 | Outpatient (AMB) | payer MEDICARE, SELFPAY ==
--- NOTE | 2023-06-20 10:53 | A.OFFVIS_ITS ---
Intake Intake Visit Reasons: cysto Intake Note: Patient presents today for a CYSTOSCOPY, but will be cancelled due to not enough oxygen on the Patient tank. Meds: None Allergies to Antibiotic: No Known Allergies Blood Thinner: None New Accounts Representative Required: No Accompanied by: Significant Other Allergies Seasonal Allergies Allergy (Verified 06/20/23 10:55) Sneezing HPI HPI Comments History of Present Illness Details Emmett is an 78-year-old male who presents to the office follow-up - scheduled for surveillance office cystoscopy. 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 Repeat TURBT 09/18/22- path - Muscle invasive bladder cancer in same area (right lateral wall) resected all grossly visible tumor, he declined cystectomy. Completed Chemoradiation therapy. ?Bladder biopsy post?chemoradiation?--02/05/23-- Atypical urothelial cells. He?was?recently?Admitted and?discharged?from?[facility] [place]for respiratory condition. ?The patient was discharged from the hospital on an azithromycin and prednisone course. He?requires?24?hour?oxygen?by?nasal?cannula. He?states?that?he?has?about?30?minutes?of?oxygen?remaining?in?his?tank. He?complains?of?urinary?urgency?and?urinary?leakage,?He states that he does not have complete control of his bladder, mainly at night when he wakes up with an urge to urinate. He sometimes leaks before getting to the bathroom. He?w as?seen?by?me?while?in?the?hospital?and?started?on?an?anticholinergic. The Myrbetriq that was prescribed on discharge from the hospital was not covered by his insurance. The cystoscopy was canceled due to low oxygen tank levels in the tank and will be rescheduled. Labs and Imaging results discussed with the patient and his . 06/11/23--KIDNEYS AND URETERS: The kidney s are normal in size, shape, and attenuation. Bilateral moderate hydroureteronephrosis. 06/14/23--BUN/creat--- 38/0.9 Review of labs: 03/06/23 - Urine Fish - positive. Review of chart: Office visit?10/01/22-- CT Urogram - 07/28/22- kidneys and ureters wnL, no hydro scrotal ultrasound - 06/23/22---testicles within normal limits small hydrocele and varicocele clinically not significant. bone scan- 08/30/22- negative for metastasis. 12/31/2022-- The patient is here for cystoscopy procedure. He has been followed by oncology and was last seen on 12/19/22. He received chemo-radiation therapy with 5FU/[facility] concurrent radiation. Evaluation today: Blood: 80 Shai/uL, leukocytes: negative. Cystoscopy findings: There were erythematous change on the right lateral bladder wall. PSA--10/01/22-- 4.46. Plan: Out-patient cystoscopy with TUR-resection of the irregular changes noted at the right lateral wall and random bladder biopsies.? Plan: Invasive Bladder cancer, pt refused radical cystectomy. s/p chemoradiation B/L Hydronephronephrosis/hydroureter with bladder wall thickening, will monitor, serum creat - 0.9 Cystoscopy discussed to be rescheduled. Vesicare for LUTS urgency, frequency PFSH Medical History COPD exacerbation COVID-19 virus infection Viral syndrome Acute respiratory failure with hypoxemia IPF (idiopathic pulmonary fibrosis) Muscle spasms of both lower extremities Cataracts, bilateral Interstitial lung disease HTN (hypertension) HLD (hyperlipidemia) Surgical History Hx of sinus surgery Family History Father Stomach cancer Mother No problems noted. Social History Household Members: Family Housing: House Do you presently have visiting nurse or other home services: No Alcohol intake: current Alcohol intake frequency: a few times a month Alcohol type: wine Patient Tobacco Use Status: Former Tobacco user Quit Date: age 70 Tobacco use type: Cigarette Years Smoked: 61 e-Cigarette/Vaping Use: Never Used Second Hand Smoke Exposure: No Advance Directives Date on File: 02/15/23 service: No Current occupational status: employed Cognitive needs: No Hearing needs: Yes (hearing aides) Vision needs: No Review of Systems Const All systems reviewed & are unremarkable except as noted in HPI and below Reports no additional complaints Eyes Reports no additional complaints ENT Denies neck pain Musc Reports no additional complaints and Denies neck pain Skin/Breast Denies rash and Denies unusual bruising Neuro Reports no additional complaints Psych Reports no additional complaints Endo Reports no additional complaints Romero/Lymph Reports no additional complaints Aller/Immun Reports no additional complaints Results AMB Urinalysis, Automated UA Leukoctes 0 Rolando/uL Last Edit by Myles Segovia Tiffany on 06/20/23 10:57 UA Nitrite Negative Last Edit by Myles Segovia COUNTS INCLUDE 234 BEDS AT THE [facility] on 06/20/23 10:57 UA Urobilinogen 0.2 mg/dL Last Edit by Myles Segovia COUNTS INCLUDE 234 BEDS AT THE [facility] on 06/20/23 10:5 7 UA Protein 15 mg/dL Last Edit by Myles Segovia COUNTS INCLUDE 234 BEDS AT THE [facility] on 06/20/23 10:57 UA pH 6.0 Last Edit by Myles Segovia COUNTS INCLUDE 234 BEDS AT THE [facility] on 06/20/23 10:57 UA Blood 10 Shai/uL Last Edit by Myles Segovia COUNTS INCLUDE 234 BEDS AT THE [facility] on 06/20/23 10:57 UA Specific [place] 1.015 Last Edit by Myles Segovia COUNTS INCLUDE 234 BEDS AT THE [facility] on 06/20/23 10: 57 UA Ketone Negative Last Edit by Myles Segovia COUNTS INCLUDE 234 BEDS AT THE [facility] on 06/20/23 10:57 UA Bilirubin 0 mg/dL Last Edit by Myles Segovia COUNTS INCLUDE 234 BEDS AT THE [facility] on 06/20/23 10:57 UA Glucose 0 mg/dL Last Edit by Myles Segovia COUNTS INCLUDE 234 BEDS AT THE [facility] on 06/20/23 10:57 Results Reviewed Results Reviewed: Laboratory Last Values Urine pH (Auto) 6.0 06/20/23 10:56 Specific [place] (Auto) 1.015 06/20/23 10:56 Urine Protein (Auto) 15 mg/dL 06/20/23 10:56 Glucose (UA)(Auto) 0 mg/dL 06/20/23 10:56 Urine Ketones (Auto) Negative 06/20/23 10:56 Urine Blood (Auto) 10 Shai/uL 06/20/23 10:56 Urine Nitrite (Auto) Negative 06/20/23 10:56 Urine Bilirubin (Auto) 0 mg/dL 06/20/23 10:56 Urine Urobilinogen (Auto) 0.2 mg/dL 06/20/23 10:56 Leukocyte Esterase (Auto) 0 Rolando/uL 06/20/23 10:56 Date of Service: 06/11/23 EXAMINATION: CT ABDOMEN AND PELVIS WITHOUT AND WITH CONTRAST CLINICAL INFORMATION: Bladder cancer, urinary incontinence COMPARISON: 07/19/2022 TECHNIQUE: Multidetector volumetric imaging was performed of the abdomen and pelvis before and after the IV administration of 85 mL of Omnipaque 350 intravenous contrast. Sagittal and coronal reformatted images were obtained on the technologist's workstation. This CT examination was performed using dose optimization techniques as appropriate, variously including the following: *Automated exposure control *Adjustment of mA and/or kV according to patient size (this includes techniques or standardized protocols for targeted exams where dose is matched to indication/reason for exam; i.e. 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 Few prominent mid abdominal small bowel loops. LUNG BASES: Small bilateral effusions, left greater than right. Bilateral honeycombing, left greater than right. Heart size within normal limits. No pericardial effusion.. LIVER, GALLBLADDER, AND BILIARY TREE: The liver is normal in size, shape, and attenuation. No focal hepatic lesion or biliary ductal dilatation is present. The gallbladder is relatively decompressed. Tiny amount of pericholecystic fluid not excluded. No evidence of radiopaque gallstones, significant gallbladder wall thickening, or obvious pericholecystic inflammatory changes. PANCREAS: Pancreatic atrophy and without calcifications. SPLEEN: Splenic calcification. Splenule. ADRENAL GLANDS: Unremarkable KIDNEYS AND URETERS: The kidneys are normal in size, shape, and attenuation. Bilateral moderate hydroureteronephrosis. BLADDER: Diffusely thickened urinary bladder [place] with more pronounced asymmetric thickening right and superior [place]. GASTROINTESTINAL TRACT: Distended debris-filled stomach. Nonobstructive bowel pattern. Unremarkable terminal ileum and appendix. The diverticulosis without diverticulitis. ABDOMINAL WALL: Small fat filled umbilical and inguinal hernias. LYMPH NODES: No pathologic lymphadenopathy. VASCULAR: Atherosclerotic calcifications nonaneurysmal aorta and iliac arteries. Patent mesenteric vessels. Unremarkable inferior venacavogram iliac veins. Patent portal system. PELVIC VISCERA: Enlarged prostate with calcifications. Right-sided prosthetic bulging on TURP defect. OSSEOUS STRUCTURES: Degenerative changes, facet hypertrophy hypertrophy, multilevel neuroforaminal narrowings. Multilevel spurring final canal narrowings, severe at L4-L5 CT/CT abdomen pelvis wo/w IV con IMPRESSION: Interval development of bilateral moderate hydroureteronephrosis in the setting of diffuse bladder wall thickening, right greater than left, prosthetic enlargement and TURP defect. Small bilateral effusions, left greater than right. Bilateral lower lobe pulmonary honeycombing which can be seen seen in end-stage fibrotic disease and/or UIP pattern. Small amount of pericholecystic fluid not excluded, otherwise unremarkable gallbladder. Assessment & Plan Assessment & Plan (1) Bladder cancer: Code(s): C67.9 - Malignant neoplasm of bladder, unspecified (2) BPH loc w urin obs/LUTS: Code(s): N40.1 - Benign prostatic hyperplasia with lower urinary tract symptoms (3) Bladder spasms: Code(s): N32.89 - Other specified disorders of bladder Plan Bladder cancer. Status post chemo-radiation therapy. Bilateral hydronephrosis with non-normal renal function. Prescribed Vesicare 5 mg PO for the patient. The patient has a lung condition that requires oxygen therapy all the time. The cystoscopy was canceled due to low oxygen levels in the tank today. We will follow up with a cystoscopy either in the office or as an outpatient. Orders: Orders AMB Urinalysis Automated 06/20/23 Z13.9 - Encounter for screening, unspecified AMB Post Void Residual by ultrasound 06/20/23 N39.8 - Other specified disorders of urinary system Medications: New solifenacin (Vesicare) 5 mg PO DAILY 30 tabs 1RF Coding Level of Care Code Est Pt Level 4 (05474) Diagnoses Bladder cancer C67.9 BPH loc w urin obs/LUTS N40.1 Bladder spasms N32.89
== END 2023-06-20 11:09 | disposition home or self-care (01) ==
PROVIDERS: PCP Internal Medicine; Visit Provider Urology
DX: C67.9 Malignant neoplasm of bladder, unspecified (principal); N40.1 Benign prostatic hyperplasia with lower urinary tract symptoms; N32.89 Other specified disorders of bladder
CPT/HCPCS: 99214

== ENCOUNTER → 2023-06-20 10:38 | Outpatient (BNVA) | payer MEDICARE, SELFPAY | PROVIDERS: PCP Internal Medicine; Visit Provider Urology | DX: C67.9 Malignant neoplasm of bladder, unspecified (principal); N40.1 Benign prostatic hyperplasia with lower urinary tract symptoms; N13.8 Other obstructive and reflux uropathy; N32.89 Other specified disorders of bladder; Z92.21 Personal history of antineoplastic chemotherapy; Z92.3 Personal history of irradiation | CPT/HCPCS: 81003; 99212 ==

== ENCOUNTER 2023-07-06 13:06 | Inpatient (IN) | payer MEDICARE, SELFPAY ==
[2023-07-06] VITALS (8 sets, daily range): BP systolic 106–142; BP diastolic 62–81; PULSE 80–98; RESP 15–26; TEMP 36.2–37; O2SAT 90–98; BMI 24.2
--- NOTE | ~2023-07-06 | XR_ITS ---
EXAMINATION: XR CHEST CLINICAL INFORMATION: Difficulty breathing COMPARISON: 06/12/2023 TECHNIQUE: Frontal view of the chest was obtained. FINDINGS: Chronic lung disease appears similar line for technical differences. No significant superimposed abnormality is noted involving the heart, lungs, mediastinum, bony thorax or soft tissues. XR/XR chest 1V IMPRESSION: Chronic lung disease. No acute superimposed process.
--- NOTE | 2023-07-06 13:12 | ECG_ITS ---
Test Reason : CHEST PAIN Blood Pressure : / mmHG Vent. Rate : 091 BPM Atrial Rate : 091 BPM P-R Int : 280 ms QRS Dur : 084 ms QT Int : 382 ms P-R-T Axes : 072 073 -24 degrees QTc Int : 469 ms Sinus rhythm with 1st degree A-V block with occasional Premature ventricular complexes and Premature atrial complexes Nonspecific T wave abnormality Abnormal ECG When compared with ECG of 08-JUN-2023 09:51, Premature ventricular complexes are now Present Nonspecific T wave abnormality has replaced inverted T waves in Anterior leads Referred By: Yesenia Saleh Electronically Signed By:KHADRA FORREST MD
--- NOTE | 2023-07-06 13:15 | ED.CHESTPAIN ---
HPI - Chest Pain General Chief Complaint: Chest Pain Stated Complaint: CHEST PAIN X 1 HR Time Seen by Provider: 07/06/23 13:13 Source: patient, family and EMS Mode of arrival: EMS Limitations: no limitations History of Present Illness HPI narrative: 78-year-old male with a history of interstitial lung disease on chronic oxygen p.r.n, diabetes, hyperlipidemia, BPH presents the ER with complaints of left-sided chest pain since yesterday which is worsened with deep breathing and radiates to the back with shortness of breath, cough. No fevers, chills. Patient does report bilateral lower extremity which is mild. Of note patient was discharged from this facility on June 14 for acute on chronic respiratory failure secondary to pneumonia and COPD on cefuroxime, azithromycin, prednisone, and Lasix. Per the patient completed his antibiotics and prednisone and took his last dose of Lasix yesterday. She did call the pharmacy to try to get the Lasix refill but it was a 1 time order and there is no refills on it. Related Data Home Medications Medication Instructions Recorded Confirmed fluticasone 250 mcg-salmeterol 50 1 ea inhalation BID 04/19/23 06/19/23 mcg/dose blistr powdr for inhalation (Jose Inhub) Probiotic 1 cap PO DAILY 04/22/23 06/19/23 acetaminophen 500 mg tablet 1,000 mg PO BEDTIME 04/22/23 06/19/23 multivitamin 1 tab PO DAILY 04/22/23 06/19/23 cetirizine 10 mg tablet 10 mg PO DAILY allergies 06/08/23 06/19/23 fluticasone propionate 50 1 spray intranasal DAILY PRN Cold 06/08/23 06/19/23 mcg/actuation nasal Symptoms spray,suspension sodium chloride 0.9 % nasal spray 1 spray intranasal Q30M PRN Dry 06/08/23 06/19/23 aerosol Nasal Passages sodium chloride 0.9 % nasal spray 1 spray intranasal BID PRN 06/18/23 06/19/23 aerosol Previous Rx's Medication Instructions Recorded albuterol sulfate 90 mcg/actuation 2 puff inhalation QID PRN 02/17/23 aerosol inhaler (ProAir HFA) shortness of breath or wheezing #8.5 grams azithromycin 500 mg tablet See Rx Instructions PO .COMPLEX #3 06/14/23 tabs cefuroxime axetil 500 mg tablet 500 mg PO BID #6 tabs 06/14/23 furosemide 20 mg tablet 20 mg PO QAM PRN edema, fluid 06/14/23 overload #20 tabs guaifenesin 600 mg tablet, 600 mg PO BID #20 tabs 06/14/23 extended release 12 hr (Mucinex) ipratropium 0.5 mg-albuterol 3 mg 3 ml inhalation RQ4H WHILE AWAKE 06/14/23 (2.5 mg base)/3 mL nebulization 30 days #180 mL soln mirabegron 25 mg tablet,extended 25 mg PO DAILY #90 tabs 06/14/23 release 24 hr (Myrbetriq) prednisone 10 mg tablet See Taper PO DAILY #30 tabs 06/14/23 tamsulosin 0.4 mg capsule 0.4 mg PO BEDTIME #90 caps 06/14/23 solifenacin 5 mg tablet (Vesicare) 5 mg PO DAILY #30 tabs 06/20/23 nystatin 100,000 unit/mL oral 500,000 unit (5 mL) buccal BID PRN 06/26/23 suspension moth irritation 10 days #60 mL Allergies Allergy/AdvReac Type Severity Reaction Status Date / Time Seasonal Allergies Allergy Sneezing Verified 07/06/23 13:17 Review of Systems Review of Systems: Yes all other systems are reviewed and are negative Constitutional: Constitutional: Reports no additional constitutional complaints, Denies body ache(s), Denies chills, Denies fever(s), Denies headache(s) and Denies weakness Eyes: Eyes: Reports no additional eye complaints and Denies change in vision ENT: Reports system reviewed and no additional complaints, except as documented, Denies dizziness, Denies headache(s), Denies nasal congestion, Denies nasal discharge and Denies neck pain Cardiovascular: Cardiovascular: Reports no additional cardiovascular complaints, Reports chest pain, Reports leg edema and Reports dyspnea Respiratory: Respiratory: Reports no additional respiratory complaints, Reports cough and Reports dyspnea Gastrointestinal: Gastrointestinal: Reports no additional gastrointestinal complaints, Denies abdominal pain, Denies diarrhea, Denies nausea and Denies vomiting Genitourinary: Genitourinary: Denies urinary incontinence Musculoskeletal: Musculoskeletal: Reports no additional musculoskeletal complaints, Denies back pain, Denies arthralgias, Denies joint swelling, Denies neck pain, Denies numbness and Denies tingling Integumentary/Breasts: Skin/Breast: Reports system reviewed and no additional complaints, except as docu and Denies rash Neurologic: Reports system reviewed and no additional complaints, except as documented, Denies Abnormal speech present, Denies dizziness, Denies headache(s), Denies numbness, Denies tingling and Denies weakness PMFSH Past Medical History Attestation statement: The following information was validated with the patient. Source: old records reviewed and nursing notes reviewed Medical History Urinary incontinence Chronic interstitial lung disease Bladder cancer COPD exacerbation COVID-19 virus infection Viral syndrome Acute respiratory failure with hypoxemia IPF (idiopathic pulmonary fibrosis) Muscle spasms of both lower extremities Cataracts, bilateral Interstitial lung disease HTN (hypertension) HLD (hyperlipidemia) Surgical History Hx of sinus surgery Family History Family History Father Stomach cancer Mother No problems noted. Social History Social History Household Members: Family Housing: House Do you presently have visiting nurse or other home services: No Alcohol intake: never Patient Tobacco Use Status: Former Tobacco user Quit Date: age 70 Tobacco use type: Cigarette Years Smoked: 61 Smoked in Last 30 Days: No e-Cigarette/Vaping Use: Never Used Second Hand Smoke Exposure: No Use of substances other than those prescribed or required for medical reasons: No Advance Directives: Yes Advance Directives on File: Yes Advance Directives Date on File: 02/15/23 service: No Current occupational status: employed Cognitive needs: No Hearing needs: Yes (hearing aides) Vision needs: No Physical Exam Vital Signs: Vital Signs: Last Vital Signs Temp 98.3 F 07/06/23 15:14 Pulse 85 07/06/23 15:14 Resp 26 H 07/06/23 15:14 BP 129/62 07/06/23 15:14 Pulse Ox 98 07/06/23 15:14 O2 Del Method Room Air 07/06/23 15:14 O2 Flow Rate 4 07/06/23 13:22 BMI result Body Mass Index 24.2 Const: General: cooperative, healthy appearing, comfortable and no acute distress Orientation/consciousness: patient oriented x3 Limitations: no limitations HEENT: Head: Yes normal to inspection Ears: hearing grossly normal bilaterally General nose exam: Normal external nose present Face and sinus: Yes normal facial exam Mouth: Normal oral and palatal mucosa present Throat: Yes posterior oropharynx normal Eyes: General: appearance normal, both eyes and all related structures Pupils: Equal, round and reactive pupils present Neck: Neck: Yes normal visual inspection Chest: Chest palpation & inspection: normal inspection of the chest Resp: Effort & Inspection: normal respiratory effort Auscultation: crackles and wheezes Cardio: Rate: regular rate Rhythm: regular rhythm Peripheral pulses: Peripheral pulses 2+ throughout GI: Inspection: Yes normal to inspection Palpation (GI): Soft to palpation and nontender Auscultation: normal bowel sounds Back/Spine/Pelvis: Thoracic/Lumbar Spine: thoracic and lumbar spine normal to inspection Skin: General skin exam: no rashes or lesions noted Neuro: General: patient oriented x3, no focal motor deficits and normal sensation to monofilament Cranial nerves: Yes Equal, round and reactive pupils present Cognition (Neuro): normal cognition Speech: No Abnormal speech present Gait exam (Neuro): Normal gait present Motor exam (neuro): 5/5 motor strength present throughout Extrem: General: Yes normal to inspection, Yes no calf tenderness and Yes pedal edema (1+pittting bilateral) Medications Administered Generic Name Dose Route Start Last Admin Trade Name Freq PRN Reason Stop Dose Admin Potassium Chloride 10 meq in 100 mls @ 100 mls/hr 07/06/23 15:15 07/06/23 15:24 Potassium Chloride/H20 IV 07/06/23 17:14 100 mls/hr Q1H ANGEL Administration Discontinued Medications Generic Name Dose Route Start Last Admin Trade Name Freq PRN Reason Stop Dose Admin Albuterol/Ipratropium 3 ml 07/06/23 13:25 07/06/23 13:59 Albuterol/Iprat 2.5/0.5mg 3 Ml Ampul.Neb INHALE 07/06/23 13:26 3 ml ONCE ONE Administration Furosemide 40 mg 07/06/23 15:07 07/06/23 15:24 Furosemide 40 Mg/4 Ml Vial IVPUSH 07/06/23 15:08 40 mg STAT STA Administration Protocol Cefepime HCl 2 gm/ Sodium 50 mls @ 100 mls/hr 07/06/23 13:26 07/06/23 15:15 Chloride IV 07/06/23 13:55 Infused ONCE ONE Infusion Magnesium Sulfate 2 gm in 50 mls @ 25 mls/hr 07/06/23 13:26 07/06/23 15:43 Magnesium Sulfate/H2o IV 07/06/23 15:25 Infused ONCE ONE Infusion Sodium Chloride 500 mls @ 999 mls/hr 07/06/23 15:36 07/06/23 15:54 Ns IV 07/06/23 16:06 999 mls/hr .Q31M STA Administration Methylprednisolone Sodium Succinate 125 mg 07/06/23 13:26 07/06/23 13:35 Methylprednisolone Sod Succ 125 Mg/2 Ml Vial IVPUSH 07/06/23 13:27 125 mg ONCE ONE Administration Potassium Chloride 40 meq 07/06/23 15:08 07/06/23 15:24 Potassium Chloride Er 20 Meq Tab.Er.Prt PO 07/06/23 15:09 40 meq ONCE ONE Administration Medical Decision Making Medical Decision Making MDM Narrative: 78-year-old male with a history of interstitial lung disease on chronic oxygen p.r.n, diabetes, hyperlipidemia, BPH presents the ER with complaints of left-sided chest pain since yesterday which is worsened with deep breathing and radiates to the back with shortness of breath, cough.? No fevers, chills.? Patient does report bilateral lower extremity which is mild.? Of note patient was discharged from this facility on June 14 for acute on chronic respiratory failure secondary to pneumonia and COPD on cefuroxime, azithromycin, prednisone, and Lasix.? Per the patient completed his antibiotics and prednisone and took his last dose of Lasix yesterday.? She did call the pharmacy to try to get the Lasix refill but it was a 1 time order and there is no refills on it. On exam patient is tachypneic on arrival. He has wheezing and crackles. He has bilateral 1+ pitting edema Will obtain labs, EKG, chest x-ray, viral testing Will give DuoNeb, Solu-Medrol, antibiotics, MG Anticipate admission Differential Diagnosis Differential Diagnoses: The differential diagnosis associated with the presentation includes COPD exacerbation, pneumonia, Considered PE but patient has no clinical findings concerning for DVT Low concern for ACS will obtain EKG and troponin x2, AAA low concern with gradual onset of symptoms Admission/Observation Consideration of admission/observation: Escalation of care including admission/observation considered Continued tachypnea, chest x-ray concerning for infiltrate versus CHF despite being treated with outpatient antibiotics, prednisone, Lasix with recent admission for community-acquired pneumonia. Consider Hcap. Patient will need admission for further treatment Consult Healthcare Provider Management of the patient was discussed with: Hospitalist D/w with Dr Valdez who accepted admission Lab Data MDM Lab Attestation statement: I reviewed the patient's lab results. Anemia at baseline, ANDREI, hypokalemia, elevated lactic acid, elevated BNP 07/06/23 13:49 07/06/23 13:49 Labs: Lab Results 07/06/23 Range/Units 13:49 WBC 5.3 (4.8-10.8) X10*3/uL RBC 3.36 L (4.60-5.80) X10*6/uL Hgb 9.6 L (14.0-18.0) g/dl Hct 29.8 L (42.0-52.0) % MCV 88.7 (80.0-98.0) fL MCH 28.6 (27.0-33.0) pg MCHC 32.2 (31.0-36.0) g/dl RDW 15.9 (11.0-16.0) % Plt Count 157 L (160-400) X10*3/uL MPV 11.2 (9.4-12.4) fL Immature Gran % (Auto) 0.4 (0.0-0.4) % Neut % (Auto) 77.1 H (45-73) % Lymph % (Auto) 11.6 L (20-40) % [place] % (Auto) 8.4 (2-11) % Eos % (Auto) 2.1 (0-4) % Baso % (Auto) 0.4 (0-2) % Lymph # (Auto) 0.6 L (1.2-4.9) X10*3/uL [place] # (Auto) 0.5 (0.1-1.2) X10*3/uL Eos # (Auto) 0.1 (0.0-0.4) X10*3/uL Baso # (Auto) 0.0 (0.0-0.2) X10*3/uL Abs Immat Gran (auto) 0.02 (0.00-0.03) X10*3/uL Absolute Neuts (auto) 4.1 (2.0-8.3) x10*3/uL Absolute Nucleated RBC 0.000 (0.0-0.012) X10*3/uL Nucleated RBC % (auto) 0.0 (0.0-0.2) /100WBC PT 14.3 H (11.1-13.3) SEC INR 1.2 H (0.9-1.1) Sodium 143 (135-145) mmol/L Potassium 2.9 L D (3.3-5.1) mmol/L Chloride 108 (96-108) mmol/L Carbon Dioxide 22 (22-29) mmol/L Anion Gap 16 (12-20) BUN 21 H (9-16) mg/dL Creatinine 1.53 H (0.5-1.4) mg/dL Estim Creat Clear Calc 34.7 Estimated GFR 44 Random Glucose 178 H (60-115) mg/dL Lactic Acid 2.2 H* (0.5-2.0) mmol/L Calcium 8.4 (8.4-10.2) mg/dL Magnesium 1.9 (1.6-2.6) mg/dL Total Bilirubin 0.7 (0.0-1.0) mg/dL Direct Bilirubin 0.2 (0.0-0.5) mg/dL AST 15 (5-37) U/L ALT 7 (0-40) U/L Alkaline Phosphatase 69 (39-117) U/L Troponin I High Sens 31.8 D (<3.5-35.0) ng/L B-Natriuretic Peptide 1494 H (<100) pg/mL Total Protein 6.0 L (6.5-8.0) g/dL Albumin 3.4 L (3.5-5.0) g/dL Stool Occult Blood NEGATIVE (NEGATIVE) Influenza Type A (PCR) NEGATIVE (Negative) Influenza Type B (PCR) NEGATIVE (Negative) RSV RNA Qual (PCR) NEGATIVE (Negative) SARS-CoV-2 RNA (RT-PCR) NEGATIVE (Negative) Independent Interpretation I performed an independent interpretation of an: EKG and Plain X-Ray Interpretation: I independently reviewed the EKG which shows sinus rhythm with a first-degree AV block, normal QRS, QTC 469 I independently reviewed the CXR and agree with the rad report Radiology Impression Discussion of test interpretation with radiology: I have reviewed the radiologist's reading. Radiologist Impression: [id number] [place] [address] XRay Report Signed Patient: Emmett Hernandez MR#: [id number] : 1945 Acct:[id number] Age/Sex: 78 / M ADM Date: 07/06/23 Loc: .ED Attending Dr: Ordering Physician: Yesenia Genao NP Date of Service: 07/06/23 Procedure(s): XR chest 1V Accession Number(s): [id number] cc: Physician,Unknown ; Yesenia Genao NP~ EXAMINATION: XR CHEST CLINICAL INFORMATION: Difficulty breathing COMPARISON: 06/12/2023 TECHNIQUE: Frontal view of the chest was obtained. FINDINGS: Chronic lung disease appears similar line for technical differences. No significant superimposed abnormality is noted involving the heart, lungs, mediastinum, bony thorax or soft tissues. XR/XR chest 1V IMPRESSION: Chronic lung disease. No acute superimposed process. Independent Historian Clinical information obtained from an independent historian. History obtained from or confirmed by: EMS External Record Review External record reviewed: Inpatient record Prescription Management I considered prescription management with: Antibiotic Critical Care Time Critical Care Time Critical Care Time: Yes Total Critical Care Time: 60 Attestation: Multiple re-evaluations for respiratory status, discussion with family, discussion with hospitalist for admission Discharge Plan Discharge Clinical Impression: Anemia, Elevated lactic acid level, ANDREI (acute kidney injury), Acute hypokalemia, ILD (interstitial lung disease) Patient Disposition: Admitted As Inpatient
--- NOTE | 2023-07-06 13:30 | PC.NURSE ---
a&ox3, vss and up to date. 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 pt comes in via ems d/t new onset left sided nonradiating chest pain and SOB. 93% RA/97% on 3L via NC. pt has difficulty speaking in full/clear sentences w/ some difficulty. SOB/WOB shown at this time. crackles noted throughout lung sounds upon auscultation. 3+ pitting edema noted in LE bilaterally. bedside for support. call cox placed within reach.
[2023-07-06] MEDS: methylPREDNISolone Sod Succ 125 MG/2 ML VIAL IVPUSH (13:35)
[2023-07-06] MEDS: Magnesium Sulfate/H2O 2 GM/50 ML PIGGYBACK IV (13:35)
[2023-07-06] MEDS: Albuterol/Iprat 2.5/0.5MG 3 ML AMPUL.NEB INHALE ×2 (13:59→19:42)
[2023-07-06 14:01] LABS: MANUAL DIFF FLAG NO
[2023-07-06 14:03] LABS: OBS Int Ctl Valid YES; OBS1 NEGATIVE (NEGATIVE)
[2023-07-06 14:04] LABS: Basophils Percent Auto 0.4 % (0-2); Eosinophils Absolute Auto 0.1 X10*3/uL (0.0-0.4); Eosinophils Percent Auto 2.1 % (0-4); Hematocrit 29.8 % (42.0-52.0); Hemoglobin 9.6 g/dl (14.0-18.0); Imm Gran Abs Auto 0.02 X10*3/uL (0.00-0.03); Imm Gran Pct Auto 0.4 % (0.0-0.4); Lymphocytes Absolute Auto 0.6 X10*3/uL (1.2-4.9); Lymphocytes Percent Auto 11.6 % (20-40); Mean Corpuscular HGB Conc 32.2 g/dl (31.0-36.0); Mean Corpuscular Hemoglobin 28.6 pg (27.0-33.0); Mean Corpuscular Volume 88.7 fL (80.0-98.0); Mean Platelet Volume 11.2 fL (9.4-12.4); Monocytes Absolute Auto 0.5 X10*3/uL (0.1-1.2); Monocytes Percent Auto 8.4 % (2-11); Neutrophils Absolute Auto 4.1 x10*3/uL (2.0-8.3); Neutrophils Percent Auto 77.1 % (45-73); Platelet Count 157 X10*3/uL (160-400); Red Blood Count 3.36 X10*6/uL (4.60-5.80); Red Cell Distribution Width 15.9 % (11.0-16.0); White Blood Count 5.3 X10*3/uL (4.8-10.8)
--- NOTE | 2023-07-06 14:08 | PC.NURSE ---
RT bedside - pt receiving duo-neb treatment. will administer abx when 2nd set of cultures is drawn.
[2023-07-06 14:14] LABS: INTERNATIONAL NORM RATIO 1.2 (0.9-1.1); Prothrombin Time 14.3 SEC (11.1-13.3)
[2023-07-06 14:16] LABS: Lactic Acid 2.2 mmol/L (0.5-2.0)
[2023-07-06 14:18] LABS: Alanine Aminotransferase 7 U/L (0-40); Albumin Level 3.4 g/dL (3.5-5.0); Alkaline Phosphatase 69 U/L (39-117); Anion Gap 16 (12-20); Aspartate Amino Transferase 15 U/L (5-37); Bilirubin Direct 0.2 mg/dL (0.0-0.5); Bilirubin Total 0.7 mg/dL (0.0-1.0); Blood Urea Nitrogen 21 mg/dL (9-16); Calcium 8.4 mg/dL (8.4-10.2); Carbon Dioxide 22 mmol/L (22-29); Chloride 108 mmol/L (96-108); Creatinine Clr Calc Pharmacy 34.7; Estimated Glomerular Filt Rate 44; Glucose Random 178 mg/dL (60-115); Magnesium 1.9 mg/dL (1.6-2.6); Potassium 2.9 mmol/L (3.3-5.1); Sodium 143 mmol/L (135-145)
[2023-07-06 14:23] LABS: B Type Natriuretic Peptide 1494 pg/mL (<100)
[2023-07-06 14:25] LABS: Troponin-I High Sensitivity 31.8 ng/L (<3.5-35.0)
[2023-07-06 14:39] LABS: Influenza A PCR NEGATIVE (Negative); Influenza B PCR NEGATIVE (Negative); Resp Syncy Virus RNA Qual PCR NEGATIVE (Negative); SARS COV2 PCR INHOUSE NEGATIVE (Negative)
[2023-07-06] MEDS: cefEPime HCl 2 GM in 0.9 % Sodium Chloride 50 ML IV (14:40)
--- NOTE | 2023-07-06 14:40 | PC.NURSE ---
unable to scan medication d/t downtime in expanse. abx administered per provider order.
[2023-07-06] MEDS: Furosemide 40 MG/4 ML VIAL IVPUSH (15:24)
[2023-07-06] MEDS: Potassium Chloride ER 20 MEQ TAB.ER.PRT 40 MEQ PO (15:24)
[2023-07-06] MEDS: Potassium Chloride/H20 10 MEQ/100 ML PIGGYBACK 100 MEQ IV (15:24)
--- NOTE | 2023-07-06 15:31 | PC.NURSE ---
medication administered per provider order. pt verbalizing he's feeling better at this time. pt til displays w/ SOB and difficulty speaking in full, clear sentences w/ difficulty. respirations even but labored. bedside. call cox placed within reach.
[2023-07-06] MEDS: 0.9 % Sodium Chloride 500 ML 999 ML IV (15:54)
[2023-07-06 15:58] LABS: Reflex Lactate? Lactic Acid Added
--- NOTE | 2023-07-06 16:24 | PC.NURSE ---
1st bag of potassium IV administering at a slower rate at this time d/t pt c/o access irritation. per provider order - IVF hung and administered to decrease pain at site. pt now tolerating administration at this time.
--- NOTE | 2023-07-06 16:35 | PC.NURSE ---
leaving pt's bedside so she can go and get pt depends from home as pt states that he does not want to use [place] [facility] at this time. pt states that they never stay on and he wants to stay in depends that he's wearing at this time until returns.
[2023-07-06 16:37] LABS: ~Lactic Acid-LAB USE ONLY 1.3 mmol/L (0.5-2.0)
--- NOTE | 2023-07-06 16:38 | PM.IMHP ---
History of Present Illness Date of Service: 07/06/23 Attending physician on admission: David Valdez Chief Complaint: sob, chest pain 78-year-old male with history of hypertension, hyperlipidemia, interstitial lung disease, NIDDM, pulmonary fibrosis, COPD, bladder cancer presents to the ED earlier today for evaluation of left-sided chest pain that he describes as sharp and pleuritic in nature that occurred this morning is since resolved. He is also reporting a dyspnea on exertion and orthopnea that worsened acutely last night. He has also had significant increase in bilateral lower extremity edema. Unsure if he has gained any weight. He reports an occasional productive cough but states this is baseline. He is also reporting xerostomia. Denies any fevers, chills, sick contacts, abdominal pain, nausea, vomiting, diarrhea, lightheadedness, headaches, or retrosternal chest pressure. He does report history of p.r.n. supplemental oxygen use but states in recent history has not needed this. He was recently admitted for acute on chronic hypoxic respiratory failure secondary to pneumonia and COPD/interstitial lung disease decompensation treated with IV steroids, antibiotics and nebulizers and was discharged home on antibiotics and steroids. He was also discharged on p.r.n. Lasix which he has been taking on a daily basis but states he ran out of the medication several days ago. On arrival, vital signs stable though intermittently tachypneic to 26. There is no leukocytosis. Creatinine elevated from baseline 0.90. BUN 21. Electrolyte levels normal except for hypokalemia of 2.9. Initial lactic acid 2.2, repeat 1.3. Initial troponin 31.8, repeat pending. BNP 1494. Negative for COVID, influenza, RSV. Chest x-ray formally read as no acute abnormality but with chronic lung changes. However, compared to prior imaging studies, does have increased pulmonary vascular prominence. In the ED, given 40 mg IV Lasix, 2 g IV magnesium, 2 g cefepime, IV NS, IV potassium, 125 mg IV methylprednisolone, and 40 mg KCL ER. Review of Systems Review of Systems: General: No fevers, malaise, unintentional weight loss HEENT: No blurred vision, diplopia. No sore throat, nasal congestion, rhinorrhea, sinus pain, ear pain Cardiovascular: +chest pain, +ble edema. No palpitations Respiratory: +sob, +cough. No wheezing GI: +constipation. No abdominal pain, nausea, vomiting, diarrhea, melena, hematochezia MSK: No myalgia, back pain Neuro: No headaches, weakness, paresthesias Skin: No rashes or lesions [facility], [facility] Medical History Urinary incontinence Chronic interstitial lung disease Bladder cancer COPD exacerbation COVID-19 virus infection Viral syndrome Acute respiratory failure with hypoxemia IPF (idiopathic pulmonary fibrosis) Muscle spasms of both lower extremities Cataracts, bilateral Interstitial lung disease HTN (hypertension) HLD (hyperlipidemia) Family History Father Stomach cancer Mother No problems noted. Surgical History Hx of sinus surgery Social History Household Members: Family Housing: House Do you presently have visiting nurse or other home services: No Alcohol intake: never Patient Tobacco Use Status: Former Tobacco user Quit Date: age 70 Tobacco use type: Cigarette Years Smoked: 61 Smoked in Last 30 Days: No e-Cigarette/Vaping Use: Never Used Second Hand Smoke Exposure: No Use of substances other than those prescribed or required for medical reasons: No Advance Directives: Yes Advance Directives on File: Yes Advance Directives Date on File: 02/15/23 service: No Current occupational status: employed Cognitive needs: No Hearing needs: Yes (hearing aides) Vision needs: No Meds Allergies Allergy/AdvReac Type Severity Reaction Status Date / Time Seasonal Allergies Allergy Sneezing Verified 07/06/23 13:17 Active Medications: Current Medications Acetaminophen (Acetaminophen 325 Mg Tablet) 650 mg PO Q6H PRN PRN Reason: Pain, Mild (Pain Scale 1-3) Docusate Sodium (Docusate Sodium 100 Mg Capsule) 100 mg PO DAILY PRN PRN Reason: Constipation Furosemide (Furosemide 40 Mg/4 Ml Vial) 40 mg IVPUSH DAILY ANGEL; Protocol Potassium Chloride (Potassium Chloride/H20) 10 meq in 100 mls @ 100 mls/hr IV Q1H ANGEL Stop: 07/06/23 17:00 Last Admin: 07/06/23 15:24 Dose: 100 mls/hr Ondansetron HCl (Ondansetron Hcl 4 Mg/2 Ml Vial) 4 mg IVPUSH Q8H PRN PRN Reason: Nausea and Vomiting Sodium Chloride (0.9 % Sodium Chloride Flush 3 Ml Syringe) 3 ml IVFLUSH QSHIFT [facility] Home Medications Medication Instructions Recorded Confirmed Last Taken Type fluticasone 250 mcg-salmeterol 50 1 ea inhalation Q12H 04/19/23 07/06/23 Unknown History mcg/dose blistr powdr for inhalation (Jose Inhub) Probiotic 1 cap PO DAILY 04/22/23 07/06/23 Unknown History acetaminophen 500 mg tablet 1,000 mg PO BID PRN Headache 04/22/23 07/06/23 Unknown History multivitamin 1 tab PO DAILY 04/22/23 07/06/23 Unknown History cetirizine 10 mg tablet 10 mg PO DAILY allergies 06/08/23 07/06/23 Unknown History fluticasone propionate 50 1 spray intranasal DAILY PRN Cold 06/08/23 07/06/23 Unknown History mcg/actuation nasal Symptoms spray,suspension sodium chloride 0.9 % nasal spray 1 spray intranasal TID PRN Dry 06/18/23 07/06/23 Unknown History aerosol Nasal Passages furosemide 20 mg tablet 20 mg PO QAM edema, fluid overload 07/06/23 07/06/23 Unknown History solifenacin 5 mg tablet (Vesicare) 5 mg PO BEDTIME 07/06/23 07/06/23 Unknown History tamsulosin 0.4 mg capsule 0.4 mg PO QAM 07/06/23 07/06/23 Unknown History Physical Exam Vital Signs and Narrative: Vital Signs: Last Vital Signs Temp 98.3 F 07/06/23 15:14 Pulse 85 07/06/23 15:14 Resp 26 H 07/06/23 15:14 BP 129/62 07/06/23 15:14 Pulse Ox 98 07/06/23 15:14 O2 Del Method Room Air 07/06/23 15:14 O2 Flow Rate 4 07/06/23 13:22 BMI result Body Mass Index 24.2 Constitutional - Awake and Alert, No apparent distress Eyes - PERRLA, EOMI Cardiovascular - S1S2, RRR, 3+ ble edema Respiratory - Normal lung expansion, Normal respiratory effort, No respiratory distress, scattered rales bilaterally L>R Gastrointestinal - NT / ND; +BS; No rebound or guarding Extremities - no calf tenderness bilaterally, no swelling Skin - Warm/Dry Neurological - Alert & oriented x3 Psychological - Appropriate affect Results Labs 07/06/23 13:49 07/06/23 13:49 Labs: Laboratory Results - last 24 hr 07/06/23 07/06/23 13:49 16:22 MCV 88.7 MCH 28.6 MCHC 32.2 RDW 15.9 Plt Count 157 L MPV 11.2 Immature Gran % (Auto) 0.4 Neut % (Auto) 77.1 H Lymph % (Auto) 11.6 L [place] % (Auto) 8.4 Eos % (Auto) 2.1 Baso % (Auto) 0.4 Lymph # (Auto) 0.6 L [place] # (Auto) 0.5 Eos # (Auto) 0.1 Baso # (Auto) 0.0 Abs Immat Gran (auto) 0.02 Absolute Neuts (auto) 4.1 Absolute Nucleated RBC 0.000 Nucleated RBC % (auto) 0.0 PT 14.3 H INR 1.2 H Anion Gap 16 Estim Creat Clear Calc 34.7 Estimated GFR 44 Random Glucose 178 H Lactic Acid 2.2 H* Lactic Acid F/U @ 2Hr 1.3 Calcium 8.4 Magnesium 1.9 Total Bilirubin 0.7 Direct Bilirubin 0.2 AST 15 ALT 7 Alkaline Phosphatase 69 B-Natriuretic Peptide 1494 H Total Protein 6.0 L Albumin 3.4 L Stool Occult Blood NEGATIVE Influenza Type A (PCR) NEGATIVE Influenza Type B (PCR) NEGATIVE RSV RNA Qual (PCR) NEGATIVE SARS-CoV-2 RNA (RT-PCR) NEGATIVE Imaging Radiologist's Impressions: Impressions Chest X-Ray 07/06/23 14:52 IMPRESSION: Chronic lung disease. No acute superimposed process. Assessment and Plan (1) CHF exacerbation: Status: Acute (2) Hypokalemia: Status: Acute (3) ANDREI (acute kidney injury): Status: Acute Plan 78-year-old male with history of hypertension, hyperlipidemia, interstitial lung disease, NIDDM, pulmonary fibrosis, COPD, bladder cancer admitted for acute hypoxemic respiratory failure due to CHF exacerbation. #Acute decompensation of HFpEF with acute on chronic hypoxemic respiratory failure -CXR appears to have increased vascular congestion with BNP >1400 -IV lasix 40mg daily -cardiac diet -strict I&O -Last echo 06/10/2023 showed low normal LV systolic function with EF 50-55% with moderately increased RV cavity size and mild to moderate pulmonary hypertension. There is grade 1 diastolic dysfunction and mild global hypokinesis. -Monitor on telemtry -follow BMP, BNP -if no improvement, consult cardiology -continue supplemental O2 to maintain oximetry >92% #Acute hypokalemia -repleted -repeat K now -Follow am #Acute kidney injury -likely cardiorenal -diuresis as above -Avoid nephrotoxins -follow bmp #ILD/COPD- symptoms appear more consistent with CHF exacerbation -no acute decompensation\ -continue maintenance inhalers, albuterol p.r.n. # hypertension -blood pressure reasonably controlled -not on home antihypertensives # [id number] type 2 diabetes -POC glucose -diabetic diet -Humalog on sliding scale # bladder cancer -outpatient follow-up with Dr. Farmer DVT prophylaxis- lovenox DNR/DNI Patient requires inpatient stay at least 2 midnights for management of acute decompensation of congestive heart failure with acute hypoxemic respiratory failure requiring IV diuresis close monitoring of renal function and electrolytes as well as supplemental oxygen. Time Spent With Patient Time: Total time managing care of this patient today ____ minutes. Quality Stroke Does the patient have a stroke diagnosis?: No VTE Prior VTE?: No VTE Risk Level:: Medical - moderate - high VTE Device Contraindication: Treatment Not Indicated VTE Drug Contraindication: N/A - Med Ordered
[2023-07-06 16:48] LABS: Troponin-I High Sensitivity 29.1 ng/L (<3.5-35.0)
--- NOTE | 2023-07-06 16:49 | PHA.MEDREC ---
Pharmacy Consult ? Medication Reconciliation Pharmacy has completed the medication reconciliation. spoke with patients over the phone to confirm medications. Lasix is prescribed PRN for fluid overload however she reports that he takes it every day and ran out 2 days ago.
[2023-07-06] MEDS: Potassium Chloride Packet 20 MEQ PACKET PO (17:01)
--- NOTE | 2023-07-06 17:20 | PC.NURSE ---
pt incontinent of urine/went through depends. this RN and james rodriguez completely cleaned/changed pt. fresh linens applied. pt agreed to putting [place] cath in place. pt became SOB during bed change but is now resting comfortably in no apparent distress. medication administered per provider order. call cox placed within reach.
--- NOTE | 2023-07-06 17:53 | PC.NURSE ---
vss and up to date at this time. pt bedside at this time and brought pt depends. pt preferred depends over [place] catheter. pt resting comfortably in no apparent distress. respirations even and unlabored at this time. call cox placed within reach.
--- NOTE | 2023-07-06 18:15 | MHC.EDTECH ---
Patient inc, patient changed and repositioned
[2023-07-06 18:20] LABS: Glucose, Whole Blood 226 mg/dL (60-115)
[2023-07-06 19:19] LABS: Anion Gap 17 (12-20); Blood Urea Nitrogen 21 mg/dL (9-16); Calcium 8.4 mg/dL (8.4-10.2); Carbon Dioxide 24 mmol/L (22-29); Chloride 106 mmol/L (96-108); Creatinine Clr Calc Pharmacy 34.7; Estimated Glomerular Filt Rate 44; Glucose Random 194 mg/dL (60-115); Potassium 2.8 mmol/L (3.3-5.1); Sodium 144 mmol/L (135-145)
--- NOTE | 2023-07-06 19:51 | PC.NURSE ---
report called to [facility] RN.
--- NOTE | 2023-07-06 20:00 | PC.NURSE ---
pt's called/notified on pt's admitting room number.
[2023-07-06] MEDS: Potassium Chloride Packet 20 MEQ PACKET 40 MEQ PO ×2 (20:05→20:46)
--- NOTE | 2023-07-06 20:17 | PC.NURSE ---
report given to RN on [facility] - transport notified. medication administered per provider order. walters catheter place per provider order - 100ml of light yellow urine documented in I&O section. pt tolerated well. pt's daughter bedside for support. respirations even and unlabored. call cox placed within reach.
[2023-07-06 20:41] LABS: Glucose, Whole Blood 355 mg/dL (60-115)
[2023-07-06] MEDS: Insulin Lispro 100 UNIT/ML 3 ML VIAL SUBCUT (20:46)
[2023-07-06] MEDS: guaiFENesin LA 600 MG TAB.ER.12H PO (20:46)
[2023-07-06] MEDS: 0.9 % Sodium Chloride Flush 3 ML SYRINGE IVFLUSH (20:49)
[2023-07-06] MEDS: Tolterodine Tartrate LA 4 MG CAP.ER.24H PO (21:00)
--- NOTE | 2023-07-06 21:31 | HO.SKINPHOTO ---
Location:[facility] Category:Pressure Stage: 2 Length: Width: Depth: cm
[2023-07-06 23:51] LABS: Anion Gap 18 (12-20); Blood Urea Nitrogen 25 mg/dL (9-16); Calcium 8.7 mg/dL (8.4-10.2); Carbon Dioxide 23 mmol/L (22-29); Chloride 105 mmol/L (96-108); Creatinine Clr Calc Pharmacy 29.2; Estimated Glomerular Filt Rate 36; Glucose Random 357 mg/dL (60-115); Potassium 3.9 mmol/L (3.3-5.1); Sodium 142 mmol/L (135-145)
[2023-07-07] VITALS (10 sets, daily range): BP systolic 107–119; BP diastolic 54–61; PULSE 76–87; RESP 17–24; TEMP 36.4–37.2; O2SAT 90–99
[2023-07-07] MEDS: ondansetron HCL 4 MG/2 ML VIAL IVPUSH (01:40)
[2023-07-07 02:19] LABS: Appearance Urine Clear; Color Urine Yellow; Glucose Urine UA 250 mg/dL (Negative); Leukocyte Esterase Urine Negative (Negative); Nitrite Urine Negative (Negative); PH 5.5 (5.0-9.0); UMIC TRIGGER UACC YES; Urine Blood Large (3+) (Negative); Urine Ketones Negative (Negative); Urine Protein 30 (1+) mg/dL (Neg-Trace)
[2023-07-07 02:22] LABS: Bacteria Urine None Seen (None Seen); Hyaline Casts Urine 0-2 /LPF (0-2); RBC Urine >20 /HPF (0-2); Squamous Epithelial Cell Urine 0-2 /HPF (0-2); WBC Urine 0-5 /HPF (0-5)
[2023-07-07 06:23] LABS: MANUAL DIFF FLAG NO
[2023-07-07 06:29] LABS: Hematocrit 25.8 % (42.0-52.0); Hemoglobin 8.3 g/dl (14.0-18.0); Imm Gran Abs Auto 0.02 X10*3/uL (0.00-0.03); Imm Gran Pct Auto 0.5 % (0.0-0.4); Lymphocytes Absolute Auto 0.2 X10*3/uL (1.2-4.9); Lymphocytes Percent Auto 5.5 % (20-40); Mean Corpuscular HGB Conc 32.2 g/dl (31.0-36.0); Mean Corpuscular Hemoglobin 28.4 pg (27.0-33.0); Mean Corpuscular Volume 88.4 fL (80.0-98.0); Mean Platelet Volume 11.3 fL (9.4-12.4); Monocytes Absolute Auto 0.2 X10*3/uL (0.1-1.2); Monocytes Percent Auto 4.1 % (2-11); Neutrophils Absolute Auto 3.9 x10*3/uL (2.0-8.3); Neutrophils Percent Auto 89.9 % (45-73); Platelet Count 151 X10*3/uL (160-400); Red Blood Count 2.92 X10*6/uL (4.60-5.80); Red Cell Distribution Width 15.7 % (11.0-16.0); White Blood Count 4.4 X10*3/uL (4.8-10.8)
[2023-07-07 06:49] LABS: Anion Gap 15 (12-20); Blood Urea Nitrogen 29 mg/dL (9-16); Calcium 8.3 mg/dL (8.4-10.2); Carbon Dioxide 23 mmol/L (22-29); Chloride 106 mmol/L (96-108); Creatinine Clr Calc Pharmacy 30.7; Estimated Glomerular Filt Rate 38; Glucose Random 317 mg/dL (60-115); Potassium 4.7 mmol/L (3.3-5.1); Sodium 139 mmol/L (135-145)
[2023-07-07 06:51] LABS: B Type Natriuretic Peptide 1270 pg/mL (<100)
[2023-07-07] MEDS: Albuterol/Iprat 2.5/0.5MG 3 ML AMPUL.NEB INHALE ×4 (07:30→20:24)
[2023-07-07] MEDS: Loratadine 10 MG TABLET PO (07:54)
[2023-07-07] MEDS: Tamsulosin HCL 0.4 MG CAPSULE PO (07:54)
[2023-07-07] MEDS: guaiFENesin LA 600 MG TAB.ER.12H PO ×2 (07:55→21:19)
[2023-07-07] MEDS: Fluticasone/Vilanterol 100/25 BLST.W.DEV 1 PUFF INHALE (07:55)
[2023-07-07] MEDS: Furosemide 40 MG/4 ML VIAL IVPUSH (07:55)
[2023-07-07] MEDS: Multivitamin TABLET 1 TAB PO (07:55)
[2023-07-07 07:59] LABS: Glucose, Whole Blood 296 mg/dL (60-115)
[2023-07-07] MEDS: Insulin Lispro 100 UNIT/ML 3 ML VIAL SUBCUT ×4 (08:04→21:19)
[2023-07-07] MEDS: 0.9 % Sodium Chloride Flush 3 ML SYRINGE IVFLUSH ×3 (08:05→21:24)
--- NOTE | 2023-07-07 09:27 | P.PNIM_ITS ---
Subjective Subjective Date of Service: 07/07/23 Interval History: a bit better today Neurologic Neurologic: Denies Abnormal speech present Physical Exam 2 Vital Signs: Vital Signs: Last Vital Signs Temp 98.3 F 07/07/23 07:48 Pulse 80 07/07/23 07:48 Resp 17 07/07/23 07:48 BP 114/58 L 07/07/23 07:48 Pulse Ox 92 07/07/23 07:48 O2 Del Method Nasal Cannula 07/07/23 07:48 O2 Flow Rate 5 07/07/23 07:48 BMI result Body Mass Index 24.2 Const: General: cooperative, healthy appearing, comfortable and no acute distress Orientation/consciousness: patient oriented x3 Limitations: no limitations HEENT: Head: Yes normal to inspection Ears: hearing grossly normal bilaterally General nose exam: Normal external nose present Face and sinus: Yes normal facial exam Mouth: Normal oral and palatal mucosa present Throat: Yes posterior oropharynx normal Eyes: General: appearance normal, both eyes and all related structures P upils: Equal, round and reactive pupils present Neck: Neck: Yes normal visual inspection Chest: Chest palpation & inspection: normal inspection of the chest Resp: Effort & Inspection: normal respiratory effort Auscultation: crackles and wheezes Cardio: Rate: regular rate Rhythm: regular rhythm Peripheral pulses: P eripheral pulses 2+ throughout GI: Inspection: Yes normal to inspection Palpation (GI): Soft to palpation and nontender Auscultation: normal bowel sounds Back/Spine/Pelvis: Thoracic/Lumbar Spine: thoracic and lumbar spine normal to inspection Skin: General skin exam: no rashes or lesions noted Neuro: General: patient oriented x3, no focal motor deficits and normal sensation to monofilament Cranial nerves: Yes Equal, round and reactive pupils present Cognition (Neuro): normal cognition Speech: No Abnormal speech present Gait exam (Neuro): Normal gait present Motor exam (neuro): 5/5 motor strength present throughout Extrem: General: Yes normal to inspection, Yes no calf tenderness and Yes pedal edema (1+pittting bilateral) Objective Data Active Medications Acetaminophen (Acetaminophen 325 Mg Tablet) 650 mg PO Q6H PRN PRN Reason: Pain, Mild (Pain Scale 1-3) Albuterol Sulfate (Albuterol Sulfate 90 Mcg 8 Gm Inhaler) 2 puff INHALE QID PRN PRN Reason: shortness of breath or wheezing Albuterol/Ipratropium (Albuterol/Iprat 2.5/0.5mg 3 Ml Ampul.Neb) 3 ml INHALE RQ4H WHILE AWAKE [facility] Last Admin: 07/07/23 07:30 Dose: 3 ml Documented By: ZARA Dextrose (Dextrose 50 % 25 Gm/50 Ml Syringe) 25 gm IVPUSH Q15M PRN; Protocol PRN Reason: per Hypoglycemia Standing Ord. Docusate Sodium (Docusate Sodium 100 Mg Capsule) 100 mg PO DAILY PRN PRN Reason: Constipation Fluticasone Propionate (Fluticasone Propionate Nasal 16 Gm [place]) 1 spray NOSTRIL-B DAILY PRN PRN Reason: Cold Symptoms Fluticasone/Vilanterol (Fluticasone/Vilanterol 100/25 Blst.W.Dev) 1 puff INHALE RDAILY [facility] Last Admin: 07/07/23 07:55 Dose: 1 puff Documented By: [place] Furosemide (Furosemide 40 Mg/4 Ml Vial) 40 mg IVPUSH DAILY [facility]; Protocol Last Admin: 07/07/23 07:55 Dose: 40 mg Documented By: [place] Glucose (Glucose Gel 15 Gm Gel..Gram.) 15 gm PO Q15M PRN; Protocol PRN Reason: per Hypoglycemia Standing Ord. Guaifenesin (Guaifenesin La 600 Mg Tab.Er.12h) 600 mg PO BID [facility] Last Admin: 07/07/23 07:55 Dose: 600 mg Documented By: [place] Insulin Human Lispro (Insulin Lispro 100 Unit/Ml 3 Ml Vial) 0 unit SUBCUT QIDACHS [facility]; Protocol Last Admin: 07/07/23 08:04 Dose: 6 unit Documented By: [place] Loratadine (Loratadine 10 Mg Tablet) 10 mg PO DAILY [facility] Last Admin: 07/07/23 07:54 Dose: 10 mg Documented By: [place] Multivitamins/Vitamin C (Multivitamin Tablet) 1 tab PO DAILY [facility] Last Admin: 07/07/23 07:55 Dose: 1 tab Documented By: [place] Nystatin (Nystatin Oral Susp 500,000 Unit/5 Ml Oral.Susp) 500,000 unit BUCCAL BID PRN; Protocol PRN Reason: mouth irritation Ondansetron HCl (Ondansetron Hcl 4 Mg/2 Ml Vial) 4 mg IVPUSH Q8H PRN PRN Reason: Nausea and Vomiting Last Admin: 07/07/23 01:40 Dose: 4 mg Documented By: STEFFANIE Sodium Chloride (0.9 % Sodium Chloride Flush 3 Ml Syringe) 3 ml IVFLUSH QSHIFT [facility] Last Admin: 07/07/23 08:05 Dose: 3 ml Documented By: [place] Sodium Chloride (Sodium Chloride 0.65 % Nasal 44 Ml Sprbtl) 1 spray NOSTRIL-B TID PRN PRN Reason: Dry Nasal Passages Tamsulosin HCl (Tamsulosin Hcl 0.4 Mg Capsule) 0.4 mg PO DAILY [facility] Last Admin: 07/07/23 07:54 Dose: 0.4 mg Documented By: [place] Tolterodine Tartrate (Tolterodine Tartrate La 4 Mg Cap.Er.24h) 4 mg PO BEDTIME [facility] Last Admin: 07/06/23 21:00 Dose: 4 mg Documented By: STEFFANIE Labs 07/07/23 06:00 07/07/23 06:00 Labs: Laboratory Results - last 24 hr 07/06/23 07/06/23 07/06/23 13:49 16:22 18:16 MCV 88.7 MCH 28.6 MCHC 32.2 RDW 15.9 Plt Count 157 L MPV 11.2 Immature Gran % (Auto) 0.4 Neut % (Auto) 77.1 H Lymph % (Auto) 11.6 L Rich % (Auto) 8.4 Eos % (Auto) 2.1 Baso % (Auto) 0.4 Lymph # (Auto) 0.6 L Rich # (Auto) 0.5 Eos # (Auto) 0.1 Baso # (Auto) 0.0 Abs Immat Gran (auto) 0.02 Absolute Neuts (auto) 4.1 Absolute Nucleated RBC 0.000 Nucleated RBC % (auto) 0.0 PT 14.3 H INR 1.2 H Anion Gap 16 17 Estim Creat Clear Calc 34.7 34.7 Estimated GFR 44 44 POC Glucose 226 H Random Glucose 178 H 194 H Lactic Acid 2.2 H* Lactic Acid F/U @ 2Hr 1.3 Calcium 8.4 8.4 Magnesium 1.9 Total Bilirubin 0.7 Direct Bilirubin 0.2 AST 15 ALT 7 Alkaline Phosphatase 69 B-Natriuretic Peptide 1494 H Total Protein 6.0 L Albumin 3.4 L Urine Color Urine Appearance Urine pH Ur Specific [place] Urine Protein Urine Glucose (UA) Urine Ketones Urine Blood Urine Nitrite Ur Leukocyte Esterase Urine RBC Urine WBC Ur Squamous Epith Cells Urine Bacteria Hyaline Casts Stool Occult Blood NEGATIVE Influenza Type A (PCR) NEGATIVE Influenza Type B (PCR) NEGATIVE RSV RNA Qual (PCR) NEGATIVE SARS-CoV-2 RNA (RT-PCR) NEGATIVE 07/06/23 07/06/23 07/07/23 20:37 23:06 02:00 MCV MCH MCHC RDW Plt Count MPV Immature Gran % (Auto) Neut % (Auto) Lymph % (Auto) Rich % (Auto) Eos % (Auto) Baso % (Auto) Lymph # (Auto) Rich # (Auto) Eos # (Auto) Baso # (Auto) Abs Immat Gran (auto) Absolute Neuts (auto) Absolute Nucleated RBC Nucleated RBC % (auto) PT INR Anion Gap 18 Estim Creat Clear Calc 29.2 Estimated GFR 36 POC Glucose 355 H* Random Glucose 357 H* Lactic Acid Lactic Acid F/U @ 2Hr Calcium 8.7 Magnesium Total Bilirubin Direct Bilirubin AST ALT Alkaline Phosphatase B-Natriuretic Peptide Total Protein Albumin Urine Color Yellow Urine Appearance Clear Urine pH 5.5 Ur Specific [place] 1.010 Urine Protein 30 (1+) H Urine Glucose (UA) 250 H Urine Ketones Negative Urine Blood Large (3+) H Urine Nitrite Negative Ur Leukocyte Esterase Negative Urine RBC >20 H Urine WBC 0-5 Ur Squamous Epith Cells 0-2 Urine Bacteria None Seen Hyaline Casts 0-2 Stool Occult Blood Influenza Type A (PCR) Influenza Type B (PCR) RSV RNA Qual (PCR) SARS-CoV-2 RNA (RT-PCR) 07/07/23 07/07/23 06:00 07:47 MCV 88.4 MCH 28.4 MCHC 32.2 RDW 15.7 Plt Count 151 L MPV 11.3 Immature Gran % (Auto) 0.5 H Neut % (Auto) 89.9 H Lymph % (Auto) 5.5 L Rich % (Auto) 4.1 Eos % (Auto) 0.0 Baso % (Auto) 0.0 Lymph # (Auto) 0.2 L Rich # (Auto) 0.2 Eos # (Auto) 0.0 Baso # (Auto) 0.0 Abs Immat Gran (auto) 0.02 Absolute Neuts (auto) 3.9 Absolute Nucleated RBC 0.000 Nucleated RBC % (auto) 0.0 PT INR Anion Gap 15 Estim Creat Clear Calc 30.7 Estimated GFR 38 POC Glucose 296 H Random Glucose 317 H Lactic Acid Lactic Acid F/U @ 2Hr Calcium 8.3 L Magnesium Total Bilirubin Direct Bilirubin AST ALT Alkaline Phosphatase B-Natriuretic Peptide 1270 H Total Protein Albumin Urine Color Urine Appearance Urine pH Ur Specific [place] Urine Protein Urine Glucose (UA) Urine Ketones Urine Blood Urine Nitrite Ur Leukocyte Esterase Urine RBC Urine WBC Ur Squamous Epith Cells Urine Bacteria Hyaline Casts Stool Occult Blood Influenza Type A (PCR) Influenza Type B (PCR) RSV RNA Qual (PCR) SARS-CoV-2 RNA (RT-PCR) Assessment and Plan (1) CHF exacerbation: Status: Acute Plan 78M PMH htn, hld, chornic hypoxic resp failure due to copd and ILD, DM, bladder ca, presented with sob Acute on chronic hypoxic respiratory failure due to acute on chronic diastolic CHF and interstitial lung disease/COPD with acute decompensation Prednisone, IV Lasix, wean O2 as tolerated Hypokalemia Replaced Acute kidney injury Monitor closely on diuresis Diabetes Insulin Bladder CA Outpatient follow-up DVT prophylaxis with Lovenox DNR/DNI Reason for continued hospitalization: Weaning O2 Time Spent With Patient Time: Total time managing care of this patient today ____ minutes. Quality Stroke Does the patient have a stroke diagnosis?: No VTE Prior VTE?: No VTE Risk Level:: Medical - moderate - high VTE Device Contraindication: Treatment Not Indicated VTE Drug Contraindication: N/A - Med Ordered
[2023-07-07] MEDS: predniSONE 20 MG TABLET 40 MG PO (10:34)
[2023-07-07] MEDS: Acetaminophen 325 MG TABLET 650 MG PO (11:23)
[2023-07-07 11:53] LABS: Glucose, Whole Blood 211 mg/dL (60-115)
[2023-07-07 17:07] LABS: Glucose, Whole Blood 261 mg/dL (60-115)
[2023-07-07 20:53] LABS: Glucose, Whole Blood 272 mg/dL (60-115)
[2023-07-07] MEDS: Tolterodine Tartrate LA 4 MG CAP.ER.24H PO (21:18)
[2023-07-08] VITALS (10 sets, daily range): BP systolic 117–139; BP diastolic 59–68; PULSE 77–89; RESP 18–20; TEMP 36.2–37.1; O2SAT 90–96; BMI 24.2
[2023-07-08 07:22] LABS: Glucose, Whole Blood 205 mg/dL (60-115)
[2023-07-08] MEDS: Albuterol/Iprat 2.5/0.5MG 3 ML AMPUL.NEB INHALE ×4 (07:47→21:07)
[2023-07-08] MEDS: Fluticasone/Vilanterol 100/25 BLST.W.DEV 1 PUFF INHALE (07:47)
[2023-07-08] MEDS: Insulin Lispro 100 UNIT/ML 3 ML VIAL SUBCUT ×4 (08:08→20:31)
[2023-07-08] MEDS: Furosemide 40 MG/4 ML VIAL IVPUSH (08:10)
[2023-07-08] MEDS: Loratadine 10 MG TABLET PO (08:10)
[2023-07-08] MEDS: Multivitamin TABLET 1 TAB PO (08:10)
[2023-07-08] MEDS: guaiFENesin LA 600 MG TAB.ER.12H PO ×2 (08:10→20:31)
[2023-07-08] MEDS: Tamsulosin HCL 0.4 MG CAPSULE PO (08:10)
[2023-07-08] MEDS: predniSONE 20 MG TABLET 40 MG PO (08:10)
[2023-07-08] MEDS: 0.9 % Sodium Chloride Flush 3 ML SYRINGE IVFLUSH ×3 (08:21→20:31)
--- NOTE | 2023-07-08 08:36 | P.CDIM_ITS ---
PROVIDER RESPONSE TEXT: To clarify, the appropriate diagnosis supported by the clinical indicators: Diabetes mellitus Type 2 with hyperglycemia QUERY TEXT: PHYSICIAN'S DOCUMENTATION REQUEST Date of Query: 07/08/2023 08:28 AM EDT Patient Name: Emmett Hernandez Admit Date: 07/06/2023 Dear David Valdez, A review of the medical record indicates additional documentation may be needed. Please review below and update the documentation accordingly. Clinical Indicators: LAB FINDINGS: POC glucose 355 H Diabetes mellitus type 2 Humalog on sliding scale Please clarify the following regarding the Complications of Diabetes Mellitus (DM): Diabetes mellitus Type 2 with hyperglycemia Other please specify Other (explain)Clinically unable to determine (explain)Thank you, Ethel Bradley, CCS, CDIS Use of terms such as suspected, likely, concern for, or probable (associated with a specific diagnosi s that is being evaluated, monitored, or treated as if it exists) are acceptable and can be coded in the inpatient se tting, when documented at the time of discharge. Please use your independent medical judgment in providing your response. THIS QUERY IS PART OF THE PERMANENT MEDICAL RECORD
--- NOTE | 2023-07-08 08:38 | MHC.CM.PN ---
CM met with Patient at bedside and addressed IMM with him, providing Patient with the original and placing a copy on the chart. Patient lives in a house with his and he uses home O2 from [facility] [place] and is active with [employer] [facility]. Home/resume said services is the goal and CM has initiated and will follow for dc planning. PCP is Dr. Jass Klein and Patient's Granddaughter/Daya is the HCP.
--- NOTE | 2023-07-08 08:43 | P.CDIM_ITS ---
PROVIDER RESPONSE TEXT: To clarify, the appropriate diagnosis supported by the clinical indicators: Pressure (decubitus) ulcer/injury Stage 2 coccyx QUERY TEXT: PHYSICIAN'S DOCUMENTATION REQUEST Date of Query: 07/08/2023 08:31 AM EDT Patient Name: Emmett Hernandez Admit Date: 07/06/2023 Dear David Valdez, A review of the medical record indicates additional documentation may be needed. Please review below and update the documentation accordingly. Clinical Indicators: Wound care nursing notes 07/07 - Pressure injury coccyx Stage 2 Foam dressing Barrier cream applied as well Based on the above, could you please provide further information regarding the ulcer/wound/injury: Pressure (decubitus) ulcer/injury Stage 2 coccyx Other please specify Other (explain)Clinically unable to determine (explain)Thank you, Ethel Bradley, CCS, CDIS Use of terms such as suspected, likely, concern for, or probable (associated with a specific diagnosi s that is being evaluated, monitored, or treated as if it exists) are acceptable and can be coded in the inpatient se tting, when documented at the time of discharge. Please use your independent medical judgment in providing your response. THIS QUERY IS PART OF THE PERMANENT MEDICAL RECORD
--- NOTE | 2023-07-08 09:08 | P.PNIM_ITS ---
Subjective Subjective Date of Service: 07/08/23 Interval History: sob Neurologic Neurologic: Denies Abnormal speech present Physical Exam 2 Vital Signs: Vital Signs: Last Vital Signs Temp 97.3 F 07/08/23 07:42 Pulse 78 07/08/23 07:48 Resp 18 07/08/23 07:48 BP 139/65 07/08/23 07:42 Pulse Ox 95 07/08/23 07:42 O2 Del Method Nasal Cannula 07/08/23 04:00 O2 Flow Rate 2 07/08/23 04:00 BMI result Body Mass Index 24.2 Const: General: cooperative, healthy appearing, comfortable and no acute distress Orientation/consciousness: patient oriented x3 Limitations: no limitations HEENT: Head: Yes normal to inspection Ears: hearing grossly normal bilaterally General nose exam: Normal external nose present Face and sinus: Yes normal facial exam Mouth: Normal oral and palatal mucosa present Throat: Yes posterior oropharynx normal Eyes: General: appearance normal, both eyes and all related structures P upils: Equal, round and reactive pupils present Neck: Neck: Yes normal visual inspection Chest: Chest palpation & inspection: normal inspection of the chest Resp: Effort & Inspection: normal respiratory effort Auscultation: crackles and wheezes Cardio: Rate: regular rate Rhythm: regular rhythm Peripheral pulses: P eripheral pulses 2+ throughout GI: Inspection: Yes normal to inspection Palpation (GI): Soft to palpation and nontender Auscultation: normal bowel sounds Back/Spine/Pelvis: Thoracic/Lumbar Spine: thoracic and lumbar spine normal to inspection Skin: General skin exam: no rashes or lesions noted Neuro: General: patient oriented x3, no focal motor deficits and normal sensation to monofilament Cranial nerves: Yes Equal, round and reactive pupils present Cognition (Neuro): normal cognition Speech: No Abnormal speech present Gait exam (Neuro): Normal gait present Motor exam (neuro): 5/5 motor strength present throughout Extrem: General: Yes normal to inspection, Yes no calf tenderness and Yes pedal edema (1+pittting bilateral) Objective Data Active Medications Acetaminophen (Acetaminophen 325 Mg Tablet) 650 mg PO Q6H PRN PRN Reason: Pain, Mild (Pain Scale 1-3) Last Admin: 07/07/23 11:23 Dose: 650 mg Documented By: [place] Albuterol Sulfate (Albuterol Sulfate 90 Mcg 8 Gm Inhaler) 2 puff INHALE QID PRN PRN Reason: shortness of breath or wheezing Albuterol/Ipratropium (Albuterol/Iprat 2.5/0.5mg 3 Ml Ampul.Neb) 3 ml INHALE RQ4H WHILE AWAKE [facility] Last Admin: 07/08/23 07:47 Dose: 3 ml Documented By: HORTENSIA Dextrose (Dextrose 50 % 25 Gm/50 Ml Syringe) 25 gm IVPUSH Q15M PRN; Protocol PRN Reason: per Hypoglycemia Standing Ord. Docusate Sodium (Docusate Sodium 100 Mg Capsule) 100 mg PO DAILY PRN PRN Reason: Constipation Fluticasone Propionate (Fluticasone Propionate Nasal 16 Gm [place]) 1 spray NOSTRIL-B DAILY PRN PRN Reason: Cold Symptoms Fluticasone/Vilanterol (Fluticasone/Vilanterol 100/25 Blst.W.Dev) 1 puff INHALE RDAILY [facility] Last Admin: 07/08/23 07:47 Dose: 1 puff Documented By: HORTENSIA Furosemide (Furosemide 40 Mg/4 Ml Vial) 40 mg IVPUSH DAILY [facility]; Protocol Last Admin: 07/08/23 08:10 Dose: 40 mg Documented By: MARION Glucose (Glucose Gel 15 Gm Gel..Gram.) 15 gm PO Q15M PRN; Protocol PRN Reason: per Hypoglycemia Standing Ord. Guaifenesin (Guaifenesin La 600 Mg Tab.Er.12h) 600 mg PO BID [facility] Last Admin: 07/08/23 08:10 Dose: 600 mg Documented By: MARION Insulin Human Lispro (Insulin Lispro 100 Unit/Ml 3 Ml Vial) 0 unit SUBCUT QIDACHS [facility]; Protocol Last Admin: 07/08/23 08:08 Dose: 4 unit Documented By: MARION Loratadine (Loratadine 10 Mg Tablet) 10 mg PO DAILY [facility] Last Admin: 07/08/23 08:10 Dose: 10 mg Documented By: MARION Multivitamins/Vitamin C (Multivitamin Tablet) 1 tab PO DAILY [facility] Last Admin: 07/08/23 08:10 Dose: 1 tab Documented By: MARION Nystatin (Nystatin Oral Susp 500,000 Unit/5 Ml Oral.Susp) 500,000 unit BUCCAL BID PRN; Protocol PRN Reason: mouth irritation Ondansetron HCl (Ondansetron Hcl 4 Mg/2 Ml Vial) 4 mg IVPUSH Q8H PRN PRN Reason: Nausea and Vomiting Last Admin: 07/07/23 01:40 Dose: 4 mg Documented By: STEFFANIE Prednisone (Prednisone 20 Mg Tablet) 40 mg PO DAILY [facility] Last Admin: 07/08/23 08:10 Dose: 40 mg Documented By: MARION Sodium Chloride (0.9 % Sodium Chloride Flush 3 Ml Syringe) 3 ml IVFLUSH QSHIFT [facility] Last Admin: 07/08/23 08:21 Dose: 3 ml Documented By: MARION Sodium Chloride (Sodium Chloride 0.65 % Nasal 44 Ml Sprbtl) 1 spray NOSTRIL-B TID PRN PRN Reason: Dry Nasal Passages Tamsulosin HCl (Tamsulosin Hcl 0.4 Mg Capsule) 0.4 mg PO DAILY [facility] Last Admin: 07/08/23 08:10 Dose: 0.4 mg Documented By: MARION Tolterodine Tartrate (Tolterodine Tartrate La 4 Mg Cap.Er.24h) 4 mg PO BEDTIME [facility] Last Admin: 07/07/23 21:18 Dose: 4 mg Documented By: ROSIO Labs 07/07/23 06:00 07/07/23 06:00 Labs: Laboratory Results - last 24 hr 07/07/23 07/07/23 07/07/23 11:50 16:58 20:45 POC Glucose 211 H 261 H 272 H 07/08/23 07:06 POC Glucose 205 H Microbiology Microbiology Results: Microbiology 07/06/23 14:19 Blood Culture - Preliminary Blood - Venous No growth after 24 hours. 07/06/23 13:49 Blood Culture - Preliminary Blood - Venous No growth after 24 hours. Assessment and Plan (1) CHF exacerbation: Status: Acute Plan 78M PMH htn, hld, chornic hypoxic resp failure due to copd and ILD, DM, bladder ca, presented with sob Acute on chronic hypoxic respiratory failure due to acute on chronic diastolic CHF and interstitial lung disease/COPD with acute decompensation Prednisone, IV Lasix, wean O2 as tolerated, still sob, cough Hypokalemia Replaced Acute kidney injury Monitor closely on diuresis Diabetes Insulin Bladder CA Outpatient follow-up DVT prophylaxis with Lovenox DNR/DNI Reason for continued hospitalization: Weaning O2 Time Spent With Patient Time: Total time managing care of this patient today ____ minutes. Quality Stroke Does the patient have a stroke diagnosis?: No VTE Prior VTE?: No VTE Risk Level:: Medical - moderate - high VTE Device Contraindication: Treatment Not Indicated VTE Drug Contraindication: N/A - Med Ordered
[2023-07-08] MEDS: Docusate Sodium 100 MG CAPSULE PO (10:12)
[2023-07-08] MEDS: Acetaminophen 325 MG TABLET 650 MG PO (10:12)
[2023-07-08 11:25] LABS: Glucose, Whole Blood 234 mg/dL (60-115)
--- NOTE | 2023-07-08 12:26 | MHC.CLN ---
RE: CONSULT PT WITH INCREASED NUTRITION RISK R/T PRESSURE INJURY PO INTAKE 100% X 1 MEAL DIET RX: 2000DM CARDIAC-APPROPRIATE RECOMMEND ADDING GELATEIN TO PROMOTE WOUND HEALING SUPP TO PROVIDE 480KCALS, 60G PROTEIN MONITOR PO INTAKE AND SUPPLEMENT ACCEPTANCE SEE ALSO FULL CLINICAL NUTRITION ASSESSMENT
[2023-07-08 16:23] LABS: Glucose, Whole Blood 333 mg/dL (60-115)
[2023-07-08 20:15] LABS: Glucose, Whole Blood 289 mg/dL (60-115)
[2023-07-08] MEDS: Tolterodine Tartrate LA 4 MG CAP.ER.24H PO (20:30)
[2023-07-09 03:33] VITALS: BP 142/78; PULSE 89; RESP 18; TEMP 37.1; O2SAT 91
[2023-07-09 06:37] LABS: Hematocrit 26.8 % (42.0-52.0); Hemoglobin 8.7 g/dl (14.0-18.0); Mean Corpuscular HGB Conc 32.5 g/dl (31.0-36.0); Mean Corpuscular Hemoglobin 29.3 pg (27.0-33.0); Mean Corpuscular Volume 90.2 fL (80.0-98.0); Mean Platelet Volume 11.3 fL (9.4-12.4); Platelet Count 137 X10*3/uL (160-400); Red Blood Count 2.97 X10*6/uL (4.60-5.80); Red Cell Distribution Width 15.8 % (11.0-16.0); White Blood Count 6.4 X10*3/uL (4.8-10.8)
[2023-07-09 06:57] LABS: Anion Gap 15 (12-20); Blood Urea Nitrogen 46 mg/dL (9-16); Calcium 8.7 mg/dL (8.4-10.2); Carbon Dioxide 26 mmol/L (22-29); Chloride 105 mmol/L (96-108); Creatinine Clr Calc Pharmacy 34.5; Estimated Glomerular Filt Rate 44; Glucose Fasting 224 mg/dL (60-99); Potassium 4.1 mmol/L (3.3-5.1); Sodium 142 mmol/L (135-145)
[2023-07-09 07:11] VITALS: BP 149/68; PULSE 76; RESP 20; TEMP 36.6; O2SAT 92
[2023-07-09] MEDS: Fluticasone/Vilanterol 100/25 BLST.W.DEV 1 PUFF INHALE (07:27)
[2023-07-09] MEDS: Albuterol/Iprat 2.5/0.5MG 3 ML AMPUL.NEB INHALE ×2 (07:27→11:02)
[2023-07-09 07:29] VITALS: PULSE 76; RESP 18; O2SAT 99
[2023-07-09] MEDS: Tamsulosin HCL 0.4 MG CAPSULE PO (07:40)
[2023-07-09] MEDS: guaiFENesin LA 600 MG TAB.ER.12H PO (07:40)
[2023-07-09] MEDS: predniSONE 20 MG TABLET 40 MG PO (07:40)
[2023-07-09] MEDS: Loratadine 10 MG TABLET PO (07:40)
[2023-07-09] MEDS: Insulin Lispro 100 UNIT/ML 3 ML VIAL SUBCUT ×2 (07:41→11:55)
[2023-07-09] MEDS: Furosemide 40 MG/4 ML VIAL IVPUSH (07:41)
[2023-07-09] MEDS: Multivitamin TABLET 1 TAB PO (07:41)
[2023-07-09 07:47] LABS: Glucose, Whole Blood 194 mg/dL (60-115)
[2023-07-09 08:56] VITALS: PULSE 76
[2023-07-09] MEDS: 0.9 % Sodium Chloride Flush 3 ML SYRINGE IVFLUSH (09:07)
--- NOTE | 2023-07-09 09:10 | HO.WOUND ---
Wound Consult: Initial 78yr old male admitted [place] [facility]07[place]06/23 16:25 - See progress notes and H&P for detailed history. Arrival to bedside - pt was agreeable to assessment and photo documentation. Pt reports he is incontinent at baseline for urine. Pt wears a brief at all times. MASD (Moisture Asscociate skin Damage) - IAD (Incontinence Associated Dermatitis) Scrotum Red pink tender blanchable erythema intact tissue No induration no fluctuance noted Goal: Triad to protect from Moisture Coccyx Etiology: Unstageable Pressure Injury POA (Present on Admission) Measurements: 1cm x 0.6cm x 0.2cm Wound Bed: Adherent yellow slough - Moist Drainage / Odor: Scant serous drainage Edges: ? well defined [place] wound: Red pink blanchable erythema with macerated edges No Induration, No Fluctuance, No Warmth Pain: Pain reported Goals of Treatment: Triad to aid in Autolytic debridement and moist wound healing - Foam to aid in off loading pressure Recommendations: 1. Turn and Reposition every 2 hours and as needed for patient comfort consider use of wedges available in the storeroom. 2. Off Load all bony prominences with use of pillows, wedges and heel boots. Waffle cushion provided to patient while in chair. Limit sit time 1-2 hrs. 3. Monitor for incontinence and moisture control. 4. Provide adequate and supplemental nutrition. 5. Order low air loss mattress. 6. Maintain blood glucose levels per Providers orders. 7. Scrotum - Cleanse with routine bathing - Apply a layer of Triad to protect from moisture. Apply twice a day. 8. Coccyx - Off Load Pressure - Cleanse with PH balance spray, pat dry. ?Apply thin layer of Triad to wound bed - only pat and dab no scrub and rub when soiling occurs. Apply Foam dressing over Triad to aid in off loading. Change Daily. Re-consult wound care Nurse for wound deterioration or wound changes.
--- NOTE | 2023-07-09 10:19 | MHC.CM.PN ---
Per ROUNDS discussion, Patient will be medically cleared for dc to home today, with services. Patient is active with Adrian MENCHACA, who has been notified of today's dc. Last IMM addressed yesterday.
[2023-07-09 11:03] VITALS: PULSE 81; RESP 18; O2SAT 96
--- NOTE | 2023-07-09 11:04 | PM.DS ---
DS: Providers Provider Date of Service: 07/09/23 Date of admission: 07/06/23 16:25 Primary care physician: Jass Klein MD Consults: 07/06/23 21:12 Consult to Wound Care Routine Reason for consultation: pressure injury to coccxy Has provider been notified: Yes DS: Diagnosis Discharge Diagnosis (1) CHF exacerbation: Status: Acute DS: Summary Hospital Course Hospital Course: from initial hpi: 78-year-old male with history of hypertension, hyperlipidemia, interstitial lung disease, NIDDM, pulmonary fibrosis, COPD, bladder cancer presents to the ED earlier today for evaluation of left-sided chest pain that he describes as sharp and pleuritic in nature that occurred this morning is since resolved. He is also reporting a dyspnea on exertion and orthopnea that worsened acutely last night. He has also had significant increase in bilateral lower extremity edema. Unsure if he has gained any weight. He reports an occasional productive cough but states this is baseline. He is also reporting xerostomia. Denies any fevers, chills, sick contacts, abdominal pain, nausea, vomiting, diarrhea, lightheadedness, headaches, or retrosternal chest pressure. He does report history of p.r.n. supplemental oxygen use but states in recent history has not needed this. He was recently admitted for acute on chronic hypoxic respiratory failure secondary to pneumonia and COPD/interstitial lung disease decompensation treated with IV steroids, antibiotics and nebulizers and was discharged home on antibiotics and steroids. He was also discharged on p.r.n. Lasix which he has been taking on a daily basis but states he ran out of the medication several days ago. On arrival, vital signs stable though intermittently tachypneic to 26. There is no leukocytosis. Creatinine elevated from baseline 0.90. BUN 21. Electrolyte levels normal except for hypokalemia of 2.9. Initial lactic acid 2.2, repeat 1.3. Initial troponin 31.8, repeat pending. BNP 1494. Negative for COVID, influenza, RSV. Chest x-ray formally read as no acute abnormality but with chronic lung changes. However, compared to prior imaging studies, does have increased pulmonary vascular prominence. In the ED, given 40 mg IV Lasix, 2 g IV magnesium, 2 g cefepime, IV NS, IV potassium, 125 mg IV methylprednisolone, and 40 mg KCL ER. hospital course: Patient was admitted for acute on chronic hypoxic respiratory failure due to acute on chronic diastolic CHF and interstitial lung disease/COPD with acute decompensation. He was treated with prednisone, IV Lasix, his O2 was weaned to baseline. On discharge he will be given 5 more days of prednisone. He had acute hypokalemia which was replaced. He had acute kidney injury which remains stable at around 1.54 creatinine. For diabetes continue insulin. For bladder cancer will follow up outpatient. Patient is feeling back to baseline and will be discharged home. Time Spent with Patient Time attestation: Total time managing care of this patient today ____ minutes. Discharge coordination time: Greater than 30 minutes Quality: Safe Use of Opioids Does Pt have an Active Cancer Diagnosis on the Problem List?: No Quality: Stroke Does the patient have a stroke diagnosis?: No Physical Exam Vital Signs: Vital Signs: Last Vital Signs Temp 97.9 F 07/09/23 07:11 Pulse 81 07/09/23 11:03 Resp 18 07/09/23 11:03 BP 149/68 H 07/09/23 07:11 Pulse Ox 92 07/09/23 07:11 O2 Del Method Nasal Cannula 07/09/23 07:11 O2 Flow Rate 3 07/09/23 07:11 BMI result Body Mass Index 24.2 Const: General: cooperative, healthy appearing, comfortable and no acute distress Orientation/consciousness: patient oriented x3 Limitations: no limitations HEENT: Head: Yes normal to inspection Ears: hearing grossly normal bilaterally General nose exam: Normal external nose present Face and sinus: Yes normal facial exam Mouth: Normal oral and palatal mucosa present Throat: Yes posterior oropharynx normal Eyes: General: appearance normal, both eyes and all related structures Pupils: Equal, round and reactive pupils present Neck: Neck: Yes normal visual inspection Chest: Chest palpation & inspection: normal inspection of the chest Resp: Effort & Inspection: normal respiratory effort Auscultation: crackles and wheezes Cardio: Rate: regular rate Rhythm: regular rhythm Peripheral pulses: Peripheral pulses 2+ throughout GI: Inspection: Yes normal to inspection Palpation (GI): Soft to palpation and nontender Auscultation: normal bowel sounds Back/Spine/Pelvis: Thoracic/Lumbar Spine: thoracic and lumbar spine normal to inspection Skin: General skin exam: no rashes or lesions noted Neuro: General: patient oriented x3, no focal motor deficits and normal sensation to monofilament Cranial nerves: Yes Equal, round and reactive pupils present Cognition (Neuro): normal cognition Speech: No Abnormal speech present Gait exam (Neuro): Normal gait present Motor exam (neuro): 5/5 motor strength present throughout Extrem: General: Yes normal to inspection, Yes no calf tenderness and Yes pedal edema (1+pittting bilateral) DS: Data Data Completed and Pending Completed studies during hospitalization [Text1]: Procedures Introduction of Remdesivir Anti-infective into Peripheral Vein, Percutaneous Approach, [employer] 5 (04/22/23) Labs on day of discharge: Laboratory Results - last 24 hr 07/08/23 07/08/23 07/08/23 11:10 16:16 20:11 WBC RBC Hgb Hct MCV MCH MCHC RDW Plt Count MPV Absolute Nucleated RBC Nucleated RBC % (auto) Sodium Potassium Chloride Carbon Dioxide Anion Gap BUN Creatinine Estim Creat Clear Calc Estimated GFR POC Glucose 234 H 333 H 289 H Fasting Glucose Calcium 07/09/23 07/09/23 05:36 07:18 WBC 6.4 RBC 2.97 L Hgb 8.7 L Hct 26.8 L MCV 90.2 MCH 29.3 MCHC 32.5 RDW 15.8 Plt Count 137 L MPV 11.3 Absolute Nucleated RBC 0.000 Nucleated RBC % (auto) 0.0 Sodium 142 Potassium 4.1 Chloride 105 Carbon Dioxide 26 Anion Gap 15 BUN 46 H Creatinine 1.54 H Estim Creat Clear Calc 34.5 Estimated GFR 44 POC Glucose 194 H Fasting Glucose 224 H Calcium 8.7 Preliminary micro results at discharge 07/06/23 14:19 Blood Culture - Preliminary Blood - Venous No growth after 48 hours. 07/06/23 13:49 Blood Culture - Preliminary Blood - Venous No growth after 48 hours. Discharge Plan Discharge Anticipated Discharge Date/Time: 07/09/23 11:02 Patient Disposition: Home Health Service Discharge Diagnosis: ild, Referrals: Jass Klein MD [Primary Care Provider] - 1 Week Discharge Medications: New prednisone 20 mg Tablet 40 mg PO DAILY Qty: 10 0RF Continued nystatin 100,000 unit/mL suspension 500,000 unit buccal BID PRN (Reason: moth irritation) 10 Days Qty: 60 0RF Rx Instructions: administer 1/2 of dose in each side of the mouth tamsulosin 0.4 mg capsule 0.4 mg PO QAM furosemide 20 mg tablet 20 mg PO QAM solifenacin [Vesicare] 5 mg tablet 5 mg PO BEDTIME albuterol sulfate [ProAir HFA] 90 mcg/actuation HFA aerosol inhaler 2 puff inhalation QID PRN (Reason: shortness of breath or wheezing) Qty: 8.5 0RF multivitamin Tablet 1 tab PO DAILY acetaminophen 500 mg Tablet 1,000 mg PO BID PRN (Reason: Headache) Probiotic 1 cap PO DAILY cetirizine 10 mg tablet 10 mg PO DAILY fluticasone propionate 50 mcg/actuation spray,suspension 1 spray intranasal DAILY PRN (Reason: Cold Symptoms) ipratropium-albuterol 0.5 mg-3 mg(2.5 mg base)/3 mL Solution For Nebulization 3 ml inhalation RQ4H WHILE AWAKE 30 Days Qty: 180 1RF guaifenesin [Mucinex] 600 mg Tablet Extended Release 12hr 600 mg PO BID Qty: 20 0RF fluticasone propion-salmeterol [Wixela Inhub] 250-50 mcg/dose blister with device 1 ea inhalation Q12H sodium chloride 0.9 % aerosol,spray 1 spray intranasal TID PRN (Reason: Dry Nasal Passages) Discharge Orders: Discharge Order (Routine); Ordered 07/09/23 Ordered By: David Valdez Diet: Advance to usual diet Activity on Discharge: As tolerated Stand Alone Forms: Patient Portal Discharge page Activity Restrictions/Additional Instructions: Wound Care Recommendations: 1. Turn and Reposition every 2 hours and as needed for patient comfort consider use of pillows. 2. Off Load all bony prominences with use of pillows. Waffle cushion provided to patient while in chair. Limit sit time 1-2 hrs. Pt given waffle cushion for home use while up in chair. 3. Monitor for incontinence and moisture control - apply barrier creams to scrotum. Change brief once soiled. 4. Provide adequate and supplemental nutrition. 5. Order low air loss mattress while in the hospital. 6. Maintain blood glucose levels per Providers orders. 7. Scrotum - Cleanse with routine bathing - Apply a layer of Triad to protect from moisture. Apply twice a day. 8. Coccyx - Off Load Pressure - Cleanse with PH balance spray, pat dry. ?Apply thin layer of Triad to wound bed - only pat and dab no scrub and rub when soiling occurs. Apply Foam dressing over Triad to aid in off loading. Change Daily. Care Plan Goals: recovery Health Concerns: ild, chf Plan of Treatment: 5 days prednisone Assessment: see above
[2023-07-09 11:41] VITALS: BP 134/63; PULSE 85; RESP 20; TEMP 36.4; O2SAT 92
[2023-07-09 11:43] LABS: Glucose, Whole Blood 278 mg/dL (60-115)
--- NOTE | 2023-07-09 12:25 | P.F2F_ITS ---
Service Date Service Date: 07/09/23 Encounter Date of encounter: 07/09/23 Reasons for Services Signs and symptoms assessed: sob on exertion Reason for long term: medication management, medication treatment and teach disease management Homebound: Leaving the home is medically contraindicated at this time without the asist of a device and/or another person due th the listed conditions above and below. Reason homebound: shortness of breath with minimal effort Certification: Based on the above findings, I certify that this patient is confined to the home and needs intermittent long term care, physical therapy and/or speech therapy, or continues to need occupational therapy. The patient is under my care, and I have initiated the establishment of the plan of care. The patient will be followed by a physician who will periodically review the plan of care. Time Spent With Patient Time: Total time managing care of this patient today ____ minutes.
== END 2023-07-09 12:51 | disposition home health service (06) | DRG 291 ==
LOC: HO.ED 15:11 → HO.EDOVER 16:37 → HO.IMC 19:26
PROVIDERS: Nurse Practitioner Family; Admitting Provider Physician Assistant; Emergency Provider Student in an Organized Health Care Education/Training Program; PCP Internal Medicine; Visit Provider Internal Medicine
DX: I13.0 Hypertensive heart and chronic kidney disease with heart failure and stage 1 through stage 4 chronic kidney disease, or unspecified chronic kidney disease (principal); I50.33 Acute on chronic diastolic (congestive) heart failure; J96.21 Acute and chronic respiratory failure with hypoxia; N17.9 Acute kidney failure, unspecified; N18.9 Chronic kidney disease, unspecified; E11.22 Type 2 diabetes mellitus with diabetic chronic kidney disease; I27.20 Pulmonary hypertension, unspecified; E87.6 Hypokalemia; Z66 Do not resuscitate; E11.65 Type 2 diabetes mellitus with hyperglycemia; C67.9 Malignant neoplasm of bladder, unspecified; J44.9 Chronic obstructive pulmonary disease, unspecified; L89.152 Pressure ulcer of sacral region, stage 2; Z87.891 Personal history of nicotine dependence; Z20.822 Contact with and (suspected) exposure to COVID-19; Z99.81 Dependence on supplemental oxygen; Z79.51 Long term (current) use of inhaled steroids; Z79.899 Other long term (current) drug therapy
CPT/HCPCS: 0241U; 36415; 71045; 80048; 80076; 81001; 82272; 82947; 83605; 83735; 83880; 84484; 85025; 85027; 85610; 87040; 93005; 94640; 97162; 99285; C1758; J0692; J1940; J2405; J2930; J3475

== ENCOUNTER → 2023-07-06 16:25 | Outpatient (BNV) | payer MEDICARE, SELFPAY | PROVIDERS: Admitting Provider Physician Assistant; Emergency Provider Student in an Organized Health Care Education/Training Program; Visit Provider Physician Assistant | DX: I50.9 Heart failure, unspecified (principal) | CPT/HCPCS: 99223; 99232; 99233; 99239; G0180 ==

== ENCOUNTER 2023-07-09 13:07 | Outpatient (REF) | payer SELFPAY | END 2023-07-09 13:08 | disposition home or self-care (01) | LOC: HO.HAP 13:07 | PROVIDERS: Visit Provider Internal Medicine | DX: Z46.1 Encounter for fitting and adjustment of hearing aid (principal); H90.6 Mixed conductive and sensorineural hearing loss, bilateral | CPT/HCPCS: V5266 ==

== ENCOUNTER 2023-07-17 08:07 | Outpatient (REF) | payer MEDICARE, SELFPAY ==
[2023-07-17 08:45] LABS: MANUAL DIFF FLAG NO
[2023-07-17 09:10] LABS: Basophils Percent Auto 0.1 % (0-2); Eosinophils Absolute Auto 0.1 X10*3/uL (0.0-0.4); Eosinophils Percent Auto 0.7 % (0-4); Hemoglobin 10.9 g/dl (14.0-18.0); Imm Gran Abs Auto 0.11 X10*3/uL (0.00-0.03); Imm Gran Pct Auto 1.2 % (0.0-0.4); Lymphocytes Absolute Auto 0.6 X10*3/uL (1.2-4.9); Lymphocytes Percent Auto 5.9 % (20-40); Mean Corpuscular HGB Conc 32.1 g/dl (31.0-36.0); Mean Corpuscular Hemoglobin 29.5 pg (27.0-33.0); Mean Corpuscular Volume 91.9 fL (80.0-98.0); Mean Platelet Volume 10.6 fL (9.4-12.4); Monocytes Absolute Auto 0.7 X10*3/uL (0.1-1.2); Monocytes Percent Auto 6.9 % (2-11); Neutrophils Percent Auto 85.2 % (45-73); Platelet Count 159 X10*3/uL (160-400); Red Cell Distribution Width 16.1 % (11.0-16.0); White Blood Count 9.4 X10*3/uL (4.8-10.8)
[2023-07-17 09:42] LABS: Alanine Aminotransferase 14 U/L (0-40); Albumin Level 3.6 g/dL (3.5-5.0); Alkaline Phosphatase 71 U/L (39-117); Anion Gap 14 (12-20); Aspartate Amino Transferase 13 U/L (5-37); Bilirubin Total 0.9 mg/dL (0.0-1.0); Blood Urea Nitrogen 26 mg/dL (9-16); Calcium 8.7 mg/dL (8.4-10.2); Carbon Dioxide 30 mmol/L (22-29); Chloride 106 mmol/L (96-108); Cholesterol 217 mg/dL (<200); Estimated Glomerular Filt Rate 38; Glucose Fasting 148 mg/dL (60-99); HDL Cholesterol 42 mg/dL (>40); LDL Cholesterol Calculated 142 mg/dL (<100); Potassium 2.6 mmol/L (3.3-5.1); Sodium 147 mmol/L (135-145); Total Protein 6.2 g/dL (6.5-8.0); Triglycerides 165 mg/dL (<150)
[2023-07-17 09:49] LABS: Thyroid Stimulating Hormone 0.97 uIU/mL (0.32-4.0)
== END 2023-07-17 08:08 | disposition home or self-care (01) ==
LOC: HO.LAB 08:07
PROVIDERS: PCP Internal Medicine; Visit Provider Internal Medicine
DX: N28.9 Disorder of kidney and ureter, unspecified (principal); E78.5 Hyperlipidemia, unspecified; E03.9 Hypothyroidism, unspecified; D64.9 Anemia, unspecified
CPT/HCPCS: 36415; 80053; 80061; 84443; 85025

== ENCOUNTER 2023-07-17 14:34 | Outpatient (REF) | payer SELFPAY | END 2023-07-17 14:35 | disposition home or self-care (01) | LOC: HO.HAP 14:34 | PROVIDERS: Visit Provider Internal Medicine | DX: Z46.1 Encounter for fitting and adjustment of hearing aid (principal); H90.6 Mixed conductive and sensorineural hearing loss, bilateral | CPT/HCPCS: 92592; V5299 ==

== ENCOUNTER 2023-07-18 14:34 | Outpatient (AMB) | payer MEDICARE, SELFPAY ==
[2023-07-18 14:35] VITALS: BP 138/68; PULSE 78; O2SAT 100; BMI 24.7
--- NOTE | 2023-07-18 14:35 | A.OFFPC_ITS ---
Vital Signs 07/18/23 14:35 Height 5 ft 6 in Weight 153 lb BMI 24.7 BP 138/68 Blood Pressure Location Lt brachial Position Sitting Pulse 78 Pulse Source Pulse Oximeter Pulse Oximetry (%) 100 Oxygen Delivery Method Room Air Intake Visit Reasons: [facility] [place] 07/06 Chest pain , breathing issues Credit Assistant Required: No Clamp Operator: Present Allergies Seasonal Allergies Allergy (Verified 07/18/23 14:36) Sneezing Medication List - Last Reconciled 07/18/23 by Jass Klein MD acetaminophen 1,000 mg PO BID PRN albuterol sulfate 90 mcg/actuation (ProAir HFA) 2 puffs inhalation QID PRN cetirizine 10 mg PO DAILY fluticasone propion-salmeterol 250-50 mcg/dose (Wixela Inhub) 1 ea inhalation Q12H fluticasone propionate 50 mcg/actuation 1 spray intranasal DAILY PRN furosemide 20 mg PO QAM guaifenesin ER (Mucinex) 600 mg PO BID ipratropium-albuterol 0.5 mg-3 mg(2.5 mg base)/3 mL 3 mL inhalation RQ4H WHILE AWAKE 30 days multivitamin 1 tab PO DAILY nystatin 500,000 units (5 mL) buccal BID PRN 10 days prednisone 40 mg (2 x 20 mg) PO DAILY [Probiotic 1 cap PO DAILY] silicone,dressing-foam bandage 6 X 6 As directed sodium chloride 0.9% 1 spray intranasal TID PRN solifenacin (Vesicare) 5 mg PO BEDTIME tamsulosin 0.4 mg PO QAM Tobacco use date assessed: 04/19/23 Fall risk assessment: No Falls in past year Last assessed Fall Risk: 07/18/23 Dental Screening Dental Screen Date: 07/18/23 Did you have a dental visit in the last 12 months?: Yes Did you have a dental problem in the last 6 months where you did not have access to dental care?: No Was dental information given to patient?: Patient has dentist HPI [facility] [place] 07/06 Chest pain , breathing issues HPI Details severe dyspnea on 02; K was 2.4; has COPD and cor pulmonale with chf PFSH Medical History Urinary incontinence Chronic interstitial lung disease Bladder cancer COPD exacerbation COVID-19 virus infection Viral syndrome Acute respiratory failure with hypoxemia IPF (idiopathic pulmonary fibrosis) Muscle spasms of both lower extremities Cataracts, bilateral Interstitial lung disease HTN (hypertension) HLD (hyperlipidemia) Surgical History Hx of sinus surgery Family History Father Stomach cancer Mother No problems noted. Social History Household Members: Spouse Housing: House Do you presently have visiting nurse or other home services: Yes Alcohol intake: never Patient Tobacco Use Status: Former Tobacco user Quit Date: age 70 Tobacco use type: Cigarette Years Smoked: 61 e-Cigarette/Vaping Use: Never Used Second Hand Smoke Exposure: No Advance Directives Date on File: 02/15/23 service: No Current occupational status: employed Cognitive needs: No Hearing needs: Yes (hearing aides) Vision needs: No Questionnaire PHQ-9 Over the last 2 weeks, how often have you been bothered by any of the following problems? 1. Little interest or pleasure in doing things: not at all 2. Feeling down, depressed, or hopeless: not at all 3. Trouble falling or staying asleep, or sleeping too much: not at all 4. Feeling tired or having little energy: not at all 5. Poor appetite or overeating: not at all 6. Feeling bad about yourself - or that you are a failure or have let yourself or your family down: not at all 7. Trouble concentrating on things, such as reading the newspaper or watching television: not at all 8. Moving or speaking so slowly that other people could have noticed. Or the opposite - being so fidgety or restless that you have been moving around a lot more than usual: not at all 9. Thoughts that you would be better off or of hurting yourself in some way: not at all Total score: 0 Depression Screening Interpretation: Negative Depression Screening Done: Yes 91065 - PHQ-9 Billing: Yes Source: Developed by Drs. Mehrdad Pierce, Cathi Poon, Johnathon Lopez and colleagues, with an educational kamran from [employer]. Thrive Questionnaire Date Thrive assessed: 07/08/23 AUDIT C Alcohol Use Questionnaire (AUDIT-C) 1. How often do you have a drink containing alcohol?: Never Total Score: 0 Score Reviewed/Action Taken: Yes ARMANDO-7 AMB Questionnaire ARMANDO-7 Date ARMANDO - 7 assessed: 12/27/22 Source: Developed by Drs. Mehrdad Pierce, Cathi Poon, Johnathon Lopez and colleagues, with an educational kamran from [employer]. Review of Systems Const Denies chills, Denies headache(s) and Denies weight loss ENT Denies headache(s) Card Denies chest pain, Denies syncope and Denies irregular heart rhythm GI Denies abdominal pain, Denies change in stool character, Denies nausea and Denies vomiting Musc Denies deformity and Denies joint swelling Neuro Denies syncope and Denies headache(s) Physical exam (Primary Care) Vital Signs: Last Vital Signs Pulse 78 07/18/23 14:35 BP 138/68 07/18/23 14:35 Pulse Ox 100 07/18/23 14:35 Oxygen Delivery Method Room Air 07/18/23 14:35 BMI result Body Mass Index 24.7 Tobacco/Smoking Status: Tobacco use Status Tobacco use date assessed 04/19/23 07/18/23 14:42 Patient Tobacco Use Status Former Tobacco user 07/18/23 14:42 Tobacco use type Cigarette 07/18/23 14:42 e-Cigarette/Vaping Use Never Used 07/18/23 14:42 PHQ-9: PHQ-9 Score PHQ-9: Total score 0 07/18/23 14:43 Depression Screening Interpretation: Negative Thrive Assessment: Date of Thrive Assessment Date Thrive assessed 07/08/23 07/18/23 14:42 Const Other: severely dyspneic Resp Other: bilat rhales and rhonchi Cardio Jugular venous distension: no JVD Rate: tachycardic Extrem Other: bilat leg edema Assessment and Plan Assessment & Plan (1) CHF exacerbation: Code(s): I50.9 - Heart failure, unspecified Plan: to er via ambulance Coding Level of Care Code Est Pt Level 3 (62303) Diagnoses CHF exacerbation I50.9
== END 2023-07-18 15:15 | disposition home or self-care (01) ==
PROVIDERS: PCP Internal Medicine; Visit Provider Internal Medicine
DX: I50.9 Heart failure, unspecified (principal)
CPT/HCPCS: 99213

== ENCOUNTER 2023-07-18 15:19 | Emergency (ER) | payer MEDICARE, SELFPAY ==
--- NOTE | ~2023-07-18 | XR_ITS ---
EXAMINATION: XR CHEST CLINICAL INFORMATION: Shortness of breath. COMPARISON: Chest radiograph 07/06/2023. TECHNIQUE: AP view of the chest was obtained. FINDINGS: Unchanged appearance of the cardiomediastinal silhouette. Chronic extensive multifocal interstitial coarsening limiting evaluation of subtle details, however accounting for this limitation, no discrete new focal airspace densities are seen. No pleural effusion or pneumothorax. No acute osseous findings. Visualized upper abdomen is within normal limits. XR/XR chest 1V IMPRESSION: Chronic interstitial lung disease. No discrete new superimposed focal airspace opacity.
[2023-07-18 15:26] VITALS: BP 141/76; PULSE 90; O2SAT 96
[2023-07-18 15:54] VITALS: BP 132/56; PULSE 81; RESP 13; TEMP 36.9; O2SAT 99; BMI 25.5
--- NOTE | 2023-07-18 16:02 | ECG_ITS ---
Test Reason : HYPOKALEMIA FROM OUTSIDE LAB Blood Pressure : / mmHG Vent. Rate : 075 BPM Atrial Rate : 081 BPM P-R Int : 256 ms QRS Dur : 088 ms QT Int : 348 ms P-R-T Axes : 066 057 -24 degrees QTc Int : 388 ms Sinus rhythm with 1st degree A-V block with Blocked Premature atrial complexes Nonspecific T wave abnormality some ectopic atrial activity Abnormal ECG When compared with ECG of 06-JUL-2023 13:14, Premature ventricular complexes are no longer Present QT has shortened Referred By: Generic ED Physician Electronically Signed By:KHADRA FORREST MD
[2023-07-18 16:47] VITALS: BP 149/64; PULSE 86; RESP 30; TEMP 36.8; O2SAT 94
[2023-07-18 17:09] LABS: MANUAL DIFF FLAG NO
[2023-07-18 17:10] LABS: Basophils Percent Auto 0.1 % (0-2); Eosinophils Absolute Auto 0.1 X10*3/uL (0.0-0.4); Eosinophils Percent Auto 0.5 % (0-4); Hematocrit 31.5 % (42.0-52.0); Hemoglobin 10.3 g/dl (14.0-18.0); Imm Gran Abs Auto 0.06 X10*3/uL (0.00-0.03); Imm Gran Pct Auto 0.5 % (0.0-0.4); Lymphocytes Absolute Auto 0.6 X10*3/uL (1.2-4.9); Mean Corpuscular HGB Conc 32.7 g/dl (31.0-36.0); Mean Corpuscular Volume 88.7 fL (80.0-98.0); Mean Platelet Volume 10.3 fL (9.4-12.4); Monocytes Absolute Auto 0.7 X10*3/uL (0.1-1.2); Monocytes Percent Auto 5.5 % (2-11); Neutrophils Absolute Auto 10.5 x10*3/uL (2.0-8.3); Neutrophils Percent Auto 88.4 % (45-73); Platelet Count 148 X10*3/uL (160-400); Red Blood Count 3.55 X10*6/uL (4.60-5.80); Red Cell Distribution Width 16.1 % (11.0-16.0); White Blood Count 11.9 X10*3/uL (4.8-10.8)
[2023-07-18 17:25] LABS: Alanine Aminotransferase 12 U/L (0-40); Albumin Level 3.6 g/dL (3.5-5.0); Alkaline Phosphatase 74 U/L (39-117); Anion Gap 16 (12-20); Aspartate Amino Transferase 17 U/L (5-37); Bilirubin Total 0.8 mg/dL (0.0-1.0); Blood Urea Nitrogen 31 mg/dL (9-16); Calcium 8.7 mg/dL (8.4-10.2); Carbon Dioxide 26 mmol/L (22-29); Chloride 107 mmol/L (96-108); Estimated Glomerular Filt Rate 36; Glucose Random 174 mg/dL (60-115); Sodium 146 mmol/L (135-145); Total Protein 6.4 g/dL (6.5-8.0)
[2023-07-18 17:29] LABS: B Type Natriuretic Peptide 791 pg/mL (<100)
--- NOTE | 2023-07-18 19:03 | ED_ITS ---
HPI - General Adult General Chief complaint: General Medical Stated complaint: CHEST PAIN Time Seen by Provider: 07/18/23 17:26 Source: patient, family and EMS Mode of arrival: EMS Limitations: no limitations History of Present Illness HPI narrative: 78-year-old male with history of hypertension, hyperlipidemia, interstitial lung disease, an IDDM, pulmonary fibrosis, COPD, bladder cancer, patient came in today for increased swelling to bilateral lower extremity patient do not weigh himself daily but he feels it, patient is not complaining of exertional dyspnea, or PND. Patient takes Lasix 20 mg daily as a result patient had hypokalemia. Related Data Home Medications Medication Instructions Recorded Confirmed fluticasone 250 mcg-salmeterol 50 1 ea inhalation Q12H 04/19/23 07/18/23 mcg/dose blistr powdr for inhalation (Jose Núñez) Probiotic 1 cap PO DAILY 04/22/23 07/18/23 acetaminophen 500 mg tablet 1,000 mg PO BID PRN Headache 04/22/23 07/18/23 multivitamin 1 tab PO DAILY 04/22/23 07/18/23 cetirizine 10 mg tablet 10 mg PO DAILY allergies 06/08/23 07/18/23 fluticasone propionate 50 1 spray intranasal DAILY PRN Cold 06/08/23 07/18/23 mcg/actuation nasal Symptoms spray,suspension sodium chloride 0.9 % nasal spray 1 spray intranasal TID PRN Dry 06/18/23 07/18/23 aerosol Nasal Passages solifenacin 5 mg tablet (Vesicare) 5 mg PO BEDTIME 07/06/23 07/18/23 tamsulosin 0.4 mg capsule 0.4 mg PO QAM 07/06/23 07/18/23 Previous Rx's Medication Instructions Recorded albuterol sulfate 90 mcg/actuation 2 puff inhalation QID PRN 02/17/23 aerosol inhaler (ProAir HFA) shortness of breath or wheezing #8.5 grams guaifenesin 600 mg tablet, 600 mg PO BID #20 tabs 06/14/23 extended release 12 hr (Mucinex) ipratropium 0.5 mg-albuterol 3 mg 3 ml inhalation RQ4H WHILE AWAKE 06/14/23 (2.5 mg base)/3 mL nebulization 30 days #180 mL soln nystatin 100,000 unit/mL oral 500,000 unit (5 mL) buccal BID PRN 06/26/23 suspension moth irritation 10 days #60 mL prednisone 20 mg tablet 40 mg (2 x 20 mg) PO DAILY #10 tabs 07/09/23 furosemide 20 mg tablet 20 mg PO QAM edema, fluid overload 07/10/23 #90 tabs silicone,dressing-foam bandage 6 #10 ea 07/10/23 X 6 potassium chloride 40 mEq/15 mL 40 meq (15 mL) PO DAILY #473 mL 07/18/23 oral liquid Allergies Allergy/AdvReac Type Severity Reaction Status Date / Time Seasonal Allergies Allergy Sneezing Verified 07/18/23 15:54 Review of Systems 2 Review of Systems: All other systems are reviewed and are negative Constitutional: Reports as per HPI and Reports no additional constitutional complaints Eyes: Reports as per HPI and Reports no additional eye complaints Reports system reviewed and no additional complaints, except as documented Cardiovascular: Reports as per HPI and Reports no additional cardiovascular complaints Respiratory: Reports as per HPI and Reports no additional respiratory complaints Gastrointestinal: Reports as per HPI and Reports no additional gastrointestinal complaints Genitourinary: Reports no additional female genitourinary complaints Musculoskeletal: Reports no additional musculoskeletal complaints Skin/Breast: Reports system reviewed and no additional complaints, except as docu Psychiatric: Reports no additional psychiatric complaints Endocrine: Reports no additional endocrine complaints Hematologic/Lymphatic: Reports no additional hematologic/lymphatic complaints Allergic/Immunologic: Reports no additional allergic/immunologic complaints Reports system reviewed and no additional complaints, except as documented and Reports Abnormal speech present [facility] Past Medical History Medical History Urinary incontinence Chronic interstitial lung disease Bladder cancer COPD exacerbation COVID-19 virus infection Viral syndrome Acute respiratory failure with hypoxemia IPF (idiopathic pulmonary fibrosis) Muscle spasms of both lower extremities Cataracts, bilateral Interstitial lung disease HTN (hypertension) HLD (hyperlipidemia) Surgical History Hx of sinus surgery Family History Family History Father Stomach cancer Mother No problems noted. Social History Social History Household Members: Spouse Housing: House Do you presently have visiting nurse or other home services: Yes Alcohol intake: never Patient Tobacco Use Status: Former Tobacco user Quit Date: age 70 Tobacco use type: Cigarette Years Smoked: 61 e-Cigarette/Vaping Use: Never Used Second Hand Smoke Exposure: No Advance Directives: Yes Advance Directives on File: Yes Advance Directives Date on File: 02/15/23 service: No Current occupational status: employed Cognitive needs: No Hearing needs: Yes (hearing aides) Vision needs: No Physical Exam ED Vital Signs: Vital Signs - 24 hr 07/18/23 15:54 07/18/23 16:47 07/18/23 19:16 Temperature 98.4 F 98.3 F 98.3 F Pulse Rate 81 86 94 Respiratory Rate 13 30 H 20 Blood Pressure 132/56 L 149/64 H 161/77 H Pulse Oximetry 99 94 97 Oxygen Delivery Method Nasal Cannula Nasal Cannula Room Air Nasal Cannula Oxygen Flow Rate 3 3 BMI result Body Mass Index 25.5 Vital signs have been reviewed and appear to be correct. Blood pressure elevated. Heart rate normal. Respiratory rate normal. Temperature normal. Oxygen saturation normal. Appearance: Alert. Oriented X3. No acute distress. Head: Normal external exam. Normocephalic. Atraumatic. No Barbour signs noted. No raccoon eyes noted Eyes: PERRLA. EOMI. Conjunctiva and sclera normal. Eyelids normal. ENT: TM's Normal. Pharynx normal. Uvula midline. Moist mucous membranes. No trismus noted. No drooling noted. No muffled voice noted. Neck: Normal inspection. Neck supple. FROM. No adenopathy. Thyroid Normal. No meningeal signs. No neck mass noted. CVS: Normal heart rate and rhythm. Heart sound normal. No murmurs noted. Pulses normal throughout. Respiratory: No respiratory distress. Painless inspiration. Breath sounds normal. Bilateral lung bases rales.. Chest nontender. No accessory muscle usage noted or decreased air movement noted. Abdomen: Soft and nontender. Bowel sounds normal in all 4 quadrants. No distention noted. No organomegaly noted. No visible injury noted. Back: No CVA tenderness. Full range of motion noted. Skin: Skin warm and dry. Normal skin color. Normal skin turgor. No rashes/lesions/lacerations noted. Extremities: +2 lower extremity edema. Extremities exhibit normal range of motion. Extremities nontender. Neuro: Oriented X 3. Cranial nerve exam: II-XII are grossly intact No motor deficit. No sensory deficit. Reflexes normal. Course Reevaluation(s) Reevaluation #1: 78-year-old male with history of CHF on Lasix was sent in by his PCP for hypokalemia shows no EKG changes. The case discussed with Dr. Barney who is recommending to discharge the patient on supplemental potassium and patient do not meet criteria for admission. Will replete potassium orally and will prescribed supplemental potassium to take. Time: 19:08 Medical Decision Making Differential Diagnosis Differential Diagnoses: The differential diagnosis associated with the presentation includes (Electrolyte abnormality, severe anemia, CHF, excessive edema, ACS, pneumonia, pneumothorax.) Admission/Observation Consideration of admission/observation: Escalation of care including admission/observation considered Lab Data MDM Lab Attestation statement: I reviewed the patient's lab results. 07/18/23 17:03 07/18/23 16:53 Labs: Lab Results 07/18/23 07/18/23 Range/Units 16:53 17:03 WBC 11.9 H (4.8-10.8) X10*3/uL RBC 3.55 L (4.60-5.80) X10*6/uL Hgb 10.3 L (14.0-18.0) g/dl Hct 31.5 L (42.0-52.0) % MCV 88.7 (80.0-98.0) fL MCH 29.0 (27.0-33.0) pg MCHC 32.7 (31.0-36.0) g/dl RDW 16.1 H (11.0-16.0) % Plt Count 148 L (160-400) X10*3/uL MPV 10.3 (9.4-12.4) fL Immature Gran % (Auto) 0.5 H (0.0-0.4) % Neut % (Auto) 88.4 H (45-73) % Lymph % (Auto) 5.0 L (20-40) % [place] % (Auto) 5.5 (2-11) % Eos % (Auto) 0.5 (0-4) % Baso % (Auto) 0.1 (0-2) % Lymph # (Auto) 0.6 L (1.2-4.9) X10*3/uL [place] # (Auto) 0.7 (0.1-1.2) X10*3/uL Eos # (Auto) 0.1 (0.0-0.4) X10*3/uL Baso # (Auto) 0.0 (0.0-0.2) X10*3/uL Abs Immat Gran (auto) 0.06 H (0.00-0.03) X10*3/uL Absolute Neuts (auto) 10.5 H (2.0-8.3) x10*3/uL Absolute Nucleated RBC 0.000 (0.0-0.012) X10*3/uL Nucleated RBC % (auto) 0.0 (0.0-0.2) /100WBC Sodium 146 H (135-145) mmol/L Potassium 3.0 L (3.3-5.1) mmol/L Chloride 107 (96-108) mmol/L Carbon Dioxide 26 (22-29) mmol/L Anion Gap 16 (12-20) BUN 31 H (9-16) mg/dL Creatinine 1.83 H (0.5-1.4) mg/dL Estim Creat Clear Calc 29.0 Estimated GFR 36 Random Glucose 174 H (60-115) mg/dL Calcium 8.7 (8.4-10.2) mg/dL Total Bilirubin 0.8 (0.0-1.0) mg/dL AST 17 (5-37) U/L ALT 12 (0-40) U/L Alkaline Phosphatase 74 (39-117) U/L B-Natriuretic Peptide 791 H (<100) pg/mL Total Protein 6.4 L (6.5-8.0) g/dL Albumin 3.6 (3.5-5.0) g/dL Independent Interpretation I performed an independent interpretation of an: Plain X-Ray (Chest:Chronic interstitial lung disease. No discrete new superimposed focal airspace opacity. ) Radiology Impression Discussion of test interpretation with radiology: I have reviewed the radiologist's reading. Chronic Conditions Patient?s care impacted by: Other (Interstitial lung disease.) Discharge Plan Discharge Clinical Impression: Acute hypokalemia Patient Disposition: Home, Self-Care Instructions: Potassium Content of Foods List (ED), Hypokalemia (ED) Prescriptions: New potassium chloride 40 mEq/15 mL liquid 40 meq PO DAILY Qty: 473 0RF No Action nystatin 100,000 unit/mL suspension 500,000 unit buccal BID PRN (Reason: moth irritation) 10 Days Qty: 60 0RF Rx Instructions: administer 1/2 of dose in each side of the mouth (DME) silicone,dressing-foam bandage 6 X 6 bandage See Rx Instructions .Route Qty: 10 0RF Rx Instructions: As directed furosemide 20 mg tablet 20 mg PO QAM Qty: 90 3RF tamsulosin 0.4 mg capsule 0.4 mg PO QAM solifenacin [Vesicare] 5 mg tablet 5 mg PO BEDTIME prednisone 20 mg Tablet 40 mg PO DAILY Qty: 10 0RF albuterol sulfate [ProAir HFA] 90 mcg/actuation HFA aerosol inhaler 2 puff inhalation QID PRN (Reason: shortness of breath or wheezing) Qty: 8.5 0RF multivitamin Tablet 1 tab PO DAILY acetaminophen 500 mg Tablet 1,000 mg PO BID PRN (Reason: Headache) Probiotic 1 cap PO DAILY cetirizine 10 mg tablet 10 mg PO DAILY fluticasone propionate 50 mcg/actuation spray,suspension 1 spray intranasal DAILY PRN (Reason: Cold Symptoms) ipratropium-albuterol 0.5 mg-3 mg(2.5 mg base)/3 mL Solution For Nebulization 3 ml inhalation RQ4H WHILE AWAKE 30 Days Qty: 180 1RF guaifenesin [Mucinex] 600 mg Tablet Extended Release 12hr 600 mg PO BID Qty: 20 0RF fluticasone propion-salmeterol [Wixela Inhub] 250-50 mcg/dose blister with device 1 ea inhalation Q12H sodium chloride 0.9 % aerosol,spray 1 spray intranasal TID PRN (Reason: Dry Nasal Passages) Referrals: Jass Klein MD [Primary Care Provider] -
[2023-07-18 19:16] VITALS: BP 161/77; PULSE 94; RESP 20; TEMP 36.8; O2SAT 97
[2023-07-18] MEDS: Potassium Chloride/H20 10 MEQ/100 ML PIGGYBACK 100 MEQ IV (19:37)
[2023-07-18] MEDS: Potassium Chloride Packet 20 MEQ PACKET 40 MEQ PO (19:37)
[2023-07-18] MEDS: Furosemide 20 MG/2 ML VIAL IVPUSH (19:37)
[2023-07-18 19:42] VITALS: BP 161/71; PULSE 84; RESP 16; TEMP 37.1; O2SAT 99
[2023-07-18 20:55] LABS: Troponin-I High Sensitivity 26.7 ng/L (<3.5-35.0)
--- NOTE | 2023-07-18 21:07 | PC.NURSE ---
pt had episode x 1 of vomiting during bed change. this rn made dr kc aware. per md order placed for translingual zofran 4mg environmental services called to clean floor in room
[2023-07-18] MEDS: Ondansetron ODT 4 MG TAB.RAPDIS TRANSLINGU (21:10)
[2023-07-18 22:24] VITALS: BP 132/69; PULSE 84; RESP 20; TEMP 36.8; O2SAT 99
--- NOTE | 2023-07-18 23:12 | PC.NURSE ---
pt reporting multiple instances of burning during administration of iv potassium rate of infusion to be decreased causing delayed infusion rate
--- NOTE | 2023-07-18 23:14 | PC.NURSE ---
pt discharge with family members. pt utilized wheelchair at discharge. iv removed. pt calm and cooperative. pt and family verbalized understanding of discharge plan
== END 2023-07-18 23:17 | disposition home or self-care (01) ==
PROVIDERS: Emergency Provider Emergency Medicine; PCP Internal Medicine
DX: E87.6 Hypokalemia (principal); R60.0 Localized edema; E11.9 Type 2 diabetes mellitus without complications; I11.0 Hypertensive heart disease with heart failure; I50.9 Heart failure, unspecified; E78.5 Hyperlipidemia, unspecified; J44.9 Chronic obstructive pulmonary disease, unspecified; Z85.51 Personal history of malignant neoplasm of bladder; Z87.891 Personal history of nicotine dependence; Z79.4 Long term (current) use of insulin; Z79.899 Other long term (current) drug therapy
CPT/HCPCS: 36415; 71045; 80053; 83880; 84484; 85025; 93005; 96365; 96366; 96375; 99285; J1940; J3480

== ENCOUNTER 2023-07-24 10:33 | Outpatient (AMB) | payer MEDICARE, SELFPAY ==
--- NOTE | 2023-07-24 10:36 | A.OFFVIS_ITS ---
Intake Intake Visit Reasons: cysto Intake Note: Patient presents today for a CYSTOSCOPY Procedure: Meds: Vesicare, Tamsulosin Allergies to Antibiotic: No Known Allergies Blood Thinner: Furosemide Urinalysis test cleared for Cysto Disposable Uro-G Cystoscope Cannula: Lot: [id number] Exp: 01/16/2025 Welt Insole Channeler Required: No Accompanied by: Self / Same As Patient Allergies Seasonal Allergies Allergy (Verified 08/05/23 11:18) Sneezing HPI HPI Comments History of Present Illness Details Emmett is an 78-year-old male who presents today to the office for a follow-up office cysto. 07/24/23--Emmett is an 78-year-old male who presents to the office follow-up - scheduled for surveillance office cystoscopy. 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 Repeat TURBT 09/18/22- path - Muscle invasive bladder cancer in same area (right lateral wall) resected all grossly visible tumor, he declined cystectomy. Completed Chemoradiation therapy. ?Bladder biopsy post?chemoradiation?--02/05/23-- Atypical urothelial cells. He?was?recently?Admitted and?discharged?from?[facility]?for respiratory condition. ?The patient was discharged from the hospital on an azithromycin and prednisone course. He?requires?24?hour?oxygen?by?nasal?cannula. Cystoscopy procedure: Cystoscopy findings: noted there is mild erythema/ irregularity on the right lateral wall - unchanged Review of chart: 06/11/23--KIDNEYS AND URETERS: The kidney s are normal in size, shape, and attenuation. Bilateral moderate hydroureteronephrosis. 06/14/23--BUN/creat--- 38/0.9 Review of labs: 03/06/23 - Urine Fish - positive. CT Urogram - 07/28/22- kidneys and ureters wnL, no hydro scrotal ultrasound - 06/23/22---testicles within normal limits small hydrocele and varicocele clinically not significant. bone scan- 08/30/22- negative for metastasis. He received chemo-radiation therapy with 5FU/[facility] concurrent radiation. Cystoscopy findings: Erythematous change on the right lateral bladder wall. PSA--10/01/22-- 4.46. ? 07/24/2023: Plan: Invasive Bladder cancer, pt refused radical cystectomy. s/p chemoradiation B/L Hydronephronephrosis/hydroureter with bladder wall thickening, will monitor, serum creat - 0.[address] was ordered. Gemtesa 75 mg was ordered to replace Vesicare. Follow-up in 5-6 weeks. Hold on further Out-patient cystoscopy with biopsies of the erythematous/ irregular changes noted at the right lateral wall pending PET CT results. [facility] Medical History Bladder cancer Urinary incontinence Chronic interstitial lung disease COPD exacerbation COVID-19 virus infection Viral syndrome Acute respiratory failure with hypoxemia IPF (idiopathic pulmonary fibrosis) Muscle spasms of both lower extremities Cataracts, bilateral Interstitial lung disease HTN (hypertension) HLD (hyperlipidemia) Surgical History Hx of sinus surgery Family History (Updated 08/05/23 @ 11:21 by Jazmyn Doe) Father Stomach cancer Mother Pacemaker Brother Pacemaker Social History (Updated 08/05/23 @ 11:38 by Fernando Guadalupe MD) Household Members: Spouse Housing: House Do you presently have visiting nurse or other home services: Yes Alcohol intake: never Patient Tobacco Use Status: Former Tobacco user Quit Date: age 70 Tobacco use type: Cigarette Years Smoked: 61 e-Cigarette/Vaping Use: Never Used Second Hand Smoke Exposure: No Advance Directives Date on File: 02/15/23 service: No Current occupational status: previously employed Cognitive needs: No Hearing needs: Yes (hearing aides) Vision needs: No Review of Systems Const All systems reviewed & are unremarkable except as noted in HPI and below Reports no additional complaints Eyes Reports no additional complaints ENT Denies neck pain Musc Reports no additional complaints and Denies neck pain Skin/Breast Denies rash and Denies unusual bruising Neuro Reports no additional complaints Psych Reports no additional complaints Endo Reports no additional complaints Romero/Lymph Reports no additional complaints Aller/Immun Reports no additional complaints Office Procedures Cystoscopy Consent Discussed risk and benefit or proposed procedure with the patient. Information consent for procedure given to the patient. Discussed technical aspects, risks, benefits and alternatives in full. Addressed all of the patient's questions and concerns regarding the procedure. The patient demonstrated knowledge and understanding. They wish to proceed with this procedure. Preparation The patient was prepped in the usual manner. A hyster machine operator was present and in the room. Genitalia was prepped with betadine solution in a sterile manner. Lidocaine Jelly 2% was placed into the urethra and 16Fr flexible Olympus cystoscope was inserted into the meatus after adequate lubrication. Procedure Time out per protocol performed. Bladder Inspection Bladder Inspection: The bladder was inspected in its entirety with utilization retroflexion displaying: Tumor(s): see below Trabeculation: mild Mucosal Erthema: mild Orifices: normal shape and position Urethra: normal Cystoscopy findings: erthematous/irregularity changes right lateral wall, unchanged. prostatic urethra non obstructive, bulbous [place]. [id number] DISPOSABLE SCOPE URO-G FLEXIBLE SCOPE Procedure code (CPT) selection complete Office Meds lidocaine HCl 2 % mucosal jelly in applicator Performing Provider: Meliza Farmer MD Performing Location: [facility] Administered by: Lauren Patton RN on 07/24/23 10:56 Dose Route Admin Location Dispensed Lot Number Expiration Date ND Information Technology Audit Manager 10 mL intra-urethral 20 mL naproxen 500 mg tablet Performing Provider: Meliza Farmer MD Performing Location: [facility] Administered by: Lauren Patton RN on 07/24/23 10:56 Dose Route Admin Location Dispensed Lot Number Expiration Date ND Information Technology Audit Manager 500 mg PO 1 tab ciprofloxacin HCl 500 mg tablet Performing Provider: Meliza Farmer MD Performing Location: [facility] Administered by: Lauren Patton RN on 07/24/23 10:56 Dose Route Admin Location Dispensed Lot Number Expiration Date ND Information Technology Audit Manager 500 mg PO 1 tab Results AMB Urinalysis, Automated UA Leukoctes 0 Rolando/uL Last Edit by MIGUEL Moise on 07/24/23 10:52 UA Nitrite Negative Last Edit by Myles Segovia, A on 07/24/23 10:52 UA Urobilinogen 0.2 mg/dL Last Edit by Myles Segovia, A on 07/24/23 10:5 2 UA Protein 0 mg/dL Last Edit by Myles Segovia, A on 07/24/23 10:52 UA pH 6.0 Last Edit by Myles Segovia, RMA on 07/24/23 10:52 UA Blood 10 Shai/uL Last Edit by Myles Segovia, A on 07/24/23 10:52 UA Specific [place] 1.010 Last Edit by Myles Segovia, A on 07/24/23 10: 52 UA Ketone Negative Last Edit by Myles Segovia, A on 07/24/23 10:52 UA Bilirubin 0 mg/dL Last Edit by Myles Segovia, A on 07/24/23 10:52 UA Glucose 0 mg/dL Last Edit by Myles Segovai, A on 07/24/23 10:52 Results Reviewed Results Reviewed: Laboratory Last Values Urine pH (Auto) 6.0 07/24/23 10:45 Specific [place] (Auto) 1.010 07/24/23 10:45 Urine Protein (Auto) 0 mg/dL 07/24/23 10:45 Glucose (UA)(Auto) 0 mg/dL 07/24/23 10:45 Urine Ketones (Auto) Negative 07/24/23 10:45 Urine Blood (Auto) 10 Shai/uL 07/24/23 10:45 Urine Nitrite (Auto) Negative 07/24/23 10:45 Urine Bilirubin (Auto) 0 mg/dL 07/24/23 10:45 Urine Urobilinogen (Auto) 0.2 mg/dL 07/24/23 10:45 Leukocyte Esterase (Auto) 0 Rolando/uL 07/24/23 10:45 Assessment & Plan Assessment & Plan (1) Bladder cancer: Code(s): C67.9 - Malignant neoplasm of bladder, unspecified (2) Hydronephrosis, bilateral: Code(s): N13.30 - Unspecified hydronephrosis (3) Urge incontinence of urine: Code(s): N39.41 - Urge incontinence (4) Urinary frequency: Code(s): R35.0 - Frequency of micturition Plan PET CT was ordered. Gemtesa 75 mg was ordered to replace Vesicare. Follow-up in 5-6 weeks. Orders: Orders AMB Cystoscopy 07/24/23 R31.9 - Hematuria, unspecified, R33.9 - Retention of urine, unspecified, D49.4 - Neoplasm of unspecified behavior of bladder PET CT fusion whole body 07/25/23 C67.9 - Malignant neoplasm of bladder, unspecified, N13.30 - Unspecified hydronephrosis AMB Urinalysis Automated 07/24/23 Z13.9 - Encounter for screening, unspecified Medications: New vibegron (Gemtesa) gemtesa to replace vesicare 75 mg PO DAILY 90 tabs 2RF Patient Instructions: The patient had an opportunity to ask questions regarding treatment plan. All questions were answered. Imaging, Laboratory studies and physical exam results were discussed and reviewed in detail. No major barriers to understanding were identified. The patient expressed understanding and agreement with the above treatment plan. The patient is aware they should contact our office by phone for worsening of their current condition or the appearance of new symptoms. Compliance is encouraged with any medications and followup testing that is ordered. It is a privilege to be allowed the opportunity to participate in the urologic care of your patient. If you have any questions or concerns regarding treatment for the above conditions please do not hesitate to contact me. The office telephone contact is [phone]. This note is constructed in part using voice recognition software. While every effort has been made to ensure accuracy maintenance associate errors may have been included. Yours sincerely, Meliza Farmer MD Coding Level of Care Code Est Pt Level 4 (65298) Diagnoses Bladder cancer C67.9 Hydronephrosis, bilateral N13.30 Urge incontinence of urine N39.41 Urinary frequency R35.0 CPT Codes Cystoscopy - CPT: 45853-[id number] ([id number])
== END 2023-07-24 11:31 | disposition home or self-care (01) ==
PROVIDERS: PCP Internal Medicine; Visit Provider Urology
DX: C67.9 Malignant neoplasm of bladder, unspecified (principal); N13.30 Unspecified hydronephrosis; N39.41 Urge incontinence; R35.0 Frequency of micturition
CPT/HCPCS: 52000; 99214

== ENCOUNTER → 2023-07-24 10:33 | Outpatient (BNVA) | payer MEDICARE, SELFPAY | PROVIDERS: PCP Internal Medicine; Visit Provider Urology | DX: C67.9 Malignant neoplasm of bladder, unspecified (principal); N13.30 Unspecified hydronephrosis; N39.41 Urge incontinence; R35.0 Frequency of micturition | CPT/HCPCS: 52000; 81003; 99212 ==

== ENCOUNTER 2023-07-25 11:54 | Outpatient (AMB) | payer MEDICARE, SELFPAY ==
[2023-07-25 11:57] VITALS: BP 124/62; PULSE 108; BMI 24.5
--- NOTE | 2023-07-25 11:57 | MHC.PC.OV ---
Vital Signs 07/25/23 11:57 Height 5 ft 6 in Weight 152 lb BMI 24.5 BP 124/62 Blood Pressure Location Lt brachial Position Sitting Pulse 108 H Pulse Source Pulse Oximeter Oxygen Delivery Method Nasal Cannula Oxygen Flow Rate 8 Intake Visit Reasons: [facility]/07-18-23/Low Potassium Intake Note: went to the er with hypokalemia; on lasix for chf Switch Coupler: Present Allergies Seasonal Allergies Allergy (Verified 07/25/23 14:49) Sneezing Tobacco use date assessed: 04/19/23 Fall risk assessment: No Falls in past year Last assessed Fall Risk: 07/25/23 Dental Screening Dental Screen Date: 07/25/23 Did you have a dental visit in the last 12 months?: Yes Did you have a dental problem in the last 6 months where you did not have access to dental care?: No Was dental information given to patient?: Patient has dentist [facility] Medical History Bladder cancer Urinary incontinence Chronic interstitial lung disease COPD exacerbation COVID-19 virus infection Viral syndrome Acute respiratory failure with hypoxemia IPF (idiopathic pulmonary fibrosis) Muscle spasms of both lower extremities Cataracts, bilateral Interstitial lung disease HTN (hypertension) HLD (hyperlipidemia) Surgical History Hx of sinus surgery Family History Father Stomach cancer Mother No problems noted. Social History Household Members: Spouse Housing: House Do you presently have visiting nurse or other home services: Yes Alcohol intake: never Patient Tobacco Use Status: Former Tobacco user Quit Date: age 70 Tobacco use type: Cigarette Years Smoked: 61 Smoked in Last 30 Days: No e-Cigarette/Vaping Use: Never Used Second Hand Smoke Exposure: No Use of substances other than those prescribed or required for medical reasons: No Advance Directives: Yes Advance Directives on File: Yes Advance Directives Date on File: 02/15/23 service: No Current occupational status: employed Cognitive needs: No Hearing needs: Yes (hearing aides) Vision needs: No Questionnaire PHQ-9 Over the last 2 weeks, how often have you been bothered by any of the following problems? Depression Screening Interpretation: Negative Depression Screening Done: Yes Source: Developed by Drs. Mehrdad Pierce, Cathi Poon, Johnathon Lopez and colleagues, with an educational kamran from [employer]. Thrive Questionnaire Date Thrive assessed: 07/08/23 ARMANDO-7 AMB Questionnaire ARMANDO-7 Date ARMANDO - 7 assessed: 12/27/22 Source: Developed by Drs. Mehrdad Pierce, Cathi Poon, Johnathon Lopez and colleagues, with an educational kamrna from [employer]. Review of Systems Const Denies chills, Denies headache(s) and Denies weight loss ENT Denies headache(s) Card Denies chest pain, Denies syncope and Denies irregular heart rhythm GI Denies abdominal pain, Denies change in stool character, Denies nausea and Denies vomiting Musc Denies deformity and Denies joint swelling Neuro Denies syncope and Denies headache(s) Physical exam (Primary Care) Vital Signs: Last Vital Signs Pulse 108 H 07/25/23 11:57 BP 124/62 07/25/23 11:57 Oxygen Delivery Method Nasal Cannula 07/25/23 11:57 Oxygen Flow Rate 8 07/25/23 11:57 BMI result Body Mass Index 24.5 Tobacco/Smoking Status: Tobacco use Status Tobacco use date assessed 04/19/23 07/25/23 12:01 Patient Tobacco Use Status Former Tobacco user 07/25/23 12:01 Tobacco use type Cigarette 07/25/23 12:01 e-Cigarette/Vaping Use Never Used 07/25/23 12:01 Depression Screening Interpretation: Negative Thrive Assessment: Date of Thrive Assessment Date Thrive assessed 07/08/23 07/25/23 12:01 Const Other: severely dyspneic Resp Other: bilat rhales and rhonchi Cardio Jugular venous distension: no JVD Rate: tachycardic Extrem Other: bilat leg edema Assessment and Plan Assessment & Plan (1) Hypokalemia: Code(s): E87.6 - Hypokalemia Plan: check labs; ref cardiology Orders: Orders Basic Metabolic Panel 07/25/23 J44.9 - Chronic obstructive pulmonary disease, unspecified Referrals Cardiology Referral I50.9 - Heart failure, unspecified Medications: New ciprofloxacin HCl (Cipro) 250 mg PO BID 10 tabs 0RF Coding Level of Care Code Est Pt Level 3 (98743) Diagnoses Hypokalemia E87.6
== END 2023-07-25 12:30 | disposition home or self-care (01) ==
PROVIDERS: PCP Internal Medicine; Visit Provider Internal Medicine
DX: E87.6 Hypokalemia (principal)
CPT/HCPCS: 99213

== ENCOUNTER 2023-07-25 12:38 | Outpatient (REF) | payer MEDICARE, SELFPAY | END 2023-07-25 12:39 | disposition home or self-care (01) | LOC: HO.LAB 12:38 | PROVIDERS: PCP Internal Medicine; Visit Provider Internal Medicine | DX: Z13.89 Encounter for screening for other disorder (principal) | CPT/HCPCS: 36415; 80048 ==

== ENCOUNTER 2023-07-25 14:41 | Emergency (ER) | payer MEDICARE, SELFPAY ==
[2023-07-25 14:49] VITALS: BP 124/76; PULSE 94; O2SAT 100; BMI 23.9
[2023-07-25 14:58] VITALS: BP 139/71; PULSE 89; RESP 20; TEMP 36.8; O2SAT 98
[2023-07-25 16:00] VITALS: BP 146/74; PULSE 90; RESP 18; O2SAT 98
--- NOTE | 2023-07-25 16:28 | PC.NURSE ---
vss and up to date at this time. pt still verbalizing no pain at this time. resting comfortably in no apparent distress. no sob/wob noted at this time. able to speak in full/clear sentences w/o difficulty. family bedside. pt awaiting provider. call cox placed within reach.
--- NOTE | 2023-07-25 16:58 | ED.EPISTAXIS ---
History of Present Illness General Chief Complaint: Dyspnea Stated Complaint: BLODDY NOSE,ON HOME O2 PER EMS Time Seen by Provider: 07/25/23 16:55 Source: patient Mode of arrival: ambulatory Limitations: no limitations History of Present Illness HPI Narrative: Patient with chronic lung disease on oxygen not on any anticoagulation with history of frequent nose bleeds started bleeding earlier today from both nostrils minor amount with blood clot no dizziness no syncope no bleeding from any other place patient was oozing when he came Related Data Home Medications Medication Instructions Recorded Confirmed fluticasone 250 mcg-salmeterol 50 1 ea inhalation Q12H 04/19/23 07/18/23 mcg/dose blistr powdr for inhalation (Jose Núñez) acetaminophen 500 mg tablet 1,000 mg PO BID PRN Headache 04/22/23 07/18/23 multivitamin 1 tab PO DAILY 04/22/23 07/18/23 cetirizine 10 mg tablet 10 mg PO DAILY allergies 06/08/23 07/18/23 fluticasone propionate 50 1 spray intranasal DAILY PRN Cold 06/08/23 07/18/23 mcg/actuation nasal Symptoms spray,suspension sodium chloride 0.9 % nasal spray 1 spray intranasal TID PRN Dry 06/18/23 07/18/23 aerosol Nasal Passages solifenacin 5 mg tablet (Vesicare) 5 mg PO BEDTIME 07/06/23 07/18/23 tamsulosin 0.4 mg capsule 0.4 mg PO QAM 07/06/23 07/18/23 Previous Rx's Medication Instructions Recorded albuterol sulfate 90 mcg/actuation 2 puff inhalation QID PRN 02/17/23 aerosol inhaler (ProAir HFA) shortness of breath or wheezing #8.5 grams guaifenesin 600 mg tablet, 600 mg PO BID #20 tabs 06/14/23 extended release 12 hr (Mucinex) ipratropium 0.5 mg-albuterol 3 mg 3 ml inhalation RQ4H WHILE AWAKE 06/14/23 (2.5 mg base)/3 mL nebulization 30 days #180 mL soln nystatin 100,000 unit/mL oral 500,000 unit (5 mL) buccal BID PRN 06/26/23 suspension moth irritation 10 days #60 mL prednisone 20 mg tablet 40 mg (2 x 20 mg) PO DAILY #10 tabs 07/09/23 furosemide 20 mg tablet 20 mg PO QAM edema, fluid overload 07/10/23 #90 tabs silicone,dressing-foam bandage 6 #10 ea 07/10/23 X 6 potassium chloride 40 mEq/15 mL 40 meq (15 mL) PO DAILY #473 mL 07/18/23 oral liquid vibegron 75 mg tablet (Gemtesa) 75 mg PO DAILY #90 tabs 07/24/23 amoxicillin 875 mg-potassium 1 tab PO BID #20 tabs 07/25/23 clavulanate 125 mg tablet ciprofloxacin HCl 250 mg tablet 250 mg PO BID #10 tabs 07/25/23 (Cipro) oxygen facial mask #1 ea 07/25/23 Probiotic 1 cap PO DAILY #90 caps 07/26/23 hydrocortisone 2.5 % topical cream 1 appl ND BID-QID PRN hemorrhoids 07/26/23 with perineal applicator #30 grams (Anusol-HC) lactobacillus combination no.9 4 4,000 mmu cells PO DAILY #90 caps 07/26/23 billion cell capsule (Adult 50 Plus Probiotic) Allergies Allergy/AdvReac Type Severity Reaction Status Date / Time Seasonal Allergies Allergy Sneezing Verified 07/25/23 14:49 Review of Systems Review of Systems: Yes all other systems are reviewed and are negative PMFSH Past Medical History Medical History Bladder cancer Urinary incontinence Chronic interstitial lung disease COPD exacerbation COVID-19 virus infection Viral syndrome Acute respiratory failure with hypoxemia IPF (idiopathic pulmonary fibrosis) Muscle spasms of both lower extremities Cataracts, bilateral Interstitial lung disease HTN (hypertension) HLD (hyperlipidemia) Surgical History Hx of sinus surgery Family History Family History Father Stomach cancer Mother No problems noted. Social History Social History Household Members: Spouse Housing: House Do you presently have visiting nurse or other home services: Yes Alcohol intake: never Patient Tobacco Use Status: Former Tobacco user Quit Date: age 70 Tobacco use type: Cigarette Years Smoked: 61 Smoked in Last 30 Days: No e-Cigarette/Vaping Use: Never Used Second Hand Smoke Exposure: No Use of substances other than those prescribed or required for medical reasons: No Advance Directives: Yes Advance Directives on File: Yes Advance Directives Date on File: 02/15/23 service: No Current occupational status: employed Cognitive needs: No Hearing needs: Yes (hearing aides) Vision needs: No Physical Exam Vital Signs: Vital Signs: Last Vital Signs Temp 98.3 F 07/25/23 14:58 Pulse 89 07/25/23 19:08 Resp 16 07/25/23 19:08 BP 153/79 H 07/25/23 19:08 Pulse Ox 100 07/25/23 19:08 O2 Del Method Room Air 07/25/23 19:08 O2 Flow Rate 3 07/25/23 18:00 BMI result Body Mass Index 23.9 Appearance: Alert. Oriented X3. No acute distress. 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 Neck supple. CVS: Normal heart rate and rhythm. Pulses normal. Respiratory: No respiratory distress. Equal air entry bilateral, no wheezing/rales/rhonchi Abdomen: Soft and nontender. Bowel sounds are present, no mass palpable, no CVA tenderness Skin: Skin warm and dry. Normal skin color. Normal skin turgor. Extremities: No lower extremity edema. No calf tenderness Neuro: Oriented X 3. Medications Administered Discontinued Medications Generic Name Dose Route Start Last Admin Trade Name Davidq PRN Reason Stop Dose Admin Amoxicillin/Clavulanate Potassium 875 mg 07/25/23 21:36 07/25/23 21:54 Amoxicillin/Potassium Clav 875 Mg Tablet PO 07/25/23 21:37 875 mg ONCE ONE Administration Bacitracin 1 appl 07/25/23 20:13 07/25/23 20:16 Bacitracin Oint 0.9 Gm Packet TOPICAL 07/25/23 20:14 1 appl ONCE ONE Administration Protocol Silver Nitrate 1 appl 07/25/23 19:20 07/25/23 20:11 Silver Nitrate Applicator Stick..Ea. TOPICAL 07/25/23 19:21 1 appl ONCE ONE Administration Tranexamic Acid 500 mg 07/25/23 17:36 07/25/23 18:13 Tranexamic Acid 1,000 Mg/10 Ml Vial INTRANASAL 07/25/23 17:37 500 mg ONCE ONE Administration Medical Decision Making Medical Decision Making [facility] Narrative: Patient with minor right anterior nostril bleed as patient still oozing will placed TXA patient continued to bleed, silver nitrate cauterization was used without much response ultimately anterior nasal tampon packing was done and patient stopped bleeding Procedures Epistaxis Control Time Out Performed: Yes Nostril: Yes right Direct inspection: Yes anterior source identified Direct inspection method: Yes otoscope Clots removed by: Yes suction Epistaxis treatment: Yes TXA soaked gauze, Yes silver nitrate cautery and Yes inflatable pack Results of treatment: Yes bleeding controlled Complications: Yes none Discharge Plan Discharge Clinical Impression: Acute anterior epistaxis Patient Disposition: Home, Self-Care Instructions: Nosebleed (ED) Additional Instructions: Care of the nasal packing as advised which should be removed in 48 hours Antibiotic as prescribed to avoid infection Report to the ER ifrecurrence of the nosebleed Prescriptions: New amoxicillin-pot clavulanate 875-125 mg tablet 1 tab PO BID Qty: 20 0RF No Action nystatin 100,000 unit/mL suspension 500,000 unit buccal BID PRN (Reason: moth irritation) 10 Days Qty: 60 0RF Rx Instructions: administer 1/2 of dose in each side of the mouth (DME) silicone,dressing-foam bandage 6 X 6 bandage See Rx Instructions .Route Qty: 10 0RF Rx Instructions: As directed furosemide 20 mg tablet 20 mg PO QAM Qty: 90 3RF (DME) oxygen facial mask See Rx Instructions .Route .MEDSUPPLY Qty: 1 8RF Rx Instructions: As directed hydrocortisone [Anusol-HC] 2.5 % cream with perineal applicator 1 appl ND BID-QID PRN (Reason: hemorrhoids) Qty: 30 2RF Probiotic 1 cap PO DAILY Qty: 90 0RF Adult 50 Plus Probiotic 4 billion cell capsule 4,000 mmu cells PO DAILY Qty: 90 0RF Rx Instructions: administer with a meal tamsulosin 0.4 mg capsule 0.4 mg PO QAM solifenacin [Vesicare] 5 mg tablet 5 mg PO BEDTIME prednisone 20 mg Tablet 40 mg PO DAILY Qty: 10 0RF albuterol sulfate [ProAir HFA] 90 mcg/actuation HFA aerosol inhaler 2 puff inhalation QID PRN (Reason: shortness of breath or wheezing) Qty: 8.5 0RF multivitamin Tablet 1 tab PO DAILY acetaminophen 500 mg Tablet 1,000 mg PO BID PRN (Reason: Headache) cetirizine 10 mg tablet 10 mg PO DAILY fluticasone propionate 50 mcg/actuation spray,suspension 1 spray intranasal DAILY PRN (Reason: Cold Symptoms) ipratropium-albuterol 0.5 mg-3 mg(2.5 mg base)/3 mL Solution For Nebulization 3 ml inhalation RQ4H WHILE AWAKE 30 Days Qty: 180 1RF guaifenesin [Mucinex] 600 mg Tablet Extended Release 12hr 600 mg PO BID Qty: 20 0RF potassium chloride 40 mEq/15 mL liquid 40 meq PO DAILY Qty: 473 0RF fluticasone propion-salmeterol [Wixela Inhub] 250-50 mcg/dose blister with device 1 ea inhalation Q12H sodium chloride 0.9 % aerosol,spray 1 spray intranasal TID PRN (Reason: Dry Nasal Passages) ciprofloxacin HCl [Cipro] 250 mg tablet 250 mg PO BID Qty: 10 0RF Gemtesa 75 mg tablet 75 mg PO DAILY Qty: 90 2RF Rx Instructions: gemtesa to replace vesicare Referrals: Blaine Monroy [Physician] - 1 week Interventions: ED Discharge Assessment Last Done: 07/25/23 21:47 Discharge Date/Time: 07/25/23 21:59
[2023-07-25 18:00] VITALS: BP 151/76; PULSE 94; RESP 16; O2SAT 98
[2023-07-25] MEDS: Tranexamic Acid 1,000 MG/10 ML VIAL 500 MG INTRANASAL (18:13)
--- NOTE | 2023-07-25 18:14 | PC.NURSE ---
vss and up to date at this time. pt switched to nonrebreather post medication administration. medication administered by provider. pt expelling clots from mouth at this time. pt provided w/ cloth and emesis bag. family bedside. call cox placed within reach.
[2023-07-25 19:08] VITALS: BP 153/79; PULSE 89; RESP 16; O2SAT 100
[2023-07-25] MEDS: Silver Nitrate Applicator STICK..EA. 1 APPL TOPICAL (20:11)
[2023-07-25] MEDS: Bacitracin Oint 0.9 GM PACKET 1 APPL TOPICAL (20:16)
[2023-07-25] MEDS: Amoxicillin/Potassium Clav 875 MG TABLET PO (21:54)
== END 2023-07-25 21:59 | disposition home or self-care (01) ==
PROVIDERS: Emergency Provider Internal Medicine; PCP Internal Medicine
DX: R06.02 Shortness of breath (principal); R04.0 Epistaxis; Z87.891 Personal history of nicotine dependence; Z79.899 Other long term (current) drug therapy
CPT/HCPCS: 30901; 99283; 99284

== ENCOUNTER 2023-08-05 11:13 | Outpatient (AMB) | payer MEDICARE, SELFPAY ==
[2023-08-05 11:15] VITALS: BP 122/56; PULSE 100
--- NOTE | 2023-08-05 11:15 | A.OFFVIS_ITS ---
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 Accompanied by: Family/Other Allergies Seasonal Allergies Allergy (Verified 08/05/23 11:18) Sneezing Medication List - Last Reconciled 08/05/23 by Fernando Guadalupe MD acetaminophen 1,000 mg PO BID PRN albuterol sulfate 90 mcg/actuation (ProAir HFA) 2 puffs inhalation QID PRN amoxicillin-pot clavulanate 875-125 mg 1 tab PO BID cetirizine 10 mg PO DAILY fluticasone propion-salmeterol 250-50 mcg/dose (Wixela Inhub) 1 ea inhalation Q12H fluticasone propionate 50 mcg/actuation 1 spray intranasal DAILY PRN furosemide 40 mg PO QAM guaifenesin ER (Mucinex) 600 mg PO BID hydrocortisone 2.5% (Anusol-HC) 1 appl [place] BID-QID PRN ipratropium-albuterol 0.5 mg-3 mg(2.5 mg base)/3 mL 3 mL inhalation RQ4H WHILE AWAKE 30 days lactobacillus combination no.9 (Adult 50 Plus Probiotic) 4,000 mmu cells PO DA MELI multivitamin 1 tab PO DAILY nystatin 500,000 units (5 mL) buccal BID PRN 10 days [oxygen facial mask As directed] potassium chloride 20 mEq PO DAILY silicone,dressing-foam bandage 6 X 6 As directed sodium chloride 0.9% 1 spray intranasal TID PRN tamsulosin 0.4 mg PO QAM vibegron (Gemtesa) 75 mg PO DAILY HPI HPI Comments History of Present Illness Details Emmett is here for consultation regarding congestive heart failure. History of chronic pulmonary lung disease and he also has interstitial lung disease and goes to pulmonology at [facility]. He comes to the clinic in a wheel chair and also on supplemental oxygen. With exertion, he does get short of breath. Few months back, he also had some chest pains on the left side somewhere close to the axilla. He states that he woke up with chest pain. Not entirely clear if it is cardiac or pleuritic. Any case, that pain resolved completely and it is not recurrent. No previous history of any coronary disease or myocardial infarction. He is on Lasix for congestive heart failure. It seems that he try 20 mg daily but did not work and then the increased to 40 mg daily. With this dose, he is euvolemic. Runs low potassium and hence he is also on replacement. [facility] Medical History Bladder cancer Urinary incontinence Chronic interstitial lung disease COPD exacerbation COVID-19 virus infection Viral syndrome Acute respiratory failure with hypoxemia IPF (idiopathic pulmonary fibrosis) Muscle spasms of both lower extremities Cataracts, bilateral Interstitial lung disease HTN (hypertension) HLD (hyperlipidemia) Surgical History Hx of sinus surgery Family History (Updated 08/05/23 @ 11:21 by Jazmyn Doe) Father Stomach cancer Mother Pacemaker Brother Pacemaker (Updated 08/05/23 @ 11:38 by Fernando Guadalupe MD) Household Members: Spouse Housing: House Do you presently have visiting nurse or other home services: Yes Alcohol intake: never Patient Tobacco Use Status: Former Tobacco user Quit Date: age 70 Tobacco use type: Cigarette Years Smoked: 61 e-Cigarette/Vaping Use: Never Used Second Hand Smoke Exposure: No Advance Directives Date on File: 02/15/23 service: No Current occupational status: previously employed Cognitive needs: No Hearing needs: Yes (hearing aides) Vision needs: No Review of Systems Const Denies chills, Denies daytime sleepiness, Denies fatigue, Denies fever(s), Denies frequent falls, Denies night sweats, Denies snoring, Denies weakness, Denies weight gain and Denies weight loss Eyes Denies loss of vision ENT Denies dizziness and Denies hearing loss Card Denies chest pain, Denies chest pain with activity, Denies syncope, Denies rapid heart rate, Denies edema, Denies claudication, Denies leg edema, Denies lightheadedness, Denies palpitations, Denies dyspnea, Denies dyspnea on exertion and Denies orthopnea Resp Denies cough, Denies excessive phlegm production, Denies dyspnea, Denies dyspnea on exertion, Denies snoring and Denies wheezing GI Denies abdominal pain, Denies hematochezia, Denies change in bowel habits, Denies change in stool character, Denies heartburn, Denies nausea and Denies vomiting Denies hematuria, Denies dysuria and Denies urinary frequency Musc Denies arthralgias, Denies muscle weakness, Denies numbness and Denies tingling Skin/Breast Denies nail changes and Denies rash Neuro Denies Abnormal speech present, Denies dizziness, Denies syncope, Denies frequent falls, Denies loss of vision, Denies memory loss, Denies numbness, Denies tingling and Denies weakness Psych Denies depression and Denies memory loss Endo Denies fatigue and Denies palpitations Aller/Immun Denies wheezing Physical Exam Vital Signs: Last Vital Signs Pulse 100 08/05/23 11:15 BP 122/56 L 08/05/23 11:15 Const General: comfortable and no acute distress Orientation/consciousness: patient oriented x3 HEENT Other: Unremarkable Head: Yes normal to inspection Neck Neck: Yes normal visual inspection Chest Chest palpation & inspection: normal inspection of the chest Resp Auscultation: crackles Cardio Palpation: normal PMI Heart sounds: S1 normal heart sound present, S2 normal heart sound present, no gallops, no murmurs and no rubs GI Palpation (GI): Soft to palpation Back/Spine/Pelvis Other: unremarkable Skin General skin exam: no rashes or lesions noted Neuro General: patient oriented x3 Speech: No Abnormal speech present Extrem General: Yes normal to inspection Psych Mental Status: mental status grossly normal Assessment & Plan Assessment & Plan (1) Chronic cor pulmonale: Code(s): I27.81 - Cor pulmonale (chronic) Plan: Prior chest CT scan shows severe interstitial lung disease as well as severe emphysema. This is likely contributing to right heart dysfunction/heart failure . Currently, euvolemic. Continue current dose of Lasix. Supplement potassium. He has a repeat BMP pending. Echocardiogram with LVEF of 55%. Moderately increased left ventricular size. [id number] pulmonary hypertension. (2) Precordial chest pain: Code(s): R07.2 - Precordial pain Plan: Had this few months back but nothing recurrent. At his age and with risk factors, probably has some underlying CAD. Considering advanced lung disease and need for supplemental oxygen, not suitable for stress testing. After discussing cardiac catheterization options, we decided to just treat this conservatively. Can take low-dose aspirin. History of statin intolerance but willing to re-attempt. Recent EKG shows underlying sinus rhythm at 75/Min; NJ prolongation to 256 millisecond; nonspecific ST-T changes. Plan Discussed in length with granddaughter who came for appointment. She is an RN and agrees with plan. She will call us with ongoing concerns. Medications: New rosuvastatin (Crestor) 10 mg PO DAILY 90 tabs 3RF Changed From furosemide 20 mg PO QAM 90 tabs 3RF edema, fluid overload To furosemide 40 mg PO QAM edema, fluid overload From potassium chloride 40 mEq (15 mL) PO DAILY 473 mL 0RF To potassium chloride 20 mEq PO DAILY Coding Level of Care Code New Pt Level 4 (28711) Diagnoses Chronic cor pulmonale I27.81 Precordial chest pain R07.2
== END 2023-08-05 11:47 | disposition home or self-care (01) ==
PROVIDERS: PCP Internal Medicine; Visit Provider Internal Medicine
DX: I27.81 Cor pulmonale (chronic) (principal); R07.2 Precordial pain
CPT/HCPCS: 99204

== ENCOUNTER → 2023-08-05 11:13 | Outpatient (BNVA) | payer MEDICARE, SELFPAY | PROVIDERS: PCP Internal Medicine; Visit Provider Internal Medicine | DX: R07.2 Precordial pain (principal); I50.9 Heart failure, unspecified; I27.81 Cor pulmonale (chronic) | CPT/HCPCS: 99202 ==

== ENCOUNTER 2023-08-12 11:06 | Outpatient (REF) | payer MEDICARE, SELFPAY ==
[2023-08-12 12:36] LABS: Anion Gap 20 (12-20); Blood Urea Nitrogen 70 mg/dL (9-16); Calcium 9.5 mg/dL (8.4-10.2); Carbon Dioxide 18 mmol/L (22-29); Chloride 109 mmol/L (96-108); Glucose Random 226 mg/dL (60-115); Potassium 4.6 mmol/L (3.3-5.1); Sodium 142 mmol/L (135-145)
[2023-08-12 12:40] LABS: Estimated Glomerular Filt Rate 11
[2023-08-12 14:04] LABS: Alanine Aminotransferase 8 U/L (0-40); Albumin Level 4.1 g/dL (3.5-5.0); Alkaline Phosphatase 72 U/L (39-117); Aspartate Amino Transferase 17 U/L (5-37); Bilirubin Total 0.4 mg/dL (0.0-1.0); Total Protein 7.4 g/dL (6.5-8.0)
== END 2023-08-12 11:07 | disposition home or self-care (01) ==
LOC: HO.LAB 11:06
PROVIDERS: PCP Internal Medicine; Visit Provider Internal Medicine
DX: J44.9 Chronic obstructive pulmonary disease, unspecified (principal)
CPT/HCPCS: 36415; 80048; 80053

== ENCOUNTER 2023-08-14 12:52 | Outpatient (REF) | payer MEDICARE, SELFPAY ==
[2023-08-14 14:08] LABS: Anion Gap 18 (12-20); Blood Urea Nitrogen 77 mg/dL (9-16); Calcium 9.6 mg/dL (8.4-10.2); Carbon Dioxide 20 mmol/L (22-29); Chloride 108 mmol/L (96-108); Glucose Random 142 mg/dL (60-115); Potassium 4.8 mmol/L (3.3-5.1); Sodium 141 mmol/L (135-145)
[2023-08-14 14:09] LABS: Estimated Glomerular Filt Rate 12
== END 2023-08-14 12:53 | disposition home or self-care (01) ==
LOC: HO.LAB 12:52
PROVIDERS: PCP Internal Medicine; Visit Provider Internal Medicine
DX: N19 Unspecified kidney failure (principal)
CPT/HCPCS: 36415; 80048

== ENCOUNTER 2023-08-17 05:26 | Emergency (ER) | payer MEDICARE, SELFPAY ==
--- NOTE | ~2023-08-17 | CT_ITS ---
EXAMINATION: CT ABDOMEN AND PELVIS WITHOUT CONTRAST CLINICAL INFORMATION: Abdominal pain. Prior exam indicates history of bladder cancer. COMPARISON: Previous CT of the abdomen and pelvis June 2023 TECHNIQUE: Multidetector volumetric imaging was performed from the superior aspect of the liver through the pubic symphysis. Sagittal and coronal reformatted images were obtained on the technologist's workstation. This CT examination was performed using dose optimization techniques as appropriate, variously including the following: *Automated exposure control *Adjustment of mA and/or kV according to patient size (this includes techniques or standardized protocols for targeted exams where dose is matched to indication/reason for exam; i.e. extremities or head) *Use of iterative reconstruction technique DLP: 511 mGy-cm FINDINGS: LUNG BASES: Interstitial lung disease at the bases. Enlarged heart. LIVER, GALLBLADDER, AND BILIARY TREE: The liver is normal in size, shape, and attenuation. No focal hepatic lesion or biliary ductal dilatation is present. The gallbladder is unremarkable with no evidence of radiopaque gallstones, gallbladder wall thickening, or obvious pericholecystic inflammatory changes. PANCREAS: Small calcifications in the pancreas suggestive of chronic pancreatitis. SPLEEN: Unremarkable. ADRENAL GLANDS: Unremarkable. KIDNEYS AND URETERS: Moderate bilateral hydronephrosis and pneumothorax ureters are dilated down to the bladder. No stone seen. From June 2023. BLADDER: Diffuse bladder wall thickening, greatest right anterior. Stranding of the perivesicular fat. Enlarged prostate gland that protrudes into the base of the bladder. GASTROINTESTINAL TRACT: Stool throughout the colon just above of constipation. Small and large bowel are otherwise unremarkable. Question diffuse rectal wall thickening/colitis. Normal appendix. ABDOMINAL WALL: Small umbilical hernia containing fat. LYMPH NODES: Normal. VASCULAR: Atherosclerotic disease. PELVIC VISCERA: The prostate gland is enlarged and protrudes into the base of the bladder. Low-attenuation in the central prostate gland questionable for post TURP defect. There is diffuse fat stranding in the pelvis. There is trace ascites. These findings are increased from recent exam. Appearance is questionable for post radiation change in the pelvis. OSSEOUS STRUCTURES: Degenerative changes of the spine and joints. CT/CT abdomen pelvis wo IV con IMPRESSION: Moderate bilateral hydronephrosis and ureteral dilatation down to the bladder slightly increased from June 2023. No stone seen. Enlarged prostate gland that protrudes into the base of the bladder. Diffusely thickened bladder wall, greatest right anterior wall. Perivesicular fat stranding and generalized diffuse fat stranding in the pelvis and small amount of fluid increased from recent exam. Constipation. Question rectal wall thickening/proctitis. These findings could represent post radiation change. Clinical correlation recommended. Fleischner guidelines were followed.
[2023-08-17 05:29] VITALS: BP 132/70; PULSE 88; O2SAT 96; BMI 28.2
[2023-08-17 05:35] VITALS: BP 138/66; PULSE 96; RESP 22; TEMP 36.5; O2SAT 97
[2023-08-17 05:47] LABS: MANUAL DIFF FLAG NO
[2023-08-17 05:52] LABS: Basophils Percent Auto 0.4 % (0-2); Eosinophils Absolute Auto 0.2 X10*3/uL (0.0-0.4); Hematocrit 25.8 % (42.0-52.0); Hemoglobin 8.3 g/dl (14.0-18.0); Imm Gran Abs Auto 0.05 X10*3/uL (0.00-0.03); Imm Gran Pct Auto 0.7 % (0.0-0.4); Lymphocytes Absolute Auto 0.5 X10*3/uL (1.2-4.9); Lymphocytes Percent Auto 6.8 % (20-40); Mean Corpuscular HGB Conc 32.2 g/dl (31.0-36.0); Mean Corpuscular Hemoglobin 29.2 pg (27.0-33.0); Mean Corpuscular Volume 90.8 fL (80.0-98.0); Mean Platelet Volume 10.7 fL (9.4-12.4); Monocytes Absolute Auto 0.5 X10*3/uL (0.1-1.2); Monocytes Percent Auto 7.2 % (2-11); Neutrophils Absolute Auto 6.2 x10*3/uL (2.0-8.3); Neutrophils Percent Auto 82.9 % (45-73); Platelet Count 175 X10*3/uL (160-400); Red Blood Count 2.84 X10*6/uL (4.60-5.80); Red Cell Distribution Width 16.7 % (11.0-16.0); White Blood Count 7.5 X10*3/uL (4.8-10.8)
[2023-08-17 06:07] LABS: Alanine Aminotransferase 9 U/L (0-40); Albumin Level 3.9 g/dL (3.5-5.0); Alkaline Phosphatase 67 U/L (39-117); Anion Gap 19 (12-20); Aspartate Amino Transferase 17 U/L (5-37); Bilirubin Total 0.3 mg/dL (0.0-1.0); Blood Urea Nitrogen 84 mg/dL (9-16); Calcium 9.1 mg/dL (8.4-10.2); Carbon Dioxide 17 mmol/L (22-29); Chloride 112 mmol/L (96-108); Creatinine Clr Calc Pharmacy 12.9; Estimated Glomerular Filt Rate 12; Glucose Random 139 mg/dL (60-115); Lipase 20 U/L (8-78); Potassium 5.3 mmol/L (3.3-5.1); Sodium 143 mmol/L (135-145)
--- NOTE | 2023-08-17 06:10 | PC.NURSE ---
Critical labs received: Creatinine 4.[address] Redd. No new orders at this time.
--- NOTE | 2023-08-17 06:28 | PC.NURSE ---
Failed attempt at obtaining an IV line. Pt is requesting an U/S guided IV. Dr. Ivania ball.
--- NOTE | 2023-08-17 07:13 | ED_ITS ---
HPI - Abdominal Pain General Chief Complaint: Abdominal Pain Stated Complaint: abd pain Time Seen by Provider: 08/17/23 07:12 History of Present Illness HPI narrative: Patient is 78 years old presents today with having abdominal pain. The abdominal pain is over the suprapubic area. It is dull. It is ext claims he has not had good bowel movements. Patient is from home. He has a history of chronic renal insufficiency. History of COPD baseline is on oxygen at home. No fever no chills no cough and no chest pain or diaphoresis. Patient is passing gas. Having small bowel movements. Related Data Home Medications Medication Instructions Recorded Confirmed fluticasone 250 mcg-salmeterol 50 1 ea inhalation Q12H 04/19/23 08/05/23 mcg/dose blistr powdr for inhalation (Jose Núñez) acetaminophen 500 mg tablet 1,000 mg PO BID PRN Headache 04/22/23 08/05/23 multivitamin 1 tab PO DAILY 04/22/23 08/05/23 cetirizine 10 mg tablet 10 mg PO DAILY allergies 06/08/23 08/05/23 fluticasone propionate 50 1 spray intranasal DAILY PRN Cold 06/08/23 08/05/23 mcg/actuation nasal Symptoms spray,suspension sodium chloride 0.9 % nasal spray 1 spray intranasal TID PRN Dry 06/18/23 08/05/23 aerosol Nasal Passages tamsulosin 0.4 mg capsule 0.4 mg PO QAM 07/06/23 08/05/23 furosemide 20 mg tablet 40 mg PO QAM edema, fluid overload 08/05/23 08/05/23 potassium chloride 40 mEq/15 mL 20 meq PO DAILY 08/05/23 08/05/23 oral liquid Previous Rx's Medication Instructions Recorded albuterol sulfate 90 mcg/actuation 2 puff inhalation QID PRN 02/17/23 aerosol inhaler (ProAir HFA) shortness of breath or wheezing #8.5 grams guaifenesin 600 mg tablet, 600 mg PO BID #20 tabs 06/14/23 extended release 12 hr (Mucinex) ipratropium 0.5 mg-albuterol 3 mg 3 ml inhalation RQ4H WHILE AWAKE 06/14/23 (2.5 mg base)/3 mL nebulization 30 days #180 mL soln silicone,dressing-foam bandage 6 #10 ea 07/10/23 X 6 vibegron 75 mg tablet (Gemtesa) 75 mg PO DAILY #90 tabs 07/24/23 amoxicillin 875 mg-potassium 1 tab PO BID #20 tabs 07/25/23 clavulanate 125 mg tablet oxygen facial mask #1 ea 07/25/23 hydrocortisone 2.5 % topical cream 1 appl VA BID-QID PRN hemorrhoids 07/26/23 with perineal applicator #30 grams (Anusol-HC) lactobacillus combination no.9 4 4,000 mmu cells PO DAILY #90 caps 07/26/23 billion cell capsule (Adult 50 Plus Probiotic) rosuvastatin 10 mg tablet (Crestor) 10 mg PO DAILY #90 tabs 08/05/23 nystatin 100,000 unit/mL oral 500,000 unit (5 mL) buccal BID PRN 08/06/23 suspension moth irritation 10 days #60 mL docusate sodium 100 mg capsule 100 mg PO BID #30 caps 08/17/23 (Colace) polyethylene glycol 3350 17 17 g PO DAILY #119 grams 08/17/23 gram/dose oral powder (Miralax) Allergies Allergy/AdvReac Type Severity Reaction Status Date / Time Seasonal Allergies Allergy Sneezing Verified 08/05/23 11:18 Review of Systems Review of Systems Positive abdominal pain Yes all other systems are reviewed and are negative PMFSH Past Medical History Attestation statement: The following information was validated with the patient. Medical History Bladder cancer Urinary incontinence Chronic interstitial lung disease COPD exacerbation COVID-19 virus infection Viral syndrome Acute respiratory failure with hypoxemia IPF (idiopathic pulmonary fibrosis) Muscle spasms of both lower extremities Cataracts, bilateral Interstitial lung disease HTN (hypertension) HLD (hyperlipidemia) Surgical History Hx of sinus surgery Family History Family History Father Stomach cancer Mother Pacemaker Brother Pacemaker Social History Social History Household Members: Spouse Housing: House Do you presently have visiting nurse or other home services: Yes Alcohol intake: never Patient Tobacco Use Status: Former Tobacco user Quit Date: age 70 Tobacco use type: Cigarette Years Smoked: 61 Smoked in Last 30 Days: No e-Cigarette/Vaping Use: Never Used Second Hand Smoke Exposure: No Use of substances other than those prescribed or required for medical reasons: No Advance Directives: Yes Advance Directives on File: Yes Advance Directives Date on File: 02/15/23 service: No Current occupational status: previously employed Cognitive needs: No Hearing needs: Yes (hearing aides) Vision needs: No Physical Exam ED Vital Signs: Vital Signs - 24 hr 08/17/23 05:35 08/17/23 09:33 Temperature 97.7 F Pulse Rate 96 82 Respiratory Rate 22 H 20 Blood Pressure 138/66 135/96 H Pulse Oximetry 97 98 Oxygen Delivery Method Nasal Cannula Room Air Oxygen Flow Rate 3 BMI result Body Mass Index 28.2 Appearance: Alert. Oriented X3. No acute distress. Eyes: Pupils equal, round and reactive to light. ENT: Pharynx normal. Neck: Normal inspection. Neck supple. No lymph nodes noted. No crepitus CVS: Normal heart rate and rhythm. Pulses normal. Normal S1 and S2 Respiratory: No respiratory distress. Breath sounds normal. No Wheezing. No rales Abdomen: Soft and nontender. No rigidity. No distention. good BS x4 Skin: Skin warm and dry. Normal skin color. Normal skin turgor. Extremities: No lower extremity edema. Neurovascular intact to all extremities. No Lacerations. No Rash Neuro: Oriented X 3. No motor deficit. No sensory deficit. Moving all extermities. No slurred speech Medical Decision Making Medical Decision Making MDM Narrative: Positive abdominal pain. Mainly over the lower abdomen. Patient's creatinine is baseline. Urine showed no signs of infection. Bladder scan was 150 cc postvoid. No evidence for urinary retention. CT scan of the abdomen by my interpretation showed no overt obstruction. Radiology is reading showed a constipation. Rectal exam was done. There is no impacted stool. An enema was given with only minimal results. Will start patient on MiraLax and Colace. Have patient closely follow-up. Patient's potassium today was slightly elevated question secondary to hemolysis. Will give patient a dose of Lokelma and have patient follow-up on an outpatient basis repeat potassium in 2 days. Follow-up with primary. Currently in stable condition. Patient's respiratory status is baseline. Lungs are diminished bilaterally O2 sats 98% on room air after 2 L. currently in stable condition. Will discharge home. Differential Diagnosis Differential Diagnoses: The differential diagnosis associated with the presentation includes Constipation, obstruction, abscess, perforation, pancreatitis, abdominal aortic aneurysm, electrolyte disturbance, Admission/Observation Consideration of admission/observation: Escalation of care including admission/observation considered No particular reason to admit Lab Data 08/17/23 05:44 08/17/23 05:44 Labs: Lab Results 08/17/23 08/17/23 Range/Units 05:44 10:43 WBC 7.5 (4.8-10.8) X10*3/uL RBC 2.84 L (4.60-5.80) X10*6/uL Hgb 8.3 L (14.0-18.0) g/dl Hct 25.8 L (42.0-52.0) % MCV 90.8 (80.0-98.0) fL MCH 29.2 (27.0-33.0) pg MCHC 32.2 (31.0-36.0) g/dl RDW 16.7 H (11.0-16.0) % Plt Count 175 (160-400) X10*3/uL MPV 10.7 (9.4-12.4) fL Immature Gran % (Auto) 0.7 H (0.0-0.4) % Neut % (Auto) 82.9 H (45-73) % Lymph % (Auto) 6.8 L (20-40) % George % (Auto) 7.2 (2-11) % Eos % (Auto) 2.0 (0-4) % Baso % (Auto) 0.4 (0-2) % Lymph # (Auto) 0.5 L (1.2-4.9) X10*3/uL George # (Auto) 0.5 (0.1-1.2) X10*3/uL Eos # (Auto) 0.2 (0.0-0.4) X10*3/uL Baso # (Auto) 0.0 (0.0-0.2) X10*3/uL Abs Immat Gran (auto) 0.05 H (0.00-0.03) X10*3/uL Absolute Neuts (auto) 6.2 (2.0-8.3) x10*3/uL Absolute Nucleated RBC 0.000 (0.0-0.012) X10*3/uL Nucleated RBC % (auto) 0.0 (0.0-0.2) /100WBC Sodium 143 (135-145) mmol/L Potassium 5.3 H (3.3-5.1) mmol/L Chloride 112 H (96-108) mmol/L Carbon Dioxide 17 L (22-29) mmol/L Anion Gap 19 (12-20) BUN 84 H (9-16) mg/dL Creatinine 4.67 H* (0.5-1.4) mg/dL Estim Creat Clear Calc 12.9 Estimated GFR 12 Random Glucose 139 H (60-115) mg/dL Calcium 9.1 (8.4-10.2) mg/dL Total Bilirubin 0.3 (0.0-1.0) mg/dL AST 17 (5-37) U/L ALT 9 (0-40) U/L Alkaline Phosphatase 67 (39-117) U/L Total Protein 7.0 (6.5-8.0) g/dL Albumin 3.9 (3.5-5.0) g/dL Lipase 20 (8-78) U/L Urine Color Yellow Urine Appearance Clear Urine pH 5.5 (5.0-9.0) Ur Specific [place] 1.010 (1.005-1.025) Urine Protein Negative (Neg-Trace) mg/dL Urine Glucose (UA) Negative (Negative) mg/dL Urine Ketones Negative (Negative) mg/dL Urine Blood Negative (Negative) Urine Nitrite Negative (Negative) Ur Leukocyte Esterase Negative (Negative) Independent Interpretation I performed an independent interpretation of an: EKG (My interpretation of patient's EKG showed a sinus rhythm heart rate is 80 VA QRS QTC within normal limits is no acute ST segment elevation there is PVC noted.) and CT Scan (No overt obstruction abscess perforation) Radiology Impression Discussion of test interpretation with radiology: I discussed test interpretation with the radiologist External Record Review External record reviewed: Inpatient record Chronic Conditions COPD Medications Administered Discontinued Medications Generic Name Dose Route Start Last Admin Trade Name Freq PRN Reason Stop Dose Admin Hydromorphone HCl 0.5 mg 08/17/23 07:19 08/17/23 07:46 Hydromorphone Hcl 0.5 Mg/0.5 Ml Syringe IVPUSH 08/17/23 07:20 0.5 mg ONCE ONE Administration Protocol Sodium Biphosphate/Sodium Phosphate 133 ml 08/17/23 09:10 08/17/23 09:42 Sodium Phosphate,George-Dibasic 133 Ml Enema VA 08/17/23 09:11 133 ml ONCE ONE Administration Discharge Plan Discharge Clinical Impression: Constipation Patient Disposition: Home, Self-Care Instructions: Constipation (ED) Prescriptions: New polyethylene glycol 3350 [Miralax] 17 gram/dose powder 17 g PO DAILY Qty: 119 0RF docusate sodium [Colace] 100 mg capsule 100 mg PO BID Qty: 30 0RF No Action (DME) silicone,dressing-foam bandage 6 X 6 bandage See Rx Instructions .Route Qty: 10 0RF Rx Instructions: As directed (DME) oxygen facial mask See Rx Instructions .Route .MEDSUPPLY Qty: 1 8RF Rx Instructions: As directed hydrocortisone [Anusol-HC] 2.5 % cream with perineal applicator 1 appl VA BID-QID PRN (Reason: hemorrhoids) Qty: 30 2RF Adult 50 Plus Probiotic 4 billion cell capsule 4,000 mmu cells PO DAILY Qty: 90 0RF Rx Instructions: administer with a meal nystatin 100,000 unit/mL suspension 500,000 unit buccal BID PRN (Reason: moth irritation) 10 Days Qty: 60 0RF Rx Instructions: administer 1/2 of dose in each side of the mouth tamsulosin 0.4 mg capsule 0.4 mg PO QAM amoxicillin-pot clavulanate 875-125 mg tablet 1 tab PO BID Qty: 20 0RF albuterol sulfate [ProAir HFA] 90 mcg/actuation HFA aerosol inhaler 2 puff inhalation QID PRN (Reason: shortness of breath or wheezing) Qty: 8.5 0RF multivitamin Tablet 1 tab PO DAILY acetaminophen 500 mg Tablet 1,000 mg PO BID PRN (Reason: Headache) cetirizine 10 mg tablet 10 mg PO DAILY fluticasone propionate 50 mcg/actuation spray,suspension 1 spray intranasal DAILY PRN (Reason: Cold Symptoms) ipratropium-albuterol 0.5 mg-3 mg(2.5 mg base)/3 mL Solution For Nebulization 3 ml inhalation RQ4H WHILE AWAKE 30 Days Qty: 180 1RF guaifenesin [Mucinex] 600 mg Tablet Extended Release 12hr 600 mg PO BID Qty: 20 0RF fluticasone propion-salmeterol [Wixela Inhub] 250-50 mcg/dose blister with device 1 ea inhalation Q12H sodium chloride 0.9 % aerosol,spray 1 spray intranasal TID PRN (Reason: Dry Nasal Passages) Gemtesa 75 mg tablet 75 mg PO DAILY Qty: 90 2RF Rx Instructions: gemtesa to replace vesicare furosemide 20 mg tablet 40 mg PO QAM potassium chloride 40 mEq/15 mL liquid 20 meq PO DAILY rosuvastatin [Crestor] 10 mg tablet 10 mg PO DAILY Qty: 90 3RF Referrals: Jass Klein MD [Physician] - 08/19/23 (Please follow-up in 2 days to have your potassium recheck.)
[2023-08-17] MEDS: HYDROmorphone HCl 0.5 MG/0.5 ML SYRINGE IVPUSH (07:46)
[2023-08-17 09:33] VITALS: BP 135/96; PULSE 82; RESP 20; O2SAT 98
[2023-08-17] MEDS: Sodium Phosphate,Mono-Dibasic 133 ML ENEMA PR (09:42)
[2023-08-17 10:54] LABS: Appearance Urine Clear; Color Urine Yellow; Glucose Urine UA Negative (Negative); Leukocyte Esterase Urine Negative (Negative); Nitrite Urine Negative (Negative); PH 5.5 (5.0-9.0); Urine Blood Negative (Negative); Urine Ketones Negative (Negative); Urine Protein Negative (Neg-Trace)
--- NOTE | 2023-08-17 12:01 | ECG_ITS ---
Test Reason : PAIN Blood Pressure : / mmHG Vent. Rate : 084 BPM Atrial Rate : 084 BPM P-R Int : 328 ms QRS Dur : 074 ms QT Int : 344 ms P-R-T Axes : 000 080 036 degrees QTc Int : 406 ms Sinus rhythm with 1st degree A-V block with frequent Premature ventricular complexes Septal infarct , age undetermined Abnormal ECG When compared with ECG of 18-JUL-2023 16:26, Premature ventricular complexes are now Present Premature atrial complexes are no longer Present Nonspecific T wave abnormality, improved in Inferior leads Nonspecific T wave abnormality, improved in Anterior leads Referred By: Aranza Benoit Electronically Signed By:BEVERLEY LIZ
[2023-08-17] MEDS: Sodium Zirconium Cyclosilicate 10 GM POWD.PACK PO (12:35)
== END 2023-08-17 12:38 | disposition home or self-care (01) ==
PROVIDERS: Emergency Provider Emergency Medicine Emergency Medical Services
DX: K59.00 Constipation, unspecified (principal); R10.30 Lower abdominal pain, unspecified; R07.9 Chest pain, unspecified; N28.9 Disorder of kidney and ureter, unspecified; J44.9 Chronic obstructive pulmonary disease, unspecified; I10 Essential (primary) hypertension; E78.5 Hyperlipidemia, unspecified; Z99.81 Dependence on supplemental oxygen
CPT/HCPCS: 36415; 74176; 80053; 81003; 83690; 85025; 93005; 96374; 99285; J1170

== ENCOUNTER → 2023-08-17 12:01 | Outpatient (BNV) | payer MEDICARE, SELFPAY | PROVIDERS: Emergency Provider Emergency Medicine Emergency Medical Services; Visit Provider Internal Medicine | DX: I44.0 Atrioventricular block, first degree (principal); R94.31 Abnormal electrocardiogram [ECG] [EKG] | CPT/HCPCS: 93010 ==

== ENCOUNTER 2023-08-20 09:27 | Outpatient (REF) | payer MEDICARE, SELFPAY ==
[2023-08-20 10:50] LABS: Anion Gap 17 (12-20); Blood Urea Nitrogen 83 mg/dL (9-16); Calcium 9.1 mg/dL (8.4-10.2); Carbon Dioxide 21 mmol/L (22-29); Chloride 107 mmol/L (96-108); Estimated Glomerular Filt Rate 13; Glucose Random 110 mg/dL (60-115); Potassium 4.9 mmol/L (3.3-5.1); Sodium 140 mmol/L (135-145)
== END 2023-08-20 09:28 | disposition home or self-care (01) ==
LOC: HO.LAB 09:27
PROVIDERS: PCP Internal Medicine; Visit Provider Internal Medicine
DX: N17.9 Acute kidney failure, unspecified (principal)
CPT/HCPCS: 36415; 80048